=== PATIENT | female | born 1985 | race Caucasian/White ===

== ENCOUNTER 2016-09-11 22:29 | Inpatient (IN) | payer OTHER ==
[2016-09-11] MEDS ORDERED: SODIUM CHLORIDE 1,000 ML IV STA (23:58)
[2016-09-11] MEDS ORDERED: VANCOMYCIN 1,000 MG in DEXTROSE 5%-WATER - 250 ML IVPB ONE (23:58)
--- NOTE | 2016-09-12 00:29 | PDOC ---
History of Present Illness - General Chief Complaint: Wound Stated Complaint: ABCESS ON LEG Time Seen by Provider: 09/11/16 23:33 History Source: Patient Exam Limitations: No Limitations - History of Present Illness Initial Comments: 09/12/16 00:23 31yo Female patient presents to ED c/o abscesses. Patient reports she was recently admitted to [facility] for abscess behind her legs. Patient was receiving IV Vancomycin. She states her IV fell out, and they wanted her to take Abx by mouth. Patient states she left the hospital because she wanted a "second opinion." + drug dependence. Patient recently used heroin and cocaine prior to coming to this ED. She denies any other complaints at this time. Past History - Travel Traveled outside of the country in the last 30 days: No Close contact w/someone who was outside of country & ill: No - Past Medical History Allergies/Adverse Reactions: Allergies Allergy/AdvReac Type Severity Reaction Status Date / Time No Known Allergies Allergy Verified 09/11/16 22:33 Home Medications: Ambulatory Orders NK [No Known Home Medication] 09/11/16 Anemia: No Asthma: No Cancer: No Cardiac Disorders: No CVA: No COPD: No CHF: No Dementia: No Diabetes: No GI Disorders: No Disorders: No HTN: No Hypercholesterolemia: No Kidney Stones: No Liver Disease: No Suicide Attempt (Hx): No Seizures: No Thyroid Disease: No - Surgical History Abdominal Surgery: No Appendectomy: No Cardiac Surgery: No Cholecystectomy: No Lung Surgery: No Neurologic Surgery: No Orthopedic Surgery: No - Reproductive History PID: No - Immunization History Td Vaccination: Yes Immunization Up to Date: Yes - Psycho/Social/Smoking Cessation Hx Anxiety: Yes Suicidal Ideation: No Smoking Status: Yes Smoking History: Current every day smoker Have you smoked in the past 12 months: Yes Number of Cigarettes Smoked Daily: 10 Cigars Per Day: 0 Information on smoking cessation initiated: Yes 'Breaking Loose' booklet given: 09/11/16 Hx Alcohol Use: No Drug/Substance Use Hx: Yes (heroin, cocaine) Substance Use Type: Cocaine, Heroin Hx Substance Use Treatment: Yes (hitesh 05/29) Review of Systems - Review of Systems Able to Perform ROS?: Yes Is the patient limited Belgian proficient: No Constitutional: No: Chills, Fever Respiratory: No: Cough, Shortness of Breath, Stridor, Wheezing Cardiac (ROS): No: Chest Pain, Edema, Palpitations, Syncope, Chest Tightness ABD/GI: No: Constipated, Diarrhea, Nausea, Poor Appetite, Poor Fluid Intake, Vomiting : No: Burning, Dysuria, Discharge, Frequency, Flank Pain, Hematuria, Pain, Urgency Musculoskeletal: No: Back Pain, Gout, Muscle Weakness, Neck Pain Integumentary: Yes: Other (1. Large open abscess to Lt and Rt posterior legs, active purulent drainage. No odor or erythema. Large healing abscess to right wrist.) All Other Systems: Reviewed and Negative *Physical Exam - Vital Signs Last Vital Signs Temp Pulse Resp BP Pulse Ox 97.8 F 101 H 14 162/77 97 09/11/16 22:35 09/11/16 22:35 09/11/16 22:35 09/11/16 22:35 09/11/16 22:35 - Physical Exam General Appearance: Yes: Nourished, Disheveled. No: Appropriately Dressed, Apparent Distress, Mild Distress, Moderate Distress, Severe Distress Neck: positive: Trachea midline, Supple. negative: Stridor, Lymphadenopathy (R) , Lymphadenopathy (L) Respiratory/Chest: positive: Lungs Clear, Normal Breath Sounds. negative: Respiratory Distress, Accessory Muscle Use, Labored Respiration, Rapid RR Cardiovascular: positive: Regular Rhythm, Regular Rate. negative: Edema, JVD, Murmur Gastrointestinal/Abdominal: positive: Normal Bowel Sounds, Soft. negative: Distended, Guarding, Rebound, Tenderness Musculoskeletal: positive: Normal Inspection. negative: CVA Tenderness Extremity: positive: Normal Capillary Refill, Normal Inspection, Normal Range of Motion. negative: Erythema, Inflammation Integumentary: positive: Normal Color, Dry, Warm, Other (1. Large open draining abscess to posterior right and left legs. Purulent drainage. No odor or erythema. 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 NML intact, Fully Oriented, Alert, Normal Mood/ Affect, Normal Response, Motor Strength 12/16 ED Treatment Course - LABORATORY CBC & Chemistry Diagram: 09/12/16 02:00 09/12/16 02:00 *DC/Admit/Observation/Transfer Diagnosis at time of Disposition: Cutaneous abscess Qualifiers: Site of cutaneous abscess: extremity Site of cutaneous abscess of extremity: lower extremity Laterality: unspecified laterality Qualified Code(s): L02.419 - Cutaneous abscess of limb, unspecified Wound abscess Qualifiers: Encounter type: initial encounter Qualified Code(s): T81.4XXA - Infection following a procedure, initial encounter - Discharge Dispostion Condition at time of disposition: Stable Admit: Yes
[2016-09-12 01:09] LABS: URINE APPEARANCE SLCLOUDY; URINE BILIRUBIN NEGATIVE (NEGATIVE); URINE BLOOD NEGATIVE (NEGATIVE); URINE COLOR YELLOW; URINE GLUCOSE (UA) NEGATIVE (NEGATIVE); URINE KETONE TRACE (NEGATIVE); URINE LEUK ESTERASE NEGATIVE (NEGATIVE); URINE NITRITE NEGATIVE (NEGATIVE); URINE UROBILINOGEN NEGATIVE E.U./dl (0.2-1.0)
[2016-09-12 01:16] LABS: URINE PROTEIN 1+ (NEGATIVE)
[2016-09-12 01:25] LABS: CALCIUM OXALATE CRYSTALS FEW /hpf (NONE SEEN); URINE MUCUS MANY; URINE RBC 1 /hpf (0-3)
[2016-09-12] MEDS ORDERED: VANCOMYCIN 1 GRAM (PRE-DOCKED) 250 ML IVPB ONE ×2 (02:49→05:25)
[2016-09-12 02:56] LABS: MCH 25.3 pg (25.7-33.7); MCHC 32.4 g/dl (32.0-36.0); MEAN PLT VOLUME 7.7 fl (7.5-11.1); PLATELET COUNT 440 K/MM3 (134-434); RDW 14.4 % (11.6-15.6); WHITE BLOOD COUNT 9.3 K/mm3 (4.0-10.0)
--- NOTE | 2016-09-12 04:37 | PN ---
<Kelsey Velásquez - Last Filed: 09/12/16 05:05> Teaching Attending Note ATTENDING PHYSICIAN STATEMENT I saw and evaluated the patient. I reviewed the resident's note and discussed the case with the resident. I agree with the resident's findings and plan as documented. SUBJECTIVE: Patient is a 31 yo F with a PMHx of drug abuse and popliteal abscess who presents with intermittent popliteal abscesses that began 2 weeks ago. Patient reports the abscesses came back 2 weeks ago. She describes the abscesses as painful and reports seeing a light yellow discharge. Patient reports the abscess began as a small bump. She reports leaving AMA from [facility] yesterday after receiving IV antibiotics. Patient reported here because she wanted a second opinion. She admits to using cocaine and heroin prior to arrival at ED. She also reports associated chills. Patients LMP was August. Denies: fever, diaphoresis, headache, chest pain, palpitation, dysuria, abdominal pain OBJECTIVE: Last Vital Signs Temp Pulse Resp BP Pulse Ox 97.8 F 101 H 14 162/77 97 09/11/16 22:35 09/11/16 22:35 09/11/16 22:35 09/11/16 22:35 09/11/16 22:35 CBCD WBC 9.3 K/mm3 (4.0-10.0) D 09/12/16 02:00 RBC 4.66 M/mm3 (3.60-5.2) 09/12/16 02:00 Hgb 11.8 GM/dL (10.7-15.3) 09/12/16 02:00 Hct 36.4 % (32.4-45.2) 09/12/16 02:00 MCV 78.0 fl (80-96) L 09/12/16 02:00 MCHC 32.4 g/dl (32.0-36.0) 09/12/16 02:00 RDW 14.4 % (11.6-15.6) 09/12/16 02:00 Plt Count 440 K/MM3 (134-434) H D 09/12/16 02:00 MPV 7.7 fl (7.5-11.1) 09/12/16 02:00 CMP Sodium Cancelled 09/12/16 02:00 Potassium Cancelled 09/12/16 02:00 Chloride Cancelled 09/12/16 02:00 Carbon Dioxide Cancelled 09/12/16 02:00 Anion Gap Cancelled 09/12/16 02:00 BUN Cancelled 09/12/16 02:00 Creatinine Cancelled 09/12/16 02:00 Creat Clearance w eGFR Cancelled 09/12/16 02:00 Calcium Cancelled 09/12/16 02:00 Total Bilirubin Cancelled 09/12/16 02:00 AST Cancelled 09/12/16 02:00 ALT Cancelled 09/12/16 02:00 Alkaline Phosphatase Cancelled 09/12/16 02:00 Total Protein Cancelled 09/12/16 02:00 Albumin Cancelled 09/12/16 02:00 ASSESSMENT AND PLAN: 31 yo female with a PMHx of drug abuse and prior knee abscess who presents with popliteal abscess. 1.) Popliteal abscess -ID consult questionable I&D at [facility] -IVF -Surgical consult -Records from [facility] -Pain control -Repeat BMP 2.) Heroine and cocaine -Methadone protocol -Detox consult 3.) DVT ppx -heparin Documentation prepared by Kelsey Velásquez, acting as medical billing service for Mikala Villavicencio M.D. <Mikala Villavicencio - Last Filed: 09/12/16 05:21> Teaching Attending Note Name of Resident: Stefany Chavez ATTENDING PHYSICIAN STATEMENT I saw and evaluated the patient. I reviewed the resident's note and discussed the case with the resident. I agree with the resident's findings and plan as documented. OBJECTIVE: Physical: VS: Vital Signs (72 hours) 09/11/16 22:35 Temperature 97.8 F Pulse Rate 101 H Respiratory 14 Rate Blood Pressure 162/77 O2 Sat by Pulse 97 Oximetry (%) GEN: NAD, Resting in bed HEENT:NCAT, PERRL CARD: RRR S1, S2 RESP: CTAB ABD: BSX4, NTD to palpation EXT: Bilteral Knee Wounds Open wound R. Polpiteal area 4X5 cm non draining L. Knee draining wound UE: - C/C/E
--- NOTE | 2016-09-12 05:20 | HP ---
CHIEF COMPLAINT: Abscess behind both knees PCP: Doesn't have a PCP. Upon discharge, she may follow up with Dr. Addison (if possible on Monday after 1 pm) HISTORY OF PRESENT ILLNESS: 31 year old female with h/o heroin, cocaine abuse presented to the ED because of abscess behind her both knees. A/c to the patient, it started 2 weeks ago in both sites at the same time. Started with redness over the skin with a bump, progressively got worse, was painful, whitish yellowish fluid was seen. She then went to [facility] for treatment 6 days ago where she was treated with IV antibiotics. Apparently, IV line came off, the doctors wanted to start her on PO antibiotics hence she signed out AMA. She wanted to take second opinion but didn't come right away as she had to take cocaine and heroine before coming to [facility]. As per the patient, she had a CT of left knee at [facility] and surgeon performed incision and drainage and drained only blood but no pus. Patient was upset as it didn't get better after I&D. Denies headache, dizziness, fever, rigors, chest pain, sob, cough, palpitation, abdominal pain, nausea or vomiting. Bowel/Bladder Normal Sleep/Appetite Normal LMP- 1week of Aug, 2016 Last Hospitalized 02/21/2016 for sepsis secondary to injecting heroin behind her knees with MRSA + from wound culture. ER course was notable for: (1) CBC, CMP, UA, U.tox (2) CXR (3) IV Vancomycin Recent Travel: None PAST MEDICAL HISTORY: Drug abuse PAST SURGICAL HISTORY: None reported OCCUPATION: Stopped working since a month. Worked in [employer]. Social History: Smokin/2 pack since few years, patient would like to quit. Alcohol: Occasional Drugs: Cocaine, Heroine. Took few hours ago. Family History: Allergies No Known Allergies Allergy (Verified 09/11/16 22:33) HOME MEDICATIONS: Medication Instructions Recorded NK [No Known Home Medication] 09/11/16 REVIEW OF SYSTEMS CONSTITUTIONAL: Absent: fever, chills, diaphoresis, generalized weakness, malaise, loss of appetite, weight change HEENT: Absent: rhinorrhea, nasal congestion, throat pain, throat swelling, difficulty swallowing, mouth swelling, ear pain, eye pain, visual changes CARDIOVASCULAR: Absent: chest pain, syncope, palpitations, irregular heart rate, lightheadedness , peripheral edema RESPIRATORY: Absent: cough, shortness of breath, dyspnea with exertion, orthopnea, wheezing, stridor, hemoptysis GASTROINTESTINAL: Absent: abdominal pain, abdominal distension, nausea, vomiting, diarrhea, constipation, melena, hematochezia GENITOURINARY: Absent: dysuria, frequency, urgency, hesitancy, hematuria, flank pain, genital pain MUSCULOSKELETAL: Absent: myalgia, arthralgia, joint swelling, back pain, neck pain SKIN popliteal area: Present: Pain over the popliteal area, erythematous, tender Absent: rash, itching, pallor HEMATOLOGIC/IMMUNOLOGIC: Absent: easy bleeding, easy bruising, lymphadenopathy, frequent infections ENDOCRINE: Absent: unexplained weight gain, unexplained weight loss, heat intolerance, cold intolerance NEUROLOGIC: Absent: headache, focal weakness or paresthesias, dizziness, unsteady gait, seizure, mental status changes, bladder or bowel incontinence PSYCHIATRIC: Absent: anxiety, depression, suicidal or homicidal ideation, hallucinations. PHYSICAL EXAMINATION Vital Signs - 24 hr 09/11/16 22:35 Temperature 97.8 F Pulse Rate 101 H Respiratory 14 Rate Blood Pressure 162/77 O2 Sat by Pulse 97 Oximetry (%) GENERAL: Young female, Awake, alert, and fully oriented, in no acute distress. HEAD: Normal with no signs of trauma. EYES: EOM intact, no pallor or icterus. EARS, NOSE, THROAT: Ears normal. Moist mucous membranes. NECK: Supple LUNGS: Breath sounds equal, clear to auscultation bilaterally. No wheezes, and no crackles. No accessory muscle use. HEART: Regular rate and rhythm, normal S1 and S2 without murmur, rub or gallop. ABDOMEN: Soft, nontender, not distended, normoactive bowel sounds, no guarding, no rebound, no masses. No hepatomegaly or splenomegaly. MUSCULOSKELETAL: Normal range of motion at all joints. No bony deformities or tenderness. No CVA tenderness. INTEGUMENTARY: Purulent drainange from the b/l popliteal area, left medial side- surgical incision site draining pus, tender to touch and on flexion/extension, serosanguinous fluid +, no odor. UPPER EXTREMITIES: 2+ pulses, warm, well-perfused. No cyanosis. No clubbing. No peripheral edema. LOWER EXTREMITIES: 2+ pulses, warm, well-perfused. No calf tenderness. No peripheral edema. NEUROLOGICAL: Cranial nerves II-XII intact. Normal speech. Bulk, tone, power 5/ 5, reflexes normal. Gait not observed. PSYCHIATRIC: Cooperative. Good eye contact. Appropriate mood and affect. SKIN: Warm, dry, normal turgor, no rashes or lesions noted. Laboratory Results - last 24 hr 09/12/16 09/12/16 09/12/16 00:25 02:00 02:00 WBC 9.3 D RBC 4.66 Hgb 11.8 Hct 36.4 MCV 78.0 L MCHC 32.4 RDW 14.4 Plt Count 440 H D MPV 7.7 Sodium Cancelled Potassium Cancelled Chloride Cancelled Carbon Dioxide Cancelled Anion Gap Cancelled BUN Cancelled Creatinine Cancelled Creat Clearance w eGFR Cancelled Random Glucose Cancelled Lactic Acid Calcium Cancelled Total Bilirubin Cancelled AST Cancelled ALT Cancelled Alkaline Phosphatase Cancelled Total Protein Cancelled Albumin Cancelled Urine Color Yellow Urine Appearance Slcloudy Urine pH 5.0 Ur Specific [place] 1.032 Urine Protein 1+ H Urine Glucose (UA) Negative Urine Ketones Trace H Urine Blood Negative Urine Nitrite Negative Urine Bilirubin Negative Urine Urobilinogen Negative Ur Leukocyte Esterase Negative Urine RBC 1 Urine WBC None Ur Epithelial Cells Rare Calcium Oxalate Crystal Few Urine Mucus Many Urine HCG, Qual Negative 09/12/16 09/12/16 03:06 03:26 WBC RBC Hgb Hct MCV MCHC RDW Plt Count MPV Sodium Cancelled Potassium Cancelled Chloride Cancelled Carbon Dioxide Cancelled Anion Gap Cancelled BUN Cancelled Creatinine Cancelled Creat Clearance w eGFR Cancelled Random Glucose Cancelled Lactic Acid 0.896 Calcium Cancelled Total Bilirubin Cancelled AST Cancelled ALT Cancelled Alkaline Phosphatase Cancelled Total Protein Cancelled Albumin Cancelled Urine Color Urine Appearance Urine pH Ur Specific [place] Urine Protein Urine Glucose (UA) Urine Ketones Urine Blood Urine Nitrite Urine Bilirubin Urine Urobilinogen Ur Leukocyte Esterase Urine RBC Urine WBC Ur Epithelial Cells Calcium Oxalate Crystal Urine Mucus Urine HCG, Qual ASSESSMENT/PLAN: 31 year old female with h/o heroin, cocaine abuse presented to the ED because of abscess behind her both knees x 2 weeks. # Popliteal abscess x 2 weeks Most likely due to IV drug abuse but not certain Last Hospitalized 02/21/2016 for sepsis secondary to injecting heroin behind her knees with MRSA + from wound culture. At that time, treated with Vancomycin and Aztreonam Records/CT imaging of knees to be obtained from [facility] On arrival, afebrile, HR 101bpm, No leukocytosis Patient admitted in Med-Surg IV Vancomycin one dose given in the ED ID consult placed Wound culture pending Ordered Vancomycin and Aztreonam, confirmation pending Surgical consult placed Local wound care IV fluids continued # Polysubstance abuse Patient admitted she took heroine, cocaine a couple of hours ago Would consider HIV test to be done U. tox pending Methadone protocol started Watch for withdrawals Dr. Wade consult Counseling # FEN IV NS @ 75mls/hr Electrolytes normal Regular diet # Prophylaxis For DVT- On Heparin 5000U For GI- Not indicated # Code status- Full code # Dispo: Admitted in Med-Surg Illness, Investigation and Plan of care explained to the patient. She verbalized understanding. Case seen and discussed with Dr. Villavicencio. Visit type - Emergency Visit Emergency Visit: Yes ED Registration Date: 09/12/16 Care time: The patient presented to the Emergency Department on the above date and was hospitalized for further evaluation of their emergent condition. - New Patient This patient is new to me today: Yes Date on this admission: 09/12/16 - Critical Care Critical Care patient: No
[2016-09-12] MEDS ORDERED: AZTREONAM 1 GM in DEXTROSE 5%-WATER - 50 ML IVPB ONE (05:25)
[2016-09-12] MEDS ORDERED: VANCOMYCIN 1,000 MG in DEXTROSE 5%-WATER - 250 ML IVPB ONE (05:25)
[2016-09-12 05:57] LABS: ALBUMIN 3.2 g/dl (3.4-5.0); ANION GAP 11 (8-16); BILIRUBIN,TOTAL 0.2 mg/dL (0.2-1.0); CALCIUM 8.6 mg/dL (8.5-10.1); CO2 26 mmol/L (21-32); CREATININE 0.8 mg/dL (0.55-1.02); GLUCOSE,RANDOM 92 mg/dL (74-106); SGOT/AST 11 U/L (15-37); SGPT/ALT 15 U/L (12-78); TOT PROT 6.8 g/dl (6.4-8.2)
[2016-09-12 05:58] LABS: ALK PHOS 67 U/L (45-117)
[2016-09-12] MEDS: SODIUM CHLORIDE 1,000 ML IV SCH (05:58)
[2016-09-12] MEDS ORDERED: METHADONE HCL 10 MG TABLET (FOR DETOX USE ONLY) PO ONE (06:01)
[2016-09-12] MEDS ORDERED: METHADONE HCL 10 MG TABLET ONE (06:56)
[2016-09-12] MEDS ORDERED: VANCOMYCIN 1 GRAM (PRE-DOCKED) 250 ML IVPB SCH ×2 (10:00→22:00)
[2016-09-12] MEDS: HEPARIN NA (PORCINE) 5,000 UNITS/ML 1ML VIAL SQ SCH ×2 (10:12→22:27)
--- NOTE | 2016-09-12 10:23 | CONSULT ---
Consult Detox [facility] Reason for Current Admission/Consult: heroin withdrawal sx. Referred by:: Stefany Chavez Res - History History of Present Illness: 31 y/o woman known to me from previous admissions for detox and cellulitis. Pt. uses IV heroin daily which results in cellulitis. - History Source History Provided By: Patient, Medical Record - Alcohol/Substance Use Hx Alcohol Use: No - Current Drug/Alcohol Use Heroin Route: Injection Frequency: Daily Amount used: 5-8 bags Age of first use: 23 Date of Last Use: 09/11/16 - Past Medical History ...LMP: 02/08/16 Psych: Yes: Addictions - Significant Medical Findings: Laboratory Last Values WBC 9.3 K/mm3 (4.0-10.0) D 09/12/16 02:00 RBC 4.66 M/mm3 (3.60-5.2) 09/12/16 02:00 Hgb 11.8 GM/dL (10.7-15.3) 09/12/16 02:00 Hct 36.4 % (32.4-45.2) 09/12/16 02:00 MCV 78.0 fl (80-96) L 09/12/16 02:00 MCHC 32.4 g/dl (32.0-36.0) 09/12/16 02:00 RDW 14.4 % (11.6-15.6) 09/12/16 02:00 Plt Count 440 K/MM3 (134-434) H D 09/12/16 02:00 MPV 7.7 fl (7.5-11.1) 09/12/16 02:00 Sodium 140 mmol/L (136-145) 09/12/16 05:11 Potassium 4.2 mmol/L (3.5-5.1) 09/12/16 05:11 Chloride 103 mmol/L (98-107) 09/12/16 05:11 Carbon Dioxide 26 mmol/L (21-32) 09/12/16 05:11 Anion Gap 11 (8-16) 09/12/16 05:11 BUN 10 mg/dL (7-18) 09/12/16 05:11 Creatinine 0.8 mg/dL (0.55-1.02) 09/12/16 05:11 Creat Clearance w eGFR > 60 (>60) 09/12/16 05:11 Random Glucose 92 mg/dL (74-106) 09/12/16 05:11 Lactic Acid 0.896 mmol/L (0.4-2.0) 09/12/16 03:06 Calcium 8.6 mg/dL (8.5-10.1) 09/12/16 05:11 Total Bilirubin 0.2 mg/dL (0.2-1.0) D 09/12/16 05:11 AST 11 U/L (15-37) L D 09/12/16 05:11 ALT 15 U/L (12-78) 09/12/16 05:11 Alkaline Phosphatase 67 U/L (45-117) 09/12/16 05:11 Total Protein 6.8 g/dl (6.4-8.2) 09/12/16 05:11 Albumin 3.2 g/dl (3.4-5.0) L 09/12/16 05:11 Urine Color Yellow 09/12/16 00:25 Urine Appearance Slcloudy 09/12/16 00:25 Urine pH 5.0 (5.0-8.0) 09/12/16 00:25 Ur Specific [place] 1.032 (1.001-1.035) 09/12/16 00:25 Urine Protein 1+ (NEGATIVE) H 09/12/16 00:25 Urine Glucose (UA) Negative (NEGATIVE) 09/12/16 00:25 Urine Ketones Trace (NEGATIVE) H 09/12/16 00:25 Urine Blood Negative (NEGATIVE) 09/12/16 00:25 Urine Nitrite Negative (NEGATIVE) 09/12/16 00:25 Urine Bilirubin Negative (NEGATIVE) 09/12/16 00:25 Urine Urobilinogen Negative E.U./dl (0.2-1.0) 09/12/16 00:25 Ur Leukocyte Esterase Negative (NEGATIVE) 09/12/16 00:25 Urine RBC 1 /hpf (0-3) 09/12/16 00:25 Urine WBC None /hpf (3-5) 09/12/16 00:25 Ur Epithelial Cells Rare /hpf (FEW) 09/12/16 00:25 Calcium Oxalate Crystal Few /hpf (NONE SEEN) 09/12/16 00:25 Urine Mucus Many 09/12/16 00:25 Urine HCG, Qual Negative 09/12/16 00:25 Opiates Screen Cancelled 09/12/16 00:25 Methadone Screen Cancelled 09/12/16 00:25 Barbiturate Screen Cancelled 09/12/16 00:25 Phencyclidine Screen Cancelled 09/12/16 00:25 Ur Amphetamines Screen Cancelled 09/12/16 00:25 MDMA (Ecstasy) Screen Cancelled 09/12/16 00:25 Benzodiazepines Screen Cancelled 09/12/16 00:25 Cocaine Screen Cancelled 09/12/16 00:25 U Marijuana (THC) Screen Cancelled 09/12/16 00:25 labs noted COWS - Scale Resting Pulse: 1= MT 81-100 Sweatin=Flushed/Facial Moisture Restless Observation: 1= Difficult to Sit Still Pupil Size: 1= Pupils >than Normal Bone or Joint Aches: 1= Mild Discomfort Runny Nose/ Eye Tearin= Runny Nose/Eyes GI Upset > 30mins: 2= Nausea/Diarrhea Tremor Observation: 2= Slight Tremor Visible Yawning Observation: 1= 1-2x During Session Anxiety or Irritability: 2=Irritable/Anxious Goose Flesh Skin: 0=Smooth Skin COWS Score: 15 Assessment Plan - Diagnosis (1) Opioid dependence with withdrawal Status: Acute - Plan Plan: Pt. will need rehab followed by terminal makeup operator residential - Medication Detox Regimen/Protocol: Methadone (ordered by resident)
[2016-09-12 12:55] VITALS: BMI 22.7
--- NOTE | 2016-09-12 15:19 | CONSULT ---
Consult Consult Specialty:: infectious diseases Reason for Consultation:: popliteal abscess - History of Present Illness Chief Complaint: pain on the popliteal fossa History of Present Illness: 31 year old female with h/o heroin, cocaine abuse presented to the ED because of abscess behind her both knees. A/c to the patient, it started 2 weeks ago in both sites at the same time. Started with redness over the skin with a bump, progressively got worse, was painful, whitish yellowish fluid was seen. She then went to [facility] for treatment 6 days ago where she was treated with IV antibiotics. Apparently, IV line came off, the doctors wanted to start her on PO antibiotics hence she signed out AMA. She wanted to take second opinion but didn't come right away as she had to take cocaine and heroine before coming to [facility]. 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/ [employer] History of Recent Travel: No Home Medications - Allergies Allergies/Adverse Reactions: Allergies Allergy/AdvReac Type Severity Reaction Status Date / Time No Known Allergies Allergy Verified 09/11/16 22:33 - Home Medications Home Medications: Ambulatory Orders NK [No Known Home Medication] 09/11/16 Review of Systems - Review of Systems Constitutional: reports: Other Eyes: reports: No Symptoms HENT: reports: No Symptoms Neck: reports: No Symptoms Cardiovascular: reports: No Symptoms Respiratory: reports: No Symptoms Gastrointestinal: reports: No Symptoms Genitourinary: reports: No Symptoms Musculoskeletal: reports: Joint Pain, Muscle Pain Integumentary: reports: Erythema 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: reports: No Symptoms Endocrine: reports: No Symptoms Hematology/Lymphatic: reports: No Symptoms Psychiatric: reports: No Symptoms Physical Exam Vital Signs: Vital Signs Temperature 97.8 F 09/11/16 22:35 Pulse Rate 80 09/12/16 07:05 Respiratory Rate 18 09/12/16 10:10 Blood Pressure 97/49 09/12/16 10:10 O2 Sat by Pulse Oximetry (%) 97 09/12/16 10:10 Constitutional: Yes: Well Nourished, Calm, Mild Distress Cardiovascular: Yes: Regular Rate and Rhythm Respiratory: Yes: Regular, CTA Bilaterally Gastrointestinal: Yes: Normal Bowel Sounds, Soft Musculoskeletal: Yes: Other Extremities: Yes: Other (popliteal on the rt side and left sided popliteal abscess) Wound/Incision: Yes: Other 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: Yes: Alert, Oriented Psychiatric: Yes: Alert Labs: CBC, BMP 09/12/16 05:11 Imaging - Results Chest X-ray: Report Reviewed, Image Reviewed Assessment/Plan 31 year old female with h/o heroin, cocaine abuse presented to the ED because of abscess behind her both knees x 2 weeks. # Popliteal abscess x 2 weeks # Polysubstance abuse plan surgery to evaluate abx wound care counselling
[2016-09-12] MEDS: diazePAM 5 MG TABLET PO PRN (19:04)
[2016-09-12] MEDS ORDERED: METHADONE HCL 10 MG TABLET PO ONE (23:00)
[2016-09-13] MEDS: SODIUM CHLORIDE 1,000 ML IV SCH (05:53)
[2016-09-13] MEDS ORDERED: METHADONE HCL 10 MG TABLET PO ONE (06:00)
[2016-09-13] MEDS: HEPARIN NA (PORCINE) 5,000 UNITS/ML 1ML VIAL SQ SCH (09:26)
[2016-09-13] MEDS: diazePAM 5 MG TABLET PO PRN ×2 (09:45→22:54)
[2016-09-13] MEDS ORDERED: METHADONE HCL 10 MG TABLET (FOR DETOX USE ONLY) PO ONE (10:00)
--- NOTE | 2016-09-13 12:47 | PN ---
Progress Note, Physician History of Present Illness: patient doing well comfortable patient going to the or for drainage of the popliteal abscess no other issues - Current Medication List Current Medications: Active Medications Diazepam (Valium -) 10 mg PO Q4H PRN PRN Reason: WITHDRAWAL(CONT SUBST) Stop: 09/15/16 06:00 Last Admin: 09/13/16 09:45 Dose: 10 mg Heparin Sodium (Porcine) (Heparin -) 5,000 unit SQ BID [facility] Last Admin: 09/13/16 09:26 Dose: Not Given Sodium Chloride (Normal Saline -) 1,000 mls @ 75 mls/hr IV ASDIR [facility] Last Admin: 09/13/16 05:53 Dose: Not Given Vancomycin HCl (Vancomycin (Pre-Docked)) 250 mls @ 150 mls/hr IVPB DAILY@2200 [facility] Last Admin: 09/12/16 22:03 Dose: 150 mls/hr Methadone HCl (Dolophine -) 10 mg PO ONCE ONE Stop: 09/16/16 10:01 Methadone HCl (Dolophine -) 15 mg PO ONCE ONE Stop: 09/14/16 10:01 Methadone HCl (Dolophine -) 15 mg PO ONCE ONE Stop: 09/15/16 10:01 Methadone HCl (Dolophine -) 5 mg PO ONCE@0600 ONE Stop: 09/17/16 06:01 - Objective Vital Signs: Vital Signs Temperature 98.1 F 09/13/16 07:01 Pulse Rate 68 09/13/16 07:01 Respiratory Rate 20 09/13/16 07:01 Blood Pressure 106/52 09/13/16 07:01 O2 Sat by Pulse Oximetry (%) 97 09/12/16 21:00 Constitutional: Yes: No Distress, Calm Cardiovascular: Yes: Regular Rate and Rhythm Respiratory: Yes: Regular, CTA Bilaterally Gastrointestinal: Yes: Normal Bowel Sounds, Soft Musculoskeletal: Yes: Other Extremities: Yes: Other (bilateral popliteal lesions left sided collectiion rt sided open wound) Integumentary: Yes: Erythema Wound/Incision: Yes: Open to air, Other 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: Yes: Alert, Oriented Psychiatric: Yes: Alert Labs: CBC, BMP 09/12/16 05:11 Assessment/Plan 31 year old female with h/o heroin, cocaine abuse presented to the ED because of abscess behind her both knees x 2 weeks. # Popliteal abscess x 2 weeks # Polysubstance abuse plan surgery continue abx should do hiv testing wound care
--- NOTE | 2016-09-13 13:01 | PN ---
Physical Exam: SUBJECTIVE: Patient seen and examined at bedside. Denies fever, sweats, chills. Last used heroin and cocaine 48 hours ago. Refusing fluids and blood draws. OBJECTIVE: Vital Signs Period Temp Pulse Resp BP Sys/Ortiz Pulse Ox Last 24 Hr 97.6 F-98.1 F 65-68 18-20 106-115/52-66 97 GENERAL: The patient is awake, alert, and fully oriented, in no acute distress. HEAD: Normal with no signs of trauma. EYES: PERRL, extraocular movements intact, sclera anicteric, conjunctiva clear. No ptosis. LUNGS: Breath sounds equal, clear to auscultation bilaterally, no wheezes, no crackles, no accessory muscle use. HEART: Regular rate and rhythm, S1, S2 without murmur, rub or gallop. ABDOMEN: Soft, nontender, nondistended, normoactive bowel sounds, no guarding, no rebound UPPER EXTREMITIES: 2+ pulses, warm, well-perfused, no edema. LOWER EXTREMITIES: posterior knees bilaterally with abscessed wounds, visible pus in both NEUROLOGICAL: Cranial nerves II through XII grossly intact. Normal speech, gait not observed. Current Medications Generic Name Dose Route Start Last Admin Trade Name Freq PRN Reason Stop Dose Admin Diazepam 10 mg 09/12/16 06:01 09/13/16 09:45 Valium - PO 09/15/16 06:00 10 mg Q4H PRN Administration WITHDRAWAL(CONT SUBST) Heparin Sodium (Porcine) 5,000 unit 09/12/16 10:00 09/13/16 09:26 Heparin - SQ Not Given BID [facility] Sodium Chloride 1,000 mls @ 75 mls/hr 09/12/16 05:30 09/13/16 05:53 Normal Saline - IV Not Given ASDIR PENNY Vancomycin HCl 250 mls @ 150 mls/hr 09/12/16 22:00 09/12/16 22:03 Vancomycin (Pre-Docked) IVPB 150 mls/hr DAILY@2200 [facility] Administration Methadone HCl 10 mg 09/16/16 10:00 Dolophine - PO 09/16/16 10:01 ONCE ONE Methadone HCl 15 mg 09/14/16 10:00 Dolophine - PO 09/14/16 10:01 ONCE ONE Methadone HCl 15 mg 09/15/16 10:00 Dolophine - PO 09/15/16 10:01 ONCE ONE Methadone HCl 5 mg 09/17/16 06:00 Dolophine - PO 09/17/16 06:01 ONCE@0600 ONE Microbiology 09/12/16 02:18 Abscess Gram Stain - Final 09/12/16 02:18 Abscess Wound Culture - Preliminary Presumptive Mssa (Pbp2a Neg) 09/12/16 02:18 Abscess Gram Stain - Final 09/12/16 02:18 Abscess Wound Culture - Preliminary Presumptive Mssa (Pbp2a Neg) Staphylococcus Coagulase Neg 09/12/16 02:06 Blood - Peripheral Venous Blood Culture - Preliminary NO GROWTH OBTAINED AFTER 24 HOURS, INCUBATION TO CONTINUE FOR 4 DAYS. 09/12/16 02:06 Blood - Peripheral Venous Blood Culture - Preliminary NO GROWTH OBTAINED AFTER 24 HOURS, INCUBATION TO CONTINUE FOR 4 DAYS. ASSESSMENT/PLAN 31 year-old woman with a PMH of IVDA (heroin, cocaine) admitted for bilateral popliteal abscesses from injecting heroin. Bilateral popliteal abscesses secondary to IVDA --patient injects heroin in the popliteal spaces, last injection 48 hours ago --previously treated 02/2016 for same, grew +MRSA; cultures from 09/12 growing staph --continue Vanco (day #2) pending cultures --I&D in OR scheduled for today Polysubstance abuse --heroin and cocaine within last 48 hours, no s/s of withdrawal at present --continue methadone taper, valium PRN --HIV testing ordered F/E/N Fluids: NS @ 75mL/hr Electrolytes: replete as indicated Nutrition: NPO DVT prophylaxis: hold subq heparin; oob, ambulation; no SCDs given bilateral knee abscesses Dispo: continues to require inpatient care. Full Code. Visit type - Emergency Visit Emergency Visit: Yes ED Registration Date: 09/12/16 Care time: The patient presented to the Emergency Department on the above date and was hospitalized for further evaluation of their emergent condition. - New Patient This patient is new to me today: Yes Date on this admission: 09/13/16 - Critical Care Critical Care patient: No
[2016-09-13] MEDS ORDERED: MIDAZOLAM HCL 2 MG/2 ML SINGLE DOSE VIAL ONE (13:34)
[2016-09-13] MEDS ORDERED: ROCURONIUM BROMIDE 50 MG/5 ML VIAL ONE (13:35)
[2016-09-13] MEDS ORDERED: PROPOFOL 20 ML ONE (13:35)
--- NOTE | 2016-09-13 14:39 | OP ---
Operative Note - Note: Operative Date: 09/13/16 Pre-Operative Diagnosis: soft tissue abscess b/l popliteal fossae Operation: I and D; debridement of skin and subcutaneous tissue Findings: L>R soft tissue infection both popliteal fossae Surgeon: Adonis Li Global Compensation Director: Evelina Mckeon Anesthesia: General Specimens Removed: none; cultures only Estimated Blood Loss (mls): 10 Instrument used (Debridements only): pulse lavage; currette Drains & Tubes with Location: none Blood Volume Replaced (mls): 10 Fluid Volume Replaced (mls): 500
[2016-09-13] MEDS ORDERED: NEOSTIGMINE METHYLSULFATE 0.5 MG/ML - 10 ML MDV ONE (14:51)
[2016-09-13] MEDS ORDERED: ONDANSETRON 4 MG/2 ML VIAL IVPUSH PRN ×2 (15:03→16:11)
[2016-09-13] MEDS ORDERED: LACTATED RINGERS SOLUTION 1,000 ML IV SCH ×2 (15:15→16:11)
--- NOTE | 2016-09-13 16:50 | CONSULT ---
Consultation: REQUESTING PROVIDER: ER MD CONSULT REQUEST: We have been asked to surgically evaluate this patient for evaluation and management of skin structure infections of the popliteal fossae. HISTORY OF PRESENT ILLNESS: Patient has h/o skin popping cocaine; she was recently txed at [facility] and left after " nothing was being done for her " ; she apparently had a bedside I and D. PHYSICAL EXAMINATION Vital Signs Temperature 98.4 F 09/13/16 16:00 Pulse Rate 82 09/13/16 16:00 Respiratory Rate 12 09/13/16 16:00 Blood Pressure 110/57 09/13/16 16:00 O2 Sat by Pulse Oximetry (%) 96 09/13/16 16:00 GENERAL: Awake, alert, and fully oriented, in no acute distress. ABDOMEN: Soft, nontender, not distended, normoactive bowel sounds, no guarding, no rebound, no masses. No hepatomegaly or splenomegaly. MUSCULOSKELETAL: Normal range of motion at all joints. No bony deformities or tenderness. No CVA tenderness. UPPER EXTREMITIES: 2+ pulses, warm, well-perfused. No cyanosis. Cap refill <2 seconds. No peripheral edema. LOWER EXTREMITIES: 2+ pulses, warm, well-perfused. No calf tenderness. No peripheral edema; b/l popliteal fossa L>R skin and skin structure infections NEUROLOGICAL: Normal speech, gait not observed. PSYCH: Cooperative. Good eye contact. Appropriate mood and affect. SKIN: Warm, dry, normal turgor, no rashes or lesions noted. LABS: reviewed IMP/PLAN: ABSSSI of both popliteal fossae; needs I and D and debridement in the OR. N.B. case was cancelled yesterday b/o recent cocaine ingestion ad done today. Adonis Li MD FACS Visit type - Case Type Case Type: ED Admission - Emergency Emergency Visit: Yes ED Registration Date: 09/12/16 Care time: The patient presented to the Emergency Department on the above date and was hospitalized for further evaluation of their emergent condition. - New patient This patient is new to me today: No
[2016-09-13] MEDS ORDERED: VANCOMYCIN 1 GRAM (PRE-DOCKED) 250 ML IVPB SCH (22:00)
[2016-09-14] MEDS ORDERED: ACETAMINOPHEN 500 MG TABLET (FP) PO ONE (01:45)
[2016-09-14] MEDS ORDERED: ACETAMINOPHEN 325 MG TABLET (FP) ONE (01:47)
[2016-09-14] MEDS ORDERED: METHADONE HCL 5 MG TABLET PO ONE ×2 (10:00)
[2016-09-14] MEDS: diazePAM 5 MG TABLET PO PRN ×2 (10:49→15:11)
--- NOTE | 2016-09-14 12:34 | SURG ---
Surgery Decontamination Technician Note Decontamination Technician: Evelina Mckeon PA-C Date of Service: 09/13/16 Diagnosis: soft tissue abscess b/l popliteal fossae Procedure: I and D; debridement of skin and subcutaneous tissue I was present for the entirety of the operative procedure. For further detail, please refer to operative report. Visit type - Case Type Case Type: ED Admission - New patient This patient is new to me today: Yes Date on this admission: 09/14/16
--- NOTE | 2016-09-14 15:05 | PN ---
Progress Note, Physician History of Present Illness: patient stable post op doing well pain in the popliteal region - Current Medication List Current Medications: Active Medications Diazepam (Valium -) 10 mg PO Q4H PRN PRN Reason: WITHDRAWAL(CONT SUBST) Stop: 09/15/16 06:00 Last Admin: 09/14/16 10:49 Dose: 10 mg Methadone HCl (Dolophine -) 15 mg PO ONCE ONE Stop: 09/15/16 10:01 Methadone HCl (Dolophine -) 10 mg PO ONCE ONE Stop: 09/16/16 10:01 Methadone HCl (Dolophine -) 5 mg PO ONCE@0600 ONE Stop: 09/17/16 06:01 - Objective Vital Signs: Vital Signs Temperature 98.4 F 09/14/16 14:33 Pulse Rate 67 09/14/16 14:33 Respiratory Rate 16 09/14/16 14:33 Blood Pressure 99/58 09/14/16 14:33 O2 Sat by Pulse Oximetry (%) 96 09/14/16 09:00 Constitutional: Yes: No Distress, Calm Cardiovascular: Yes: Regular Rate and Rhythm Respiratory: Yes: Regular, CTA Bilaterally Gastrointestinal: Yes: Normal Bowel Sounds, Soft Musculoskeletal: Yes: Other Extremities: Yes: Other Wound/Incision: Yes: Open to air, Other 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: Yes: Alert, Oriented Labs: CBC, BMP 09/12/16 05:11 Assessment/Plan 31 year old female with h/o heroin, cocaine abuse presented to the ED because of abscess behind her both knees x 2 weeks. # Popliteal abscess x 2 weeks # Polysubstance abuse wound infection plan post op stopped vanco cx report noted started on doxy
[2016-09-14] MEDS ORDERED: KETOROLAC TROMETHAMINE 10 MG TABLET PO ONE (15:47)
--- NOTE | 2016-09-14 15:47 | PN ---
Progress Note (short form) - Note Progress Note: Surgery- Dr. Li Patient seen and dressing changed. Patient is complaining of pain in the medial aspect of her left popliteal wound. Patient states this area has been the most tender. Last Vital Signs Temp Pulse Resp BP Pulse Ox 98.4 F 67 16 99/58 96 09/14/16 14:33 09/14/16 14:33 09/14/16 14:33 09/14/16 14:33 09/14/16 09:00 Exam: Gen: NAD LE: Right popliteal fossa with more superficial wound, minimal drainage, left LE with wound across popliteal fossa, minimal drainage, packing gently replaced LE bilat. and Kerlex wrap Problem List - Problems (1) Abscess of popliteal region Assessment/Plan: Dressings replaced, packing moist with saline, 4x4, Kerlex Continue abx per ID Continue dressing changes, may need visiting nurse to assist with dressing changes Code(s): L02.419 - CUTANEOUS ABSCESS OF LIMB, UNSPECIFIED
--- NOTE | 2016-09-14 15:50 | PN ---
Physical Exam: SUBJECTIVE: Patient seen and examined at bedside. S/p I&D. Has pain behind right knee. OBJECTIVE: Vital Signs Period Temp Pulse Resp BP Sys/Ortiz Pulse Ox Last 24 Hr 97.8 F-98.4 F 59-98 12-22 94-119/49-65 96-96 GENERAL: The patient is awake, alert, and fully oriented, in no acute distress. HEAD: Normal with no signs of trauma. EYES: PERRL, extraocular movements intact, sclera anicteric, conjunctiva clear. No ptosis. LUNGS: Breath sounds equal, clear to auscultation bilaterally, no wheezes, no crackles, no accessory muscle use. HEART: Regular rate and rhythm, S1, S2 without murmur, rub or gallop. ABDOMEN: Soft, nontender, nondistended, normoactive bowel sounds, no guarding, no rebound UPPER EXTREMITIES: 2+ pulses, warm, well-perfused, no edema. LOWER EXTREMITIES: posterior knees bilaterally with abscessed wounds, visible pus in both NEUROLOGICAL: Cranial nerves II through XII grossly intact. Normal speech, gait not observed. Active Medications Generic Name Dose Route Start Last Admin Trade Name Freq PRN Reason Stop Dose Admin Diazepam 10 mg 09/13/16 16:11 09/14/16 15:11 Valium - PO 09/15/16 06:00 10 mg Q4H PRN Administration WITHDRAWAL(CONT SUBST) Doxycycline Hyclate 100 mg 09/14/16 15:15 Vibramycin - PO DAILY PENNY Methadone HCl 15 mg 09/15/16 10:00 Dolophine - PO 09/15/16 10:01 ONCE ONE Methadone HCl 10 mg 09/16/16 10:00 Dolophine - PO 09/16/16 10:01 ONCE ONE Methadone HCl 5 mg 09/17/16 06:00 Dolophine - PO 09/17/16 06:01 ONCE@0600 ONE ASSESSMENT/PLAN 31 year-old woman with a PMH of IVDA (heroin, cocaine) admitted for bilateral popliteal abscesses from injecting heroin. Bilateral popliteal abscesses secondary to IVDA --s/p I&D --wounds are packed, dressings not disturbed, will be changed by surgical PA later today --+MSSA --switch Vanco to PO doxy --plan to discharge tomorrow Polysubstance abuse --heroin and cocaine within last 48 hours, no s/s of withdrawal at present --continue methadone taper, valium PRN --HIV testing ordered F/E/N Fluids: NS @ 75mL/hr Electrolytes: replete as indicated Nutrition: NPO DVT prophylaxis: hold subq heparin; oob, ambulation; no SCDs given bilateral knee abscesses Dispo: continues to require inpatient care. Full Code. Visit type - Emergency Visit Emergency Visit: Yes ED Registration Date: 09/12/16 Care time: The patient presented to the Emergency Department on the above date and was hospitalized for further evaluation of their emergent condition. - New Patient This patient is new to me today: No - Critical Care Critical Care patient: No
[2016-09-14] MEDS: DOXYCYCLINE HYCLATE 100 MG CAPSULE PO SCH (16:25)
[2016-09-15 06:46] VITALS: TEMP 97.7
[2016-09-15] MEDS: DOXYCYCLINE HYCLATE 100 MG CAPSULE PO SCH (09:40)
[2016-09-15] MEDS ORDERED: METHADONE HCL 5 MG TABLET PO ONE ×2 (10:00)
[2016-09-15 10:28] VITALS: BP 93/52; PULSE 57
--- NOTE | 2016-09-15 11:40 | OP ---
DATE OF OPERATION: 09/13/2016 PREOPERATIVE DIAGNOSIS: Soft tissue infection of the bilateral popliteal fossae. POSTOPERATIVE DIAGNOSIS: Soft tissue infection of the bilateral popliteal fossae. PROCEDURE: Incision and drainage and debridement of skin and subcutaneous tissue of both popliteal fossae. SURGEON: Adonis Li MD LICENSING WORKER: Evelina Mckeon PA-C ANESTHESIA: General. OPERATIVE FINDINGS: There was an open wound in the right popliteal fossa from previous incision and drainage with seropurulent exudate and nonviable tissue, and on the left there was a kylah abscess and nonviable tissue. The rest of the findings were unremarkable. PROCEDURE: Patient was placed on the operating room table in the prone position after intubation on the stretcher with general endotracheal anesthesia. Both popliteal fossae were then prepped and draped in sterile fashion, and a timeout was taken. Incision and drainage was carried out in the left popliteal fossa. Purulent discharge was sent for culture and sensitivity. All nonviable tissue was sharply debrided using a curet consisting of skin and subcutaneous tissue. Hemostasis was secured with electrocautery and the wound copiously irrigated with sterile saline and packed with saline-soaked gauze. Attention was then turned to the right side, where the previous open wound was cultured and sharply debrided of nonviable skin and subcutaneous tissue using a curet. Hemostasis was secured with electrocautery and then both wounds were packed with 1/2-inch plain packing and dressed with dry sterile dressings. The patient was then aroused from general anesthesia and transferred to the postanesthesia care unit in stable condition, awake and alert. ESTIMATED BLOOD LOSS: 10 mL. REPLACEMENTS: Crystalloid. DRAINS: None. SPECIMENS: Culture and sensitivity of both popliteal fossae to Microbiology. IAdonis MD was physically present in the operating room from the time the patient was placed on the operating table until she was transferred to the postanesthesia care unit in [place]. Adonis Li MD /[id number]
--- NOTE | 2016-09-15 12:09 | DS ---
Physical Exam: SUBJECTIVE: Patient seen and examined OBJECTIVE: Vital Signs Period Temp Pulse Resp BP Sys/Ortiz Pulse Ox Last 24 Hr 97.7 F-98.4 F 57-67 16-20 93-108/44-58 PHYSICAL EXAM GENERAL: The patient is awake, alert, and fully oriented, in no acute distress. HEAD: Normal with no signs of trauma. EYES: PERRL, extraocular movements intact, sclera anicteric, conjunctiva clear. No ptosis. LUNGS: Breath sounds equal, clear to auscultation bilaterally, no wheezes, no crackles, no accessory muscle use. HEART: Regular rate and rhythm, S1, S2 without murmur, rub or gallop. ABDOMEN: Soft, nontender, nondistended, normoactive bowel sounds, no guarding, no rebound UPPER EXTREMITIES: 2+ pulses, warm, well-perfused, no edema. LOWER EXTREMITIES: posterior knees bilaterally with abscessed wounds, dressing c /d/i NEUROLOGICAL: Cranial nerves II through XII grossly intact. Normal speech, gait not observed. LABS CBCD WBC 9.3 K/mm3 (4.0-10.0) D 09/12/16 02:00 RBC 4.66 M/mm3 (3.60-5.2) 09/12/16 02:00 Hgb 11.8 GM/dL (10.7-15.3) 09/12/16 02:00 Hct 36.4 % (32.4-45.2) 09/12/16 02:00 MCV 78.0 fl (80-96) L 09/12/16 02:00 MCHC 32.4 g/dl (32.0-36.0) 09/12/16 02:00 RDW 14.4 % (11.6-15.6) 09/12/16 02:00 Plt Count 440 K/MM3 (134-434) H D 09/12/16 02:00 MPV 7.7 fl (7.5-11.1) 09/12/16 02:00 CMP Sodium 140 mmol/L (136-145) 09/12/16 05:11 Potassium 4.2 mmol/L (3.5-5.1) 09/12/16 05:11 Chloride 103 mmol/L (98-107) 09/12/16 05:11 Carbon Dioxide 26 mmol/L (21-32) 09/12/16 05:11 Anion Gap 11 (8-16) 09/12/16 05:11 BUN 10 mg/dL (7-18) 09/12/16 05:11 Creatinine 0.8 mg/dL (0.55-1.02) 09/12/16 05:11 Creat Clearance w eGFR > 60 (>60) 09/12/16 05:11 Calcium 8.6 mg/dL (8.5-10.1) 09/12/16 05:11 Total Bilirubin 0.2 mg/dL (0.2-1.0) D 09/12/16 05:11 AST 11 U/L (15-37) L D 09/12/16 05:11 ALT 15 U/L (12-78) 09/12/16 05:11 Alkaline Phosphatase 67 U/L (45-117) 09/12/16 05:11 Total Protein 6.8 g/dl (6.4-8.2) 09/12/16 05:11 Albumin 3.2 g/dl (3.4-5.0) L 09/12/16 05:11 HOSPITAL COURSE: Date of Admission:09/12/16 Date of Discharge: 09/15/16 ASSESSMENT/PLAN 31 year-old woman with a PMH of IVDA (heroin, cocaine) admitted for bilateral popliteal abscesses from injecting heroin. Bilateral popliteal abscesses secondary to IVDA --s/p I&D --cultures +MSSA --daily dressing [facility] at [facility] as outpatient --wounds are packed, dressings not disturbed, will be changed by surgical PA later today --+MSSA --discharged with prescription for doxycycline for an additional 7 days of treatment Polysubstance abuse --heroin and cocaine within last 48 hours, no s/s of withdrawal at present --discharged with prescription to finish last two doses of methadone taper Minutes to complete discharge: 35 Discharge Summary Reason For Visit: WOUND AND SKIN ABCESS Current Active Problems DVT prophylaxis (Acute) Leukocytosis (Acute) Recurrent cellulitis of lower leg (Acute) Skin abscess (Acute) Wound abscess (Acute) Condition: Stable - Instructions Diet, Activity, Other Instructions: A prescription has been sent to your pharmacy for doxycycline which is an antibiotic. A prescription has also been sent to your pharmacy for methadone. Take this medication as directed and that will finish your taper. You have an appointment tomorrow at the [facility]ound Clinic which is on the fifth floor of the hospital. It is important you follow up in the Wound Clinic for dressing changes. Wound clinic September at 3pm Referrals: Arpan Hernandez MD [Staff Physician] - 1 Week - Home Medications Comprehensive Discharge Medication List: Ambulatory Orders Doxycycline Hyclate [Vibramycin -] 100 mg PO BID #14 capsule 09/15/16 Methadone [Dolophine -] 5 mg PO DAILY #3 tablet MDD 2 09/15/16 This patient is new to me today: No Emergency Visit: Yes ED Registration Date: 09/12/16 Care time: The patient presented to the Emergency Department on the above date and was hospitalized for further evaluation of their emergent condition. Critical Care patient: No - Discharge Referral Referred to [facility] Yes Physician Referral: Arpan Ibarra MD ([facility])
--- NOTE | 2016-09-15 14:44 | PN ---
Progress Note, Physician History of Present Illness: patient stable post op doing well pain in the popliteal region - Current Medication List Current Medications: Active Medications Doxycycline Hyclate (Vibramycin -) 100 mg PO DAILY PENNY Last Admin: 09/15/16 09:40 Dose: 100 mg Methadone HCl (Dolophine -) 10 mg PO ONCE ONE Stop: 09/16/16 10:01 Methadone HCl (Dolophine -) 5 mg PO ONCE@0600 ONE Stop: 09/17/16 06:01 - Objective Vital Signs: Vital Signs Temperature 97.7 F 09/15/16 09:00 Pulse Rate 57 L 09/15/16 09:00 Respiratory Rate 18 09/15/16 09:00 Blood Pressure 93/52 09/15/16 09:00 O2 Sat by Pulse Oximetry (%) 96 09/14/16 09:00 Constitutional: Yes: No Distress, Calm Cardiovascular: Yes: Regular Rate and Rhythm Respiratory: Yes: Regular, CTA Bilaterally Gastrointestinal: Yes: Normal Bowel Sounds, Soft Musculoskeletal: Yes: Other Extremities: Yes: Other Wound/Incision: Yes: Dressing Dry and Intact 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: Yes: Alert, Oriented Labs: CBC, BMP 09/12/16 05:11 Assessment/Plan 31 year old female with h/o heroin, cocaine abuse presented to the ED because of abscess behind her both knees x 2 weeks. # Popliteal abscess x 2 weeks # Polysubstance abuse wound infection plan continue doxy wound care
[2016-09-16] MEDS ORDERED: METHADONE HCL 10 MG TABLET PO ONE ×2 (10:00)
[2016-09-17] MEDS ORDERED: METHADONE HCL 5 MG TABLET PO ONE ×2 (06:00)
== END 2016-09-15 15:04 | DRG 364 ==
LOC: JER 22:29 → JERBED 09-12 04:58 → J8W 09-12 15:06
PROVIDERS: ADMIT Internal Medicine; ATTEND Nurse Practitioner Acute Care
PROC: HZ81ZZZ Medication Management for Substance Abuse Treatment, Methadone Maintenance (ICD-10-PCS; 2016-09-11)
PROC: 0J9L3ZX Drainage of Right Upper Leg Subcutaneous Tissue and Fascia, Percutaneous Approach, Diagnostic (ICD-10-PCS; 2016-09-13)
PROC: 0JBM0ZZ Excision of Left Upper Leg Subcutaneous Tissue and Fascia, Open Approach (ICD-10-PCS; 2016-09-13)
PROC: 0JBL0ZZ Excision of Right Upper Leg Subcutaneous Tissue and Fascia, Open Approach (ICD-10-PCS; 2016-09-13)
PROC: 0J9M0ZZ Drainage of Left Upper Leg Subcutaneous Tissue and Fascia, Open Approach (ICD-10-PCS; principal; 2016-09-13 13:00)
DX: L02.416 Cutaneous abscess of left lower limb (principal); L02.415 Cutaneous abscess of right lower limb; L02.413 Cutaneous abscess of right upper limb; F14.20 Cocaine dependence, uncomplicated; F11.20 Opioid dependence, uncomplicated; F17.210 Nicotine dependence, cigarettes, uncomplicated; B95.61 Methicillin susceptible Staphylococcus aureus infection as the cause of diseases classified elsewhere
CPT/HCPCS: 36415; 71020-TC; 80053; 80307; 81003; 81015; 83605; 84703; 85027; 87040; 87070; 87186; 87205; 94760; 99283-25

== ENCOUNTER 2017-02-28 09:57 | Inpatient (IN) | payer OTHER ==
[2017-02-28 11:02] VITALS: BMI 23.8
--- NOTE | 2017-02-28 13:12 | HP ---
COWS - Scale Resting Pulse: 0= DC 80 or Below Sweatin=Flushed/Facial Moisture Restless Observation: 3= Extraneous Movement Pupil Size: 2= Moderately Dilated Bone or Joint Aches: 2= Severe Diffuse Aches Runny Nose/ Eye Tearin= Runny Nose/Eyes GI Upset > 30mins: 3= Vomiting/Diarrhea Tremor Observation: 2= Slight Tremor Visible Yawning Observation: 2= >3x During Session Anxiety or Irritability: 2=Irritable/Anxious Goose Flesh Skin: 0=Smooth Skin COWS Score: 20 Admission ROS BHS - HPI Chief Complaint: i need help to stop using drugs heroin and cocaine Allergies/Adverse Reactions: Allergies Allergy/AdvReac Type Severity Reaction Status Date / Time No Known Allergies Allergy Verified 09/11/16 22:33 History of Present Illness: this 31 years old female with heroin and cocaine dependence,seeking inpatient detox,last treatment in [facility] in 10/28 completed admitted in [facility] 02/25/17 for abscess of right leg ,on iv antibiotics,discharged on 02/27/17 several admissions in detox keep relapsing longest period of sobriety 9 months Exam Limitations: No Limitations - Ebola screening Have you traveled outside of the country in the last 21 days: No Have you had contact with anyone from an Ebola affected area: No Have you been sick,other than usual withdrawal symptoms: No Do you have a fever: No - Review of Systems Constitutional: Chills, Diaphoresis, Loss of Appetite, Malaise, Night Sweats, Changes in sleep, Weakness EENT: reports: Tearing, Nose Congestion Respiratory: reports: No Symptoms reported Cardiac: reports: No Symptoms Reported GI: reports: Diarrhea, Nausea, Vomiting, Abdominal cramping : reports: No Symptoms Reported Musculoskeletal: reports: Back Pain, Joint Pain, Muscle Pain, Joint Stiffness Integumentary: reports: Dryness, Other (abscess of right leg) Neuro: reports: Headache, Tremors Endocrine: reports: No Symptoms Reported Hematology: reports: No Symptoms Reported Psychiatric: reports: Judgement Intact, Mood/Affect Appropiate, Orientated x3, other (insomnia) Patient History - Patient Medical History Hx Anemia: No Hx Asthma: No Hx Chronic Obstructive Pulmonary Disease (COPD): No Hx Cancer: No Hx Cardiac Disorders: No Hx Congestive Heart Failure: No Hx Hypertension: No Hx Hypercholesterolemia: No Hx Pacemaker: No HX Cerebrovascular Accident: No Hx Seizures: No Hx Dementia: No Hx Diabetes: No Hx Gastrointestinal Disorders: No Hx Liver Disease: No Hx Genitourinary Disorders: No Hx Sexually Transmitted Disorders: No Hx Renal Disease (ESRD): No Hx Thyroid Disease: No Hx Human Immunodeficiency Virus (HIV): No (10/28 last negative) Hx Hepatitis C: No Hx Depression: No Hx Suicide Attempt: No Hx Bipolar Disorder: No Hx Schizophrenia: No Other Medical History: no suicidal,no homicidal,abscess of right leg - Patient Surgical History Past Surgical History: No Hx Neurologic Surgery: No Hx Cataract Extraction: No Hx Cardiac Surgery: No Hx Lung Surgery: No Hx Breast Surgery: No Hx Breast Biopsy: No Hx Abdominal Surgery: No Hx Appendectomy: No Hx Cholecystectomy: No Hx Genitourinary Surgery: No Hx Section: No Hx Orthopedic Surgery: No Hx Hysterectomy: No Anesthesia Reaction: No - PPD History Previous Implant?: Yes Documented Results: Negative w/proof Implanted On Prior R Admission?: Yes Date: 06/09/16 Results: 0 mm PPD to be Administered?: No - Reproductive History Patient is a Female of Child Bearing Age (11 -55 yrs old): Yes Last Menstrual Period: 02/07/17 Patient : No - Smoking Cessation Smoking history: Current every day smoker Have you smoked in the past 12 months: Yes Aproximately how many cigarettes per day: 20 Cigars Per Day: 0 Hx Chewing Tobacco Use: No Initiated information on smoking cessation: Yes 'Breaking Loose' booklet given: 02/28/17 - Substance & Tx. History Hx Alcohol Use: No Hx Substance Use: Yes Substance Use Type: Cocaine, Heroin Hx Substance Use Treatment: Yes (hitesh in 10/28 hitesh) - Substances Abused Heroin Route: Injection Frequency: Daily Amount used: 7 bags Age of first use: 22 Date of Last Use: 02/28/17 Cocaine Route: Injection Frequency: Daily Amount used: 2 grams Age of first use: 22 Date of Last Use: 02/27/17 Family Disease History - Family Disease History Family History: Denies Admission Physical Exam BHS - Vital Signs Vital Signs: Vital Signs - 24 hr 02/28/17 10:59 Temperature 96.5 F L Pulse Rate 75 Respiratory 18 Rate Blood Pressure 108/68 - Physical General Appearance: Yes: Moderate Distress, Tremorous, Irritable, Sweating, Anxious HEENTM: Yes: Hearing grossly Normal, Normal ENT Inspection, DANIEL, Pharynx Normal Respiratory: Yes: Lungs Clear, Normal Breath Sounds, No Respiratory Distress Neck: Yes: Within Normal Limits, Supple, Trachea in good position Breast: Yes: Breast Exam Deferred Cardiology: Yes: Within Normal Limits, Regular Rhythm, Regular Rate, S1, S2 Abdominal: Yes: Normal Bowel Sounds, Non Tender, Flat, Soft Genitourinary: Yes: Within Normal Limits Back: Yes: Muscle Spasm Musculoskeletal: Yes: full range of Motion, Back pain, Joint Stiffness, Muscle Pain Extremities: Yes: Tremors 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: Yes: 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, Alert, Motor Strength 5/5, Normal Response Integumentary: Yes: Dry, Track Schmidt (wound of right leg 1x1 cm,s/p abscess) Lymphatic: Yes: Within Normal Limits - Diagnostic (1) Opioid dependence with withdrawal Current Visit: No Status: Acute (2) Cocaine dependence Current Visit: No Status: Acute (3) Abscess of right leg Current Visit: Yes Status: Acute (4) Nicotine dependence Current Visit: Yes Status: Acute (5) Insomnia Current Visit: Yes Status: Acute Cleared for Admission [facility] - Detox or Rehab [facility] Level of Care: Medically Managed Detox Regimen/Protocol: Methadone [facility] Breath Alcohol Content Breath Alcohol Content: 0 Urine Pregancy Test - Result Urine Test Results: Negative- NO Line Present Urine Drug Screen - Results Drug Screen Negative: No Urine Drug Screen Results: DAKOTAH-Cocaine, OPI-Opiates, BZO-Benzodiazepines, MTD- Methadone
[2017-02-28] MEDS ORDERED: MAG HYDROX/AL HYDROX/SIMETH 30 ML UNIT-DOSE CUP PO PRN (13:22)
[2017-02-28] MEDS ORDERED: P-EPHED 60MG/TRIPROLIDI 2.5MG TABLET PO PRN (13:22)
[2017-02-28] MEDS ORDERED: MAGNESIUM HYDROX 2400MG/30ML ORAL SUSPENSION 30 ML CUP PO PRN (13:22)
[2017-02-28] MEDS ORDERED: ACETAMINOPHEN 325 MG TABLET (FP) PO PRN (13:22)
[2017-02-28] MEDS ORDERED: MENTHOL/PHENOL 1 EACH UD MM PRN (13:22)
[2017-02-28] MEDS ORDERED: diphenhydrAMINE HCL 50 MG CAPSULE PO PRN (13:22)
[2017-02-28] MEDS ORDERED: LOPERAMIDE HCL 2 MG CAPSULE PO PRN (13:22)
[2017-02-28] MEDS ORDERED: guaiFENesin/D-METHORPHAN HB 10 ML UNIT-DOSE CUPS PO PRN (13:22)
[2017-02-28] MEDS ORDERED: IBUPROFEN 400 MG TABLET (FP) PO PRN (13:22)
[2017-02-28] MEDS ORDERED: MAGNESIUM CITRATE 300 ML BOTTLE PO PRN (13:22)
[2017-02-28] MEDS ORDERED: CLINDAMYCIN HCL 300 MG CAPSULE PO SCH ×2 (13:30→17:18)
[2017-02-28] MEDS ORDERED: METHADONE HCL 10 MG TABLET (FOR DETOX USE ONLY) PO ONE ×2 (13:59→23:00)
[2017-02-28] MEDS ORDERED: METHADONE HCL 10 MG TABLET ONE (16:08)
[2017-02-28] MEDS: diazePAM 5 MG TABLET PO PRN ×2 (16:11→22:15)
[2017-02-28] MEDS: NICOTINE POLACRILEX 2 MG GUM BUC PRN ×2 (16:14→22:20)
[2017-02-28] MEDS ORDERED: CLINDAMYCIN HCL 150 MG CAPSULE (FP) PO SCH (16:15)
[2017-02-28] MEDS: CLINDAMYCIN HCL 300 MG CAPSULE PO SCH ×2 (18:13→22:16)
[2017-02-28] MEDS: THIAMINE HCL 100 MG TABLET (FP) PO SCH (22:15)
[2017-02-28] MEDS: BACITRACIN 0.9 GM PACKET TP SCH (22:15)
[2017-03-01] MEDS: CLINDAMYCIN HCL 300 MG CAPSULE PO SCH ×3 (06:50→22:14)
[2017-03-01] MEDS: diazePAM 5 MG TABLET PO PRN ×4 (07:55→22:14)
[2017-03-01] MEDS ORDERED: METHADONE HCL 10 MG TABLET (FOR DETOX USE ONLY) PO ONE (10:00)
--- NOTE | 2017-03-01 10:07 | PN ---
BHS COWS - Scale Resting Pulse: 1= [place] 81-100 Sweatin= Chills/Flushing Restless Observation: 1= Difficult to Sit Still Pupil Size: 1= Pupils >than Normal Bone or Joint Aches: 2= Severe Diffuse Aches Runny Nose/ Eye Tearin= Nasal Congestion GI Upset > 30mins: 1= Stomach Cramp Tremor Observation of Outstretched Hands: 1= Tremor [place], Not Seen Yawning Observation: 0= None Anxiety or Irritability: 2=Irritable/Anxious Goose Flesh Skin: 0=Smooth Skin COWS Score: 11 BHS Progress Note (SOAP) Subjective: interrupted sleep, sweats, but better than yesterday. Objective: 03/01/17 10:03 Vital Signs Temperature 96.9 F L 03/01/17 06:34 Pulse Rate 61 03/01/17 06:34 Respiratory Rate 16 03/01/17 06:34 Blood Pressure 118/67 03/01/17 06:34 O2 Sat by Pulse Oximetry (%) pending labs pt aox3 lying in bed in nad rt popliteal fossa abscess draing pus Assessment: 03/01/17 10:05 withdrawal sx's rt popoliteal fossa abscess Plan: cont. detox increase fluids f/up pending labs cont. po antibiotics -clindamycin daily wound care
[2017-03-01] MEDS: PRENATAL VITAMINS W/ FOLIC ACID TABLET (FP) PO SCH (10:13)
[2017-03-01] MEDS: BACITRACIN 0.9 GM PACKET TP SCH ×2 (10:14→22:14)
[2017-03-01 10:22] LABS: MCH 24.2 pg (25.7-33.7); MCHC 32.2 g/dl (32.0-36.0); MEAN CELL VOLUME 75.2 fl (80-96); MEAN PLT VOLUME 8.9 fl (7.5-11.1); PLATELET COUNT 395 K/MM3 (134-434); RDW 15.3 % (11.6-15.6); WHITE BLOOD COUNT 7.4 K/mm3 (4.0-10.0)
[2017-03-01 10:45] LABS: ALBUMIN 2.8 g/dl (3.4-5.0); ALK PHOS 63 U/L (45-117); ANION GAP 6 (8-16); BILIRUBIN,TOTAL 0.2 mg/dL (0.2-1.0); CALCIUM 9.3 mg/dL (8.5-10.1); CO2 28 mmol/L (21-32); CREATININE 0.7 mg/dL (0.55-1.02); GLUCOSE,RANDOM 76 mg/dL (74-106); SGOT/AST 10 U/L (15-37); SGPT/ALT 14 U/L (12-78); TOT PROT 6.4 g/dl (6.4-8.2)
--- NOTE | 2017-03-01 11:11 | EKG ---
Test Reason : Blood Pressure : / mmHG Vent. Rate : 063 BPM Atrial Rate : 063 BPM P-R Int : 138 ms QRS Dur : 086 ms QT Int : 406 ms P-R-T Axes : 066 069 056 degrees QTc Int : 415 ms NORMAL SINUS RHYTHM NORMAL ECG WHEN COMPARED WITH ECG OF 24-FEB-2016 09:06, NO SIGNIFICANT CHANGE WAS FOUND Confirmed by IRIS FRANKLIN MD ([id number]) on 03/01/2017 11:11:14 AM Referred By: Confirmed By:IRIS FRANKLIN MD
[2017-03-01] MEDS: NICOTINE POLACRILEX 2 MG GUM BUC PRN ×3 (12:41→22:17)
[2017-03-01 16:21] LABS: URINE APPEARANCE SLCLOUDY; URINE BILIRUBIN NEGATIVE (NEGATIVE); URINE BLOOD NEGATIVE (NEGATIVE); URINE COLOR YELLOW; URINE GLUCOSE (UA) NEGATIVE (NEGATIVE); URINE KETONE NEGATIVE (NEGATIVE); URINE LEUK ESTERASE NEGATIVE (NEGATIVE); URINE NITRITE NEGATIVE (NEGATIVE); URINE PROTEIN NEGATIVE (NEGATIVE); URINE UROBILINOGEN NEGATIVE mg/dL (0.2-1.0)
[2017-03-01] MEDS: THIAMINE HCL 100 MG TABLET (FP) PO SCH (22:14)
[2017-03-02] MEDS: CLINDAMYCIN HCL 300 MG CAPSULE PO SCH ×3 (05:55→22:19)
[2017-03-02] MEDS: diazePAM 5 MG TABLET PO PRN ×4 (05:58→22:17)
[2017-03-02] MEDS: NICOTINE POLACRILEX 2 MG GUM BUC PRN ×3 (06:02→22:21)
--- NOTE | 2017-03-02 09:54 | PN ---
S COWS - Scale Resting Pulse: 1= AK 81-100 Sweatin= Chills/Flushing Restless Observation: 3= Extraneous Movement Pupil Size: 1= Pupils >than Normal Bone or Joint Aches: 2= Severe Diffuse Aches Runny Nose/ Eye Tearin= Runny Nose/Eyes GI Upset > 30mins: 2= Nausea/Diarrhea Tremor Observation of Outstretched Hands: 2= Slight Tremor Visible Yawning Observation: 1= 1-2x During Session Anxiety or Irritability: 2=Irritable/Anxious Goose Flesh Skin: 0=Smooth Skin COWS Score: 17 S Progress Note (SOAP) Subjective: ALERT,IRRITABLE,ANXIOUS,INTERRUPTED SLEEP,TREMOR,PAIN IN THE BODY AND BACK, TREMOR Objective: 03/02/17 09:52 Vital Signs Temperature 97.9 F 03/02/17 06:30 Pulse Rate 62 03/02/17 06:30 Respiratory Rate 16 03/02/17 06:30 Blood Pressure 102/66 03/02/17 06:30 O2 Sat by Pulse Oximetry (%) Laboratory Last Values WBC 7.4 K/mm3 (4.0-10.0) 03/01/17 06:30 RBC 4.11 M/mm3 (3.60-5.2) 03/01/17 06:30 Hgb 10.0 GM/dL (10.7-15.3) L D 03/01/17 06:30 Hct 30.9 % (32.4-45.2) L D 03/01/17 06:30 MCV 75.2 fl (80-96) L 03/01/17 06:30 MCH 24.2 pg (25.7-33.7) L 03/01/17 06:30 MCHC 32.2 g/dl (32.0-36.0) 03/01/17 06:30 RDW 15.3 % (11.6-15.6) 03/01/17 06:30 Plt Count 395 K/MM3 (134-434) 03/01/17 06:30 MPV 8.9 fl (7.5-11.1) D 03/01/17 06:30 Sodium 141 mmol/L (136-145) 03/01/17 06:30 Potassium 4.4 mmol/L (3.5-5.1) 03/01/17 06:30 Chloride 107 mmol/L (98-107) 03/01/17 06:30 Carbon Dioxide 28 mmol/L (21-32) 03/01/17 06:30 Anion Gap 6 (8-16) L 03/01/17 06:30 BUN 9 mg/dL (7-18) 03/01/17 06:30 Creatinine 0.7 mg/dL (0.55-1.02) 03/01/17 06:30 Creat Clearance w eGFR > 60 (>60) 03/01/17 06:30 Random Glucose 76 mg/dL (74-106) 03/01/17 06:30 Calcium 9.3 mg/dL (8.5-10.1) 03/01/17 06:30 Total Bilirubin 0.2 mg/dL (0.2-1.0) 03/01/17 06:30 AST 10 U/L (15-37) L 03/01/17 06:30 ALT 14 U/L (12-78) 03/01/17 06:30 Alkaline Phosphatase 63 U/L (45-117) 03/01/17 06:30 Total Protein 6.4 g/dl (6.4-8.2) 03/01/17 06:30 Albumin 2.8 g/dl (3.4-5.0) L 03/01/17 06:30 Urine Color Yellow 03/01/17 11:30 Urine Appearance Slcloudy 03/01/17 11:30 Urine pH 6.0 (5.0-8.0) 03/01/17 11:30 Ur Specific [place] >= 1.030 (1.005-1.025) H 03/01/17 11:30 Urine Protein Negative (NEGATIVE) 03/01/17 11:30 Urine Glucose (UA) Negative (NEGATIVE) 03/01/17 11:30 Urine Ketones Negative (NEGATIVE) 03/01/17 11:30 Urine Blood Negative (NEGATIVE) 03/01/17 11:30 Urine Nitrite Negative (NEGATIVE) 03/01/17 11:30 Urine Bilirubin Negative (NEGATIVE) 03/01/17 11:30 Urine Urobilinogen Negative mg/dL (0.2-1.0) 03/01/17 11:30 Ur Leukocyte Esterase Negative (NEGATIVE) 03/01/17 11:30 RPR Titer Nonreactive (NONREACTIVE) 03/01/17 06:30 Assessment: 03/02/17 09:53 WITHDRAWAL SYMPTOM Plan: CONTINUE DETOX,FERROS SULFATE 325 MGS PO BID
[2017-03-02] MEDS ORDERED: METHADONE HCL 5 MG TABLET (FOR DETOX USE ONLY) PO ONE (10:00)
[2017-03-02] MEDS: BACITRACIN 0.9 GM PACKET TP SCH ×2 (10:15→22:17)
[2017-03-02] MEDS: FERROUS SO4 325 MG TABLET (FP) PO SCH ×2 (10:15→22:17)
[2017-03-02] MEDS: PRENATAL VITAMINS W/ FOLIC ACID TABLET (FP) PO SCH (10:15)
[2017-03-02] MEDS: THIAMINE HCL 100 MG TABLET (FP) PO SCH (22:19)
[2017-03-03] MEDS: NICOTINE POLACRILEX 2 MG GUM BUC PRN ×4 (05:33→20:47)
[2017-03-03] MEDS: diazePAM 5 MG TABLET PO PRN ×3 (05:33→13:08)
[2017-03-03] MEDS: CLINDAMYCIN HCL 300 MG CAPSULE PO SCH ×3 (05:34→22:17)
[2017-03-03] MEDS ORDERED: METHADONE HCL 5 MG TABLET (FOR DETOX USE ONLY) PO ONE (10:00)
--- NOTE | 2017-03-03 10:12 | PN ---
BHS Progress Note (SOAP) Subjective: ALERT,IRRITABLE,ANXIOUS,INTERRUPTED SLEEP,PAIN IN THE BODY AND BACK Objective: 03/03/17 10:11 Vital Signs Temperature 97.9 F 03/03/17 06:00 Pulse Rate 64 03/03/17 06:00 Respiratory Rate 16 03/03/17 06:00 Blood Pressure 94/56 03/03/17 06:00 O2 Sat by Pulse Oximetry (%) Assessment: 03/03/17 10:11 WITHDRAWAL SYMPTOM Plan: CONTINUE DETOX
[2017-03-03] MEDS: BACITRACIN 0.9 GM PACKET TP SCH ×2 (10:22→22:17)
[2017-03-03] MEDS: FERROUS SO4 325 MG TABLET (FP) PO SCH ×2 (10:22→22:17)
[2017-03-03] MEDS: PRENATAL VITAMINS W/ FOLIC ACID TABLET (FP) PO SCH (10:22)
[2017-03-03] MEDS: hydrOXYzine PAMOATE 50 MG CAPSULE (FP) PO PRN (17:16)
[2017-03-03] MEDS: THIAMINE HCL 100 MG TABLET (FP) PO SCH (22:17)
[2017-03-04] MEDS: CLINDAMYCIN HCL 300 MG CAPSULE PO SCH ×3 (05:14→22:22)
[2017-03-04] MEDS: NICOTINE POLACRILEX 2 MG GUM BUC PRN ×4 (05:14→15:21)
[2017-03-04] MEDS ORDERED: METHADONE HCL 10 MG TABLET (FOR DETOX USE ONLY) PO ONE (10:00)
[2017-03-04] MEDS: BACITRACIN 0.9 GM PACKET TP SCH ×2 (10:30→22:21)
[2017-03-04] MEDS: hydrOXYzine PAMOATE 50 MG CAPSULE (FP) PO PRN ×2 (10:30→15:21)
[2017-03-04] MEDS: FERROUS SO4 325 MG TABLET (FP) PO SCH ×2 (10:30→22:21)
[2017-03-04] MEDS: PRENATAL VITAMINS W/ FOLIC ACID TABLET (FP) PO SCH (10:30)
--- NOTE | 2017-03-04 10:59 | PN ---
S Progress Note (SOAP) Subjective: alert,irritable,interrupted sleep Objective: 03/04/17 10:58 Vital Signs Temperature 97.7 F 03/04/17 09:43 Pulse Rate 74 03/04/17 09:43 Respiratory Rate 20 03/04/17 09:43 Blood Pressure 100/58 03/04/17 09:43 O2 Sat by Pulse Oximetry (%) Assessment: 03/04/17 10:58 withdrawal symptom Plan: continue detox,discharge in am
[2017-03-04] MEDS: THIAMINE HCL 100 MG TABLET (FP) PO SCH (22:21)
[2017-03-05] MEDS ORDERED: METHADONE HCL 5 MG TABLET (FOR DETOX USE ONLY) PO ONE (06:00)
[2017-03-05] MEDS: CLINDAMYCIN HCL 300 MG CAPSULE PO SCH (06:15)
[2017-03-05] MEDS: NICOTINE POLACRILEX 2 MG GUM BUC PRN ×2 (06:17→08:37)
[2017-03-05 06:42] VITALS: BP 106/65; PULSE 75; TEMP 97.3
--- NOTE | 2017-03-05 07:59 | PN ---
S Progress Note (SOAP) Subjective: ALERT,NO COMPLAINT Objective: 03/05/17 07:55 Vital Signs Temperature 97.3 F L 03/05/17 06:42 Pulse Rate 75 03/05/17 06:42 Respiratory Rate 16 03/05/17 06:42 Blood Pressure 106/65 03/05/17 06:42 O2 Sat by Pulse Oximetry (%) Assessment: 03/05/17 07:56 DETOX COMPLETE,NO WITHDRAWAL SYMPTOM Plan: DISCHARGE TODAY,FOLLOW UP WITH AFTER CARE PROGRAM ARRANGEMENT
--- NOTE | 2017-03-05 08:10 | DS ---
[facility] Detox Discharge Summary Admission Date: 02/28/17 Discharge Date: 03/05/17 - History Present History: Cocaine Dependence, Opioid Dependence Additional Comments: FOLLOW UP WITH AFTER CARE PROGRAM ARRANGEMENT,AND CLINIC Pertinent Past History: NICOTINE DEPENDENCE ABSCESS OF RIGHT POPLITEAL AREA - Physical Exam Results Vital Signs: Vital Signs Temperature 97.3 F L 03/05/17 06:42 Pulse Rate 75 03/05/17 06:42 Respiratory Rate 16 03/05/17 06:42 Blood Pressure 106/65 03/05/17 06:42 O2 Sat by Pulse Oximetry (%) Pertinent Admission Physical Exam Findings: WITHDRAWAL SYMPTOM - Treatment Hospital Course: Detox Protocol Followed, Detoxed Safely, Responded well, Discharged Condition Good, Rehab Referral Accepted Patient has Accepted a Rehab Referral to: [facility] - Medication Discharge Medications: Ambulatory Orders Clindamycin [Cleocin -] 300 mg PO Q8H 02/28/17 - Diagnosis (1) Opioid dependence with withdrawal Current Visit: No Status: Acute (2) Cocaine dependence Current Visit: No Status: Acute (3) Abscess of right leg Current Visit: Yes Status: Acute (4) Nicotine dependence Current Visit: Yes Status: Acute (5) Insomnia Current Visit: Yes Status: Acute (6) Anemia Current Visit: Yes Status: Acute - AMA Did Patient Leave Against Medical Advice: No
== END 2017-03-05 09:23 | disposition home or self-care (01) | DRG 773 ==
LOC: YASAS 09:57 → Y6N 13:12
PROVIDERS: ADMIT Internal Medicine Addiction Medicine; ATTEND Internal Medicine Addiction Medicine
PROC: HZ2ZZZZ Detoxification Services for Substance Abuse Treatment (ICD-10-PCS; principal; 2017-03-05)
DX: F11.23 Opioid dependence with withdrawal (principal); F14.20 Cocaine dependence, uncomplicated; F17.210 Nicotine dependence, cigarettes, uncomplicated; G47.00 Insomnia, unspecified; D64.9 Anemia, unspecified; L02.415 Cutaneous abscess of right lower limb
CPT/HCPCS: 36415; 80053; 81003; 85027; 86593; 93005; 93010

== ENCOUNTER 2017-04-01 12:08 | Inpatient (IN) | payer MEDICARE ==
[2017-04-01 12:12] VITALS: BMI 21.9
--- NOTE | 2017-04-01 13:35 | PDOC ---
History of Present Illness - General Chief Complaint: Abscess Boil Stated Complaint: LEG INFECTION Time Seen by Provider: 04/01/17 12:23 - History of Present Illness Initial Comments: 04/01/17 13:35 31F w/ hx of significant heroine and cocaine use and 3 admissions for IV abx secondary to popliteal fossa infections/ulcers presenting with b/l leg infections. Pt reports that the infections are in the popliteal fossas again, are painful, and she has had subjective fevers and chills. She denies SOB, chest pain, nausea, emesis, pain, weakness, and numbness below the infection sites. Pt reports that the infections started a week ago, had improved slightly , but started worsening in the last few days. Pt started using heroine and cocaine 5.5 years ago, about 2-6 bags per day. She has been to detox several times at both [facility] (most recently 1 month ago) [facility] as well as rehab, NA, and rehab. She always injects both drugs into the back of her legs. 04/01/17 14:15 Past History - Past Medical History Allergies/Adverse Reactions: Allergies Allergy/AdvReac Type Severity Reaction Status Date / Time No Known Allergies Allergy Verified 04/01/17 12:12 Home Medications: Ambulatory Orders NK [No Known Home Medication] 04/01/17 Anemia: No Asthma: No Cancer: No Cardiac Disorders: No CVA: No COPD: No CHF: No Dementia: No Diabetes: No GI Disorders: No Disorders: No HTN: No Hypercholesterolemia: No Kidney Stones: No Liver Disease: No Suicide Attempt (Hx): No Seizures: No Thyroid Disease: No Comment:: 04/01/17 13:54 PMH: none PSH: I & D Meds: none Allergies: NKDA Fam Hx: none Social Hx: lives with family in [place], 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, denies alcohol, has 4 pack year smoking hx, uses cocaine and heroine - Surgical History Abdominal Surgery: No Appendectomy: No Cardiac Surgery: No Cholecystectomy: No Lung Surgery: No Neurologic Surgery: No Orthopedic Surgery: No - Reproductive History PID: No - Immunization History Td Vaccination: Yes Immunization Up to Date: Yes - Psycho/Social/Smoking Cessation Hx Anxiety: No Suicidal Ideation: No Smoking Status: Yes Smoking History: Current every day smoker Have you smoked in the past 12 months: Yes Number of Cigarettes Smoked Daily: 20 Cigars Per Day: 0 Information on smoking cessation initiated: No 'Breaking Loose' booklet given: 02/28/17 Hx Alcohol Use: No Drug/Substance Use Hx: Yes Substance Use Type: Cocaine, Heroin Hx Substance Use Treatment: Yes (hitesh in 10/28 hitesh) Review of Systems - Review of Systems Comments:: 04/01/17 13:56 GENERAL: + fever, + chills, no night sweats, or weakness. HEAD, EYES, EARS, NOSE AND THROAT: No change in vision, ear pain, or sore throat CARDIOVASCULAR: No chest pain or palpitations RESPIRATORY: No cough, wheezing, or hemoptysis. GASTROINTESTINAL: No nausea, vomiting, diarrhea, constipation, or blood in the stool. GENITOURINARY: No dysuria, frequency, or urgency MUSCULOSKELETAL: + leg pain SKIN: + rashes, no pruritis ENDOCRINE: No increased thirst. No abnormal weight change NEUROLOGIC: No headache, dizziness, loss of consciousness, or change in strength /sensation. *Physical Exam - Vital Signs Last Vital Signs Temp Pulse Resp BP Pulse Ox 98.2 F 98 H 18 109/60 100 04/01/17 12:09 04/01/17 12:09 04/01/17 12:09 04/01/17 12:09 04/01/17 12:09 - Physical Exam Comments: 04/01/17 13:57 GENERAL: Awake, alert, and fully oriented, in no acute distress HEAD: normocephalic, atraumatic HEENT: PERRLA, EOMI NECK: Normal ROM, supple, no lymphadenopathy, JVD, or masses HEART: tachycardic, normal rhythm, normal S1 and S2, no murmurs, rubs or gallops , dorsalis pedis and posterior tibial pulses difficult to palpate. LUNGS: CTAB, no wheezing, no rales ABDOMEN: Soft, nontender, nondistended, normoactive bowel sounds. No guarding, no rebound. No masses EXTREMITIES: L popliteal fossa shows a 10 x 6 cm site of erythema, induration, and warmth to touch with 2 discrete ulcers which are draining small amounts of yellow fluid. R popliteal fossa shows a 10 x 5cm site of erythema, induration, warmth to touch with a stellate ulcer draining mild yellow fluid. Feet are disheveled. SKIN: Warm and dry below level of infection sites NEUROLOGICAL: Cranial nerves II through XII grossly intact. Normal speech, normal gait, no focal sensorimotor deficits 04/01/17 14:15 ED Treatment Course - LABORATORY CBC & Chemistry Diagram: 04/01/17 14:00 04/01/17 14:00 Medical Decision Making - Medical Decision Making 04/01/17 14:16 31F w/ hx of significant heroine and cocaine use and 3 admissions for IV abx secondary to popliteal fossa infections/ulcers presenting with b/l popliteal fossa ulcers and subjective fevers and chills. Exam shows that both ulcers have surrounding erythema and induration and are draining mild amounts of yellow fluid. CBC: Hgb of 10, MCV in 70s CMP: albumin of 3.3 UA: 1+ leuk esterase and 27 wbc wound culture: urine preg test: negative b/l knee XRs: Given empiric vanc/zosyn. Spoke with resident Dr. Chen about patient. 04/01/17 15:43 04/01/17 16:04 *DC/Admit/Observation/Transfer Diagnosis at time of Disposition: Ulcers of both lower extremities Qualifiers: Non-pressure ulcer stage: unspecified non-pressure ulcer stage Qualified Code(s ): L97.919 - Non-pressure chronic ulcer of unspecified part of right lower leg with unspecified severity; L97.929 - Non-pressure chronic ulcer of unspecified part of left lower leg with unspecified severity - Discharge Dispostion Condition at time of disposition: Stable Admit: Yes Decision to Admit order Date/Time: 04/01/17 16:05 I, Dr. Spencer Huang, attest that this document has been prepared under my direction and personally reviewed by me in its entirety. I further attest, that it accurately reflects all work, treatment, procedures and medical decision -making performed by me. - Attestations Physician Attestion: 04/01/17 16:06 I, Dr. Spencer Huang, attest that this document has been prepared under my direction and personally reviewed by me in its entirety. I further attest, that it accurately reflects all work, treatment, procedures and medical decision -making performed by me.
[2017-04-01] MEDS ORDERED: VANCOMYCIN 1 GRAM (PRE-DOCKED) 1,000 MG/250 ML BAG IVPB ONE (13:42)
[2017-04-01] MEDS ORDERED: PIPERACILLIN/TAZOB 3.375 GM/50 ML PRE-DOCKED IV ONE (13:45)
--- NOTE | 2017-04-01 14:06 | PDOC ---
Attending Attestation - Resident Resident Name: ReinaSpencer - ED Attending Attestation I have performed the following: I have examined & evaluated the patient, The case was reviewed & discussed with the resident, I agree w/resident's findings & plan, Exceptions are as noted - HPI HPI: 04/01/17 14:05 31 yo F with h/o iv drug use, recently last used this am, here with co wounds bilat posterior knee. pt states has had the wounds for weeks, but last few days began draining, with fould odor . does report chills, no fever, . mild pain. does have some surrounding erythema. has been on abx several times for wounds related to injections. was last tested for HIV which was negative one month ago. 04/01/17 14:07 - Physicial Exam PE: 04/01/17 14:08 on exam pt awake alert NAD. lungs clear bilat. heart RRR no mrg. abd soft NT ND. ext wwp. posterior popliteal region bilatraly with draing ulcerations, largest measuring 4/x 5 cm. surrounding erythema and induration. about one inch border. nuero alert oriented x 3. - Medical Decision Making 04/01/17 14:09 plan iv antiobiotics, admission due to concerns for severity of ulcerations, may require debridement. also h/o recurrent abx use high risk for resistance. plan vanco/ zosyn. admit [facility]icine. Heart Score/ECG Review #1 General ECG Interpretation: Sinus Rhythm, Normal Rate (67), Normal Intervals, No acute ischemic changes
[2017-04-01 14:21] LABS: BASOPHIL 1.2 % (0-2.0); EOSINOPHIL 7.7 % (0-4.5); MCH 24.3 pg (25.7-33.7); MCHC 32.8 g/dl (32.0-36.0); MEAN PLT VOLUME 8.4 fl (7.5-11.1); PLATELET COUNT 413 K/MM3 (134-434); WHITE BLOOD COUNT 9.2 K/mm3 (4.0-10.0)
[2017-04-01 14:31] LABS: URINE APPEARANCE SLCLOUDY; URINE BILIRUBIN NEGATIVE (NEGATIVE); URINE BLOOD NEGATIVE (NEGATIVE); URINE COLOR AMBER; URINE GLUCOSE (UA) NEGATIVE (NEGATIVE); URINE KETONE TRACE (NEGATIVE); URINE NITRITE NEGATIVE (NEGATIVE)
[2017-04-01 14:42] LABS: ALBUMIN 3.3 g/dl (3.4-5.0); ANION GAP 6 (8-16); BILIRUBIN,TOTAL 0.5 mg/dL (0.2-1.0); CALCIUM 9.1 mg/dL (8.5-10.1); CO2 26 mmol/L (21-32); CREATININE 0.8 mg/dL (0.55-1.02); GLUCOSE,RANDOM 133 mg/dL (74-106); SGOT/AST 10 U/L (15-37); SGPT/ALT 15 U/L (12-78); TOT PROT 7.5 g/dl (6.4-8.2)
[2017-04-01 14:45] LABS: ALK PHOS 78 U/L (45-117); URINE LEUK ESTERASE 1+ (NEGATIVE); URINE PROTEIN 1+ (NEGATIVE)
[2017-04-01 15:04] LABS: CALCIUM OXALATE CRYSTALS MODERATE /hpf (NONE SEEN); URINE MUCUS MANY; URINE RBC 2 /hpf (0-3); URINE WBC 27 /hpf (3-5)
--- NOTE | 2017-04-01 16:29 | PN ---
Teaching Attending Note Name of Resident: Magaly Scruggs ATTENDING PHYSICIAN STATEMENT I saw and evaluated the patient. I reviewed the resident's note and discussed the case with the resident. I agree with the resident's findings and plan as documented. SUBJECTIVE: She reports that these wounds are precipitated by SQ/IV heroin use. She reports recent subjective fever. The wounds are draining yellow, fowl smelling "pus." Last heroin and cocaine use was this morning. OBJECTIVE: Vitals noted Labs noted Popliteal fossae indurated, erythematous, mildly tender. Right with tract. Left with ulcer. ASSESSMENT AND PLAN: The patient is a 31 year old female with a significant past medical history of polysubstance abuse (intranasal cocaine, IV/SQ Heroin), chronic intermittent bilateral popliteal fossae wounds, who is being admitted to inpatient services with bilateral popliteal fossae wound infections and associated surrounding cellulitis. She does not meet criteria for sepsis. #ID Bilateral popliteal wound infections with surrounding cellulitis I do have concern for abscess and potentially for osteomyelitis The left sided wound will likely require debridement Will obtain bilateral US to r/o abscess Will check ESR and CRP to assist in the assessment of possible osteomyelitis Will consider further evaluation with MRI to r/o osteomyelitis Begin Vanc/Zosyn ID consult, Dr. Amado has seen her in the past Surgery consult, Dr. Li has seen her in the past NSAIDS for pain control #POLYSUBSTANCE ABUSE Cocaine, Heroin and Nicoteine dependence Nicoderm patch She will need treatment for heroin withdrawal Begin Methadone, low dose Begin clonidine path Begin prn Motrin Begin prn Zofran Sonia consult #FEN Regular diet Replete lytes prn #PROPHYLAXIS Eating Ambulating
[2017-04-01] MEDS ORDERED: NICOTINE 14 MG/24 HOURS TOPICAL PATCH TD SCH ×2 (17:30→19:06)
[2017-04-01] MEDS ORDERED: IBUPROFEN 400 MG TABLET (FP) PO PRN (17:43)
[2017-04-01] MEDS ORDERED: ONDANSETRON 4 MG TABLET PO PRN (17:47)
--- NOTE | 2017-04-01 18:03 | HP ---
CHIEF COMPLAINT: draining abscess PCP: none HISTORY OF PRESENT ILLNESS: 31 yr old woman with current IVDU herion and cocaine intranasal snorting presents with b/l posterior below popliteal wounds with abscess and surrounding painful cellulitis for past 2 weeks. She used heroin(injected in left lower leg under the cellulitic region) and cocaine this morning. says she does not share her needles, is sexually active, not on oral contraception, uses condoms. was tested for HIV few months ago at another facility and was told it was negative. ER course was notable for: (1) vanc + zosyn, one dose (2) b/l knee xrays Recent Travel: denies PAST MEDICAL HISTORY: hx of chronic wounds with abscess in the same location, multiple courses of abx PAST SURGICAL HISTORY: I&D of wounds Social History: Smoking: started at age of 19, 20cigs/day current smoker Drugs: heroin and cocaine Allergies No Known Allergies Allergy (Verified 04/01/17 12:12) HOME MEDICATIONS: Home Medications Medication Instructions Recorded NK [No Known Home Medication] 04/01/17 PHYSICAL EXAMINATION Vital Signs - 24 hr 04/01/17 17:40 Temperature 98.6 F Pulse Rate [ 80 Right] Respiratory 20 Rate Blood Pressure 112/74 [Right Arm] O2 Sat by Pulse 100 Oximetry (%) GENERAL: Awake, alert, and fully oriented, in no acute distress. HEAD: Normal with no signs of trauma. EYES: Pupils equal, round and reactive to light, extraocular movements intact, sclera anicteric, conjunctiva clear. No lid lag. EARS, NOSE, THROAT: oropharynx clear without exudates. Moist mucous membranes. NECK: Normal range of motion, supple without lymphadenopathy, JVD, or masses. LUNGS: Breath sounds equal, clear to auscultation bilaterally. No wheezes, and no crackles. No accessory muscle use. HEART: Regular rate and rhythm, normal S1 and S2 without murmur, rub or gallop. ABDOMEN: Soft, nontender, not distended, normoactive bowel sounds, no guarding, no rebound, no masses. No hepatomegaly or splenomegaly. LOWER EXTREMITIES: posterior right knee with [id number] hyperpigmented wound, firm with open tract, no expressible discharge, surrounding 2cm erythema. posterior left knee with 6x7cm hyperpigmented wound firm central necrotic tissue, no expressible discharge, surrounding 2cm erythema NEUROLOGICAL: Cranial nerves II-XII intact. Normal speech. facial symmetry PSYCHIATRIC: Cooperative. Good eye contact. Appropriate mood and affect. ASSESSMENT/PLAN: 31 yr old woman with polysubstance abuse presents with chronic wounds below knees secondary to IV drug injections. #B/l lower leg wound infections with surrounding cellulitis - concern for MRSA (pt has tested positive for MRSA in wounds on previous admissions) - IV vanc + zosyn, ID Dr. posadas - ESR and crp to r/o osteomyelitis - knee xray to evaluate for bone erosion and gas in subq tissues - Dr. Li for surgical evaluation - bld cx pending #Polysubstance abuse - current COWS 1, will monitor for withdrawal and begin taper with methadone 20mg in the morning, zofran prn, nsaid and clonidine patch 0.1mg TD - Dr. Cavazos consult, as pt is interested in rehab #nicotine dependence - nicotine patch qd Visit type - Emergency Visit Emergency Visit: Yes ED Registration Date: 04/01/17 Care time: The patient presented to the Emergency Department on the above date and was hospitalized for further evaluation of their emergent condition. - New Patient This patient is new to me today: Yes Date on this admission: 04/01/17 - Critical Care Critical Care patient: No
--- NOTE | 2017-04-01 18:07 | HP ---
CHIEF COMPLAINT: wound infections behind both knees x 2weeks PCP: HISTORY OF PRESENT ILLNESS: 31 y/o F with Hx IV heroin (has used for 5 years, last use this morning) and intranasal cocaine use who presented to the ED with bilateral posterior knee infections that have worsened over the past 2 weeks. As per pt, she has had similar wound infections in the past in the same location behind her knees. She injects directly beneath these areas, into the upper portion of her calves when she uses. Over the last few days, she has also noticed that they have started to become painful- 6/10, dull, non-radiating pain, and have started to drain yellow, malodorous pus. During this time, pt has also had subjective fever and chills. She has been to detox multiple times, most recently in February. Pt denies cough, changes in vision, abdominal pain, palpitations, nausea, vomiting. She states that she does not share needles, and was HIV- the last time she was tested. Expressed interest in returning to rehab after hospitalization. ER course was notable for: (1) Vanco/Zosyn 1 time dose (2) (3) Recent Travel: none PAST MEDICAL HISTORY: none PAST SURGICAL HISTORY: past debridement Social History: Smoking: has smoked since she was a teenager, 20 cigarettes a day Alcohol: denies Drugs: intranasal cocaine, IV heroin Family History: non-contributory Allergies No Known Allergies Allergy (Verified 04/01/17 12:12) HOME MEDICATIONS: Home Medications Medication Instructions Recorded NK [No Known Home Medication] 04/01/17 REVIEW OF SYSTEMS CONSTITUTIONAL: Absent: fever, chills, diaphoresis, generalized weakness, malaise, loss of appetite, weight change HEENT: Absent: rhinorrhea, nasal congestion, throat pain, throat swelling, difficulty swallowing, mouth swelling, ear pain, eye pain, visual changes CARDIOVASCULAR: Absent: chest pain, syncope, palpitations, irregular heart rate, lightheadedness , peripheral edema RESPIRATORY: Absent: cough, shortness of breath, dyspnea with exertion, orthopnea, wheezing, stridor, hemoptysis GASTROINTESTINAL: Absent: abdominal pain, abdominal distension, nausea, vomiting, diarrhea, constipation, melena, hematochezia GENITOURINARY: Absent: dysuria, frequency, urgency, hesitancy, hematuria, flank pain, genital pain MUSCULOSKELETAL: Absent: myalgia, arthralgia, joint swelling, back pain, neck pain SKIN: Absent: rash, itching, pallor HEMATOLOGIC/IMMUNOLOGIC: Absent: easy bleeding, easy bruising, lymphadenopathy, frequent infections ENDOCRINE: Absent: unexplained weight gain, unexplained weight loss, heat intolerance, cold intolerance NEUROLOGIC: Absent: headache, focal weakness or paresthesias, dizziness, unsteady gait, seizure, mental status changes, bladder or bowel incontinence PSYCHIATRIC: Absent: anxiety, depression, suicidal or homicidal ideation, hallucinations. PHYSICAL EXAMINATION Vital Signs - 24 hr 04/01/17 17:40 Temperature 98.6 F Pulse Rate [ 80 Right] Respiratory 20 Rate Blood Pressure 112/74 [Right Arm] O2 Sat by Pulse 100 Oximetry (%) GENERAL: Lethargic and in no acute distress. HEAD: Normal with no signs of trauma. EYES: Pupils equal, round and reactive to light, extraocular movements intact, sclera anicteric, conjunctiva clear. NECK: Normal range of motion, supple without lymphadenopathy, JVD, or masses. LUNGS: Breath sounds equal, clear to auscultation bilaterally. No wheezes, and no crackles. No accessory muscle use. HEART: Regular rate and rhythm, normal S1 and S2 without murmur, rub or gallop. ABDOMEN: Soft, nontender, not distended, normoactive bowel sounds, no guarding, no rebound, no masses. No hepatomegaly or splenomegaly. MUSCULOSKELETAL: Normal range of motion at all joints. No bony deformities or tenderness. No CVA tenderness. LOWER EXTREMITIES: weak posterior tibial pulses, L popliteal fossa: erythema, induration, warm with draining ulcers expressing yellow pus, R popliteal fossa red indurated and fluctuant NEUROLOGICAL: Cranial nerves II-XII intact. ASSESSMENT/PLAN: 31 y/o F with Hx IV heroin (has used for 5 years, last use this morning) and intranasal cocaine use who presented to the ED with bilateral posterior knee infections that have worsened over the past 2 weeks. Pt admitted for bilateral popliteal wound infections with cellulitis and polysubstance abuse. #Bilateral popliteal wound infections with cellulitis -L popliteal fossa: with erythema, induration, warmth and draining ulcers expressing yellow pus, R popliteal fossa: red, indurated, and fluctuant -Received 1 dose of vanco and zosyn -Consulted Dr. Li (surgery), possible debridement -Consulted Dr. Amado (ID) -F/u lower extremity US to r/o abscess -F/u ESR, CRP inflammation -May need MRI later on to r/o osteomyelitis -Ibuprofen 400mg PO q4h PRN for pain #Polysubstance abuse (cocaine, nicotine, heroin) -Last cocaine and heroin use this morning (04/01/17) -Pt stated that she would be open to return to rehab after hospitalization -Nicotine patch 7 mg TD daily -Methadone 10mg PO q12h - long acting for steady state -Clonidine patch 0.1 mg TD- for heroin withdrawal as well -Consulted Dr. Scott #Prophylaxis -DVT: early ambulation, heparin 5000unit SQ BID F/E/N -Currently not on fluids -Monitor electrolytes -Regular diet Visit type - Emergency Visit Emergency Visit: Yes ED Registration Date: 04/01/17 Care time: The patient presented to the Emergency Department on the above date and was hospitalized for further evaluation of their emergent condition. - New Patient This patient is new to me today: Yes Date on this admission: 04/01/17 - Critical Care Critical Care patient: No
[2017-04-01] MEDS ORDERED: METHADONE HCL 5 MG TABLET PO ONE (18:15)
[2017-04-01] MEDS ORDERED: METHADONE HCL 10 MG TABLET (FOR DETOX USE ONLY) PO SCH (19:15)
[2017-04-01] MEDS ORDERED: cloNIDine-TTS 0.1 MG/24 HRS PATCH.TDWK TD SCH ×2 (19:30→22:30)
[2017-04-01] MEDS ORDERED: METHADONE HCL 10 MG TABLET (FOR DETOX USE ONLY) PO PRN (22:15)
[2017-04-01] MEDS: HEPARIN NA (PORCINE) 5,000 UNITS/ML 1ML VIAL SQ SCH (22:25)
[2017-04-01] MEDS ORDERED: METHADONE HCL 10 MG TABLET PO PRN (22:39)
[2017-04-02] MEDS ORDERED: PT OWN MED DRAWER 7, Y5N ONE ×2 (09:20→22:00)
[2017-04-02] MEDS: HEPARIN NA (PORCINE) 5,000 UNITS/ML 1ML VIAL SQ SCH (09:45)
--- NOTE | 2017-04-02 09:57 | CONSULT ---
Consult Consult Specialty:: Infectious Disease Reason for Consultation:: B/L popliteal erythema/induration - History of Present Illness History of Present Illness: This is a 31 y.o. female with history of IV heroine abuse and intranasal cocaine use who presents with pain and drainage in b/l popliteal region. States it started about 2 wks ago but pain worsened in the past 1 wk. Reports subjective fever/chills for a couple of days. Last IV heroin use was yesterday. She states that she has a history of abscesses in the past with growth of MRSA. Currently patient is alert and afebrile, without acute distress. Tenderness at site. States has been tested for HIV and was negative. 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: Alzheimer's, CVA, Dementia, Migraine, Multiple Sclerosis, Peripheral Neuropathy, Parkinson's, Seizure, Syncope, TIA, Vertigo, Other Cardio/Vascular: No: AFIB, Aneurysm, Aortic Insufficiency, Aortic Stenosis, CAD , CHF, Deep Vein Thrombosis, HTN, Hyperlipdemia, [place], Mitral Insufficiency, Mitral Stenosis, Murmur, Pulmonary Hypertension, Other Pulmonary: No: Asthma, Bronchitis, Cancer, COPD, O2 Dependent, Pneumonia, Previously Intubated, Pulmonary Embolus, Pulmonary Fibrosis, Sleep Apnea, Other Gastrointestinal: No: Ascites, Cancer, Constipation, Crohn's Disease, Diverticulitis, Diverticulosis, Esophageal Varices, Gastritis, GERD, GI Bleed, Hemorrhoids, Hiatal Hernia, Inflamatory Bowel Disease, Irritable Bowel Disease, Pancreatitis, Peptic Ulcer Disease, Ulcerative Colitis, Other Hepatobiliary: No: Cirrhosis, Cholelithiasis, Cholecystitis, Choledocholithiasis , Hepatitis A, Hepatitis B, Hepatitis C, Other Renal/: No: Renal Failure, Renal Inusuff, BPH, Cancer, Hematuria, Hemodialysis , Neurogenic Bladder, Renal Calculi, UTI, Other Reproductive: No: Ectopic , Endometriosis, Fibroids, PID, Polycystic Ovary Syndrome, Postmenopausal, Other ...LMP: 02/07/17 ...: No Heme/Onc: No: Anemia, B12 Deficiency, Bleeding Disorder, Cancer, Current Chemotherapy, Current Radiation Therapy, Hemochromatosis, Hypercoaguable State, Myeloproliferative Synd, Sickle Cell Disease, Sickle Cell Trait, Thrombocytopenia, Other Infectious Disease: Yes: MRSA, Other (previously treated for cellulitis/abscess) Psych: Yes: Addictions Musculoskeletal: No: Bursitis, Chronic low back pain, Hemiparesis, Hemiplegia, Osteoarthritis, Paraplegia, Other Rheumatology: No: Fibromyalgia, Gout, Lupus, Rheumatoid Arthritis, Sarcoidosis, Vasculitis, Other ENT: No: Allergic Rhinitis, Sinusitis, Other Endocrine: No: [place]'s Disease, [place]'s Disease, Diabetes Insipidus, Diabetes Mellitus, Hyperparathyroidism, Hyperthyroidism, Hypothyroidism, Osteopenia, SIADH, Other Dermatology: Yes: Cellulitis, Other (History of popliteal cellulitis/abscess in the past) - Past Surgical History Past Surgical History: Yes: None - Alcohol/Substance Use Hx Alcohol Use: No History of Substance Use: reports: Cocaine, Heroin Date of Last Use: 04/01/17 - Smoking History Smoking history: Current every day smoker Have you smoked in the past 12 months: Yes Aproximately how many cigarettes per day: 20 - Social History Usual Living Arrangement: With Parent ADL: Independent 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 Loss, Weakness, Other Eyes: denies: No Symptoms, Blind Spots, Blurred Vision, Double Vision, Eye Pain , Floaters, Photophobia, Recent Change in Vision, Other HENT: denies: No Symptoms, Difficult Swallowing, Ear Discharge, Ear Pain, Epistaxis, Gingival Bleeding, Hearing Loss, Mouth Swelling, Nasal Congestion, Ocular Prosthesis, Throat Pain, Toothache, Ringing in Ears, Other Neck: denies: No Symptoms, Decreased ROM, Lumps, Pain on Movement, Stiffness, Swollen Glands, Tenderness, Other Cardiovascular: denies: No Symptoms, Chest Pain, Edema, Palpitations, Shortness of Breath, Other Respiratory: denies: No Symptoms, Cough, Exercise Intolerance, Hemoptysis, Orthopnea, PND, Snoring, SOB, SOB on Exertion, Wheezing, Other Genitourinary: denies: No Symptoms, Burning, Discharge, Dysuria, Flank Pain, Frequency, Hematuria, Incontinence, Lesions, Menses, Pain, Testicular Mass, Testicular Pain, Testicular Swelling, Urgency, Vaginal Bleeding, Other Breasts: denies: No Symptoms Reported, See HPI, Breast Implants, Discharge from Nipple, Lumps, Pain, Skin Changes, Other Integumentary: reports: Erythema, Wound (posterior knee erythema/induration/ pain. Drainage from Rt side mostly) Physical Exam Vital Signs: Vital Signs Temperature 98.4 F 04/02/17 09:00 Pulse Rate 81 04/02/17 09:00 Respiratory Rate 20 04/02/17 09:00 Blood Pressure 92/46 04/02/17 09:00 O2 Sat by Pulse Oximetry (%) 100 04/01/17 17:40 Constitutional: Yes: No Distress HENT: Yes: WNL Neck: Yes: WNL Cardiovascular: Yes: Regular Rate and Rhythm Respiratory: Yes: CTA Bilaterally Gastrointestinal: Yes: Normal Bowel Sounds, Soft Renal/: Yes: WNL Musculoskeletal: Yes: WNL Extremities: Yes: Erythema (posterior knee popliteal erythema/induration with semi-purulent drainage from Rt, necrotic area in Rt) Labs: CBC, BMP 04/01/17 14:00 04/01/17 14:00 Imaging - Results X-ray: Report Reviewed Ultrasound: Report Reviewed Problem List - Problems (1) Bilateral leg ulcer Code(s): L97.919 - NON-PRS CHRONIC ULC UNSP PRT OF R LOW LEG W UNSP SEVERITY L97.929 - NON-PRS CHRONIC ULC UNSP PRT OF L LOW LEG W UNSP SEVERITY Qualifiers : Non-pressure ulcer stage: unspecified non-pressure ulcer stage Qualified Code(s): L97.919 - Non-pressure chronic ulcer of unspecified part of right lower leg with unspecified severity; L97.929 - Non-pressure chronic ulcer of unspecified part of left lower leg with unspecified severity (2) Recurrent cellulitis of lower leg Code(s): L03.119 - CELLULITIS OF UNSPECIFIED PART OF LIMB (3) Abscess of popliteal region Code(s): L02.419 - CUTANEOUS ABSCESS OF LIMB, UNSPECIFIED (4) Abscess of right leg Code(s): L02.415 - CUTANEOUS ABSCESS OF RIGHT LOWER LIMB (5) Nicotine dependence Code(s): F17.200 - NICOTINE DEPENDENCE, UNSPECIFIED, UNCOMPLICATED (6) Wound abscess Code(s): T81.4XXA - INFECTION FOLLOWING A PROCEDURE, INITIAL ENCOUNTER (7) Heroin abuse Code(s): F11.10 - OPIOID ABUSE, UNCOMPLICATED Assessment/Plan 31 y.o female with IVDU and previous LE cellulitis presenting with Lt popliteal pain/induration and Rt popliteal induration and open draining wound. History of previous treatment for MRSA B/L posterior knee/popliteal cellulitis / Abscess suggest continue Vancomycin and Zosyn IV, add clindamycin 450 mg po Q6 follow up wound and blood culture results order esr/crp maintain contact precautions continue wound care patient currently stable for now
[2017-04-02] MEDS ORDERED: METHADONE HCL 10 MG TABLET PO ONE (10:00)
[2017-04-02] MEDS ORDERED: DEXTROSE 5%-WATER - 50 ML IVPB ONE ×3 (11:08→18:19)
[2017-04-02] MEDS ORDERED: PIPERACILLIN/TAZOBACTAM 3.375 GM VIAL IVPB ONE ×3 (11:08→18:18)
[2017-04-02] MEDS: PIPERACILLIN/TAZOB 3.375 GM 3.375 GM in DEXTROSE 5%-WATER - 50 ML IVPB SCH ×2 (11:33→18:23)
[2017-04-02] MEDS: CLINDAMYCIN HCL 150 MG CAPSULE (FP) PO SCH ×2 (11:33→18:24)
[2017-04-02] MEDS: VANCOMYCIN 1 GRAM (PRE-DOCKED) 250 ML IVPB SCH (11:33)
--- NOTE | 2017-04-02 12:40 | PN ---
Physical Exam: SUBJECTIVE: Patient seen and examined OBJECTIVE: Vital Signs Period Temp Pulse Resp BP Sys/Ortiz Pulse Ox Last 24 Hr 98.1 F-98.6 F 70-84 16-20 92-124/46-74 100 GEN: Awake, alert CVS: RRR PULM: CTAB ABD: soft, NT/ND, NABS EXTREM: warm ,well perfused Laboratory Results - last 24 hr 04/01/17 20:02 C-Reactive Protein 5.6 H Active Medications Generic Name Dose Route Start Last Admin Trade Name Freq PRN Reason Stop Dose Admin Clindamycin HCl 450 mg 04/02/17 12:00 04/02/17 11:33 Cleocin - PO 450 mg Q6HPO PENNY Administration Clonidine HCl 0.1 mg 04/01/17 22:37 Catapres Tts Patch - TD DAILY PENNY Heparin Sodium (Porcine) 5,000 unit 04/01/17 22:00 04/02/17 09:45 Heparin - SQ Not Given BID PENNY Vancomycin HCl 250 mls @ 166.667 mls/hr 04/02/17 11:00 04/02/17 11:33 Vancomycin (Pre-Docked) IVPB 166.667 mls/hr BID@1100,2300 PENNY Administration Protocol Piperacillin Sod/Tazobactam 50 mls @ 100 mls/hr 04/02/17 11:00 04/02/17 11:33 Sod 3.375 gm/ Dextrose IVPB 100 mls/hr Q8H-IV PENNY Administration Protocol Ibuprofen 400 mg 04/01/17 17:43 Motrin - PO Q4H PRN PAIN Methadone HCl 10 mg 04/05/17 10:00 Dolophine - PO 04/05/17 10:01 ONCE ONE Methadone HCl 15 mg 04/03/17 10:00 Dolophine - PO 04/03/17 10:01 ONCE ONE Methadone HCl 15 mg 04/04/17 10:00 Dolophine - PO 04/04/17 10:01 ONCE ONE Methadone HCl 5 mg 04/06/17 06:00 Dolophine - PO 04/06/17 06:01 ONCE@0600 ONE Methadone HCl 10 mg 04/01/17 22:39 Dolophine - PO 04/02/17 22:14 ONCE@2300 PRN WITHDRAWAL(CONT SUBST) Nicotine Polacrilex 2 mg 04/02/17 11:16 Nicorette Gum - BUC Q2H PRN NICOTINE REPLACEMENT RX Ondansetron HCl 4 mg 04/01/17 17:47 Zofran - PO Q8H PRN NAUSEA ASSESSMENT/PLAN: The patient is a 31 year old female with a significant past medical history of polysubstance abuse (intranasal cocaine, IV/SQ Heroin), chronic intermittent bilateral popliteal fossae wounds, who is being admitted to inpatient services with bilateral popliteal fossae wound infections and associated surrounding cellulitis. She does not meet criteria for sepsis. #ID Bilateral popliteal wound infections with surrounding cellulitis US noted CPR and ESR noted Doubt osteomyelitis Await ID and Surgery recommendations regarding need to obtain MRI of right knee Surgery to see pt today Continue Vanc, Zosyn, Clinda Motrin prn pain She is also on Methadone (see below) #POLYSUBSTANCE ABUSE Cocaine, Heroin and Nicoteine dependence Continue Nicorette gum Continue Methadone and Clonidine patch Sonia consult pending #FEN Regular diet Replete lytes prn #PROPHYLAXIS Eating Lovenox Visit type - Emergency Visit Emergency Visit: Yes ED Registration Date: 04/01/17 Care time: The patient presented to the Emergency Department on the above date and was hospitalized for further evaluation of their emergent condition. - New Patient This patient is new to me today: No - Critical Care Critical Care patient: No
[2017-04-02] MEDS: ENOXAPARIN NA (PORCINE) 40 MG/0.4 ML DISP.SYRIN SQ SCH (12:45)
--- NOTE | 2017-04-02 12:54 | EKG ---
Test Reason : Blood Pressure : / mmHG Vent. Rate : 067 BPM Atrial Rate : 067 BPM P-R Int : 140 ms QRS Dur : 092 ms QT Int : 396 ms P-R-T Axes : 059 067 039 degrees QTc Int : 418 ms NORMAL SINUS RHYTHM NORMAL ECG WHEN COMPARED WITH ECG OF 28-FEB-2017 14:45, NO SIGNIFICANT CHANGE WAS FOUND Confirmed by WILFRED JOE MD ([id number]) on 04/02/2017 12:53:43 PM Referred By: Confirmed By:WILFRED JOE MD
[2017-04-02] MEDS: cloNIDine-TTS 0.1 MG/24 HRS PATCH.TDWK TD SCH (14:43)
[2017-04-02] MEDS: NICOTINE POLACRILEX 2 MG GUM BUC PRN ×2 (15:35→22:06)
[2017-04-02] MEDS: diazePAM 5 MG TABLET PO PRN (17:00)
[2017-04-03] MEDS: CLINDAMYCIN HCL 150 MG CAPSULE (FP) PO SCH ×2 (00:21→06:32)
[2017-04-03] MEDS: VANCOMYCIN 1 GRAM (PRE-DOCKED) 250 ML IVPB SCH ×3 (00:21→23:02)
[2017-04-03] MEDS: diazePAM 5 MG TABLET PO PRN ×4 (01:05→21:01)
[2017-04-03] MEDS ORDERED: PIPERACILLIN/TAZOBACTAM 3.375 GM VIAL IVPB ONE ×2 (01:54→17:33)
[2017-04-03] MEDS ORDERED: DEXTROSE 5%-WATER - 50 ML IVPB ONE ×2 (01:54→17:33)
[2017-04-03] MEDS: PIPERACILLIN/TAZOB 3.375 GM 3.375 GM in DEXTROSE 5%-WATER - 50 ML IVPB SCH ×3 (02:03→17:34)
[2017-04-03] MEDS ORDERED: PT OWN MED DRAWER 7, Y5N ONE ×4 (06:47→22:23)
[2017-04-03] MEDS: ENOXAPARIN NA (PORCINE) 40 MG/0.4 ML DISP.SYRIN SQ SCH (09:59)
[2017-04-03] MEDS: cloNIDine-TTS 0.1 MG/24 HRS PATCH.TDWK TD SCH (09:59)
[2017-04-03] MEDS: NICOTINE POLACRILEX 2 MG GUM BUC PRN ×3 (10:00→21:01)
[2017-04-03] MEDS ORDERED: METHADONE HCL 5 MG TABLET PO ONE (10:00)
--- NOTE | 2017-04-03 10:18 | CONSULT ---
- Consultation REQUESTING PROVIDER: Man MONET CONSULT REQUEST: We have been asked to surgically evaluate this patient for management of recurrent/persistent soft tissue infections of both popliteal fossae. Patient was seen and evaluated 04/02/17. PCP:Maksim Staples MD HISTORY OF PRESENT ILLNESS: She had I and D both popliteal fossae 09/13/16; she never had a f/u w/ me; she now presents w/ a recurrent persistent/problem in the same area. PMHx: substance abuse PSHx: # abscess drainages in the past Home Medications Medication Instructions Recorded NK [No Known Home Medication] 04/01/17 Allergies Allergy/AdvReac Type Severity Reaction Status Date / Time No Known Allergies Allergy Verified 04/01/17 12:12 PHYSICAL EXAM: right popliteal fossa wound open w/ partial granulation and dranage and some non viable tissue; fluctuance and/or area to drain; left popliteal fossa the same to a much lesser extent; o/w negative. Vital Signs Temperature 98.1 F 04/02/17 19:44 Pulse Rate 68 04/02/17 19:44 Respiratory Rate 20 04/02/17 21:00 Blood Pressure 87/47 04/02/17 19:44 O2 Sat by Pulse Oximetry (%) 100 04/02/17 21:00 Lab Results WBC 9.2 K/mm3 (4.0-10.0) 04/01/17 14:00 RBC 4.27 M/mm3 (3.60-5.2) 04/01/17 14:00 Hgb 10.4 GM/dL (10.7-15.3) L 04/01/17 14:00 Hct 31.6 % (32.4-45.2) L 04/01/17 14:00 MCV 74.0 fl (80-96) L 04/01/17 14:00 MCHC 32.8 g/dl (32.0-36.0) 04/01/17 14:00 RDW 15.0 % (11.6-15.6) 04/01/17 14:00 Plt Count 413 K/MM3 (134-434) 04/01/17 14:00 Sodium 134 mmol/L (136-145) L 04/01/17 14:00 Potassium 4.1 mmol/L (3.5-5.1) 04/01/17 14:00 Chloride 102 mmol/L (98-107) 04/01/17 14:00 Carbon Dioxide 26 mmol/L (21-32) 04/01/17 14:00 Anion Gap 6 (8-16) L 04/01/17 14:00 BUN 8 mg/dL (7-18) 04/01/17 14:00 Creatinine 0.8 mg/dL (0.55-1.02) 04/01/17 14:00 Random Glucose 133 mg/dL (74-106) H D 04/01/17 14:00 Calcium 9.1 mg/dL (8.5-10.1) 04/01/17 14:00 IMP: recurrent/persistent ABSSSI's of the popliteal fossae PLAN: Given no fever and elevated WBC and open draining and indurated wounds advise LWC; wounds should be scrubbed/cleansed w/scrub brush from the OR w/ chlorhexidine and showers and DSD as needed. Adonis Li MD FACS Visit type - Case Type Case Type: ED Admission - Emergency Emergency Visit: Yes ED Registration Date: 04/01/17 Care time: The patient presented to the Emergency Department on the above date and was hospitalized for further evaluation of their emergent condition. - New patient This patient is new to me today: Yes Date on this admission: 04/03/17 - Critical Care Critical Care patient: No
--- NOTE | 2017-04-03 12:57 | PN ---
Teaching Attending Note Name of Resident: Magaly Scruggs ATTENDING PHYSICIAN STATEMENT I saw and evaluated the patient. I reviewed the resident's note and discussed the case with the resident. I agree with the resident's findings and plan as documented. SUBJECTIVE: OBJECTIVE: Vital Signs Period Temp Pulse Resp BP Sys/Ortiz Pulse Ox Last 24 Hr 98.1 F-98.1 F 68-75 20-20 87-105/47-69 100 HEART: S1S2, RRR LUNGS: Clear ABDOMEN: Soft, non-tender, non=distended, normal BS EXTREMITIES: No edema, open wounds of bilateral popliteal fossa with small yellow drainage and surrounding erythema and induration Current Medications Generic Name Dose Route Start Last Admin Trade Name Freq PRN Reason Stop Dose Admin Clonidine HCl 0.1 mg 04/01/17 22:37 04/03/17 09:59 Catapres Tts Patch - TD Not Given DAILY [facility] Diazepam 5 mg 04/03/17 14:55 04/03/17 15:11 Valium - PO 5 mg Q4H PRN Administration WITHDRAWAL(CONT SUBST) Enoxaparin Sodium 40 mg 04/02/17 12:45 04/03/17 09:59 Lovenox - SQ Not Given DAILY [facility] Vancomycin HCl 250 mls @ 166.667 mls/hr 04/02/17 11:00 04/03/17 09:59 Vancomycin (Pre-Docked) IVPB 166.667 mls/hr BID@1100,2300 [facility] Administration Protocol Piperacillin Sod/Tazobactam 50 mls @ 100 mls/hr 04/02/17 11:00 04/03/17 12:34 Sod 3.375 gm/ Dextrose IVPB Not Given Q8H-IV [facility] Protocol Ibuprofen 400 mg 04/01/17 17:43 Motrin - PO Q4H PRN PAIN Methadone HCl 10 mg 04/05/17 10:00 Dolophine - PO 04/05/17 10:01 ONCE ONE Methadone HCl 15 mg 04/04/17 10:00 Dolophine - PO 04/04/17 10:01 ONCE ONE Methadone HCl 5 mg 04/06/17 06:00 Dolophine - PO 04/06/17 06:01 ONCE@0600 ONE Nicotine Polacrilex 2 mg 04/02/17 11:16 04/03/17 14:37 Nicorette Gum - BUC 2 mg Q2H PRN Administration NICOTINE REPLACEMENT RX Ondansetron HCl 4 mg 04/01/17 17:47 Zofran - PO Q8H PRN NAUSEA ASSESSMENT AND PLAN: This is a 31 year old woman with a history of polysubstance abuse, chronic popliteal fossa wounds who presented to the ER with pain and drainage from behind both knees. 1. Recurrent bilateral popliteal fossa infected wounds with cellulitis - Continue Zosyn, Clindamycin, Vancomycin, wound care - Surgery consult appreciated 2. Polysubstance abuse with cocaine, heroin and nicotine dependence - Continue Nicorette gum, Methadone, Clonidine patch, Valium as needed - Awaiting detox consult
--- NOTE | 2017-04-03 13:43 | PN ---
Progress Note, Physician History of Present Illness: patient stable doing well no issues no fevers - Current Medication List Current Medications: Active Medications Clindamycin HCl (Cleocin -) 450 mg PO Q6HPO [facility] Last Admin: 04/03/17 06:32 Dose: 450 mg Clonidine HCl (Catapres Tts Patch -) 0.1 mg TD DAILY [facility] Last Admin: 04/03/17 09:59 Dose: Not Given Diazepam (Valium -) 5 mg PO Q8H PRN PRN Reason: WITHDRAWAL(CONT SUBST) Last Admin: 04/03/17 10:23 Dose: 5 mg Enoxaparin Sodium (Lovenox -) 40 mg SQ DAILY [facility] Last Admin: 04/03/17 09:59 Dose: Not Given Vancomycin HCl (Vancomycin (Pre-Docked)) 250 mls @ 166.667 mls/hr IVPB BID@1100 ,2300 [facility] PRN Reason: Protocol Last Admin: 04/03/17 09:59 Dose: 166.667 mls/hr Piperacillin Sod/Tazobactam (Sod 3.375 gm/ Dextrose) 50 mls @ 100 mls/hr IVPB Q8H-IV [facility] PRN Reason: Protocol Last Admin: 04/03/17 12:34 Dose: Not Given Ibuprofen (Motrin -) 400 mg PO Q4H PRN PRN Reason: PAIN Methadone HCl (Dolophine -) 10 mg PO ONCE ONE Stop: 04/05/17 10:01 Methadone HCl (Dolophine -) 15 mg PO ONCE ONE Stop: 04/04/17 10:01 Methadone HCl (Dolophine -) 5 mg PO ONCE@0600 ONE Stop: 04/06/17 06:01 Nicotine Polacrilex (Nicorette Gum -) 2 mg BUC Q2H PRN PRN Reason: NICOTINE REPLACEMENT RX Last Admin: 04/03/17 10:00 Dose: 2 mg Ondansetron HCl (Zofran -) 4 mg PO Q8H PRN PRN Reason: NAUSEA - Objective Vital Signs: Vital Signs Temperature 98.1 F 04/03/17 08:00 Pulse Rate 78 04/03/17 08:00 Respiratory Rate 20 04/03/17 08:00 Blood Pressure 113/67 04/03/17 08:00 O2 Sat by Pulse Oximetry (%) 100 04/03/17 08:00 Constitutional: Yes: No Distress, Calm Cardiovascular: Yes: Regular Rate and Rhythm Respiratory: Yes: Regular, CTA Bilaterally Gastrointestinal: Yes: Normal Bowel Sounds, Soft Musculoskeletal: Yes: Other Extremities: Yes: Other (wounds on post part of the calf muscles) Wound/Incision: Yes: Dressing Removed, Other (wounds looked at) 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: Yes: Alert, Oriented Psychiatric: Yes: Alert, Oriented Assessment/Plan Problem List - Problems (1) Bilateral leg ulcer Code(s): L97.919 - NON-PRS CHRONIC ULC UNSP PRT OF R LOW LEG W UNSP SEVERITY L97.929 - NON-PRS CHRONIC ULC UNSP PRT OF L LOW LEG W UNSP SEVERITY Qualifiers : Non-pressure ulcer stage: unspecified non-pressure ulcer stage Qualified Code(s): L97.919 - Non-pressure chronic ulcer of unspecified part of right lower leg with unspecified severity; L97.929 - Non-pressure chronic ulcer of unspecified part of left lower leg with unspecified severity (2) Recurrent cellulitis of lower leg Code(s): L03.119 - CELLULITIS OF UNSPECIFIED PART OF LIMB (3) Abscess of popliteal region Code(s): L02.419 - CUTANEOUS ABSCESS OF LIMB, UNSPECIFIED (4) Abscess of right leg Code(s): L02.415 - CUTANEOUS ABSCESS OF RIGHT LOWER LIMB (5) Nicotine dependence Code(s): F17.200 - NICOTINE DEPENDENCE, UNSPECIFIED, UNCOMPLICATED (6) Wound abscess Code(s): T81.4XXA - INFECTION FOLLOWING A PROCEDURE, INITIAL ENCOUNTER (7) Heroin abuse Code(s): F11.10 - OPIOID ABUSE, UNCOMPLICATED plan continue curent abx cx looked wound care rest as per primary
--- NOTE | 2017-04-03 14:57 | CONSULT ---
Consult Detox [facility] Reason for Current Admission/Consult: Heroin detox Referred by:: Azalia Mckenzie Res - History Source History Provided By: Patient, Medical Record - Alcohol/Substance Use Hx Alcohol Use: No - Past Medical History [employer]MER INTERN: No: Alzheimer's, CVA, Dementia, Migraine, Multiple Sclerosis, Peripheral Neuropathy, Parkinson's, Seizure, Syncope, TIA, Vertigo, Other Cardio/Vascular: No: AFIB, Aneurysm, Aortic Insufficiency, Aortic Stenosis, CAD , CHF, Deep Vein Thrombosis, HTN, Hyperlipdemia, PA, Mitral Insufficiency, Mitral Stenosis, Murmur, Pulmonary Hypertension, Other Pulmonary: No: Asthma, Bronchitis, Cancer, COPD, O2 Dependent, Pneumonia, Previously Intubated, Pulmonary Embolus, Pulmonary Fibrosis, Sleep Apnea, Other Gastrointestinal: No: Ascites, Cancer, Constipation, Crohn's Disease, Diverticulitis, Diverticulosis, Esophageal Varices, Gastritis, GERD, GI Bleed, Hemorrhoids, Hiatal Hernia, Inflamatory Bowel Disease, Irritable Bowel Disease, Pancreatitis, Peptic Ulcer Disease, Ulcerative Colitis, Other Hepatobiliary: No: Cirrhosis, Cholelithiasis, Cholecystitis, Choledocholithiasis , Hepatitis A, Hepatitis B, Hepatitis C, Other Renal/: No: Renal Failure, Renal Inusuff, BPH, Cancer, Hematuria, Hemodialysis , Neurogenic Bladder, Renal Calculi, UTI, Other ...LMP: 02/07/17 ...: No Infectious Disease: Yes: MRSA, Other (previously treated for cellulitis/abscess) Psych: Yes: Addictions Musculoskeletal: No: Bursitis, Chronic low back pain, Hemiparesis, Hemiplegia, Osteoarthritis, Paraplegia, Other Rheumatology: No: Fibromyalgia, Gout, Lupus, Rheumatoid Arthritis, Sarcoidosis, Vasculitis, Other ENT: No: Allergic Rhinitis, Sinusitis, Other Endocrine: No: Wallace's Disease, Odessa's Disease, Diabetes Insipidus, Diabetes Mellitus, Hyperparathyroidism, Hyperthyroidism, Hypothyroidism, Osteopenia, SIADH, Other Dermatology: Yes: Cellulitis, Other (History of popliteal cellulitis/abscess in the past) - Past Surgical History Past Surgical History: Yes: None
--- NOTE | 2017-04-03 17:01 | PN ---
Physical Exam: SUBJECTIVE: Patient seen and examined at bedside. Pt afebrile, states that she is no longer having pain in wounds behind knees. No signs of heroin withdrawal. OBJECTIVE: Vital Signs Period Temp Pulse Resp BP Sys/Ortiz Pulse Ox Last 24 Hr 98.0 F-98.1 F 68-78 17-20 87-113/47-67 100-100 GENERAL: The patient is awake, alert, and fully oriented, in no acute distress. HEAD: Normal with no signs of trauma. EYES: PERRL, extraocular movements intact, sclera anicteric, conjunctiva clear. No ptosis. ENT: Ears normal, nares patent, oropharynx clear without exudates, moist mucous membranes. LUNGS: Breath sounds equal, clear to auscultation bilaterally, no wheezes, no crackles, no accessory muscle use. HEART: Regular rate and rhythm, S1, S2 without murmur, rub or gallop. ABDOMEN: Soft, nontender, nondistended, normoactive bowel sounds, no guarding, no rebound, no hepatosplenomegaly, no masses. EXTREMITIES: wounds in popliteal fossa currently dry, no longer draining pus NEUROLOGICAL: Cranial nerves II through XII grossly intact. Active Medications Generic Name Dose Route Start Last Admin Trade Name Freq PRN Reason Stop Dose Admin Clonidine HCl 0.1 mg 04/01/17 22:37 04/03/17 09:59 Catapres Tts Patch - TD Not Given DAILY [facility] Diazepam 5 mg 04/03/17 14:55 04/03/17 15:11 Valium - PO 5 mg Q4H PRN Administration WITHDRAWAL(CONT SUBST) Enoxaparin Sodium 40 mg 04/02/17 12:45 04/03/17 09:59 Lovenox - SQ Not Given DAILY [facility] Vancomycin HCl 250 mls @ 166.667 mls/hr 04/02/17 11:00 04/03/17 09:59 Vancomycin (Pre-Docked) IVPB 166.667 mls/hr BID@1100,2300 [facility] Administration Protocol Piperacillin Sod/Tazobactam 50 mls @ 100 mls/hr 04/02/17 11:00 04/03/17 12:34 Sod 3.375 gm/ Dextrose IVPB Not Given Q8H-IV [facility] Protocol Ibuprofen 400 mg 04/01/17 17:43 Motrin - PO Q4H PRN PAIN Methadone HCl 10 mg 04/05/17 10:00 Dolophine - PO 04/05/17 10:01 ONCE ONE Methadone HCl 15 mg 04/04/17 10:00 Dolophine - PO 04/04/17 10:01 ONCE ONE Methadone HCl 5 mg 04/06/17 06:00 Dolophine - PO 04/06/17 06:01 ONCE@0600 ONE Nicotine Polacrilex 2 mg 04/02/17 11:16 04/03/17 14:37 Nicorette Gum - BUC 2 mg Q2H PRN Administration NICOTINE REPLACEMENT RX Ondansetron HCl 4 mg 04/01/17 17:47 Zofran - PO Q8H PRN NAUSEA ASSESSMENT/PLAN: 31 y/o F with Hx significant for intranasal cocaine, and IV heroin use, admitted for b/l popliteal fossa wound infections and cellulitis. #B/l popliteal fossa wound infections with cellulitis -CRP: elevated 5.6 - indicating inflammation -As per b/l xrays, most likely not osteomyelitis -Wound cx: lactose fermenting negative bacilli, MSSA, group D strep -Surgery: no intervention needed at this time, advised to clean wounds w/ chlorhexidine -Vanc, Zosyn (Day 2), clindamycin has been d/c -F/u vanco trough after next dose -F/u wound consult #Polysubstance abuse from nicotine, heroin, cocaine -Continue nicorette gum -Currently on methadone taper -No current signs of heroin withdrawal -Continue clonidine patch 0.1 mg TD daily -Zofran on board -F/u Sonia consult F/E/N -regular diet -monitor electrolytes Visit type - Emergency Visit Emergency Visit: No - New Patient This patient is new to me today: No - Critical Care Critical Care patient: No
--- NOTE | 2017-04-03 20:34 | CONSULT ---
Consult - Past Medical History FAMILY HEALTH NURSE PRACTITIONER: No: Alzheimer's, CVA, Dementia, Migraine, Multiple Sclerosis, Peripheral Neuropathy, Parkinson's, Seizure, Syncope, TIA, Vertigo, Other Cardio/Vascular: No: AFIB, Aneurysm, Aortic Insufficiency, Aortic Stenosis, CAD , CHF, Deep Vein Thrombosis, HTN, Hyperlipdemia, MS, Mitral Insufficiency, Mitral Stenosis, Murmur, Pulmonary Hypertension, Other Pulmonary: No: Asthma, Bronchitis, Cancer, COPD, O2 Dependent, Pneumonia, Previously Intubated, Pulmonary Embolus, Pulmonary Fibrosis, Sleep Apnea, Other Gastrointestinal: No: Ascites, Cancer, Constipation, Crohn's Disease, Diverticulitis, Diverticulosis, Esophageal Varices, Gastritis, GERD, GI Bleed, Hemorrhoids, Hiatal Hernia, Inflamatory Bowel Disease, Irritable Bowel Disease, Pancreatitis, Peptic Ulcer Disease, Ulcerative Colitis, Other Hepatobiliary: No: Cirrhosis, Cholelithiasis, Cholecystitis, Choledocholithiasis , Hepatitis A, Hepatitis B, Hepatitis C, Other Renal/: No: Renal Failure, Renal Inusuff, BPH, Cancer, Hematuria, Hemodialysis , Neurogenic Bladder, Renal Calculi, UTI, Other ...LMP: 02/07/17 ...: No Infectious Disease: Yes: MRSA, Other (previously treated for cellulitis/abscess) Psych: Yes: Addictions Musculoskeletal: No: Bursitis, Chronic low back pain, Hemiparesis, Hemiplegia, Osteoarthritis, Paraplegia, Other Rheumatology: No: Fibromyalgia, Gout, Lupus, Rheumatoid Arthritis, Sarcoidosis, Vasculitis, Other ENT: No: Allergic Rhinitis, Sinusitis, Other Endocrine: No: Kishore's Disease, Morris's Disease, Diabetes Insipidus, Diabetes Mellitus, Hyperparathyroidism, Hyperthyroidism, Hypothyroidism, Osteopenia, SIADH, Other Dermatology: Yes: Cellulitis, Other (History of popliteal cellulitis/abscess in the past) - Past Surgical History Past Surgical History: Yes: None - Alcohol/Substance Use Hx Alcohol Use: No History of Substance Use: reports: Cocaine, Heroin Date of Last Use: 04/01/17 - Smoking History Smoking history: Current every day smoker Have you smoked in the past 12 months: Yes Aproximately how many cigarettes per day: 20 - Social History Usual Living Arrangement: With Parent ADL: Independent 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/ [place] History of Recent Travel: No Home Medications - Allergies Allergies/Adverse Reactions: Allergies Allergy/AdvReac Type Severity Reaction Status Date / Time No Known Allergies Allergy Verified 04/01/17 12:12 - Home Medications Home Medications: Ambulatory Orders NK [No Known Home Medication] 04/01/17 Physical Exam Vital Signs: Vital Signs Temperature 97.9 F 04/03/17 17:00 Pulse Rate 75 04/03/17 17:00 Respiratory Rate 20 04/03/17 17:00 Blood Pressure 99/53 04/03/17 17:00 O2 Sat by Pulse Oximetry (%) 100 04/03/17 08:00 Assessment/Plan Vascular Surgery 31F w/ hx of significant heroine and cocaine use and 3 admissions for IV abx secondary to popliteal fossa infections/ulcers presenting with b/l leg infections. Pt reports that the infections are in the popliteal fossas again, are painful, and she has had subjective fevers and chills. She denies SOB, chest pain, nausea, emesis, pain, weakness, and numbness below the infection sites. Pt reports that the infections started a week ago, had improved slightly , but started worsening in the last few days. Pt started using heroine and cocaine 5.5 years ago, about 2-6 bags per day. She has been to detox several times at both [facility] (most recently 1 month ago) and [facility] as well as rehab, NA, and rehab. She always injects both drugs into the back of her legs. PE Head - NC/AT Lung - CTA Heart - rRR abd - soft,nt,nd ext - bl popliteal fossa wounds. clean , pink. minimal drainage. A/P Bl popliteal wounds. 1. Santyl daily to all wounds. 2. antibiotics. 3. can follow in wound care clinic upon DC make appt - [phone] Reymundo Stiles DO
[2017-04-03] MEDS: COLLAGENASE CLOSTRIDIUM HIST. 30 GRAMS TUBE TP SCH (21:00)
[2017-04-04] MEDS ORDERED: PIPERACILLIN/TAZOBACTAM 3.375 GM VIAL IVPB ONE ×3 (02:37→17:03)
[2017-04-04] MEDS ORDERED: DEXTROSE 5%-WATER - 50 ML IVPB ONE ×3 (02:38→17:03)
[2017-04-04] MEDS: PIPERACILLIN/TAZOB 3.375 GM 3.375 GM in DEXTROSE 5%-WATER - 50 ML IVPB SCH ×3 (02:41→17:06)
[2017-04-04] MEDS ORDERED: PT OWN MED DRAWER 7, Y5N ONE (09:00)
[2017-04-04] MEDS: NICOTINE POLACRILEX 2 MG GUM BUC PRN ×3 (09:14→22:48)
[2017-04-04] MEDS: ENOXAPARIN NA (PORCINE) 40 MG/0.4 ML DISP.SYRIN SQ SCH (09:14)
[2017-04-04] MEDS: diazePAM 5 MG TABLET PO PRN ×3 (09:14→22:48)
[2017-04-04] MEDS: COLLAGENASE CLOSTRIDIUM HIST. 30 GRAMS TUBE TP SCH (09:15)
[2017-04-04] MEDS ORDERED: cloNIDine-TTS 0.1 MG/24 HRS PATCH.TDWK TD SCH (10:00)
[2017-04-04] MEDS ORDERED: METHADONE HCL 5 MG TABLET PO ONE (10:00)
[2017-04-04] MEDS: VANCOMYCIN 1 GRAM (PRE-DOCKED) 250 ML IVPB SCH ×2 (10:37→22:07)
--- NOTE | 2017-04-04 14:32 | PN ---
Progress Note, Physician History of Present Illness: patient stable no fevers calm wound care has seen the patient dressing done - Current Medication List Current Medications: Active Medications Clonidine HCl (Catapres Tts Patch -) 0.1 mg TD DAILY [facility] Collagenase (Santyl -) 1 applic TP DAILY [facility] Last Admin: 04/04/17 09:15 Dose: 1 applic Diazepam (Valium -) 5 mg PO Q4H PRN PRN Reason: WITHDRAWAL(CONT SUBST) Last Admin: 04/04/17 09:14 Dose: 5 mg Enoxaparin Sodium (Lovenox -) 40 mg SQ DAILY [facility] Last Admin: 04/04/17 09:14 Dose: Not Given Vancomycin HCl (Vancomycin (Pre-Docked)) 250 mls @ 166.667 mls/hr IVPB BID@1100 ,2300 [facility] PRN Reason: Protocol Last Admin: 04/04/17 10:37 Dose: 166.667 mls/hr Piperacillin Sod/Tazobactam (Sod 3.375 gm/ Dextrose) 50 mls @ 100 mls/hr IVPB Q8H-IV [facility] PRN Reason: Protocol Last Admin: 04/04/17 09:15 Dose: 100 mls/hr Ibuprofen (Motrin -) 400 mg PO Q4H PRN PRN Reason: PAIN Methadone HCl (Dolophine -) 10 mg PO ONCE ONE Stop: 04/05/17 10:01 Methadone HCl (Dolophine -) 5 mg PO ONCE@0600 ONE Stop: 04/06/17 06:01 Nicotine Polacrilex (Nicorette Gum -) 2 mg BUC Q2H PRN PRN Reason: NICOTINE REPLACEMENT RX Last Admin: 04/04/17 09:14 Dose: 2 mg Ondansetron HCl (Zofran -) 4 mg PO Q8H PRN PRN Reason: NAUSEA - Objective Vital Signs: Vital Signs Temperature 98.1 F 04/04/17 13:30 Pulse Rate 62 04/04/17 13:30 Respiratory Rate 17 04/04/17 13:30 Blood Pressure 94/50 04/04/17 13:30 O2 Sat by Pulse Oximetry (%) 100 04/04/17 08:00 Constitutional: Yes: No Distress, Calm Cardiovascular: Yes: Regular Rate and Rhythm Respiratory: Yes: Regular, CTA Bilaterally Gastrointestinal: Yes: Normal Bowel Sounds, Soft Musculoskeletal: Yes: WNL Extremities: Yes: Other Wound/Incision: Yes: Dressing Dry and Intact, Other 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: Yes: Alert, Oriented Psychiatric: Yes: Alert, Oriented Assessment/Plan Problem List - Problems (1) Bilateral leg ulcer Code(s): L97.919 - NON-PRS CHRONIC ULC UNSP PRT OF R LOW LEG W UNSP SEVERITY L97.929 - NON-PRS CHRONIC ULC UNSP PRT OF L LOW LEG W UNSP SEVERITY Qualifiers : Non-pressure ulcer stage: unspecified non-pressure ulcer stage Qualified Code(s): L97.919 - Non-pressure chronic ulcer of unspecified part of right lower leg with unspecified severity; L97.929 - Non-pressure chronic ulcer of unspecified part of left lower leg with unspecified severity (2) Recurrent cellulitis of lower leg Code(s): L03.119 - CELLULITIS OF UNSPECIFIED PART OF LIMB (3) Abscess of popliteal region Code(s): L02.419 - CUTANEOUS ABSCESS OF LIMB, UNSPECIFIED (4) Abscess of right leg Code(s): L02.415 - CUTANEOUS ABSCESS OF RIGHT LOWER LIMB (5) Nicotine dependence Code(s): F17.200 - NICOTINE DEPENDENCE, UNSPECIFIED, UNCOMPLICATED (6) Wound abscess Code(s): T81.4XXA - INFECTION FOLLOWING A PROCEDURE, INITIAL ENCOUNTER (7) Heroin abuse Code(s): F11.10 - OPIOID ABUSE, UNCOMPLICATED plan continue curent abx cx looked wound care rest as per primary will see how the patine does i a day or 2 might be able to switch to oral abx
--- NOTE | 2017-04-04 16:00 | PN ---
Teaching Attending Note Name of Resident: Magaly Scruggs ATTENDING PHYSICIAN STATEMENT I saw and evaluated the patient. I reviewed the resident's note and discussed the case with the resident. I agree with the resident's findings and plan as documented. SUBJECTIVE:states no longer has arash in legs. minimal drainage. denies CP, SOB, fever, chills, N/V/C/D OBJECTIVE: Last Vital Signs Temp Pulse Resp BP Pulse Ox 98.1 F 62 17 94/50 100 04/04/17 13:30 04/04/17 13:30 04/04/17 13:30 04/04/17 13:30 04/04/17 08:00 General NAD Skin multiple ulcers on popliteal fossa, good granulation tissue, no active drainage ASSESSMENT AND PLAN: 31 year old woman with a history of polysubstance abuse, chronic popliteal fossa wounds who presented to the ER with pain and drainage from behind both knees. 1. Recurrent bilateral popliteal fossa infected wounds with cellulitis-due to self injection. clinically improved per pt. Wcx seems to be growing MSSA. will speak with ID about switching over to oral agent. cont local wound care with lisethyl. wound care and surgery on board. 2. Polysubstance abuse with cocaine, heroin and nicotine dependence- no signs of withdrawal. on methadone taper per detox specialist. counseled on need for drug abstinence and liklihood of continued worsening health with continued use. cont nicotine gum, valium prn 3. DVT ppx- lovenox
--- NOTE | 2017-04-04 17:54 | PN ---
Physical Exam: SUBJECTIVE: Patient seen and examined at bedside. No signs of heroin withdrawal. Pt has no complaints. Denies SOB, lower extremity pain. OBJECTIVE: Vital Signs Period Temp Pulse Resp BP Sys/Ortiz Pulse Ox Last 24 Hr 97.7 F-98.1 F 62-85 17-20 94-112/50-54 100-100 GENERAL: The patient is awake, alert, and fully oriented, in no acute distress. HEAD: Normal with no signs of trauma. EYES: PERRL, extraocular movements intact, sclera anicteric, conjunctiva clear. No ptosis. ENT: Ears normal, nares patent, oropharynx clear without exudates, moist mucous membranes. NECK: Trachea midline, full range of motion, supple. LUNGS: Breath sounds equal, clear to auscultation bilaterally, no wheezes, no crackles, no accessory muscle use. HEART: Regular rate and rhythm, S1, S2 without murmur, rub or gallop. ABDOMEN: Soft, nontender, nondistended, normoactive bowel sounds, no guarding, no rebound, no hepatosplenomegaly, no masses. EXTREMITIES: dry ulcers with surrounding erythema b/l in posterior patellar fossa NEUROLOGICAL: Cranial nerves II through XII grossly intact. Active Medications Generic Name Dose Route Start Last Admin Trade Name Freq PRN Reason Stop Dose Admin Clonidine HCl 0.1 mg 04/04/17 10:00 Catapres Tts Patch - TD DAILY [facility] Collagenase 1 applic 04/03/17 20:45 04/04/17 09:15 Santyl - TP 1 applic DAILY [facility] Administration Diazepam 5 mg 04/03/17 14:55 04/04/17 16:11 Valium - PO 5 mg Q4H PRN Administration WITHDRAWAL(CONT SUBST) Enoxaparin Sodium 40 mg 04/02/17 12:45 04/04/17 09:14 Lovenox - SQ Not Given DAILY [facility] Vancomycin HCl 250 mls @ 166.667 mls/hr 04/02/17 11:00 04/04/17 10:37 Vancomycin (Pre-Docked) IVPB 166.667 mls/hr BID@1100,2300 [facility] Administration Protocol Piperacillin Sod/Tazobactam 50 mls @ 100 mls/hr 04/02/17 11:00 04/04/17 17:06 Sod 3.375 gm/ Dextrose IVPB 100 mls/hr Q8H-IV [facility] Administration Protocol Ibuprofen 400 mg 04/01/17 17:43 Motrin - PO Q4H PRN PAIN Methadone HCl 10 mg 04/05/17 10:00 Dolophine - PO 04/05/17 10:01 ONCE ONE Methadone HCl 5 mg 04/06/17 06:00 Dolophine - PO 04/06/17 06:01 ONCE@0600 ONE Nicotine Polacrilex 2 mg 04/02/17 11:16 04/04/17 16:12 Nicorette Gum - BUC 2 mg Q2H PRN Administration NICOTINE REPLACEMENT RX Ondansetron HCl 4 mg 04/01/17 17:47 Zofran - PO Q8H PRN NAUSEA ASSESSMENT/PLAN: 31 y/o F with Hx significant for intranasal cocaine, and IV heroin use, admitted for b/l popliteal fossa wound infections and cellulitis. #B/l popliteal fossa wound infections with cellulitis -CRP: elevated 5.6 - indicating inflammation -As per b/l xrays, most likely not osteomyelitis -Wound cx: MSSA, group D strep -Surgery: no intervention needed at this time, advised to clean wounds w/ chlorhexidine, santyl -Vanc, Zosyn (Day 3), clindamycin has been d/c. Goal to switch to PO to prep pt for d/c in two days -Pain control with motrin 400mg PO q4 PRN -F/u vanco trough after next dose #Polysubstance abuse from nicotine, heroin, cocaine -Continue nicorette gum -Currently on methadone taper - complete two more days and then d/c -No current signs of active heroin withdrawal -Continue clonidine patch 0.1 mg TD daily -Zofran on board -F/u Sonia consult #DVT prophylaxis -On lovenox 40 mg SQ daily F/E/N -regular diet -monitor electrolytes Visit type - Emergency Visit Emergency Visit: No - New Patient This patient is new to me today: No - Critical Care Critical Care patient: No
[2017-04-05] MEDS ORDERED: DEXTROSE 5%-WATER - 50 ML IVPB ONE ×2 (00:20→10:20)
[2017-04-05] MEDS ORDERED: PIPERACILLIN/TAZOBACTAM 3.375 GM VIAL IVPB ONE ×2 (00:20→10:19)
[2017-04-05] MEDS: PIPERACILLIN/TAZOB 3.375 GM 3.375 GM in DEXTROSE 5%-WATER - 50 ML IVPB SCH ×2 (00:59→10:29)
[2017-04-05 08:27] LABS: MCH 23.4 pg (25.7-33.7); MCHC 31.4 g/dl (32.0-36.0); MEAN CELL VOLUME 74.6 fl (80-96); MEAN PLT VOLUME 8.2 fl (7.5-11.1); PLATELET COUNT 411 K/MM3 (134-434); RDW 15.1 % (11.6-15.6); WHITE BLOOD COUNT 8.9 K/mm3 (4.0-10.0)
[2017-04-05 09:07] LABS: CALCIUM 9.5 mg/dL (8.5-10.1)
[2017-04-05 09:11] LABS: ANION GAP 6 (8-16); CO2 29 mmol/L (21-32); CREATININE 0.9 mg/dL (0.55-1.02); GLUCOSE,RANDOM 77 mg/dL (74-106)
[2017-04-05] MEDS ORDERED: METHADONE HCL 10 MG TABLET PO ONE (10:00)
[2017-04-05] MEDS ORDERED: PT OWN MED DRAWER 7, Y5N ONE (10:21)
[2017-04-05] MEDS: VANCOMYCIN 1 GRAM (PRE-DOCKED) 250 ML IVPB SCH ×2 (10:29→11:05)
[2017-04-05] MEDS: diazePAM 5 MG TABLET PO PRN ×3 (10:29→19:37)
[2017-04-05] MEDS: ENOXAPARIN NA (PORCINE) 40 MG/0.4 ML DISP.SYRIN SQ SCH (10:30)
[2017-04-05] MEDS: NICOTINE POLACRILEX 2 MG GUM BUC PRN ×3 (10:35→19:37)
--- NOTE | 2017-04-05 11:32 | PN ---
Physical Exam: SUBJECTIVE: Patient seen and examined at bedside. Pt is no longer having pain behind knees, posteriorly. She is aware that she is receiving last dose of methadone tomorrow. Pt states that she wants to attend rehab at location besides [facility]. OBJECTIVE: Vital Signs Period Temp Pulse Resp BP Sys/Ortiz Pulse Ox Last 24 Hr 97.5 F-98.7 F 62-86 17-20 94-98/48-54 100 GENERAL: The patient is awake, alert, and fully oriented, in no acute distress. HEAD: Normal with no signs of trauma. EYES: PERRL, extraocular movements intact, sclera anicteric, conjunctiva clear. No ptosis. NECK: Trachea midline, full range of motion, supple. LUNGS: Breath sounds equal, clear to auscultation bilaterally, no wheezes, no crackles, no accessory muscle use. HEART: Regular rate and rhythm, S1, S2 without murmur, rub or gallop. ABDOMEN: Soft, nontender, nondistended, normoactive bowel sounds, no guarding, no rebound, no hepatosplenomegaly, no masses. EXTREMITIES: 2+ posterior tibial pulses, warm, well-perfused, no edema. Dry ulcers b/l in posterior patellar fossas without drainage, decreased erythema. NEUROLOGICAL: Cranial nerves II through XII grossly intact. Laboratory Results - last 24 hr 04/05/17 04/05/17 07:40 07:40 WBC 8.9 RBC 4.77 Hgb 11.2 Hct 35.6 MCV 74.6 L MCH 23.4 L MCHC 31.4 L RDW 15.1 Plt Count 411 MPV 8.2 Sodium 139 Potassium 4.5 Chloride 104 Carbon Dioxide 29 Anion Gap 6 L BUN 6 L D Creatinine 0.9 Random Glucose 77 D Calcium 9.5 Active Medications Generic Name Dose Route Start Last Admin Trade Name Freq PRN Reason Stop Dose Admin Clonidine HCl 0.1 mg 04/04/17 10:00 Catapres Tts Patch - TD DAILY PENNY Collagenase 1 applic 04/03/17 20:45 04/04/17 09:15 Santyl - TP 1 applic DAILY PENNY Administration Diazepam 5 mg 04/03/17 14:55 04/05/17 10:29 Valium - PO 5 mg Q4H PRN Administration WITHDRAWAL(CONT SUBST) Enoxaparin Sodium 40 mg 04/02/17 12:45 04/05/17 10:30 Lovenox - SQ Not Given DAILY PENNY Vancomycin HCl 250 mls @ 166.667 mls/hr 04/02/17 11:00 04/05/17 10:29 Vancomycin (Pre-Docked) IVPB 166.667 mls/hr BID@1100,2300 PENNY Administration Protocol Piperacillin Sod/Tazobactam 50 mls @ 100 mls/hr 04/02/17 11:00 04/05/17 10:29 Sod 3.375 gm/ Dextrose IVPB 100 mls/hr Q8H-IV PENNY Administration Protocol Ibuprofen 400 mg 04/01/17 17:43 Motrin - PO Q4H PRN PAIN Methadone HCl 5 mg 04/06/17 06:00 Dolophine - PO 04/06/17 06:01 ONCE@0600 ONE Nicotine Polacrilex 2 mg 04/02/17 11:16 04/05/17 10:35 Nicorette Gum - BUC 2 mg Q2H PRN Administration NICOTINE REPLACEMENT RX Ondansetron HCl 4 mg 04/01/17 17:47 Zofran - PO Q8H PRN NAUSEA ASSESSMENT/PLAN: 31 y/o F with Hx significant for intranasal cocaine, and IV heroin use, admitted for b/l popliteal fossa wound infections and cellulitis. #B/l popliteal fossa wound infections with cellulitis -CRP: elevated 5.6 - indicating inflammation -As per b/l xrays, most likely not osteomyelitis -Wound cx: MSSA, group D strep -Surgery: no intervention needed at this time, advised to clean wounds w/ chlorhexidine, santyl -Vanc, Zosyn (Day 4 course completed), clindamycin has been d/c. -Pt started on augmentin PO (Today is Day1) -Pain control with motrin 400mg PO q4 PRN #Polysubstance abuse from nicotine, heroin, cocaine -Continue nicorette gum -Currently on methadone taper -received 10mg today, 5 mg tomorrow -No current signs of active heroin withdrawal -Continue clonidine patch 0.1 mg TD daily -Zofran on board #DVT prophylaxis -On lovenox 40 mg SQ daily F/E/N -regular diet -monitor electrolytes Disposition -For d/c tomorrow -Pt wants to attend rehab outside of [place] care Visit type - Emergency Visit Emergency Visit: No - New Patient This patient is new to me today: No - Critical Care Critical Care patient: No
[2017-04-05 12:05] LABS: FERRITIN 22.405 ng/ml (6.9-282.5)
--- NOTE | 2017-04-05 12:31 | PN ---
Teaching Attending Note Name of Resident: Magaly Scruggs ATTENDING PHYSICIAN STATEMENT I saw and evaluated the patient. I reviewed the resident's note and discussed the case with the resident. I agree with the resident's findings and plan as documented. SUBJECTIVE:improved. denies pain or drainage from lesions. denies CP, SOB, fever , chills OBJECTIVE: Last Vital Signs Temp Pulse Resp BP Pulse Ox 98.7 F 89 18 98/54 100 04/05/17 09:00 04/05/17 09:00 04/05/17 09:00 04/05/17 09:00 04/05/17 09:00 General NAD Skin multiple ulcers on popliteal fossa, good granulation tissue, no active drainage ASSESSMENT AND PLAN: 31 year old woman with a history of polysubstance abuse, chronic popliteal fossa wounds who presented to the ER with pain and drainage from behind both knees. 1. Recurrent bilateral popliteal fossa infected wounds with cellulitis-due to self injection. clinically improved per pt. Wcx seems to be growing MSSA and ecoli. will speak with ID about switching over to oral agent. cont local wound care with santyl. wound care and surgery on board. on vanco/zosyn day 4. can d/ c contact precautions. 2. Polysubstance abuse with cocaine, heroin and nicotine dependence- no signs of withdrawal. on methadone taper per detox specialist. requesting if can complete detox at home (tomorrow last dose) will place call to Dr Cavazos if hes able to do this. not certified for methadone. counseled on need for drug abstinence and likelihood of continued worsening health with continued use. cont nicotine gum, valium prn 3. DVT ppx- lovenox 4. d/c planning tomorrow once methadone completes unless pt is provided with prescription from detox specialist.
[2017-04-05] MEDS: COLLAGENASE CLOSTRIDIUM HIST. 30 GRAMS TUBE TP SCH (14:42)
--- NOTE | 2017-04-05 15:49 | PN ---
Progress Note, Physician History of Present Illness: patient stable pulled out her iv wont take iv wound dry - Current Medication List Current Medications: Active Medications Amoxicillin/Clavulanate Potassium (Augmentin - 875mg Tablet) 1 tab PO BID@0800, 1730 [facility] Clonidine HCl (Catapres Tts Patch -) 0.1 mg TD DAILY [facility] Collagenase (Santyl -) 1 applic TP DAILY PENNY Last Admin: 04/05/17 14:42 Dose: 1 applic Diazepam (Valium -) 5 mg PO Q4H PRN PRN Reason: WITHDRAWAL(CONT SUBST) Last Admin: 04/05/17 14:42 Dose: 5 mg Enoxaparin Sodium (Lovenox -) 40 mg SQ DAILY PENNY Last Admin: 04/05/17 10:30 Dose: Not Given Ibuprofen (Motrin -) 400 mg PO Q4H PRN PRN Reason: PAIN Methadone HCl (Dolophine -) 5 mg PO ONCE@0600 ONE Stop: 04/06/17 06:01 Nicotine Polacrilex (Nicorette Gum -) 2 mg BUC Q2H PRN PRN Reason: NICOTINE REPLACEMENT RX Last Admin: 04/05/17 14:43 Dose: 2 mg Ondansetron HCl (Zofran -) 4 mg PO Q8H PRN PRN Reason: NAUSEA - Objective Vital Signs: Vital Signs Temperature 97.8 F 04/05/17 14:00 Pulse Rate 89 04/05/17 14:00 Respiratory Rate 17 04/05/17 14:00 Blood Pressure 89/52 04/05/17 14:00 O2 Sat by Pulse Oximetry (%) 100 04/05/17 09:00 Constitutional: Yes: No Distress, Calm Cardiovascular: Yes: Regular Rate and Rhythm Respiratory: Yes: Regular, CTA Bilaterally Gastrointestinal: Yes: Normal Bowel Sounds, Soft Musculoskeletal: Yes: Other Extremities: Yes: Other (bilateral wounds in the calf) 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: Yes: Alert, Oriented Psychiatric: Yes: Alert Labs: CBC, BMP 04/05/17 07:40 04/05/17 07:40 Assessment/Plan Problem List - Problems (1) Bilateral leg ulcer Code(s): L97.919 - NON-PRS CHRONIC ULC UNSP PRT OF R LOW LEG W UNSP SEVERITY L97.929 - NON-PRS CHRONIC ULC UNSP PRT OF L LOW LEG W UNSP SEVERITY Qualifiers : Non-pressure ulcer stage: unspecified non-pressure ulcer stage Qualified Code(s): L97.919 - Non-pressure chronic ulcer of unspecified part of right lower leg with unspecified severity; L97.929 - Non-pressure chronic ulcer of unspecified part of left lower leg with unspecified severity (2) Recurrent cellulitis of lower leg Code(s): L03.119 - CELLULITIS OF UNSPECIFIED PART OF LIMB (3) Abscess of popliteal region Code(s): L02.419 - CUTANEOUS ABSCESS OF LIMB, UNSPECIFIED (4) Abscess of right leg Code(s): L02.415 - CUTANEOUS ABSCESS OF RIGHT LOWER LIMB (5) Nicotine dependence Code(s): F17.200 - NICOTINE DEPENDENCE, UNSPECIFIED, UNCOMPLICATED (6) Wound abscess Code(s): T81.4XXA - INFECTION FOLLOWING A PROCEDURE, INITIAL ENCOUNTER (7) Heroin abuse Code(s): F11.10 - OPIOID ABUSE, UNCOMPLICATED plan changed to oral augmentin please also add omniceff to the regimen wound care rest as per primary
[2017-04-05] MEDS: AMOX TR/POT CLAV 875MG/125MG TABLETS (FP) PO SCH (17:10)
[2017-04-06] MEDS ORDERED: METHADONE HCL 5 MG TABLET PO ONE (06:00)
[2017-04-06 06:18] LABS: SERUM IRON 21 ug/dL (27-159); TOTAL IRON BINDING CAPACITY 318 ug/dL (250-450); UIBC 297 ug/dL (131-425)
[2017-04-06] MEDS: NICOTINE POLACRILEX 2 MG GUM BUC PRN (06:44)
[2017-04-06] MEDS: diazePAM 5 MG TABLET PO PRN (06:44)
[2017-04-06 08:22] VITALS: BP 93/57; PULSE 73; TEMP 98.2
[2017-04-06] MEDS: AMOX TR/POT CLAV 875MG/125MG TABLETS (FP) PO SCH (08:34)
[2017-04-06] MEDS ORDERED: cloNIDine-TTS 0.1 MG/24 HRS PATCH.TDWK TD SCH (10:00)
[2017-04-06] MEDS: ENOXAPARIN NA (PORCINE) 40 MG/0.4 ML DISP.SYRIN SQ SCH (10:01)
--- NOTE | 2017-04-06 14:20 | PN ---
Teaching Attending Note Name of Resident: Magaly Scruggs ATTENDING PHYSICIAN STATEMENT I saw and evaluated the patient. I reviewed the resident's note and discussed the case with the resident. I agree with the resident's findings and plan as documented. SUBJECTIVE:asymptomatic. denies CP, SOB, fever, chills, OBJECTIVE: Last Vital Signs Temp Pulse Resp BP Pulse Ox 98.2 F 73 18 93/57 100 04/06/17 08:09 04/06/17 08:09 04/06/17 08:51 04/06/17 08:09 04/06/17 08:51 General NAD ASSESSMENT AND PLAN: 31 year old woman with a history of polysubstance abuse, chronic popliteal fossa wounds who presented to the ER with pain and drainage from behind both knees. 1. Recurrent bilateral popliteal fossa infected wounds with cellulitis-due to self injection. clinically improved per pt. received vanco/zosyn for 5 days. will switch to augmentin and cefdinir for additional 10 days. local wound care as instructed. will need to follow up in the wound care center. explained importance of following up 2. Polysubstance abuse with cocaine, heroin and nicotine dependence- no signs of withdrawal. completes methadone taper today. is to follow up with outpatient counseling. 3. Iron deficiency anemia- start iron supplementation. counseled side effects of constipation and black stools. informed will need iron studies repeated in 3 months 4. d/c home
--- NOTE | 2017-04-06 14:41 | DS ---
Physical Exam: SUBJECTIVE: Patient seen and examined at bedside today. States that she no longer has pain behind her knees. No signs of heroin withdrawal, received last dose of methadone today (5 mg). OBJECTIVE: Vital Signs Period Temp Pulse Resp BP Sys/Ortiz Pulse Ox Last 24 Hr 97.8 F-98.6 F 63-76 18-20 93-100/52-57 100-100 PHYSICAL EXAM GENERAL: The patient is awake, alert, and fully oriented, in no acute distress. HEAD: Normal with no signs of trauma. EYES: PERRL, extraocular movements intact, sclera anicteric, conjunctiva clear. NECK: Trachea midline, full range of motion, supple. LUNGS: Breath sounds equal, clear to auscultation bilaterally, no wheezes, no crackles, no accessory muscle use. HEART: Regular rate and rhythm, S1, S2 without murmur, rub or gallop. ABDOMEN: Soft, nontender, nondistended, normoactive bowel sounds, no guarding, no rebound, no hepatosplenomegaly, no masses. EXTREMITIES: 2+ posterior tibial pulses, warm, well-perfused, no edema. Healing posterior patellar fossa ulcers, without drainage. Dry, decreased erythema. NEUROLOGICAL: Cranial nerves II through XII grossly intact. LABS 04/01/17 04/01/17 04/01/17 14:00 14:00 14:00 WBC 9.2 Hgb 10.4 L Hct 31.6 L Plt Count 413 Eosinophils % 7.7 H ESR Sodium 134 L Potassium 4.1 Chloride 102 Carbon Dioxide 26 BUN 8 Creatinine 0.8 Random Glucose 133 H D Iron TIBC Iron Saturation AST 10 L ALT 15 C-Reactive Protein Albumin 3.3 L Ur Specific [place] >= 1.030 H Urine Protein 1+ H Urine Ketones Trace H Urine Urobilinogen 2.0 H Ur Leukocyte Esterase 1+ H 04/01/17 04/01/17 04/05/17 14:00 20:02 07:40 WBC 8.9 Hgb 11.2 Hct 35.6 Plt Count 411 Eosinophils % ESR 38 H Sodium Potassium Chloride Carbon Dioxide BUN Creatinine Random Glucose Iron TIBC Iron Saturation AST ALT C-Reactive Protein 5.6 H Albumin Ur Specific [place] Urine Protein Urine Ketones Urine Urobilinogen Ur Leukocyte Esterase 04/05/17 04/05/17 07:40 11:00 WBC Hgb Hct Plt Count Eosinophils % ESR Sodium 139 Potassium 4.5 Chloride 104 Carbon Dioxide 29 BUN 6 L D Creatinine 0.9 Random Glucose 77 D Iron 21 L TIBC 318 Iron Saturation 7 L AST ALT C-Reactive Protein Albumin Ur Specific [place] Urine Protein Urine Ketones Urine Urobilinogen Ur Leukocyte Esterase Microbiology 04/03/17 10:00 Nares - Mrsa Screen - Right MRSA Screen - Final NO MRSA ISOLATED 04/03/17 10:00 Nares - Mrsa Screen - Left MRSA Screen - Final NO MRSA ISOLATED 04/01/17 22:39 Urine - Urine Clean Catch Urine Culture - Final NO GROWTH OBTAINED 04/01/17 14:00 Leg - Left Knee Gram Stain - Final 04/01/17 14:00 Blood - Peripheral Venous Blood Culture - Final NO GROWTH AFTER 5 DAYS INCUBATION 04/01/17 14:00 Blood - Peripheral Venous Blood Culture - Final NO GROWTH AFTER 5 DAYS INCUBATION 04/01/17 14:00 Leg - Left Knee Wound Culture - Preliminary Escherichia Coli Staphylococcus Aureus Enterococcus Faecalis Imaging 04/01/17: bilateral Knee x-rays: L- no signs of osteomyelitis, peripheral soft tissue air. R-no sign of osteomyelitis, peripheral soft tissue air 04/01/17: EKG: normal sinus rhythm 04/01/17: US/ soft tissue extremity ultrasound: heterogeneous mass with possible calcifications in R popliteal fossa. HOSPITAL COURSE: Date of Admission:04/01/17 Date of Discharge: 04/06/17 Admit diagnosis: bilateral popliteal fossa wound infections and polysubstance abuse Pre-admission course 31 y/o F with Hx IV heroin (has used for 5 years, last use this morning) and intranasal cocaine use who presented to the ED with bilateral posterior knee infections that have worsened over the past 2 weeks. As per pt, she has had similar wound infections in the past in the same location behind her knees. She injects directly beneath these areas, into the upper portion of her calves when she uses. Over the last few days, she has also noticed that they have started to become painful- 6/10, dull, non-radiating pain, and have started to drain yellow, malodorous pus. During this time, pt has also had subjective fever and chills. She has been to detox multiple times, most recently in February. Pt denies cough, changes in vision, abdominal pain, palpitations, nausea, vomiting. She states that she does not share needles, and was HIV- the last time she was tested. Expressed interest in returning to rehab after hospitalization. ER course was notable for: (1) Vanco/Zosyn 1 time dose Hospital course Pt was managed for b/l wound infections in popliteal fossas and cellulitis with four day course of vancomycin and zosyn. Wound cx showed MSSA, group D strep. Pt started augmentin PO day prior to discharge and was recommended to continue twice a day for next 2 weeks, along with cefdinir 300mg BID for 10 days. During stay, pt's wounds also cleaned with chlorhexidine and santyl. Pt to follow up at wound care center in [facility]. Concerning her polysubstance abuse, pt completed methadone taper. Did not exhibit any signs of heroin withdrawal during stay. Pt stated that she would return to rehab, but did not want to go to [facility]. Recommended narcotics anonymous meetings. Minutes to complete discharge: 32 Discharge Summary Reason For Visit: BILATERAL LEG ULCER Current Active Problems DVT prophylaxis (Acute) Leukocytosis (Acute) Opioid dependence with withdrawal (Acute) Recurrent cellulitis of lower leg (Chronic) Condition: Stable - Instructions Diet, Activity, Other Instructions: You were recently in the hospital for cellulitis behind your knees. You may resume activity as tolerated. Please take the following antibiotics: -Augmentin 875 mg twice a day for 2 weeks -Cefdinir 300mg twice a day for 10 days You also should take Ferrous sulfate (iron capsule) once a day for the next 3 months. This may make your stools dark and may cause constipation. Please follow up at the wound care center in the hospital at [phone]. We also strongly suggest you join a Narcotics anonymous meeting to get further support. If you develop any shortness of breath, chest pain, or any new symptoms, please go to the hospital. We hope you feel better soon. Disposition: HOME - Home Medications Comprehensive Discharge Medication List: Ambulatory Orders Amox-Tr/K Cl [Augmentin 875-125mg Tablet -] 1 tab PO BID@0800,1730 #28 tablet Ferrous Sulfate 325 mg PO DAILY #30 tablet 04/06/17 Miscellaneous Drug Not in Syst 300 mg PO BID #20 tab 04/06/17 Nicotine Polacrilex [Nicorelief -] 2 mg BUC Q2H PRN #0 gum 04/06/17 This patient is new to me today: No Emergency Visit: No Critical Care patient: No - Discharge Referral Referred to [facility] No
[2017-04-08] MEDS ORDERED: cloNIDine-TTS 0.1 MG/24 HRS PATCH.TDWK TD SCH (10:00)
== END 2017-04-06 12:04 | disposition home or self-care (01) | DRG 383 ==
LOC: JER 12:08 → JERFT 12:08 → JERBED 16:06 → J6S 19:38
PROVIDERS: ADMIT Internal Medicine; ATTEND Internal Medicine
DX: L03.116 Cellulitis of left lower limb (principal); L03.115 Cellulitis of right lower limb; B95.61 Methicillin susceptible Staphylococcus aureus infection as the cause of diseases classified elsewhere; L02.416 Cutaneous abscess of left lower limb; L02.415 Cutaneous abscess of right lower limb; L97.829 Non-pressure chronic ulcer of other part of left lower leg with unspecified severity; L97.819 Non-pressure chronic ulcer of other part of right lower leg with unspecified severity; F14.20 Cocaine dependence, uncomplicated; F11.20 Opioid dependence, uncomplicated; F17.210 Nicotine dependence, cigarettes, uncomplicated; D50.8 Other iron deficiency anemias
CPT/HCPCS: 36415; 73560-TC-LT; 73560-TC-RT; 76882; 80048; 80053; 81003; 81015; 82728; 83540; 83550; 83605; 84702; 84703; 85025; 85027; 85651; 86140; 87040; 87070; 87081; 87086; 87186; 87205; 93005; 93010; 99284-25

== ENCOUNTER 2017-04-10 14:48 | Emergency (ER) | payer MEDICARE, OTHER ==
[2017-04-10 15:01] VITALS: BMI 21.9
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
[2017-04-10] MEDS ORDERED: PIPERACILLIN/TAZOB 4.5 GM/100 ML PRE-DOCKED IVPB ONE (18:09)
[2017-04-10] MEDS ORDERED: PIPERACILLIN/TAZOB 4.5 GM 100 ML IVPB ONE (18:13)
[2017-04-10] MEDS ORDERED: VANCOMYCIN 1,000 MG in DEXTROSE 5%-WATER - 250 ML IVPB SCH ×2 (18:46→22:00)
[2017-04-10] MEDS ORDERED: VANCOMYCIN 1,000 MG in DEXTROSE 5%-WATER - 250 ML IVPB ONE (18:51)
[2017-04-10] MEDS ORDERED: VANCOMYCIN 1 GRAM (PRE-DOCKED) 250 ML IVPB ONE (19:06)
[2017-04-10 19:19] LABS: BASOPHIL 1.1 % (0-2.0); EOSINOPHIL 4.3 % (0-4.5); MCHC 32.6 g/dl (32.0-36.0); MEAN CELL VOLUME 73.5 fl (80-96); MEAN PLT VOLUME 8.7 fl (7.5-11.1); NEUTROPHILS 72.8 % (42.8-82.8); PLATELET COUNT 343 K/MM3 (134-434); RDW 15.4 % (11.6-15.6); WHITE BLOOD COUNT 10.5 K/mm3 (4.0-10.0)
[2017-04-10 19:56] VITALS: BP 128/64; PULSE 69; TEMP 99.5
[2017-04-10 20:12] LABS: ALBUMIN 3.8 g/dl (3.4-5.0); ANION GAP 8 (8-16); CALCIUM 9.4 mg/dL (8.5-10.1); CO2 29 mmol/L (21-32); CREATININE 0.9 mg/dL (0.55-1.02); GLUCOSE,RANDOM 85 mg/dL (74-106); SGOT/AST 17 U/L (15-37); SGPT/ALT 18 U/L (12-78)
[2017-04-10 20:14] LABS: ALK PHOS 85 U/L (45-117); BILIRUBIN,TOTAL 0.5 mg/dL (0.2-1.0); TOT PROT 8.6 g/dl (6.4-8.2)
== END 2017-04-10 20:27 | disposition short-term general hospital (02) ==
LOC: JERFT 14:48 → JER 14:48
DX: T76.21XA Adult sexual abuse, suspected, initial encounter (principal); L03.115 Cellulitis of right lower limb; Y07.9 Unspecified perpetrator of maltreatment and neglect
CPT/HCPCS: 36415; 80053; 84703; 85025; 99284-25

== ENCOUNTER 2017-05-01 20:09 | Inpatient (IN) | payer OTHER ==
[2017-05-01 20:25] VITALS: BMI 23.3
--- NOTE | 2017-05-01 21:05 | HP ---
COWS - Scale Resting Pulse: 0= [place] 80 or Below Sweatin= Chills/Flushing Restless Observation: 3= Extraneous Movement Pupil Size: 0= Normal to Room Light Bone or Joint Aches: 2= Severe Diffuse Aches Runny Nose/ Eye Tearin= Runny Nose/Eyes GI Upset > 30mins: 2= Nausea/Diarrhea Tremor Observation: 2= Slight Tremor Visible Yawning Observation: 0= None Anxiety or Irritability: 2=Irritable/Anxious Goose Flesh Skin: 0=Smooth Skin COWS Score: 14 Admission [facility] Chief Complaint: withdrawal sx Allergies/Adverse Reactions: Allergies Allergy/AdvReac Type Severity Reaction Status Date / Time No Known Allergies Allergy Verified 05/01/17 20:29 History of Present Illness: 31 years old female with long history of heroin nicotine dependence has 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, denies mental illness is admitted to detox Exam Limitations: No Limitations - Ebola screening Have you traveled outside of the country in the last 21 days: No (N) Have you had contact with anyone from an Ebola affected area: No Have you been sick,other than usual withdrawal symptoms: No Do you have a fever: No - Review of Systems Constitutional: Changes in sleep, Weight Stable EENT: reports: No Symptoms Reported Respiratory: reports: No Symptoms reported Cardiac: reports: No Symptoms Reported GI: reports: Nausea, Poor Fluid Intake, Abdominal cramping : reports: No Symptoms Reported Musculoskeletal: reports: Back Pain, Joint Pain, Muscle Pain, Neck Pain Integumentary: reports: Change in Color (chronic abscess behind both legs), Lesions Neuro: reports: Tremors Endocrine: reports: No Symptoms Reported Hematology: reports: No Symptoms Reported Psychiatric: reports: No Sypmtoms Reported, Judgement Intact, Mood/Affect Appropiate, Orientated x3 Other Systems: Reviewed and Negative Patient History - Patient Medical History Hx Anemia: No Hx Asthma: No Hx Chronic Obstructive Pulmonary Disease (COPD): No Hx Cancer: No Hx Cardiac Disorders: No Hx Congestive Heart Failure: No Hx Hypertension: No Hx Hypercholesterolemia: No Hx Pacemaker: No HX Cerebrovascular Accident: No Hx Seizures: No Hx Dementia: No Hx Diabetes: No Hx Gastrointestinal Disorders: No Hx Liver Disease: No Hx Genitourinary Disorders: No Hx Sexually Transmitted Disorders: No Hx Renal Disease (ESRD): No Hx Thyroid Disease: No Hx Human Immunodeficiency Virus (HIV): No (10/28 last negative) Hx Hepatitis C: No Hx Depression: No Hx Suicide Attempt: No Hx Bipolar Disorder: No Hx Schizophrenia: No - Patient Surgical History Past Surgical History: No Hx Neurologic Surgery: No Hx Cataract Extraction: No Hx Cardiac Surgery: No Hx Lung Surgery: No Hx Breast Surgery: No Hx Breast Biopsy: No Hx Abdominal Surgery: No Hx Appendectomy: No Hx Cholecystectomy: No Hx Genitourinary Surgery: No Hx Section: No Hx Orthopedic Surgery: No Hx Hysterectomy: No - PPD History Previous Implant?: Yes Documented Results: Negative w/proof Implanted On Prior [facility] Admission?: Yes Date: 06/09/16 Results: 0 mm PPD to be Administered?: No - Reproductive History Patient is a Female of Child Bearing Age (11 -55 yrs old): Yes Last Menstrual Period: 04/17/17 Patient : No - Smoking Cessation Smoking history: Current every day smoker Have you smoked in the past 12 months: Yes Aproximately how many cigarettes per day: 20 Cigars Per Day: 0 Hx Chewing Tobacco Use: No Initiated information on smoking cessation: Yes 'Breaking Loose' booklet given: 05/01/17 - Substance & Tx. History Hx Alcohol Use: No Hx Substance Use: Yes Substance Use Type: Cocaine, Heroin Hx Substance Use Treatment: Yes (02/28-03/05/17 [facility]) - Substances Abused Heroin Route: Injection Frequency: Daily Amount used: 5 bags Age of first use: 23 Date of Last Use: 05/01/17 Cocaine Route: Injection Frequency: Daily Amount used: 1 gram Age of first use: 23 Date of Last Use: 05/01/17 Family Disease History - Family Disease History Family History: Unremarkable Admission Physical Exam BHS - Vital Signs Vital Signs: Vital Signs - 24 hr 05/01/17 20:21 Temperature 98.2 F Pulse Rate 78 Respiratory 18 Rate Blood Pressure 122/78 - Physical General Appearance: Yes: Appropriately Dressed, Mild Distress, Thin, Tremorous, Irritable, Sweating, Anxious HEENTM: Yes: Hearing grossly Normal, Normal ENT Inspection, Normocephalic, Normal Voice Respiratory: Yes: Chest Non-Tender, Lungs Clear, Normal Breath Sounds, No Respiratory Distress, No Accessory Muscle Use Neck: Yes: Supple, Trachea in good position Breast: Yes: Breasts Symetrical Cardiology: Yes: Regular Rhythm, Regular Rate, S1, S2 Abdominal: Yes: Normal Bowel Sounds, Non Tender, Soft Genitourinary: Yes: Within Normal Limits Back: Yes: Normal Inspection Musculoskeletal: Yes: full range of Motion, Gait Steady, Back pain, Muscle Pain Extremities: Yes: Normal Range of Motion, Non-Tender, Tremors, Swelling (behind both legs) 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: Yes: Fully Oriented, Alert, Motor Strength 5/5, Normal Mood/Affect , Normal Response Integumentary: Yes: Warm, Track Schmidt Lymphatic: Yes: Within Normal Limits - Diagnostic (1) Opioid dependence with withdrawal Current Visit: Yes Status: Acute (2) Bilateral leg ulcer Current Visit: Yes Status: Chronic Qualifiers: Non-pressure ulcer stage: unspecified non-pressure ulcer stage Qualified Code(s): L97.919 - Non-pressure chronic ulcer of unspecified part of right lower leg with unspecified severity; L97.929 - Non-pressure chronic ulcer of unspecified part of left lower leg with unspecified severity (3) Nicotine dependence Current Visit: Yes Status: Acute Qualifiers: Nicotine product type: cigarettes Substance use status: in withdrawal Qualified Code(s): F17.213 - Nicotine dependence, cigarettes, with withdrawal (4) Cocaine dependence with withdrawal Current Visit: Yes Status: Chronic Cleared for Admission [facility] - Detox or Rehab [facility] Level of Care: Medically Managed Detox Regimen/Protocol: Methadone [facility] Breath Alcohol Content Breath Alcohol Content: 0 Urine Pregancy Test - Result Urine Test Results: Negative- NO Line Present Urine Drug Screen - Results Drug Screen Negative: No Urine Drug Screen Results: DAKOTAH-Cocaine, OPI-Opiates
[2017-05-01] MEDS ORDERED: ACETAMINOPHEN 325 MG TABLET (FP) PO PRN (21:10)
[2017-05-01] MEDS ORDERED: MAGNESIUM HYDROX 2400MG/30ML ORAL SUSPENSION 30 ML CUP PO PRN (21:10)
[2017-05-01] MEDS ORDERED: guaiFENesin/D-METHORPHAN HB 10 ML UNIT-DOSE CUPS PO PRN (21:10)
[2017-05-01] MEDS ORDERED: IBUPROFEN 400 MG TABLET (FP) PO PRN (21:10)
[2017-05-01] MEDS ORDERED: diphenhydrAMINE HCL 50 MG CAPSULE PO PRN (21:10)
[2017-05-01] MEDS ORDERED: MENTHOL/PHENOL 1 EACH UD MM PRN (21:10)
[2017-05-01] MEDS ORDERED: MAGNESIUM CITRATE 300 ML BOTTLE PO PRN (21:10)
[2017-05-01] MEDS ORDERED: P-EPHED 60MG/TRIPROLIDI 2.5MG TABLET PO PRN (21:10)
[2017-05-01] MEDS ORDERED: NICOTINE 21 MG/24 HOURS TOPICAL PATCH TD PRN (21:10)
[2017-05-01] MEDS ORDERED: LOPERAMIDE HCL 2 MG CAPSULE PO PRN (21:10)
[2017-05-01] MEDS ORDERED: METHADONE HCL 10 MG TABLET (FOR DETOX USE ONLY) PO ONE ×2 (21:10→23:00)
[2017-05-01] MEDS ORDERED: MAG HYDROX/AL HYDROX/SIMETH 30 ML UNIT-DOSE CUP PO PRN (21:10)
[2017-05-01] MEDS: SULFAMETHOXAZOLE/TRIMETHOPRIM 800MG/160MG D.S. TABLET PO SCH (21:54)
[2017-05-01] MEDS: diazePAM 5 MG TABLET PO PRN (21:55)
[2017-05-01] MEDS: NICOTINE POLACRILEX 4 MG GUM BC PRN (22:29)
[2017-05-01] MEDS: THIAMINE HCL 100 MG TABLET (FP) PO SCH (23:07)
[2017-05-02] MEDS: NICOTINE POLACRILEX 4 MG GUM BC PRN ×4 (01:05→22:12)
[2017-05-02] MEDS: diazePAM 5 MG TABLET PO PRN ×5 (02:26→22:10)
[2017-05-02 09:49] LABS: MCH 23.7 pg (25.7-33.7); MEAN CELL VOLUME 74.1 fl (80-96); MEAN PLT VOLUME 8.6 fl (7.5-11.1); PLATELET COUNT 230 K/MM3 (134-434); RDW 18.4 % (11.6-15.6); WHITE BLOOD COUNT 5.3 K/mm3 (4.0-10.0)
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
[2017-05-02] MEDS ORDERED: METHADONE HCL 10 MG TABLET (FOR DETOX USE ONLY) PO ONE (10:00)
[2017-05-02] MEDS ORDERED: PATIENT'S OWN MEDICATION (NON-FORMULARY) (Emtricitabine/Tenofovir [Truvada -] 1 TAB) PO SCH (10:00)
[2017-05-02] MEDS: PRENATAL VITAMINS W/ FOLIC ACID TABLET (FP) PO SCH (10:12)
[2017-05-02] MEDS: SULFAMETHOXAZOLE/TRIMETHOPRIM 800MG/160MG D.S. TABLET PO SCH ×2 (10:12→22:10)
[2017-05-02] MEDS: PANTOPRAZOLE 40 MG TABLET (FP) PO SCH (10:13)
[2017-05-02] MEDS: PATIENT'S OWN MEDICATION (NON-FORMULARY) (Dolutegravir Sodium 50 MG) PO SCH (10:13)
[2017-05-02 10:23] LABS: ALBUMIN 2.8 g/dl (3.4-5.0); ALK PHOS 63 U/L (45-117); ANION GAP 6 (8-16); BILIRUBIN,TOTAL 0.3 mg/dL (0.2-1.0); CALCIUM 8.5 mg/dL (8.5-10.1); CO2 27 mmol/L (21-32); CREATININE 0.6 mg/dL (0.55-1.02); GLUCOSE,RANDOM 77 mg/dL (74-106); SGOT/AST 36 U/L (15-37); SGPT/ALT 19 U/L (12-78); TOT PROT 5.9 g/dl (6.4-8.2)
[2017-05-02] MEDS: EMTRICITABINE 200MG/TENOFOVIR 300MG PO SCH (11:15)
[2017-05-02 14:23] LABS: URINE APPEARANCE TURBID; URINE BILIRUBIN NEGATIVE (NEGATIVE); URINE BLOOD NEGATIVE (NEGATIVE); URINE COLOR AMBER; URINE GLUCOSE (UA) NEGATIVE (NEGATIVE); URINE KETONE NEGATIVE (NEGATIVE); URINE LEUK ESTERASE NEGATIVE (NEGATIVE); URINE NITRITE NEGATIVE (NEGATIVE); URINE UROBILINOGEN NEGATIVE mg/dL (0.2-1.0)
[2017-05-02 14:31] LABS: URINE PROTEIN 1+ (NEGATIVE)
[2017-05-02 14:32] LABS: URINE BACTERIA RARE /hpf (NONE SEEN); URINE MUCUS MANY; URINE RBC 11 /hpf (0-3); URINE WBC 70 /hpf (3-5); YEAST FEW
[2017-05-02] MEDS: LEVOFLOXACIN 250 MG TABLET (FP) PO SCH (17:30)
[2017-05-02] MEDS: THIAMINE HCL 100 MG TABLET (FP) PO SCH (22:10)
[2017-05-02] MEDS: QUEtiapine FUMARATE 25 MG TABLET (FP) PO SCH (22:10)
--- NOTE | 2017-05-02 22:33 | EKG ---
Test Reason : Blood Pressure : / mmHG Vent. Rate : 065 BPM Atrial Rate : 065 BPM P-R Int : 130 ms QRS Dur : 092 ms QT Int : 394 ms P-R-T Axes : 063 068 038 degrees QTc Int : 409 ms NORMAL SINUS RHYTHM NORMAL ECG WHEN COMPARED WITH ECG OF 01-APR-2017 15:15, NO SIGNIFICANT CHANGE WAS FOUND Confirmed by ELDA MORENO MD ([id number]) on 05/02/2017 10:33:10 PM Referred By: Confirmed By:ELDA MORENO MD
[2017-05-03] MEDS: diazePAM 5 MG TABLET PO PRN ×3 (08:43→22:16)
[2017-05-03] MEDS ORDERED: METHADONE HCL 5 MG TABLET (FOR DETOX USE ONLY) PO ONE (10:00)
[2017-05-03] MEDS: PRENATAL VITAMINS W/ FOLIC ACID TABLET (FP) PO SCH (10:14)
[2017-05-03] MEDS: PANTOPRAZOLE 40 MG TABLET (FP) PO SCH (10:14)
[2017-05-03] MEDS: SULFAMETHOXAZOLE/TRIMETHOPRIM 800MG/160MG D.S. TABLET PO SCH ×2 (10:14→22:14)
[2017-05-03] MEDS: EMTRICITABINE 200MG/TENOFOVIR 300MG PO SCH (10:15)
[2017-05-03] MEDS: PATIENT'S OWN MEDICATION (NON-FORMULARY) (Dolutegravir Sodium 50 MG) PO SCH (10:15)
--- NOTE | 2017-05-03 11:06 | PN ---
BHS COWS - Scale Resting Pulse: 1= [place] 81-100 Sweatin= Chills/Flushing Restless Observation: 3= Extraneous Movement Pupil Size: 1= Pupils >than Normal Bone or Joint Aches: 2= Severe Diffuse Aches Runny Nose/ Eye Tearin= Runny Nose/Eyes GI Upset > 30mins: 3= Vomiting/Diarrhea Tremor Observation of Outstretched Hands: 2= Slight Tremor Visible Yawning Observation: 1= 1-2x During Session Anxiety or Irritability: 2=Irritable/Anxious Goose Flesh Skin: 0=Smooth Skin COWS Score: 18 S Progress Note (SOAP) Subjective: alert,irritable,anxious,interrupted sleep,tremor,pain in the body and back Objective: 05/03/17 11:07 Vital Signs Temperature 98.4 F 05/03/17 09:28 Pulse Rate 89 05/03/17 09:28 Respiratory Rate 18 05/03/17 09:28 Blood Pressure 115/70 05/03/17 09:28 O2 Sat by Pulse Oximetry (%) Laboratory Last Values WBC 5.3 K/mm3 (4.0-10.0) D 05/02/17 07:00 RBC 3.92 M/mm3 (3.60-5.2) 05/02/17 07:00 Hgb 9.3 GM/dL (10.7-15.3) L D 05/02/17 07:00 Hct 29.1 % (32.4-45.2) L D 05/02/17 07:00 MCV 74.1 fl (80-96) L 05/02/17 07:00 MCH 23.7 pg (25.7-33.7) L 05/02/17 07:00 MCHC 32.0 g/dl (32.0-36.0) 05/02/17 07:00 RDW 18.4 % (11.6-15.6) H D 05/02/17 07:00 Plt Count 230 K/MM3 (134-434) D 05/02/17 07:00 MPV 8.6 fl (7.5-11.1) 05/02/17 07:00 Sodium 139 mmol/L (136-145) 05/02/17 07:00 Potassium 3.8 mmol/L (3.5-5.1) 05/02/17 07:00 Chloride 106 mmol/L (98-107) 05/02/17 07:00 Carbon Dioxide 27 mmol/L (21-32) 05/02/17 07:00 Anion Gap 6 (8-16) L 05/02/17 07:00 BUN 6 mg/dL (7-18) L D 05/02/17 07:00 Creatinine 0.6 mg/dL (0.55-1.02) D 05/02/17 07:00 Creat Clearance w eGFR > 60 (>60) 05/02/17 07:00 Random Glucose 77 mg/dL (74-106) 05/02/17 07:00 Calcium 8.5 mg/dL (8.5-10.1) 05/02/17 07:00 Total Bilirubin 0.3 mg/dL (0.2-1.0) D 05/02/17 07:00 AST 36 U/L (15-37) D 05/02/17 07:00 ALT 19 U/L (12-78) 05/02/17 07:00 Alkaline Phosphatase 63 U/L (45-117) D 05/02/17 07:00 Total Protein 5.9 g/dl (6.4-8.2) L D 05/02/17 07:00 Albumin 2.8 g/dl (3.4-5.0) L D 05/02/17 07:00 Urine Color Alecia 05/01/17 Unknown Urine Appearance Turbid 05/01/17 Unknown Urine pH 5.0 (5.0-8.0) 05/01/17 Unknown Ur Specific [place] >= 1.030 (1.005-1.025) H 05/01/17 Unknown Urine Protein 1+ (NEGATIVE) H 05/01/17 Unknown Urine Glucose (UA) Negative (NEGATIVE) 05/01/17 Unknown Urine Ketones Negative (NEGATIVE) 05/01/17 Unknown Urine Blood Negative (NEGATIVE) 05/01/17 Unknown Urine Nitrite Negative (NEGATIVE) 05/01/17 Unknown Urine Bilirubin Negative (NEGATIVE) 05/01/17 Unknown Urine Urobilinogen Negative mg/dL (0.2-1.0) 05/01/17 Unknown Urine RBC 11 /hpf (0-3) 05/01/17 Unknown Urine WBC 70 /hpf (3-5) 05/01/17 Unknown Ur Epithelial Cells Few /hpf (FEW) 05/01/17 Unknown Urine Bacteria Rare /hpf (NONE SEEN) 05/01/17 Unknown Urine Mucus Many 05/01/17 Unknown Urine Yeast Few 05/01/17 Unknown RPR Titer Nonreactive (NONREACTIVE) 05/02/17 07:00 Hepatitis C Antibody <0.1 s/co ratio (0.0-0.9) 05/01/17 07:00 Assessment: 05/03/17 11:08 withdrawal symptom Plan: continue detox,urine for c/s
[2017-05-03] MEDS: LEVOFLOXACIN 250 MG TABLET (FP) PO SCH (17:24)
[2017-05-03] MEDS: QUEtiapine FUMARATE 25 MG TABLET (FP) PO SCH (22:14)
[2017-05-03] MEDS: THIAMINE HCL 100 MG TABLET (FP) PO SCH (22:14)
[2017-05-03] MEDS: NICOTINE POLACRILEX 4 MG GUM BC PRN (22:14)
[2017-05-04] MEDS: diazePAM 5 MG TABLET PO PRN ×3 (02:47→17:37)
[2017-05-04] MEDS: NICOTINE POLACRILEX 4 MG GUM BC PRN ×5 (02:48→20:29)
[2017-05-04] MEDS ORDERED: METHADONE HCL 5 MG TABLET (FOR DETOX USE ONLY) PO ONE (10:00)
[2017-05-04] MEDS: PRENATAL VITAMINS W/ FOLIC ACID TABLET (FP) PO SCH (10:15)
[2017-05-04] MEDS: PANTOPRAZOLE 40 MG TABLET (FP) PO SCH (10:15)
[2017-05-04] MEDS: PATIENT'S OWN MEDICATION (NON-FORMULARY) (Dolutegravir Sodium 50 MG) PO SCH (10:15)
[2017-05-04] MEDS: SULFAMETHOXAZOLE/TRIMETHOPRIM 800MG/160MG D.S. TABLET PO SCH ×2 (10:15→22:08)
[2017-05-04] MEDS: EMTRICITABINE 200MG/TENOFOVIR 300MG PO SCH (10:15)
--- NOTE | 2017-05-04 12:19 | PN ---
BHS Progress Note (SOAP) Subjective: alert,irritable,anxious,interrupted sleep,tremor,pain in the body Objective: 05/04/17 12:18 Vital Signs Temperature 97.1 F L 05/04/17 09:43 Pulse Rate 105 H 05/04/17 09:43 Respiratory Rate 20 05/04/17 09:43 Blood Pressure 97/73 05/04/17 09:43 O2 Sat by Pulse Oximetry (%) Assessment: 05/04/17 12:19 withdrawal symptom Plan: continue detox
[2017-05-04] MEDS: LEVOFLOXACIN 250 MG TABLET (FP) PO SCH (17:35)
[2017-05-04] MEDS: THIAMINE HCL 100 MG TABLET (FP) PO SCH (22:08)
[2017-05-04] MEDS: QUEtiapine FUMARATE 25 MG TABLET (FP) PO SCH (22:08)
[2017-05-05] MEDS: NICOTINE POLACRILEX 4 MG GUM BC PRN ×3 (09:15→20:53)
--- NOTE | 2017-05-05 09:48 | PN ---
S Progress Note (SOAP) Subjective: alert,irritable,anxious,interrupted sleep, Objective: 05/05/17 09:48 Vital Signs Temperature 98.1 F 05/05/17 09:46 Pulse Rate 95 H 05/05/17 09:46 Respiratory Rate 18 05/05/17 09:46 Blood Pressure 102/59 05/05/17 09:46 O2 Sat by Pulse Oximetry (%) Assessment: 05/05/17 09:48 withdrawal symptom Plan: continue detox
[2017-05-05] MEDS ORDERED: METHADONE HCL 10 MG TABLET (FOR DETOX USE ONLY) PO ONE (10:00)
[2017-05-05] MEDS: SULFAMETHOXAZOLE/TRIMETHOPRIM 800MG/160MG D.S. TABLET PO SCH ×2 (10:13→22:13)
[2017-05-05] MEDS: PRENATAL VITAMINS W/ FOLIC ACID TABLET (FP) PO SCH (10:13)
[2017-05-05] MEDS: PANTOPRAZOLE 40 MG TABLET (FP) PO SCH (10:14)
[2017-05-05] MEDS: EMTRICITABINE 200MG/TENOFOVIR 300MG PO SCH (10:14)
[2017-05-05] MEDS: PATIENT'S OWN MEDICATION (NON-FORMULARY) (Dolutegravir Sodium 50 MG) PO SCH (10:15)
[2017-05-05] MEDS: LEVOFLOXACIN 250 MG TABLET (FP) PO SCH (17:40)
[2017-05-05] MEDS: QUEtiapine FUMARATE 25 MG TABLET (FP) PO SCH (22:13)
[2017-05-05] MEDS: THIAMINE HCL 100 MG TABLET (FP) PO SCH (22:13)
[2017-05-06] MEDS ORDERED: METHADONE HCL 5 MG TABLET (FOR DETOX USE ONLY) PO ONE ×2 (06:00→10:15)
--- NOTE | 2017-05-06 08:22 | PN ---
S Progress Note (SOAP) Subjective: alert,no complaint Objective: 05/06/17 08:20 Vital Signs Temperature 97.0 F L 05/06/17 06:19 Pulse Rate 75 05/06/17 06:19 Respiratory Rate 16 05/06/17 06:19 Blood Pressure 91/59 05/06/17 06:19 O2 Sat by Pulse Oximetry (%) Assessment: 05/06/17 08:20 detox completed,no withdrawal symptom Plan: discharge today,follow up with after care program as arrangement
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
[2017-05-06] MEDS: PATIENT'S OWN MEDICATION (NON-FORMULARY) (Dolutegravir Sodium 50 MG) PO SCH (09:08)
[2017-05-06] MEDS: EMTRICITABINE 200MG/TENOFOVIR 300MG PO SCH (09:08)
[2017-05-06] MEDS: PRENATAL VITAMINS W/ FOLIC ACID TABLET (FP) PO SCH (09:09)
[2017-05-06] MEDS: SULFAMETHOXAZOLE/TRIMETHOPRIM 800MG/160MG D.S. TABLET PO SCH (09:09)
[2017-05-06] MEDS: PANTOPRAZOLE 40 MG TABLET (FP) PO SCH (09:09)
[2017-05-06] MEDS: NICOTINE POLACRILEX 4 MG GUM BC PRN (09:24)
[2017-05-06 10:55] VITALS: BP 118/66; PULSE 91; TEMP 96.6
== END 2017-05-06 09:39 | disposition home or self-care (01) | DRG 773 ==
LOC: YASAS 20:09 → Y6N 21:03
PROVIDERS: ADMIT Internal Medicine; ATTEND Internal Medicine
PROC: HZ2ZZZZ Detoxification Services for Substance Abuse Treatment (ICD-10-PCS; principal; 2017-05-01)
DX: F11.23 Opioid dependence with withdrawal (principal); F14.23 Cocaine dependence with withdrawal; F17.213 Nicotine dependence, cigarettes, with withdrawal; L97.929 Non-pressure chronic ulcer of unspecified part of left lower leg with unspecified severity; L97.919 Non-pressure chronic ulcer of unspecified part of right lower leg with unspecified severity; N39.0 Urinary tract infection, site not specified
CPT/HCPCS: 36415; 80053; 81003; 81015; 85027; 86593; 86803; 93005; 93010

== ENCOUNTER 2017-07-08 00:15 | Inpatient (IN) | payer OTHER ==
--- NOTE | 2017-07-08 02:06 | HP ---
COWS - Scale Resting Pulse: 2= [place] 101-120 Sweatin=Flushed/Facial Moisture Restless Observation: 1= Difficult to Sit Still Pupil Size: 1= Pupils >than Normal Bone or Joint Aches: 2= Severe Diffuse Aches Runny Nose/ Eye Tearin= Runny Nose/Eyes GI Upset > 30mins: 1= Stomach Cramp Tremor Observation: 2= Slight Tremor Visible Yawning Observation: 0= None Anxiety or Irritability: 2=Irritable/Anxious Goose Flesh Skin: 0=Smooth Skin COWS Score: 15 Admission ROS S - [facility] Chief Complaint: Heroin withdrawal symptoms Allergies/Adverse Reactions: Allergies Allergy/AdvReac Type Severity Reaction Status Date / Time No Known Allergies Allergy Verified 07/08/17 04:26 History of Present Illness: 31 years old female a long history of heroin dependence is admitted to detox. Patient has been in previous detox and reports a year of sobriety. She denies past medical history and suicidal ideation at this time. Patient states, '' my goal is to stop using drugs." Exam Limitations: No Limitations - Ebola screening Have you traveled outside of the country in the last 21 days: No Have you had contact with anyone from an Ebola affected area: No Have you been sick,other than usual withdrawal symptoms: No Do you have a fever: No - Review of Systems Constitutional: Loss of Appetite, Malaise, Night Sweats, Changes in sleep EENT: reports: No Symptoms Reported Respiratory: reports: Cough (Non productive cough) Cardiac: reports: No Symptoms Reported GI: reports: Poor Appetite, Poor Fluid Intake, Abdominal cramping : reports: No Symptoms Reported Musculoskeletal: reports: Muscle Weakness Integumentary: reports: Flushing, Sweating Neuro: reports: Tingling, Tremors Endocrine: reports: No Symptoms Reported Hematology: reports: No Symptoms Reported Psychiatric: reports: Mood/Affect Appropiate, Orientated x3, Anxious, Depressed Other Systems: Reviewed and Negative Patient History - Patient Medical History Hx Anemia: No Hx Asthma: No Hx Chronic Obstructive Pulmonary Disease (COPD): No Hx Cancer: No Hx Cardiac Disorders: No Hx Congestive Heart Failure: No Hx Hypertension: No Hx Hypercholesterolemia: No Hx Pacemaker: No HX Cerebrovascular Accident: No Hx Seizures: No Hx Dementia: No Hx Diabetes: No Hx Gastrointestinal Disorders: No Hx Liver Disease: No Hx Genitourinary Disorders: No Hx Sexually Transmitted Disorders: No Hx Renal Disease (ESRD): No Hx Thyroid Disease: No Hx Human Immunodeficiency Virus (HIV): No (10/28 last negative) Hx Hepatitis C: No (Negative 2016) Hx Depression: No Hx Suicide Attempt: No Hx Bipolar Disorder: No Hx Schizophrenia: No - Patient Surgical History Past Surgical History: No Hx Neurologic Surgery: No Hx Cataract Extraction: No Hx Cardiac Surgery: No Hx Lung Surgery: No Hx Breast Surgery: No Hx Breast Biopsy: No Hx Abdominal Surgery: No Hx Appendectomy: No Hx Cholecystectomy: No Hx Genitourinary Surgery: No Hx Section: No Hx Orthopedic Surgery: No Hx Hysterectomy: No Anesthesia Reaction: No - PPD History Previous Implant?: Yes Documented Results: Negative w/proof Implanted On Prior [facility] Admission?: Yes Date: 06/09/16 Results: 0 mm PPD to be Administered?: Yes - Reproductive History Patient is a Female of Child Bearing Age (11 -55 yrs old): Yes Last Menstrual Period: 06/17/17 Patient : No - Smoking Cessation Smoking history: Current every day smoker Have you smoked in the past 12 months: Yes Aproximately how many cigarettes per day: 20 Cigars Per Day: 0 Hx Chewing Tobacco Use: No Initiated information on smoking cessation: Yes 'Breaking Loose' booklet given: 07/08/17 - Substance & Tx. History Hx Alcohol Use: No Hx Substance Use: Yes Substance Use Type: Cocaine, Heroin Hx Substance Use Treatment: Yes ([facility] 04/2017) - Substances Abused Heroin Route: Injection Frequency: Daily Amount used: 6 bags Age of first use: 23 Date of Last Use: 07/07/17 Cocaine Route: Injection Frequency: Daily Amount used: 2 bags Age of first use: 22 Date of Last Use: 07/07/17 Family Disease History - Family Disease History Family History: Denies Admission Physical Exam BHS - Physical General Appearance: Yes: Moderate Distress, Sweating, Anxious HEENTM: Yes: EOMI, Normal Voice, DANIEL Respiratory: Yes: Lungs Clear, Normal Breath Sounds, No Respiratory Distress Neck: Yes: Supple Breast: Yes: Breast Exam Deferred Cardiology: Yes: Tachycardia Abdominal: Yes: Normal Bowel Sounds, Soft Genitourinary: Yes: Within Normal Limits Back: Yes: Muscle Spasm Extremities: Yes: Tremors 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: Yes: Within Normal Limits, Fully Oriented, Alert Integumentary: Yes: Dry, Track Schmidt (Left neck, both arms) Lymphatic: Yes: Within Normal Limits - Diagnostic (1) Nicotine dependence Current Visit: Yes Status: Chronic Qualifiers: Nicotine product type: cigarettes Substance use status: in withdrawal Qualified Code(s): F17.213 - Nicotine dependence, cigarettes, with withdrawal (2) Opioid dependence with withdrawal Current Visit: Yes Status: Chronic (3) Anemia Current Visit: No Status: Chronic (4) Anxiety Current Visit: No Status: Chronic (5) Cocaine dependence Current Visit: Yes Status: Chronic Qualifiers: Substance use status: uncomplicated Qualified Code(s): F14.20 - Cocaine dependence, uncomplicated Cleared for Admission [facility] - Detox or Rehab S Level of Care: Medically Managed Detox Regimen/Protocol: Methadone [facility] Breath Alcohol Content Breath Alcohol Content: 0 Vital Signs - Vital Signs Vital Signs Refused: No Temperature: 98.0 F Temperature Source: Oral Pulse Rate: 105 Respiratory Rate: 18 BP Location: Left Arm Blood Pressure Position: Sitting - Height Height: 5 ft 7 in - Weight Weight: 139 lb Weight Measurement Method: Standing Scale Body Mass Index (BMI): 21.7 - Bowel Function Bowel Movement: Yes Urine Pregancy Test - Test Device Lot Number: [id number] Expiration Date: 01/11/19 - Control Horizontal Line in Upper Control Window?: No Urine Drug Screen - Test Device Lot Number: [id number] Expiration Date: 03/13/19 - Control Is Test Valid: Yes - Results Urine Drug Screen Results: DAKOTAH-Cocaine, OPI-Opiates
[2017-07-08 02:17] VITALS: BMI 21.7
[2017-07-08] MEDS ORDERED: IBUPROFEN 400 MG TABLET (FP) PO PRN (02:48)
[2017-07-08] MEDS ORDERED: P-EPHED 60MG/TRIPROLIDI 2.5MG TABLET PO PRN (02:48)
[2017-07-08] MEDS ORDERED: MAG HYDROX/AL HYDROX/SIMETH 30 ML UNIT-DOSE CUP PO PRN (02:48)
[2017-07-08] MEDS ORDERED: MENTHOL/PHENOL 1 EACH UD MM PRN (02:48)
[2017-07-08] MEDS ORDERED: LOPERAMIDE HCL 2 MG CAPSULE PO PRN (02:48)
[2017-07-08] MEDS ORDERED: MAGNESIUM CITRATE 300 ML BOTTLE PO PRN (02:48)
[2017-07-08] MEDS ORDERED: METHADONE HCL 10 MG TABLET (FOR DETOX USE ONLY) PO ONE ×3 (02:48→23:00)
[2017-07-08] MEDS ORDERED: hydrOXYzine PAMOATE 50 MG CAPSULE (FP) PO PRN (02:48)
[2017-07-08] MEDS ORDERED: guaiFENesin/D-METHORPHAN HB 10 ML UNIT-DOSE CUPS PO PRN (02:48)
[2017-07-08] MEDS ORDERED: MAGNESIUM HYDROX 2400MG/30ML ORAL SUSPENSION 30 ML CUP PO PRN (02:48)
[2017-07-08] MEDS ORDERED: ACETAMINOPHEN 325 MG TABLET (FP) PO PRN (02:48)
[2017-07-08] MEDS: diazePAM 5 MG TABLET PO PRN ×4 (03:22→19:38)
[2017-07-08] MEDS: NICOTINE POLACRILEX 2 MG GUM BC PRN ×5 (05:00→22:41)
[2017-07-08] MEDS: PRENATAL VITAMINS W/ FOLIC ACID TABLET (FP) PO SCH (10:20)
[2017-07-08] MEDS: NICOTINE 14 MG/24 HOURS TOPICAL PATCH TD SCH (10:21)
--- NOTE | 2017-07-08 13:58 | PN ---
S Progress Note Note: patient is admitted today for opioid dependence,and ccoaine dpendence for inpatient detox methadone regimen
[2017-07-08] MEDS: THIAMINE HCL 100 MG TABLET (FP) PO SCH (22:41)
[2017-07-09] MEDS: NICOTINE POLACRILEX 2 MG GUM BC PRN ×5 (04:04→22:16)
[2017-07-09] MEDS: diazePAM 5 MG TABLET PO PRN ×4 (04:04→18:58)
[2017-07-09] MEDS ORDERED: METHADONE HCL 10 MG TABLET (FOR DETOX USE ONLY) PO ONE (10:00)
[2017-07-09 10:18] LABS: MCH 24.1 pg (25.7-33.7); MCHC 31.9 g/dl (32.0-36.0); MEAN CELL VOLUME 75.5 fl (80-96); MEAN PLT VOLUME 8.4 fl (7.5-11.1); PLATELET COUNT 340 K/MM3 (134-434); RDW 18.1 % (11.6-15.6); WHITE BLOOD COUNT 8.6 K/mm3 (4.0-10.0)
[2017-07-09 10:19] LABS: ALK PHOS 70 U/L (45-117); ANION GAP 5 (8-16); BILIRUBIN,TOTAL 0.3 mg/dL (0.2-1.0); CALCIUM 8.5 mg/dL (8.5-10.1); CO2 30 mmol/L (21-32); CREATININE 0.9 mg/dL (0.55-1.02); GLUCOSE,RANDOM 85 mg/dL (74-106); SGOT/AST 11 U/L (15-37); SGPT/ALT 19 U/L (12-78); TOT PROT 6.7 g/dl (6.4-8.2)
[2017-07-09] MEDS: PRENATAL VITAMINS W/ FOLIC ACID TABLET (FP) PO SCH (10:20)
[2017-07-09] MEDS: NICOTINE 14 MG/24 HOURS TOPICAL PATCH TD SCH (11:55)
[2017-07-09 18:25] LABS: URINE APPEARANCE SLCLOUDY; URINE BILIRUBIN NEGATIVE (NEGATIVE); URINE BLOOD NEGATIVE (NEGATIVE); URINE COLOR YELLOW; URINE GLUCOSE (UA) NEGATIVE (NEGATIVE); URINE KETONE NEGATIVE (NEGATIVE); URINE NITRITE NEGATIVE (NEGATIVE); URINE PROTEIN NEGATIVE (NEGATIVE); URINE UROBILINOGEN NEGATIVE mg/dL (0.2-1.0)
[2017-07-09] MEDS: THIAMINE HCL 100 MG TABLET (FP) PO SCH (22:15)
[2017-07-09 23:10] LABS: URINE LEUK ESTERASE Negative (NEGATIVE)
[2017-07-10] MEDS: NICOTINE POLACRILEX 2 MG GUM BC PRN ×3 (05:40→18:07)
[2017-07-10] MEDS: diazePAM 5 MG TABLET PO PRN ×3 (05:40→18:06)
[2017-07-10] MEDS ORDERED: METHADONE HCL 5 MG TABLET (FOR DETOX USE ONLY) PO ONE (10:00)
[2017-07-10] MEDS: PRENATAL VITAMINS W/ FOLIC ACID TABLET (FP) PO SCH (10:17)
[2017-07-10] MEDS: NICOTINE 14 MG/24 HOURS TOPICAL PATCH TD SCH (10:19)
--- NOTE | 2017-07-10 11:25 | PN ---
S COWS - Scale Resting Pulse: 0= [place] 80 or Below Sweatin=Flushed/Facial Moisture Restless Observation: 1= Difficult to Sit Still Pupil Size: 0= Normal to Room Light Bone or Joint Aches: 2= Severe Diffuse Aches Runny Nose/ Eye Tearin= Runny Nose/Eyes GI Upset > 30mins: 1= Stomach Cramp Tremor Observation of Outstretched Hands: 2= Slight Tremor Visible Yawning Observation: 2= >3x During Session Anxiety or Irritability: 2=Irritable/Anxious Goose Flesh Skin: 3=Piloerection COWS Score: 17 S Progress Note (SOAP) Subjective: irritable sweats shakes interrupted sleep body aches Objective: 07/10/17 11:25 Vital Signs Temperature 98.1 F 07/10/17 09:37 Pulse Rate 56 L 07/10/17 09:37 Respiratory Rate 16 07/10/17 09:37 Blood Pressure 92/53 07/10/17 09:37 O2 Sat by Pulse Oximetry (%) Laboratory Tests 07/09/17 07/09/17 07/09/17 07:40 07:40 07:40 WBC 8.6 D RBC 4.38 Hgb 10.5 L D Hct 33.1 MCV 75.5 L MCH 24.1 L MCHC 31.9 L RDW 18.1 H Plt Count 340 D MPV 8.4 Manual Slide Review No Result Required. Sodium 140 Potassium 4.3 Chloride 105 Carbon Dioxide 30 Anion Gap 5 L BUN 10 D Creatinine 0.9 D Creat Clearance w eGFR > 60 Random Glucose 85 Calcium 8.5 Total Bilirubin 0.3 AST 11 L D ALT 19 Alkaline Phosphatase 70 Total Protein 6.7 Albumin 3.0 L Urine Color Urine Appearance Urine pH Ur Specific [place] Urine Protein Urine Glucose (UA) Urine Ketones Urine Blood Urine Nitrite Urine Bilirubin Urine Urobilinogen Ur Leukocyte Esterase RPR Titer Nonreactive 07/09/17 17:50 WBC RBC Hgb Hct MCV MCH MCHC RDW Plt Count MPV Manual Slide Review Sodium Potassium Chloride Carbon Dioxide Anion Gap BUN Creatinine Creat Clearance w eGFR Random Glucose Calcium Total Bilirubin AST ALT Alkaline Phosphatase Total Protein Albumin Urine Color Yellow Urine Appearance Slcloudy Urine pH 6.0 Ur Specific [place] 1.021 Urine Protein Negative Urine Glucose (UA) Negative Urine Ketones Negative Urine Blood Negative Urine Nitrite Negative Urine Bilirubin Negative Urine Urobilinogen Negative Ur Leukocyte Esterase Negative RPR Titer aaox3 ambulating no acute distress Assessment: 07/10/17 11:26 withdrawal sx Plan: continue detox increase fluids aveeno soap
[2017-07-10] MEDS ORDERED: COLLOIDAL OATMEAL 1 BAR EACH TP PRN (11:26)
--- NOTE | 2017-07-10 12:09 | PN ---
S Progress Note Note: pt failed to let medical and nursing staff about an abscess to back of left leg (behind of knee). assessed the leg, pt has a large abscess, red to touch and inflamed looking. pt c/o pain with ambulating. the area of abscess appears filled with pus and areas around the abscess has excoriating skin and dark in color. report given to Lor DANIELS at [facility] for evaluation, unable to get to speak with an [employer] OPERATOR APPRENTICE,PA, or MD.
--- NOTE | 2017-07-10 18:38 | PN ---
[facility] Progress Note Note: PT RETURNED FROM [facility] ER ABOUT 5:55 PM. RECEIVED REPORT FROM THE ER NURSE NEW . PT HAD INCISION AND DRAINAGE AND RECEIVED ONE DOSE OF BACTRIM. WILL CONTINUE ANTIBIOTICS THERAPY ON THE UNIT.
[2017-07-10] MEDS ORDERED: SULFAMETHOXAZOLE/TRIMETHOPRIM 800MG/160MG D.S. TABLET PO SCH (22:00)
[2017-07-10] MEDS: THIAMINE HCL 100 MG TABLET (FP) PO SCH (22:42)
--- NOTE | 2017-07-11 01:03 | EKG ---
Test Reason : Blood Pressure : / mmHG Vent. Rate : 077 BPM Atrial Rate : 077 BPM P-R Int : 134 ms QRS Dur : 086 ms QT Int : 362 ms P-R-T Axes : 070 074 062 degrees QTc Int : 409 ms NORMAL SINUS RHYTHM NORMAL ECG WHEN COMPARED WITH ECG OF 01-MAY-2017 21:04, NO SIGNIFICANT CHANGE WAS FOUND Confirmed by THANG MARIE MD ([id number]) on 07/11/2017 1:03:44 AM Referred By: Brandin Kelly Confirmed By:THANG MARIE MD
[2017-07-11] MEDS: NICOTINE POLACRILEX 2 MG GUM BC PRN (05:33)
[2017-07-11 06:37] VITALS: BP 98/60; PULSE 96; TEMP 97.9
--- NOTE | 2017-07-11 08:43 | PN ---
S Progress Note Note: pt refused to complete detox wants to sign out "I have something to do" pt refused to elaborate. Pt signed out AMA.
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
[2017-07-11] MEDS ORDERED: METHADONE HCL 5 MG TABLET (FOR DETOX USE ONLY) PO ONE (10:00)
[2017-07-12] MEDS ORDERED: METHADONE HCL 10 MG TABLET (FOR DETOX USE ONLY) PO ONE (10:00)
[2017-07-13] MEDS ORDERED: METHADONE HCL 5 MG TABLET (FOR DETOX USE ONLY) PO ONE (06:00)
== END 2017-07-11 09:30 | disposition left against medical advice (07) | DRG 770 ==
LOC: YASAS 00:15 → Y6N 01:28
PROVIDERS: ADMIT Internal Medicine; ATTEND Internal Medicine
PROC: HZ2ZZZZ Detoxification Services for Substance Abuse Treatment (ICD-10-PCS; principal; 2017-07-08)
DX: F11.23 Opioid dependence with withdrawal (principal); F14.23 Cocaine dependence with withdrawal; F17.210 Nicotine dependence, cigarettes, uncomplicated; F41.9 Anxiety disorder, unspecified; F19.24 Other psychoactive substance dependence with psychoactive substance-induced mood disorder; L02.416 Cutaneous abscess of left lower limb; D64.9 Anemia, unspecified; G47.00 Insomnia, unspecified
CPT/HCPCS: 36415; 80053; 81003; 85027; 86593; 93005; 93010

== ENCOUNTER 2017-07-10 13:04 | Emergency (ER) | payer OTHER ==
[2017-07-10 13:23] VITALS: BMI 21.9
--- NOTE | 2017-07-10 14:19 | PDOC ---
Attending Attestation - Resident Resident Name: YeseniaUmesh - ED Attending Attestation I have performed the following: I have examined & evaluated the patient, The case was reviewed & discussed with the resident, I agree w/resident's findings & plan, Exceptions are as noted - Medical Decision Making 07/10/17 14:23 Vital Signs Temp Pulse Resp BP Pulse Ox 98.9 F 89 20 92/57 99 07/10/17 13:20 07/10/17 13:20 07/10/17 13:20 07/10/17 13:20 07/10/17 13:20 31-year-old female with past medical history of IV drug abuse sent in from 2 [facility] presents with left proximal calf abscess. Last week, patient reports injecting in that site. Since then has developed one area of the small ulcer noted with an abscess. Developed erythema but denies fevers or chills. Patient most certainly has an abscess with cellulitis. We will perform an incision and drainage and prescribed Bactrim and have the patient chest or back to 2 [facility]. <Hema Cuenca - Last Filed: 07/10/17 14:11> - HPI HPI: 07/10/17 14:28 31 year old female, with significant past medical history of IV heroin use, who was BIBA from [facility] detox with an abscess on the left proximal leg. The patient states that the area behind her left knee where she usually shoots heroin has become increasingly swollen, erythematous, and warm to touch over the past 2 days. - Physicial Exam PE: 07/10/17 14:29 GENERAL: Awake, alert, and fully oriented, in no acute distress HEAD: No signs of trauma EYES: PERRLA, EOMI, sclera anicteric, conjunctiva clear ENT: Auricles normal inspection, hearing grossly normal, nares patent, oropharynx clear without exudates. Moist mucosa NECK: Normal ROM, supple, no lymphadenopathy, JVD, or masses LUNGS: Breath sounds equal, clear to auscultation bilaterally. No wheezes, and no crackles HEART: Regular rate and rhythm, normal S1 and S2, no murmurs, rubs or gallops EXTREMITIES: Normal range of motion, no edema. No clubbing or cyanosis. No cords, erythema. NEUROLOGICAL: Cranial nerves II through XII grossly intact. Normal speech, normal gait SKIN: + 3cm x 3cm area of erythema and fluctuance on the left posterior leg with a 1cm x 1cm superficial ulcer just proximal. Warm, Dry. <Jewels Broderick - Last Filed: 07/10/17 14:29>
[2017-07-10] MEDS ORDERED: SULFAMETHOXAZOLE/TRIMETHOPRIM 800MG/160MG D.S. TABLET PO ONE (14:55)
--- NOTE | 2017-07-10 15:05 | PDOC ---
History of Present Illness - General Chief Complaint: Abscess Boil Stated Complaint: ABSCESS LEG Time Seen by Provider: 07/10/17 13:15 History Source: Patient Exam Limitations: No Limitations - History of Present Illness Initial Comments: 07/10/17 15:02 31F with history of cocaine abuse resident of [facility] sent by ambulance from there for left popliteal abscess Past History - Past Medical History Allergies/Adverse Reactions: Allergies Allergy/AdvReac Type Severity Reaction Status Date / Time No Known Allergies Allergy Verified 07/10/17 13:23 Home Medications: Ambulatory Orders Sulfamethoxazole/Trimethoprim [Bactrim Ds -] 1 tab PO BID #14 tablet 07/10/17 Anemia: No Asthma: No Cancer: No Cardiac Disorders: No CVA: No COPD: No CHF: No Dementia: No Diabetes: No GI Disorders: No Disorders: No HTN: No Hypercholesterolemia: No Kidney Stones: No Liver Disease: No Seizures: No Thyroid Disease: No - Surgical History Abdominal Surgery: No Appendectomy: No Cardiac Surgery: No Cholecystectomy: No Lung Surgery: No Neurologic Surgery: No Orthopedic Surgery: No - Reproductive History PID: No - Immunization History Td Vaccination: Yes Immunization Up to Date: Yes - Suicide/Smoking/Psychosocial Hx Smoking Status: Yes Smoking History: Never smoked Have you smoked in the past 12 months: Yes Number of Cigarettes Smoked Daily: 20 Cigars Per Day: 0 Information on smoking cessation initiated: No 'Breaking Loose' booklet given: 07/08/17 Hx Alcohol Use: No Drug/Substance Use Hx: Yes (Heroin abuse) Substance Use Type: Cocaine, Heroin Hx Substance Use Treatment: Yes ([facility] 04/2017) Review of Systems - Review of Systems Able to Perform ROS?: Yes Is the patient limited Frisian proficient: No Constitutional: No: Symptoms Reported HEENTM: No: Symptoms Reported Respiratory: No: Symptoms reported Cardiac (ROS): No: Symptoms Reported ABD/GI: No: Symptoms Reported : No: Symptoms Reported Musculoskeletal: No: Symptoms Reported Integumentary: Yes: Other (pain in left popliteal area) 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: No: Symptoms reported *Physical Exam - Vital Signs Last Vital Signs Temp Pulse Resp BP Pulse Ox 98.9 F 89 20 92/57 99 07/10/17 13:20 07/10/17 13:20 07/10/17 13:20 07/10/17 13:20 07/10/17 13:20 - Physical Exam General Appearance: Yes: Nourished, Appropriately Dressed. No: Apparent Distress HEENT: positive: EOMI, DANIEL, Normal ENT Inspection, Other (herpetic sore at left corner of mouth) Neck: negative: Tender Respiratory/Chest: positive: Lungs Clear, Normal Breath Sounds. negative: Chest Tender Cardiovascular: positive: Regular Rhythm, Regular Rate, S1, S2 Integumentary: positive: Other (left popliteal area: 3.5x3.5 abcess with fluctuance, tenderness and erythema. 1x1.5 ulcer with induration non tender above it Right popliteal area: 1.5x1.5 ulcer non tender induration) *DC/Admit/Observation/Transfer Diagnosis at time of Disposition: Encounter for incision and drainage procedure, Abscess of popliteal region - Discharge Dispostion Disposition: TRANSFER ACUTE CARE/OTHER HOSP Condition at time of disposition: Improved Admit: No - Prescriptions Prescriptions: Sulfamethoxazole/Trimethoprim [Bactrim Ds -] 1 tab PO BID #14 tablet - Referrals - Patient Instructions Printed Discharge Instructions: DI for Incision and Drainage of a Skin Abscess Additional Instructions: Come back to the ED for any new, worsening or concerning symptoms such as fever. Have wound checked and packing removed.by nurse at your institution in two days - Post Discharge Activity
[2017-07-10 17:39] VITALS: BP 124/64; PULSE 84; TEMP 98
== END 2017-07-10 17:48 | disposition short-term general hospital (02) ==
LOC: JER 13:04
PROC: 0J9P0ZZ Drainage of Left Lower Leg Subcutaneous Tissue and Fascia, Open Approach (ICD-10-PCS; principal; 2017-07-10)
DX: L02.416 Cutaneous abscess of left lower limb (principal)
CPT/HCPCS: 99282-25

== ENCOUNTER 2017-11-28 15:43 | Inpatient (IN) | payer OTHER ==
[2017-11-28 18:26] VITALS: BMI 25.0
[2017-11-28] MEDS ORDERED: MAGNESIUM HYDROX 2400MG/30ML ORAL SUSPENSION 30 ML CUP PO PRN (21:37)
[2017-11-28] MEDS ORDERED: IBUPROFEN 400 MG TABLET (FP) PO PRN (21:37)
[2017-11-28] MEDS ORDERED: LOPERAMIDE HCL 2 MG CAPSULE PO PRN (21:37)
[2017-11-28] MEDS ORDERED: guaiFENesin/D-METHORPHAN HB 10 ML UNIT-DOSE CUPS PO PRN (21:37)
[2017-11-28] MEDS ORDERED: MAGNESIUM CITRATE 300 ML BOTTLE PO PRN (21:37)
[2017-11-28] MEDS ORDERED: ACETAMINOPHEN 325 MG TABLET (FP) PO PRN (21:37)
[2017-11-28] MEDS ORDERED: MENTHOL/PHENOL 1 EACH UD MM PRN (21:37)
[2017-11-28] MEDS ORDERED: hydrOXYzine PAMOATE 50 MG CAPSULE (FP) PO PRN (21:37)
[2017-11-28] MEDS ORDERED: MAG HYDROX/AL HYDROX/SIMETH 30 ML UNIT-DOSE CUP PO PRN (21:37)
[2017-11-28] MEDS ORDERED: P-EPHED 60MG/TRIPROLIDI 2.5MG TABLET PO PRN (21:37)
--- NOTE | 2017-11-28 21:37 | HP ---
[facility] Rehab Assess/Revision - Admission History Admitted to Rehab from: [facility] Date of Admission to Rehab: 11/28/2017 - Vital signs Vital Signs: Vital Signs Period Temp Pulse Resp BP Sys/Ortiz Pulse Ox Last 24 Hr 99.4 F 106 19 122/72 - Findings Detox History & Physical reviewed: Yes Concur with findings: Yes Comments/Additional Findings: UTOX + OPI. CLIENT DENIES ANY USE SINCE DC Inpatient Rehab Admission - Initial Determination Are CD services needed?: Yes Free of communicable disease: Yes Not in need of hospitalization: Yes - Rehab Admission Criteria Previous failed treatment: Yes Poor recovery environment: Yes Comorbidities: Yes Lacks judgement: Yes Patient is meeting Inpatient Rehab admission criteria:: Yes
[2017-11-28] MEDS ORDERED: MELATONIN 5 MG TABLETS PO PRN (22:00)
[2017-11-28] MEDS: THIAMINE HCL 100 MG TABLET (FP) PO SCH (22:46)
[2017-11-29] MEDS: NICOTINE 21 MG/24 HOURS TOPICAL PATCH TD SCH (10:17)
[2017-11-29] MEDS: PRENATAL VITAMINS W/ FOLIC ACID TABLET (FP) PO SCH (10:17)
[2017-11-29] MEDS: NICOTINE POLACRILEX 4 MG GUM BUC PRN ×3 (10:18→23:11)
--- NOTE | 2017-11-29 12:03 | HP ---
Psychiatrist Admission - Data Date of interview: 11/29/17 Admission source: [facility] Identifying data: Pt. is a 32 year old single female, without kids, unemployed, supported and living with family. Pt. admitted to rehab for alcohol and cocaine dependence. Medical History: Anemia Psychiatric History: Pt. seen by radio news writer while in detox on 10/18/17. Pt. denies h/ o psychiatric hospitalizations, outpatient care and suicide attempt. Physical/Sexual Abuse/Trauma History: Denies. Vital Signs: Vital Signs - 24 hr 11/28/17 11/29/17 11/29/17 18:24 00:30 03:30 Temperature 99.4 F Pulse Rate 106 H Respiratory 19 16 16 Rate Blood Pressure 122/72 11/29/17 07:46 Temperature 100.1 F H Pulse Rate 102 H Respiratory 18 Rate Blood Pressure 116/69 Allergies/Adverse Reactions: Allergies Allergy/AdvReac Type Severity Reaction Status Date / Time No Known Allergies Allergy Verified 11/28/17 19:25 Date of last physical exam: 11/21/17 Concur with the findings of this exam: Yes - Substance Abuse/Tx History Hx Alcohol Use: No Hx Substance Use: Yes (Heroin- 8 bags daily; Cocaine- 1 gram per day) Substance Use Type: Cocaine, Heroin Hx Substance Use Treatment: Yes ([facility] 2017.) Mental Status Exam - Mental Status Exam Alert and Oriented to: Time, Place, Person Cognitive Function: Good Patient Appearance: Unkempt Mood: Euthymic Affect: Mood Congruent Patient Behavior: Appropriate Speech Pattern: Appropriate Voice Loudness: Normal Thought Disorder: Not Present Hallucinations: Denies Suicidal Ideation: Denies Homicidal Ideation: Denies Insight/Judgement: Poor Sleep: Fair Appetite: Good Muscle strength/Tone: Normal Gait/Station: Normal Psychiatric Findings - Problem List ([place] 1, 2,3) (1) Cocaine dependence Current Visit: Yes Status: Chronic Qualifiers: Substance use status: uncomplicated Qualified Code(s): F14.20 - Cocaine dependence, uncomplicated (2) Nicotine dependence Current Visit: Yes Status: Chronic Qualifiers: Nicotine product type: cigarettes Substance use status: uncomplicated Qualified Code(s): F17.210 - Nicotine dependence, cigarettes, uncomplicated (3) Opioid dependence Current Visit: Yes Status: Acute (4) Drug-induced mood disorder Current Visit: Yes Status: Acute - Initial Treatment Plan Initial Treatment Plan: Psychoeducation provided. Detoxification provided. Observation.
--- NOTE | 2017-11-29 12:41 | EKG ---
Test Reason : Blood Pressure : / mmHG Vent. Rate : 105 BPM Atrial Rate : 105 BPM P-R Int : 130 ms QRS Dur : 090 ms QT Int : 330 ms P-R-T Axes : 073 077 069 degrees QTc Int : 436 ms SINUS TACHYCARDIA OTHERWISE NORMAL ECG WHEN COMPARED WITH ECG OF 21-NOV-2017 03:13, VENT. RATE HAS INCREASED BY 35 BPM Confirmed by IRIS FRANKLIN MD ([id number]) on 11/29/2017 12:40:55 PM Referred By: Confirmed By:IRIS FRANKLIN MD
[2017-11-29] MEDS ORDERED: PT OWN MED DRAWER 7, Y5N ONE (15:23)
[2017-11-29] MEDS: THIAMINE HCL 100 MG TABLET (FP) PO SCH (23:18)
[2017-11-30] MEDS ORDERED: hydrOXYzine PAMOATE 50 MG CAPSULE (FP) PO ONE (00:26)
--- NOTE | 2017-11-30 00:43 | PN ---
[facility] Progress Note Note: Patient complained of withdrawal symptoms. Vistaril 50mg tablet oral given.
[2017-11-30 07:47] VITALS: BP 123/70; PULSE 99; TEMP 98.7
[2017-11-30] MEDS: PRENATAL VITAMINS W/ FOLIC ACID TABLET (FP) PO SCH ×2 (10:38→10:46)
[2017-11-30] MEDS: NICOTINE 21 MG/24 HOURS TOPICAL PATCH TD SCH (10:38)
[2017-11-30] MEDS: NICOTINE POLACRILEX 4 MG GUM BUC PRN ×3 (10:46→17:03)
--- NOTE | 2017-11-30 13:41 | PN ---
[facility] Progress Note Note: Vital Signs Temperature 98.7 F 11/30/17 07:46 Pulse Rate 99 H 11/30/17 07:46 Respiratory Rate 18 11/30/17 07:46 Blood Pressure 123/70 11/30/17 07:46 O2 Sat by Pulse Oximetry (%) Patient reports last night she was feeling like " wanted to jump out of her skin , sweats, chills and body aches." As per patient symptoms have improve today. Obj: Skin warm and dry. Ambulating within unit in NAD. Normal HR and Rhythm No adventitious breath sounds A/P: Continue vistaril Motrin 400mg PRN increase fluids continue to monitor clinically
== END 2017-11-30 19:30 | disposition left against medical advice (07) | DRG 770 ==
LOC: YASAS 15:43 → Y3E 18:46
PROVIDERS: ADMIT Psychiatry & Neurology Psychiatry; ATTEND Psychiatry & Neurology Psychiatry
PROC: HZ42ZZZ Group Counseling for Substance Abuse Treatment, Cognitive-Behavioral (ICD-10-PCS; principal; 2017-11-28)
DX: F11.23 Opioid dependence with withdrawal (principal); F14.23 Cocaine dependence with withdrawal; F17.210 Nicotine dependence, cigarettes, uncomplicated; F19.24 Other psychoactive substance dependence with psychoactive substance-induced mood disorder
CPT/HCPCS: 93005; 93010

== ENCOUNTER 2018-07-30 18:01 | Inpatient (IN) | payer OTHER ==
[2018-07-30 20:29] VITALS: BMI 23.5
--- NOTE | 2018-07-30 21:31 | HP ---
COWS - Scale Resting Pulse: 2= DE 101-120 Sweatin= Chills/Flushing Restless Observation: 1= Difficult to Sit Still Pupil Size: 0= Normal to Room Light Bone or Joint Aches: 1= Mild Discomfort Runny Nose/ Eye Tearin= Nasal Congestion GI Upset > 30mins: 1= Stomach Cramp Tremor Observation: 2= Slight Tremor Visible Yawning Observation: 0= None Anxiety or Irritability: 2=Irritable/Anxious Goose Flesh Skin: 3=Piloerection COWS Score: 14 CIWA Score - Admission Criteria [facility] Guidelines: Admission for Medically Managed Detox: Requires at least one of the followin. CIWA greater than 12 2. Seizures within the past 24 hours 3. Delirium tremens within the past 24 hours 4. Hallucinations within the past 24 hours 5. Acute intervention needed for co occurring medical disorder 6. Acute intervention needed for co occurring psychiatric disorder 7. Severe withdrawal that cannot be handled at a lower level of care (continued vomiting, continued diarrhea, abnormal vital signs) requiring intravenous medication and/or fluids 8. Admission ROS [facility] Chief Complaint: requesting heroin detox treatment- 32 years old female with 9 years history of IV heroin-10 bags/day cocaine- occasional, $50/day Patient has been in previous detox- 11/2017, says relapsed after a few months Denies medical problems, no medications DUR/ISTOP: Klonopin 1.5mg/day given 07/03/18 Utox: fen and mop, no LOVE Allergies/Adverse Reactions: Allergies Allergy/AdvReac Type Severity Reaction Status Date / Time No Known Allergies Allergy Verified 07/30/18 20:44 Exam Limitations: No Limitations - Ebola screening Have you traveled outside of the country in the last 21 days: No Have you been sick,other than usual withdrawal symptoms: No - Review of Systems Constitutional: No Symptoms Reported EENT: reports: No Symptoms Reported Respiratory: reports: No Symptoms reported Cardiac: reports: No Symptoms Reported GI: reports: No Symptoms Reported : reports: No Symptoms Reported Musculoskeletal: reports: No Symptoms Reported Integumentary: reports: No Symptoms Reported Neuro: reports: No Symptoms reported Endocrine: reports: No Symptoms Reported Hematology: reports: No Symptoms Reported Psychiatric: reports: No Sypmtoms Reported Patient History - Patient Medical History Hx Anemia: Yes Hx Asthma: No Hx Chronic Obstructive Pulmonary Disease (COPD): No Hx Cancer: No Hx Cardiac Disorders: No Hx Congestive Heart Failure: No Hx Hypertension: No Hx Hypercholesterolemia: No Hx Pacemaker: No HX Cerebrovascular Accident: No Hx Seizures: No Hx Dementia: No Hx Diabetes: No Hx Gastrointestinal Disorders: No Hx Liver Disease: No Hx Genitourinary Disorders: No Hx Sexually Transmitted Disorders: No Hx Renal Disease (ESRD): No Hx Thyroid Disease: No Hx Human Immunodeficiency Virus (HIV): No (10/28 last negative) Hx Hepatitis C: No (Negative 2016) Hx Depression: No Hx Suicide Attempt: No Hx Bipolar Disorder: No Hx Schizophrenia: No - Patient Surgical History Past Surgical History: No Hx Neurologic Surgery: No Hx Cataract Extraction: No Hx Cardiac Surgery: No Hx Lung Surgery: No Hx Breast Surgery: No Hx Breast Biopsy: No Hx Abdominal Surgery: No Hx Appendectomy: No Hx Cholecystectomy: No Hx Genitourinary Surgery: No Hx Section: No Hx Orthopedic Surgery: No Hx Hysterectomy: No Anesthesia Reaction: No - PPD History Date: 10/19/17 Results: 0 mm - Reproductive History Last Menstrual Period: 07/14/18 Patient : No - Smoking Cessation Smoking history: Current every day smoker Have you smoked in the past 12 months: Yes Aproximately how many cigarettes per day: 10 Cigars Per Day: 0 Hx Chewing Tobacco Use: No Initiated information on smoking cessation: Yes 'Breaking Loose' booklet given: 07/30/18 - Substance & Tx. History Hx Alcohol Use: No Hx Substance Use: Yes Substance Use Type: Cocaine, Heroin Hx Substance Use Treatment: Yes - Substances Abused Heroin Route: Injection Frequency: Daily Amount used: 5-10 BAGS Age of first use: 23 Date of Last Use: 07/30/18 Cocaine Route: Injection Frequency: Daily Age of first use: 23 Family Disease History - Family Disease History Family Disease History: Other: Father (alive and well ), Mother (alive and well ) Admission Physical Exam [facility] - Vital Signs Vital Signs: Vital Signs - 24 hr 07/30/18 20:27 Temperature 100.8 F H Pulse Rate 111 H Respiratory 18 Rate Blood Pressure 96/56 L - Physical General Appearance: Yes: Within Normal Limits, Mild Distress HEENTM: Yes: DANIEL, Pharynx Normal Respiratory: Yes: Within Normal Limits, Lungs Clear Neck: Yes: Within Normal Limits, No masses,lesions,Nodules Cardiology: Yes: Within Normal Limits, Regular Rhythm, S1, S2 Abdominal: Yes: Within Normal Limits, Protuberent Back: Yes: Within Normal Limits Musculoskeletal: Yes: Within Normal Limits Extremities: Yes: Within Normal Limits 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: Yes: Within Normal Limits, taffy candy maker II-XII NML intact, Fully Oriented, Alert, Normal Response Integumentary: Yes: Within Normal Limits, Track Schmidt (not distinct) - Diagnostic (1) Opioid dependence Current Visit: No Status: Acute (2) Nicotine dependence Current Visit: No Status: Chronic Qualifiers: Nicotine product type: cigarettes Substance use status: uncomplicated Qualified Code(s): F17.210 - Nicotine dependence, cigarettes, uncomplicated (3) Opioid dependence with withdrawal Current Visit: No Status: Chronic Cleared for Admission [facility] - Detox or Rehab [facility] Level of Care: Medically Managed [facility] Breath Alcohol Content Breath Alcohol Content: 0 Urine Pregancy Test - Result Urine Test Results: Negative- NO Line Present Urine Drug Screen - Results Drug Screen Negative: No Urine Drug Screen Results: DAKOTAH-Cocaine, OPI-Opiates, FEN-Fentanyl
[2018-07-30] MEDS ORDERED: MAGNESIUM HYDROX 2400MG/30ML ORAL SUSPENSION 30 ML CUP PO PRN (21:38)
[2018-07-30] MEDS ORDERED: MENTHOL/PHENOL 1 EACH UD MM PRN (21:38)
[2018-07-30] MEDS ORDERED: IBUPROFEN 400 MG TABLET (FP) PO PRN (21:38)
[2018-07-30] MEDS ORDERED: guaiFENesin/D-METHORPHAN HB 10 ML UNIT-DOSE CUPS PO PRN (21:38)
[2018-07-30] MEDS ORDERED: hydrOXYzine PAMOATE 50 MG CAPSULE (FP) PO PRN (21:38)
[2018-07-30] MEDS ORDERED: MAG HYDROX/AL HYDROX/SIMETH 30 ML UNIT-DOSE CUP PO PRN (21:38)
[2018-07-30] MEDS ORDERED: MAGNESIUM CITRATE 300 ML BOTTLE PO PRN (21:38)
[2018-07-30] MEDS ORDERED: P-EPHED 60MG/TRIPROLIDI 2.5MG TABLET PO PRN (21:38)
[2018-07-30] MEDS ORDERED: ACETAMINOPHEN 325 MG TABLET (FP) PO PRN (21:38)
[2018-07-30] MEDS ORDERED: LOPERAMIDE HCL 2 MG CAPSULE PO PRN (21:38)
[2018-07-30] MEDS ORDERED: cloNIDine HCL 0.1 MG TABLET PO PRN (21:39)
[2018-07-30] MEDS ORDERED: MELATONIN 5 MG TABLETS PO PRN (22:00)
[2018-07-30] MEDS ORDERED: METHADONE HCL 10 MG TABLET (FOR DETOX USE ONLY) PO ONE ×2 (22:15→23:00)
[2018-07-30] MEDS: THIAMINE HCL 100 MG TABLET (FP) PO SCH (23:25)
[2018-07-30] MEDS: diazePAM 5 MG TABLET PO PRN (23:25)
[2018-07-30] MEDS ORDERED: TRIMETHOBENZAMIDE HCL 200MG/2ML INJ IM ONE (23:58)
--- NOTE | 2018-07-31 00:03 | PN ---
[facility] Progress Note Note: Patient vomited x 1. As by nurse, Ms. Lai, Tylenol 325mg 2 tablets oral was administered for fever. Vital Signs Temperature 100.8 F H 07/30/18 20:27 Pulse Rate 111 H 07/30/18 20:27 Respiratory Rate 18 07/30/18 20:27 Blood Pressure 96/56 L 07/30/18 20:27 O2 Sat by Pulse Oximetry (%) Action: Tigan 200mg intramuscular ordered
[2018-07-31] MEDS ORDERED: METHADONE HCL 10 MG TABLET PO ONE (02:09)
[2018-07-31] MEDS: NICOTINE POLACRILEX 4 MG GUM BC PRN ×5 (02:33→22:43)
[2018-07-31] MEDS: diazePAM 5 MG TABLET PO PRN ×4 (04:24→22:43)
[2018-07-31] MEDS ORDERED: METHADONE HCL 10 MG TABLET (FOR DETOX USE ONLY) PO ONE (10:00)
[2018-07-31 10:23] LABS: HEMATOCRIT 27.5 % (32.4-45.2); HEMOGLOBIN 8.5 GM/dL (10.7-15.3); MCH 22.5 pg (25.7-33.7); MEAN CELL VOLUME 72.6 fl (80-96); MEAN PLT VOLUME 8.8 fl (7.5-11.1); PLATELET COUNT 310 K/MM3 (134-434); RBC 3.79 M/mm3 (3.60-5.2); RDW 15.7 % (11.6-15.6); WHITE BLOOD COUNT 16.4 K/mm3 (4.0-10.0)
[2018-07-31 10:53] LABS: ALBUMIN 2.5 g/dl (3.4-5.0); ALK PHOS 57 U/L (45-117); ANION GAP 7 MMOL/L (8-16); BILIRUBIN,TOTAL 0.3 mg/dL (0.2-1); BLOOD UREA NITROGEN 11 mg/dL (7-18); CALCIUM 8.2 mg/dL (8.5-10.1); CHLORIDE 100 mmol/L (98-107); CO2 29 mmol/L (21-32); CREATININE 0.7 mg/dL (0.55-1.3); GLUCOSE,RANDOM 79 mg/dL (74-106); POTASSIUM 3.8 mmol/L (3.5-5.1); SGOT/AST 19 U/L (15-37); SGPT/ALT 15 U/L (13-61); SODIUM 136 mmol/L (136-145); TOT PROT 6.4 g/dl (6.4-8.2)
--- NOTE | 2018-07-31 10:53 | PN ---
[facility] COWS - Scale Resting Pulse: 1= NM 81-100 Sweatin= Chills/Flushing Restless Observation: 0= Sits Still Pupil Size: 1= Pupils >than Normal Bone or Joint Aches: 2= Severe Diffuse Aches Runny Nose/ Eye Tearin= Nasal Congestion GI Upset > 30mins: 2= Nausea/Diarrhea Tremor Observation of Outstretched Hands: 2= Slight Tremor Visible Yawning Observation: 1= 1-2x During Session Anxiety or Irritability: 1=Feels Anxious/Irritable Goose Flesh Skin: 0=Smooth Skin COWS Score: 12 [facility] Progress Note (SOAP) Subjective: body aches joints pain tremor sweat alert discuss vivitrol prescription on 07/27/18 report vivitrol "no working" encourage medication assisted program Objective: 07/31/18 10:51 Vital Signs Temperature 97.3 F L 07/31/18 09:20 Pulse Rate 97 H 07/31/18 09:20 Respiratory Rate 16 07/31/18 09:20 Blood Pressure 82/43 L 07/31/18 09:20 O2 Sat by Pulse Oximetry (%) Laboratory Last Values WBC 16.4 K/mm3 (4.0-10.0) H 07/31/18 07:00 RBC 3.79 M/mm3 (3.60-5.2) 07/31/18 07:00 Hgb 8.5 GM/dL (10.7-15.3) L 07/31/18 07:00 Hct 27.5 % (32.4-45.2) L 07/31/18 07:00 MCV 72.6 fl (80-96) L 07/31/18 07:00 MCH 22.5 pg (25.7-33.7) L 07/31/18 07:00 MCHC 31.0 g/dl (32.0-36.0) L 07/31/18 07:00 RDW 15.7 % (11.6-15.6) H 07/31/18 07:00 Plt Count 310 K/MM3 (134-434) 07/31/18 07:00 MPV 8.8 fl (7.5-11.1) 07/31/18 07:00 lab noted repeat cbc Assessment: 07/31/18 10:52 withdrawal sx 07/31/18 10:52 vivitrol monthly Plan: continue opiate detox encourage medication assisted program
[2018-07-31] MEDS: PRENATAL VITAMINS W/ FOLIC ACID TABLET (FP) PO SCH (12:04)
[2018-07-31] MEDS: THIAMINE HCL 100 MG TABLET (FP) PO SCH (22:43)
[2018-08-01] MEDS: diazePAM 5 MG TABLET PO PRN ×5 (05:48→22:39)
[2018-08-01] MEDS: NICOTINE POLACRILEX 4 MG GUM BC PRN ×6 (05:50→22:38)
[2018-08-01] MEDS: PRENATAL VITAMINS W/ FOLIC ACID TABLET (FP) PO SCH (09:30)
[2018-08-01] MEDS ORDERED: METHADONE HCL 5 MG TABLET (FOR DETOX USE ONLY) PO ONE (10:00)
[2018-08-01 10:14] LABS: URINE APPEARANCE TURBID; URINE BILIRUBIN NEGATIVE (<2.0 mg/dL); URINE COLOR YELLOW; URINE GLUCOSE (UA) NEGATIVE (NEGATIVE); URINE KETONE NEGATIVE (NEGATIVE); URINE LEUK ESTERASE 1+ (NEGATIVE); URINE NITRITE NEGATIVE (NEGATIVE); URINE PROTEIN 1+ (NEGATIVE); URINE UROBILINOGEN NEGATIVE mg/dL (0.2-1.0)
[2018-08-01 10:45] LABS: EPI CELLS RARE /HPF (FEW)
--- NOTE | 2018-08-01 12:04 | PN ---
S COWS - Scale Resting Pulse: 1= MN 81-100 Sweatin= Beads of Sweat on Face Restless Observation: 0= Sits Still Pupil Size: 2= Moderately Dilated Bone or Joint Aches: 1= Mild Discomfort Runny Nose/ Eye Tearin= None GI Upset > 30mins: 0= None Tremor Observation of Outstretched Hands: 2= Slight Tremor Visible Yawning Observation: 0= None Anxiety or Irritability: 2=Irritable/Anxious Goose Flesh Skin: 0=Smooth Skin COWS Score: 11 S Progress Note (SOAP) Subjective: PATIENT C/O CHILLS ,SWEATING, ANXIETY AND MILD BODY ACHES. Objective: 08/01/18 12:02 Laboratory Tests 07/31/18 07/31/18 07/31/18 07:00 07:00 07:00 WBC 16.4 H RBC 3.79 Hgb 8.5 L Hct 27.5 L MCV 72.6 L MCH 22.5 L MCHC 31.0 L RDW 15.7 H Plt Count 310 MPV 8.8 Sodium 136 Potassium 3.8 Chloride 100 Carbon Dioxide 29 Anion Gap 7 L BUN 11 Creatinine 0.7 Creat Clearance w eGFR > 60 Random Glucose 79 Calcium 8.2 L Total Bilirubin 0.3 AST 19 ALT 15 Alkaline Phosphatase 57 Total Protein 6.4 Albumin 2.5 L Urine Color Urine Appearance Urine pH Ur Specific Willow Urine Protein Urine Glucose (UA) Urine Ketones Urine Blood Urine Nitrite Urine Bilirubin Urine Urobilinogen Ur Leukocyte Esterase Urine WBC (Auto) Urine RBC (Auto) Ur Epithelial Cells RPR Titer Nonreactive 08/01/18 08:00 WBC RBC Hgb Hct MCV MCH MCHC RDW Plt Count MPV Sodium Potassium Chloride Carbon Dioxide Anion Gap BUN Creatinine Creat Clearance w eGFR Random Glucose Calcium Total Bilirubin AST ALT Alkaline Phosphatase Total Protein Albumin Urine Color Yellow Urine Appearance Turbid Urine pH 8.0 D Ur Specific Willow 1.017 Urine Protein 1+ H Urine Glucose (UA) Negative Urine Ketones Negative Urine Blood Negative Urine Nitrite Negative Urine Bilirubin Negative Urine Urobilinogen Negative Ur Leukocyte Esterase 1+ H Urine WBC (Auto) 3 Urine RBC (Auto) None Ur Epithelial Cells Rare RPR Titer PE: SKIN COLOR PALE, + BEADS OF SWEAT ON FACE ALERT AND ORIENTED X 3 EXT + TREMORS, FULL ROM AMB AD KRYSTYNA ANXIOUS/RESTLESS Assessment: 08/01/18 12:03 WITHDRAWAL SX ANEMIA ELEVATED WBC Plan: CONTINUE DETOX ENCOURAGE ORAL FLUIDS REPEAT CBC IN AM MONITOR CLINICALLY
[2018-08-01] MEDS: THIAMINE HCL 100 MG TABLET (FP) PO SCH (22:37)
[2018-08-02] MEDS: diazePAM 5 MG TABLET PO PRN ×4 (06:03→19:48)
[2018-08-02] MEDS: NICOTINE POLACRILEX 4 MG GUM BC PRN ×4 (06:03→19:50)
[2018-08-02] MEDS ORDERED: METHADONE HCL 5 MG TABLET (FOR DETOX USE ONLY) PO ONE (10:00)
[2018-08-02] MEDS: PRENATAL VITAMINS W/ FOLIC ACID TABLET (FP) PO SCH (10:40)
--- NOTE | 2018-08-02 14:08 | PN ---
[facility] Progress Note Note: PATIENT SLEEPY, DID NOT WANT TO ANSWER PROVIDER QUESTIONS. Vital Signs Temperature 98.7 F 08/02/18 13:47 Pulse Rate 93 H 08/02/18 13:47 Respiratory Rate 18 08/02/18 13:47 Blood Pressure 94/58 L 08/02/18 13:47 O2 Sat by Pulse Oximetry (%) Laboratory Tests 07/31/18 07/31/18 07/31/18 07:00 07:00 07:00 WBC 16.4 H RBC 3.79 Hgb 8.5 L Hct 27.5 L MCV 72.6 L MCH 22.5 L MCHC 31.0 L RDW 15.7 H Plt Count 310 MPV 8.8 Sodium 136 Potassium 3.8 Chloride 100 Carbon Dioxide 29 Anion Gap 7 L BUN 11 Creatinine 0.7 Creat Clearance w eGFR > 60 Random Glucose 79 Calcium 8.2 L Total Bilirubin 0.3 AST 19 ALT 15 Alkaline Phosphatase 57 Total Protein 6.4 Albumin 2.5 L Urine Color Urine Appearance Urine pH Ur Specific [place] Urine Protein Urine Glucose (UA) Urine Ketones Urine Blood Urine Nitrite Urine Bilirubin Urine Urobilinogen Ur Leukocyte Esterase Urine WBC (Auto) Urine RBC (Auto) Ur Epithelial Cells RPR Titer Nonreactive 08/01/18 08:00 WBC RBC Hgb Hct MCV MCH MCHC RDW Plt Count MPV Sodium Potassium Chloride Carbon Dioxide Anion Gap BUN Creatinine Creat Clearance w eGFR Random Glucose Calcium Total Bilirubin AST ALT Alkaline Phosphatase Total Protein Albumin Urine Color Yellow Urine Appearance Turbid Urine pH 8.0 D Ur Specific [place] 1.017 Urine Protein 1+ H Urine Glucose (UA) Negative Urine Ketones Negative Urine Blood Negative Urine Nitrite Negative Urine Bilirubin Negative Urine Urobilinogen Negative Ur Leukocyte Esterase 1+ H Urine WBC (Auto) 3 Urine RBC (Auto) None Ur Epithelial Cells Rare RPR Titer PATIENT IRRITABLE SHE DID NOT WANT TO BE AWOKEN BY PROVIDER EXAM LIMITED ALERT AND ORIENTED X 3 A/P: WITHDRAWAL SX CONTINUE DETOX PATIENT REFUSED TO HAVE LABS THIS AM AFEBRILE AND CURRENTLY ON LEVAQUIN FOR UTI ENCOURAGE FLUIDS CONTINUE TO MONITOR
[2018-08-02] MEDS: THIAMINE HCL 100 MG TABLET (FP) PO SCH (23:17)
[2018-08-03] MEDS: NICOTINE POLACRILEX 4 MG GUM BC PRN ×4 (08:40→17:09)
[2018-08-03] MEDS ORDERED: METHADONE HCL 10 MG TABLET (FOR DETOX USE ONLY) PO ONE (10:00)
[2018-08-03] MEDS: PRENATAL VITAMINS W/ FOLIC ACID TABLET (FP) PO SCH (10:28)
--- NOTE | 2018-08-03 11:21 | PN ---
[facility] Progress Note Note: PATIENT CONTINUES WITH DETOX REGIMEN FOR OPIATE WITHDRAWALS. PATIENT REPORTS FEELING BETTER BUT C/O MILD BODY ACHES AND INTERRUPTED SLEEP. Vital Signs Temperature 97.4 F L 08/03/18 09:52 Pulse Rate 97 H 08/03/18 09:52 Respiratory Rate 20 08/03/18 09:52 Blood Pressure 90/56 L 08/03/18 09:52 O2 Sat by Pulse Oximetry (%) Laboratory Tests 07/31/18 07/31/18 07/31/18 07:00 07:00 07:00 WBC 16.4 H RBC 3.79 Hgb 8.5 L Hct 27.5 L MCV 72.6 L MCH 22.5 L MCHC 31.0 L RDW 15.7 H Plt Count 310 MPV 8.8 Sodium 136 Potassium 3.8 Chloride 100 Carbon Dioxide 29 Anion Gap 7 L BUN 11 Creatinine 0.7 Creat Clearance w eGFR > 60 Random Glucose 79 Calcium 8.2 L Total Bilirubin 0.3 AST 19 ALT 15 Alkaline Phosphatase 57 Total Protein 6.4 Albumin 2.5 L Urine Color Urine Appearance Urine pH Ur Specific [place] Urine Protein Urine Glucose (UA) Urine Ketones Urine Blood Urine Nitrite Urine Bilirubin Urine Urobilinogen Ur Leukocyte Esterase Urine WBC (Auto) Urine RBC (Auto) Ur Epithelial Cells RPR Titer Nonreactive 08/01/18 08:00 WBC RBC Hgb Hct MCV MCH MCHC RDW Plt Count MPV Sodium Potassium Chloride Carbon Dioxide Anion Gap BUN Creatinine Creat Clearance w eGFR Random Glucose Calcium Total Bilirubin AST ALT Alkaline Phosphatase Total Protein Albumin Urine Color Yellow Urine Appearance Turbid Urine pH 8.0 D Ur Specific [place] 1.017 Urine Protein 1+ H Urine Glucose (UA) Negative Urine Ketones Negative Urine Blood Negative Urine Nitrite Negative Urine Bilirubin Negative Urine Urobilinogen Negative Ur Leukocyte Esterase 1+ H Urine WBC (Auto) 3 Urine RBC (Auto) None Ur Epithelial Cells Rare RPR Titer PE: ALERT AND ORIENTED X 3 SKIN PALE, WARM AND DRY EXT FULL ROM, NO TREMORS VISIBLE AMB AD KRYSTYNA A/P WITHDRAWAL SX: IMPROVED CONTINUE DETOX MONITOR FOR D/C IN AM
[2018-08-03] MEDS: THIAMINE HCL 100 MG TABLET (FP) PO SCH (23:01)
[2018-08-04] MEDS: NICOTINE POLACRILEX 4 MG GUM BC PRN ×2 (05:57→08:17)
[2018-08-04] MEDS ORDERED: METHADONE HCL 5 MG TABLET (FOR DETOX USE ONLY) PO ONE (06:00)
[2018-08-04 06:29] VITALS: BP 90/60; PULSE 81; TEMP 97.5
--- NOTE | 2018-08-04 09:18 | PN ---
S Progress Note (SOAP) Subjective: alert,no complaint Objective: 08/04/18 09:17 Vital Signs Temperature 97.5 F L 08/04/18 06:28 Pulse Rate 81 08/04/18 06:28 Respiratory Rate 18 08/04/18 06:28 Blood Pressure 90/60 08/04/18 06:28 O2 Sat by Pulse Oximetry (%) Assessment: 08/04/18 09:17 detox completed,no withdrawal symptom Plan: discharge today,follow up with after care program as arrangement
--- NOTE | 2018-08-04 09:21 | DS ---
[facility] Detox Discharge Summary Admission Date: 07/30/18 Discharge Date: 08/04/18 - History Present History: Opioid Dependence Additional Comments: follow up with after care program as arrangement - Physical Exam Results Vital Signs: Vital Signs Temperature 97.5 F L 08/04/18 06:28 Pulse Rate 81 08/04/18 06:28 Respiratory Rate 18 08/04/18 06:28 Blood Pressure 90/60 08/04/18 06:28 O2 Sat by Pulse Oximetry (%) Pertinent Admission Physical Exam Findings: Vital Signs Temperature 97.5 F L 08/04/18 06:28 Pulse Rate 81 08/04/18 06:28 Respiratory Rate 18 08/04/18 06:28 Blood Pressure 90/60 08/04/18 06:28 O2 Sat by Pulse Oximetry (%) Laboratory Last Values WBC 16.4 K/mm3 (4.0-10.0) H 07/31/18 07:00 RBC 3.79 M/mm3 (3.60-5.2) 07/31/18 07:00 Hgb 8.5 GM/dL (10.7-15.3) L 07/31/18 07:00 Hct 27.5 % (32.4-45.2) L 07/31/18 07:00 MCV 72.6 fl (80-96) L 07/31/18 07:00 MCH 22.5 pg (25.7-33.7) L 07/31/18 07:00 MCHC 31.0 g/dl (32.0-36.0) L 07/31/18 07:00 RDW 15.7 % (11.6-15.6) H 07/31/18 07:00 Plt Count 310 K/MM3 (134-434) 07/31/18 07:00 MPV 8.8 fl (7.5-11.1) 07/31/18 07:00 Sodium 136 mmol/L (136-145) 07/31/18 07:00 Potassium 3.8 mmol/L (3.5-5.1) 07/31/18 07:00 Chloride 100 mmol/L (98-107) 07/31/18 07:00 Carbon Dioxide 29 mmol/L (21-32) 07/31/18 07:00 Anion Gap 7 MMOL/L (8-16) L 07/31/18 07:00 BUN 11 mg/dL (7-18) 07/31/18 07:00 Creatinine 0.7 mg/dL (0.55-1.3) 07/31/18 07:00 Creat Clearance w eGFR > 60 (>60) 07/31/18 07:00 Random Glucose 79 mg/dL (74-106) 07/31/18 07:00 Calcium 8.2 mg/dL (8.5-10.1) L 07/31/18 07:00 Total Bilirubin 0.3 mg/dL (0.2-1) 07/31/18 07:00 AST 19 U/L (15-37) 07/31/18 07:00 ALT 15 U/L (13-61) 07/31/18 07:00 Alkaline Phosphatase 57 U/L (45-117) 07/31/18 07:00 Total Protein 6.4 g/dl (6.4-8.2) 07/31/18 07:00 Albumin 2.5 g/dl (3.4-5.0) L 07/31/18 07:00 Urine Color Yellow 08/01/18 08:00 Urine Appearance Turbid 08/01/18 08:00 Urine pH 8.0 (5.0-8.0) D 08/01/18 08:00 Ur Specific [place] 1.017 (1.010-1.035) 08/01/18 08:00 Urine Protein 1+ (NEGATIVE) H 08/01/18 08:00 Urine Glucose (UA) Negative (NEGATIVE) 08/01/18 08:00 Urine Ketones Negative (NEGATIVE) 08/01/18 08:00 Urine Blood Negative (NEGATIVE) 08/01/18 08:00 Urine Nitrite Negative (NEGATIVE) 08/01/18 08:00 Urine Bilirubin Negative (<2.0 mg/dL) 08/01/18 08:00 Urine Urobilinogen Negative mg/dL (0.2-1.0) 08/01/18 08:00 Ur Leukocyte Esterase 1+ (NEGATIVE) H 08/01/18 08:00 Urine WBC (Auto) 3 /hpf (3-5) 08/01/18 08:00 Urine RBC (Auto) None /hpf (0-3) 08/01/18 08:00 Ur Epithelial Cells Rare /HPF (FEW) 08/01/18 08:00 RPR Titer Nonreactive (NONREACTIVE) 07/31/18 07:00 - Treatment Hospital Course: Detox Protocol Followed, Detoxed Safely, Responded well, Discharged Condition Good Patient has Accepted a Rehab Referral to: declined - Medication Discharge Medications: Ambulatory Orders levoFLOXacin [Levaquin -] 500 mg PO DAILY 07/30/18 levoFLOXacin [Levaquin -] 500 mg PO DAILY@0600 2 Days #2 tablet 08/03/18 - Diagnosis (1) Opioid dependence with withdrawal Status: Acute (2) Nicotine dependence Status: Chronic Qualifiers: Nicotine product type: cigarettes Substance use status: uncomplicated Qualified Code(s): F17.210 - Nicotine dependence, cigarettes, uncomplicated - AMA Did Patient Leave Against Medical Advice: No
== END 2018-08-04 08:55 | disposition home or self-care (01) | DRG 773 ==
LOC: YASAS 18:01 → Y3N 22:08
PROC: HZ2ZZZZ Detoxification Services for Substance Abuse Treatment (ICD-10-PCS; principal; 2018-07-30)
DX: F11.23 Opioid dependence with withdrawal (principal); F17.210 Nicotine dependence, cigarettes, uncomplicated; D64.9 Anemia, unspecified; D72.829 Elevated white blood cell count, unspecified
CPT/HCPCS: 36415; 80053; 81003; 81015; 85027; 86593

== ENCOUNTER 2019-04-03 18:32 | Inpatient (IN) | payer OTHER ==
[2019-04-03 19:06] VITALS: BMI 24.4
--- NOTE | 2019-04-03 20:21 | HP ---
COWS - Scale Resting Pulse: 1= [place] 81-100 Sweatin=Flushed/Facial Moisture Restless Observation: 0= Sits Still Pupil Size: 0= Normal to Room Light Bone or Joint Aches: 4=Acute Joint/Muscle Pain Runny Nose/ Eye Tearin= Runny Nose/Eyes GI Upset > 30mins: 1= Stomach Cramp Tremor Observation: 2= Slight Tremor Visible Yawning Observation: 0= None Anxiety or Irritability: 2=Irritable/Anxious Goose Flesh Skin: 3=Piloerection COWS Score: 17 CIWA Score - Admission Criteria OAS Guidelines: Admission for Medically Managed Detox: Requires at least one of the followin. CIWA greater than 12 2. Seizures within the past 24 hours 3. Delirium tremens within the past 24 hours 4. Hallucinations within the past 24 hours 5. Acute intervention needed for co occurring medical disorder 6. Acute intervention needed for co occurring psychiatric disorder 7. Severe withdrawal that cannot be handled at a lower level of care (continued vomiting, continued diarrhea, abnormal vital signs) requiring intravenous medication and/or fluids 8. Admission ROS [facility] Chief Complaint: Heroin withdrawal symptoms Allergies/Adverse Reactions: Allergies Allergy/AdvReac Type Severity Reaction Status Date / Time No Known Allergies Allergy Verified 04/03/19 19:00 History of Present Illness: 33 years old female with 10 years of heroin dependence is seeking admission to detox. Patient reports that her last detox was for the period 07/30/2018 - 08/04. She reports that the longest period of sobriety is 14 months. She has history of anemia and denies suicidal ideation at this time Exam Limitations: No Limitations - Ebola screening Have you traveled outside of the country in the last 21 days: No (N) Have you had contact with anyone from an Ebola affected area: No Do you have a fever: No - Review of Systems Constitutional: Loss of Appetite EENT: reports: Sinus Pressure Respiratory: reports: No Symptoms reported Cardiac: reports: No Symptoms Reported GI: reports: Nausea, Poor Appetite, Poor Fluid Intake, Abdominal cramping : reports: No Symptoms Reported Musculoskeletal: reports: Back Pain, Joint Pain Integumentary: reports: Dryness, Flushing Neuro: reports: Tremors Endocrine: reports: No Symptoms Reported Hematology: reports: No Symptoms Reported Psychiatric: reports: Mood/Affect Appropiate, Orientated x3, Anxious Other Systems: Reviewed and Negative Patient History - Patient Medical History Hx Anemia: Yes (Not on medication) Hx Asthma: No Hx Chronic Obstructive Pulmonary Disease (COPD): No Hx Cancer: No Hx Cardiac Disorders: No Hx Congestive Heart Failure: No Hx Hypertension: No Hx Hypercholesterolemia: No Hx Pacemaker: No HX Cerebrovascular Accident: No Hx Seizures: No Hx Dementia: No Hx Diabetes: No Hx Gastrointestinal Disorders: No Hx Liver Disease: No Hx Genitourinary Disorders: No Hx Sexually Transmitted Disorders: No Hx Renal Disease (ESRD): No Hx Thyroid Disease: No Hx Human Immunodeficiency Virus (HIV): No (Negative 2017) Hx Hepatitis C: No (Negative 2016) Hx Depression: No Hx Suicide Attempt: No (Denies suicidal ideation at this time) Hx Bipolar Disorder: No Hx Schizophrenia: No - Patient Surgical History Past Surgical History: No Hx Neurologic Surgery: No Hx Cataract Extraction: No Hx Cardiac Surgery: No Hx Lung Surgery: No Hx Breast Surgery: No Hx Breast Biopsy: No Hx Abdominal Surgery: No Hx Appendectomy: No Hx Cholecystectomy: No Hx Genitourinary Surgery: No Hx Section: No Hx Orthopedic Surgery: No Hx Hysterectomy: No Anesthesia Reaction: No - PPD History Previous Implant?: Yes Documented Results: Negative w/proof Implanted On Prior [facility] Admission?: Yes Date: 10/19/17 Results: 0 mm PPD to be Administered?: Yes - Reproductive History Patient is a Female of Child Bearing Age (11 -55 yrs old): Yes Last Menstrual Period: 03/20/19 Patient : No - Smoking Cessation Smoking history: Current every day smoker Have you smoked in the past 12 months: Yes Aproximately how many cigarettes per day: 10 Cigars Per Day: 0 Hx Chewing Tobacco Use: No Initiated information on smoking cessation: Yes 'Breaking Loose' booklet given: 04/03/19 - Substance & Tx. History Hx Alcohol Use: No Hx Substance Use: Yes Substance Use Type: Cocaine, Heroin Hx Substance Use Treatment: Yes ([facility]) - Substances abused Heroin Substance route: Injection Frequency: Daily Amount used: 7 bags/day Age of first use: 23 Date of last use: 04/03/19 Cocaine Substance route: Injection Frequency: Daily Amount used: 1 gram/day Age of first use: 23 Date of last use: 04/03/19 Family Disease History - Family Disease History Family Disease History: Diabetes: Grandparent (GF-throat ca), CA: Grandparent, Other: Father (alive and well ), Mother (alive and well ) Admission Physical Exam [facility] - Vital Signs Vital Signs: Vital Signs - 24 hr 04/03/19 19:01 Temperature 98.9 F Pulse Rate 95 H Respiratory 18 Rate Blood Pressure 129/70 - Physical General Appearance: Yes: Moderate Distress, Tremorous, Anxious HEENTM: Yes: Within Normal Limits Respiratory: Yes: Lungs Clear, Normal Breath Sounds, No Respiratory Distress Neck: Yes: Supple Breast: Yes: Breast Exam Deferred Cardiology: Yes: Regular Rhythm, Regular Rate Abdominal: Yes: Normal Bowel Sounds Genitourinary: Yes: Within Normal Limits Back: Yes: Normal Inspection Musculoskeletal: Yes: Back pain, Joint Stiffness Extremities: Yes: Tremors 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: Yes: Alert, Normal Mood/Affect Integumentary: Yes: Warm Lymphatic: Yes: Within Normal Limits - Diagnostic (1) Opioid dependence with withdrawal Current Visit: Yes Status: Acute (2) Anemia Current Visit: Yes Status: Chronic Qualifiers: Anemia type: iron deficiency (3) Anxiety Current Visit: Yes Status: Chronic (4) Cocaine dependence with withdrawal Current Visit: Yes Status: Chronic (5) Nicotine dependence Current Visit: Yes Status: Chronic Qualifiers: Nicotine product type: cigarettes Substance use status: uncomplicated Qualified Code(s): F17.210 - Nicotine dependence, cigarettes, uncomplicated Cleared for Admission [facility] - Detox or Rehab [facility] Level of Care: Medically Managed Detox Regimen/Protocol: Librium Breathalyzer - Breathalyzer Breathalyzer: 0 Urine Drug Screen - Test Device Lot number: [id number] Expiration date: 01/11/21 - Control Is test valid?: Yes - Results Drug screen NEGATIVE: No Urine drug screen results: DAKOTAH-Cocaine, FEN-Fentanyl, MOP-Opiates, OXY-Oxycodone Inpatient Rehab Admission - Rehab Decision to Admit Inpatient rehab admission?: No
[2019-04-03] MEDS ORDERED: METHADONE HCL 10 MG TABLET (FOR DETOX USE ONLY) PO ONE (20:31)
[2019-04-03] MEDS ORDERED: BISMUTH SUBSALICYLATE 524 MG/30 ML UD PO PRN (20:31)
[2019-04-03] MEDS ORDERED: hydrOXYzine PAMOATE 25 MG CAPSULE (FP) PO PRN (20:31)
[2019-04-03] MEDS ORDERED: MAG HYDROX/AL HYDROX/SIMETH 30 ML UNIT-DOSE CUP PO PRN (20:31)
[2019-04-03] MEDS ORDERED: ACETAMINOPHEN 325 MG TABLET (FP) PO PRN ×2 (20:31)
[2019-04-03] MEDS ORDERED: MAGNESIUM CITRATE 300 ML BOTTLE PO PRN (20:31)
[2019-04-03] MEDS ORDERED: MAGNESIUM HYDROX 2400MG/30ML ORAL SUSPENSION 30 ML CUP PO PRN (20:31)
[2019-04-03] MEDS ORDERED: IBUPROFEN 400 MG TABLET (FP) PO PRN (20:31)
[2019-04-03] MEDS ORDERED: MENTHOL/PHENOL 1 EACH UD MM PRN (20:31)
[2019-04-03] MEDS ORDERED: cloNIDine HCL 0.1 MG TABLET PO PRN (20:31)
[2019-04-03] MEDS: THIAMINE HCL 100 MG TABLET (FP) PO SCH (21:57)
[2019-04-03] MEDS: NICOTINE POLACRILEX 2 MG GUM BUC PRN (21:58)
[2019-04-03] MEDS: MELATONIN 5 MG TABLETS PO PRN (21:58)
[2019-04-04] MEDS ORDERED: METHADONE HCL 5 MG TABLET (FOR DETOX USE ONLY) ONE (09:15)
[2019-04-04] MEDS ORDERED: METHADONE HCL 10 MG TABLET (FOR DETOX USE ONLY) ONE (09:15)
[2019-04-04] MEDS ORDERED: METHADONE (DETOX) 20 MG, METHADONE (DETOX) 5 MG PO ONE (10:00)
[2019-04-04] MEDS: PRENATAL VITAMINS W/ FOLIC ACID TABLET (FP) PO SCH (10:34)
[2019-04-04] MEDS: METHOCARBAMOL 500 MG TABLET PO PRN ×2 (10:34→22:36)
[2019-04-04] MEDS: NICOTINE POLACRILEX 2 MG GUM BUC PRN ×5 (10:35→22:36)
[2019-04-04] MEDS: NICOTINE 14 MG/24 HOURS TOPICAL PATCH TD SCH (10:35)
--- NOTE | 2019-04-04 11:41 | EKG ---
Test Reason : Blood Pressure : / mmHG Vent. Rate : 075 BPM Atrial Rate : 075 BPM P-R Int : 134 ms QRS Dur : 092 ms QT Int : 366 ms P-R-T Axes : 072 065 044 degrees QTc Int : 408 ms NORMAL SINUS RHYTHM NORMAL ECG WHEN COMPARED WITH ECG OF 28-NOV-2017 22:50, NO SIGNIFICANT CHANGE WAS FOUND Confirmed by ANTONIO RICHEY MD ([id number]) on 04/04/2019 11:41:39 AM Referred By: YOLI HASTINGS Confirmed By:ANTONIO RICHEY MD
[2019-04-04 12:45] LABS: ALBUMIN 3.1 g/dl (3.4-5.0); BILIRUBIN,TOTAL 0.3 mg/dL (0.2-1); BLOOD UREA NITROGEN 11.3 mg/dL (7-18); CALCIUM 9.1 mg/dL (8.5-10.1); CREATININE 0.8 mg/dL (0.55-1.3); POTASSIUM 4.5 mmol/L (3.5-5.1); TOT PROT 6.4 g/dl (6.4-8.2)
[2019-04-04 13:27] LABS: HEMATOCRIT 31.5 % (32.4-45.2); HEMOGLOBIN 10.3 GM/dL (10.7-15.3); MCH 25.5 pg (25.7-33.7); MCHC 32.7 g/dl (32.0-36.0); MEAN CELL VOLUME 78.2 fl (80-96); MEAN PLT VOLUME 9.4 fl (7.5-11.1); PLATELET COUNT 303 K/MM3 (134-434); RBC 4.03 M/mm3 (3.60-5.2); RDW 15.2 % (11.6-15.6)
--- NOTE | 2019-04-04 14:44 | PN ---
S COWS - Scale Resting Pulse: 0= [place] 80 or Below Sweatin= No chills or Flushing Restless Observation: 1= Difficult to Sit Still Pupil Size: 0= Normal to Room Light Bone or Joint Aches: 2= Severe Diffuse Aches Runny Nose/ Eye Tearin= None GI Upset > 30mins: 0= None Tremor Observation of Outstretched Hands: 0= None Yawning Observation: 1= 1-2x During Session Anxiety or Irritability: 4=Extreme Anxiety Goose Flesh Skin: 3=Piloerection COWS Score: 11 S Progress Note (SOAP) Subjective: Anxious, Restless, Body Aches. Objective: PATIENT A & O X 3, OBSERVED AMBULATING ON UNIT UNASSISTED. IN NO ACUTE DISTRESS. 04/04/19 14:41 Vital Signs Temperature 96.9 F L 04/04/19 13:46 Pulse Rate 68 04/04/19 13:46 Respiratory Rate 18 04/04/19 13:46 Blood Pressure 100/60 04/04/19 13:46 O2 Sat by Pulse Oximetry (%) Laboratory Tests 04/04/19 04/04/19 07:30 07:30 WBC 7.0 RBC 4.03 Hgb 10.3 L Hct 31.5 L MCV 78.2 L MCH 25.5 L D MCHC 32.7 RDW 15.2 Plt Count 303 MPV 9.4 Sodium 143 Potassium 4.5 Chloride 108 H Carbon Dioxide 28 Anion Gap 7 L BUN 11.3 Creatinine 0.8 Est GFR (CKD-EPI)AfAm 113.86 Est GFR (CKD-EPI)NonAf 98.24 Random Glucose 78 Calcium 9.1 Total Bilirubin 0.3 AST 16 ALT 14 Alkaline Phosphatase 70 Total Protein 6.4 Albumin 3.1 L LABS NOTED. RESULTS OF DETOX ADMISSION QFT /TB AND RPR TESTS PENDING. 04/04/19 14:42 Assessment: 04/04/19 14:41 WITHDRAWAL SYMPTOMS. ANEMIA. Plan: CONTINUE DETOX. FEOSOL, 325 MG PO TIDCM FOR ANEMIA NOTED ON DETOX ADMISSION LABORATORY ASSESSMENT. PATIENT IS CURRENTLY RECEIVING DAILY MVI CONTAINING B VITAMINS AND IRON WHILE ADMITTED FOR DETOX.
[2019-04-04] MEDS: FERROUS SO4 325 MG TABLET (FP) PO SCH (17:27)
[2019-04-04] MEDS: diazePAM 5 MG TABLET PO PRN ×2 (17:29→22:36)
[2019-04-04] MEDS: THIAMINE HCL 100 MG TABLET (FP) PO SCH (22:36)
[2019-04-05] MEDS: FERROUS SO4 325 MG TABLET (FP) PO SCH ×3 (07:15→17:59)
[2019-04-05] MEDS: diazePAM 5 MG TABLET PO PRN ×4 (07:18→22:41)
[2019-04-05] MEDS ORDERED: METHADONE HCL 10 MG TABLET (FOR DETOX USE ONLY) PO ONE (10:00)
[2019-04-05] MEDS: NICOTINE 14 MG/24 HOURS TOPICAL PATCH TD SCH (10:30)
[2019-04-05] MEDS: PRENATAL VITAMINS W/ FOLIC ACID TABLET (FP) PO SCH (10:30)
[2019-04-05] MEDS: NICOTINE POLACRILEX 2 MG GUM BUC PRN ×2 (10:30→17:59)
--- NOTE | 2019-04-05 14:14 | PN ---
[facility] COWS - Scale Resting Pulse: 0= [place] 80 or Below Sweatin= No chills or Flushing Restless Observation: 0= Sits Still Pupil Size: 0= Normal to Room Light Bone or Joint Aches: 2= Severe Diffuse Aches Runny Nose/ Eye Tearin= None GI Upset > 30mins: 0= None Tremor Observation of Outstretched Hands: 0= None Yawning Observation: 1= 1-2x During Session Anxiety or Irritability: 2=Irritable/Anxious Goose Flesh Skin: 3=Piloerection COWS Score: 8 [facility] Progress Note (SOAP) Subjective: Anxious, Body Aches, Fatigue. Objective: PATIENT A & O X 3. IN NO ACUTE DISTRESS. PATIENT REPORTS HISTORY OF LOW BP. 04/05/19 14:11 Vital Signs Temperature 97.6 F 04/05/19 14:05 Pulse Rate 78 04/05/19 14:05 Respiratory Rate 18 04/05/19 14:05 Blood Pressure 99/64 04/05/19 14:05 O2 Sat by Pulse Oximetry (%) Laboratory Tests 04/03/19 04/04/19 04/04/19 20:02 07:30 07:30 WBC 7.0 RBC 4.03 Hgb 10.3 L Hct 31.5 L MCV 78.2 L MCH 25.5 L D MCHC 32.7 RDW 15.2 Plt Count 303 MPV 9.4 Sodium 143 Potassium 4.5 Chloride 108 H Carbon Dioxide 28 Anion Gap 7 L BUN 11.3 Creatinine 0.8 Est GFR (CKD-EPI)AfAm 113.86 Est GFR (CKD-EPI)NonAf 98.24 Random Glucose 78 Calcium 9.1 Total Bilirubin 0.3 AST 16 ALT 14 Alkaline Phosphatase 70 Total Protein 6.4 Albumin 3.1 L POC Urine HCG, Qual Negative RPR Titer 04/04/19 07:30 WBC RBC Hgb Hct MCV MCH MCHC RDW Plt Count MPV Sodium Potassium Chloride Carbon Dioxide Anion Gap BUN Creatinine Est GFR (CKD-EPI)AfAm Est GFR (CKD-EPI)NonAf Random Glucose Calcium Total Bilirubin AST ALT Alkaline Phosphatase Total Protein Albumin POC Urine HCG, Qual RPR Titer Nonreactive LABS NOTED. RESULTS OF DETOX ADMISSION QFT /TB TEST PENDING. 04/05/19 14:13 Assessment: 04/05/19 14:12 WITHDRAWAL SYMPTOMS. HYPOTENSION. ANEMIA. 04/05/19 14:13 Plan: CONTINUE DETOX. INCREASE DAILY PO WATER INTAKE. CONTINUE FEOSOL PO FOR ANEMIA NOTED ON DETOX ADMISSION LABORATORY ASSESSMENT.
[2019-04-05] MEDS: THIAMINE HCL 100 MG TABLET (FP) PO SCH (22:41)
[2019-04-06] MEDS: diazePAM 5 MG TABLET PO PRN ×2 (04:46→09:25)
[2019-04-06] MEDS: NICOTINE POLACRILEX 2 MG GUM BUC PRN ×5 (04:47→19:45)
[2019-04-06] MEDS: FERROUS SO4 325 MG TABLET (FP) PO SCH ×3 (07:46→17:44)
[2019-04-06] MEDS ORDERED: METHADONE HCL 10 MG TABLET (FOR DETOX USE ONLY) ONE (08:45)
[2019-04-06] MEDS ORDERED: METHADONE HCL 5 MG TABLET (FOR DETOX USE ONLY) ONE (08:45)
[2019-04-06] MEDS: PRENATAL VITAMINS W/ FOLIC ACID TABLET (FP) PO SCH (09:26)
[2019-04-06] MEDS: NICOTINE 14 MG/24 HOURS TOPICAL PATCH TD SCH (09:26)
[2019-04-06] MEDS ORDERED: METHADONE (DETOX) 10 MG, METHADONE (DETOX) 5 MG PO ONE (10:00)
--- NOTE | 2019-04-06 13:51 | PN ---
[facility] COWS - Scale Resting Pulse: 0= [place] 80 or Below Sweatin= No chills or Flushing Restless Observation: 0= Sits Still Pupil Size: 0= Normal to Room Light Bone or Joint Aches: 2= Severe Diffuse Aches Runny Nose/ Eye Tearin= None GI Upset > 30mins: 0= None Tremor Observation of Outstretched Hands: 0= None Yawning Observation: 2= >3x During Session Anxiety or Irritability: 2=Irritable/Anxious Goose Flesh Skin: 0=Smooth Skin COWS Score: 6 [facility] Progress Note (SOAP) Subjective: Anxious, Fatigue, Body Aches. Objective: PATIENT A & O X 3, OBSERVED AMBULATING ON UNIT UNASSISTED. IN NO ACUTE DISTRESS. 04/06/19 13:49 Vital Signs Temperature 96.1 F L 04/06/19 13:17 Pulse Rate 71 04/06/19 13:17 Respiratory Rate 16 04/06/19 13:17 Blood Pressure 97/60 04/06/19 13:17 O2 Sat by Pulse Oximetry (%) Laboratory Tests 04/03/19 04/04/19 04/04/19 20:02 07:30 07:30 WBC 7.0 RBC 4.03 Hgb 10.3 L Hct 31.5 L MCV 78.2 L MCH 25.5 L D MCHC 32.7 RDW 15.2 Plt Count 303 MPV 9.4 Sodium 143 Potassium 4.5 Chloride 108 H Carbon Dioxide 28 Anion Gap 7 L BUN 11.3 Creatinine 0.8 Est GFR (CKD-EPI)AfAm 113.86 Est GFR (CKD-EPI)NonAf 98.24 Random Glucose 78 Calcium 9.1 Total Bilirubin 0.3 AST 16 ALT 14 Alkaline Phosphatase 70 Total Protein 6.4 Albumin 3.1 L POC Urine HCG, Qual Negative RPR Titer 04/04/19 07:30 WBC RBC Hgb Hct MCV MCH MCHC RDW Plt Count MPV Sodium Potassium Chloride Carbon Dioxide Anion Gap BUN Creatinine Est GFR (CKD-EPI)AfAm Est GFR (CKD-EPI)NonAf Random Glucose Calcium Total Bilirubin AST ALT Alkaline Phosphatase Total Protein Albumin POC Urine HCG, Qual RPR Titer Nonreactive LABS NOTED. RESULTS OF DETOX ADMISSION QFT /TB TEST PENDING. 04/06/19 13:50 Assessment: 04/06/19 13:49 WITHDRAWAL SYMPTOMS. ANEMIA. 04/06/19 13:50 Plan: CONTINUE DETOX. CONTINUE FEOSOL PO FOR ANEMIA.
[2019-04-06] MEDS: THIAMINE HCL 100 MG TABLET (FP) PO SCH (22:44)
[2019-04-07] MEDS: FERROUS SO4 325 MG TABLET (FP) PO SCH ×3 (07:57→16:30)
[2019-04-07] MEDS ORDERED: METHADONE HCL 10 MG TABLET (FOR DETOX USE ONLY) PO ONE (10:00)
[2019-04-07] MEDS: PRENATAL VITAMINS W/ FOLIC ACID TABLET (FP) PO SCH (10:26)
[2019-04-07] MEDS: NICOTINE 14 MG/24 HOURS TOPICAL PATCH TD SCH (10:27)
[2019-04-07] MEDS: NICOTINE POLACRILEX 2 MG GUM BUC PRN ×4 (10:27→21:17)
--- NOTE | 2019-04-07 11:04 | PN ---
[facility] COWS - Scale Resting Pulse: 0= [place] 80 or Below Sweatin= Chills/Flushing Restless Observation: 0= Sits Still Pupil Size: 0= Normal to Room Light Bone or Joint Aches: 0= None Runny Nose/ Eye Tearin= None GI Upset > 30mins: 0= None Tremor Observation of Outstretched Hands: 1= Tremor [place], Not Seen Yawning Observation: 0= None Anxiety or Irritability: 1=Feels Anxious/Irritable Goose Flesh Skin: 0=Smooth Skin COWS Score: 3 [facility] Progress Note (SOAP) Subjective: 33 years old female admitted on 04/03/19 for acute opiate withdrawal sx management ate 80% breakfast today doing well with methadone detox regimen discuss medication assisted treatment for opiate misuse and chronic body aches Objective: 04/07/19 11:03 Vital Signs Temperature 98.3 F 04/07/19 09:18 Pulse Rate 76 04/07/19 09:18 Respiratory Rate 18 04/07/19 09:18 Blood Pressure 93/56 L 04/07/19 09:18 O2 Sat by Pulse Oximetry (%) Laboratory Last Values WBC 7.0 K/mm3 (4.0-10.0) 04/04/19 07:30 RBC 4.03 M/mm3 (3.60-5.2) 04/04/19 07:30 Hgb 10.3 GM/dL (10.7-15.3) L 04/04/19 07:30 Hct 31.5 % (32.4-45.2) L 04/04/19 07:30 MCV 78.2 fl (80-96) L 04/04/19 07:30 MCH 25.5 pg (25.7-33.7) L D 04/04/19 07:30 MCHC 32.7 g/dl (32.0-36.0) 04/04/19 07:30 RDW 15.2 % (11.6-15.6) 04/04/19 07:30 Plt Count 303 K/MM3 (134-434) 04/04/19 07:30 MPV 9.4 fl (7.5-11.1) 04/04/19 07:30 Sodium 143 mmol/L (136-145) 04/04/19 07:30 Potassium 4.5 mmol/L (3.5-5.1) 04/04/19 07:30 Chloride 108 mmol/L (98-107) H 04/04/19 07:30 Carbon Dioxide 28 mmol/L (21-32) 04/04/19 07:30 Anion Gap 7 MMOL/L (8-16) L 04/04/19 07:30 BUN 11.3 mg/dL (7-18) 04/04/19 07:30 Creatinine 0.8 mg/dL (0.55-1.3) 04/04/19 07:30 Est GFR (CKD-EPI)AfAm 113.86 04/04/19 07:30 Est GFR (CKD-EPI)NonAf 98.24 04/04/19 07:30 Random Glucose 78 mg/dL (74-106) 04/04/19 07:30 Calcium 9.1 mg/dL (8.5-10.1) 04/04/19 07:30 Total Bilirubin 0.3 mg/dL (0.2-1) 04/04/19 07:30 AST 16 U/L (15-37) 04/04/19 07:30 ALT 14 U/L (13-61) 04/04/19 07:30 Alkaline Phosphatase 70 U/L (45-117) 04/04/19 07:30 Total Protein 6.4 g/dl (6.4-8.2) 04/04/19 07:30 Albumin 3.1 g/dl (3.4-5.0) L 04/04/19 07:30 POC Urine HCG, Qual Negative 04/03/19 20:02 RPR Titer Nonreactive (NONREACTIVE) 04/04/19 07:30 lab noted Assessment: 04/07/19 11:07 opiate withdrawal sx Plan: contnue methadone detox [facility]
[2019-04-07] MEDS: THIAMINE HCL 100 MG TABLET (FP) PO SCH (21:17)
[2019-04-07] MEDS: MELATONIN 5 MG TABLETS PO PRN (22:00)
[2019-04-08] MEDS ORDERED: METHADONE HCL 5 MG TABLET (FOR DETOX USE ONLY) PO ONE (06:00)
[2019-04-08 06:13] VITALS: BP 95/68; PULSE 70; TEMP 97.6
[2019-04-08] MEDS: FERROUS SO4 325 MG TABLET (FP) PO SCH (07:45)
[2019-04-08] MEDS: NICOTINE POLACRILEX 2 MG GUM BUC PRN (08:10)
--- NOTE | 2019-04-08 09:56 | DS ---
[facility] Detox Discharge Summary Admission Date: 04/03/19 Discharge Date: 04/08/19 - History Present History: Opioid Dependence Additional Comments: 33 years old female admitted on 04/03 for acute opiate withdrawal sx management doing well with methadone detox regimen no complication throughout the detox regimen alert oriented x 3 no wheezing abdomen soft denies dizziness steady gait speech clear and coherent Pertinent Past History: strong recommend medication assisted treatment program encourage community support approach - Physical Exam Results Vital Signs: Vital Signs Temperature 97.6 F 04/08/19 06:13 Pulse Rate 70 04/08/19 06:13 Respiratory Rate 18 04/08/19 06:30 Blood Pressure 95/68 04/08/19 06:13 O2 Sat by Pulse Oximetry (%) Pertinent Admission Physical Exam Findings: opiate withdrawal sx Laboratory Last Values WBC 7.0 K/mm3 (4.0-10.0) 04/04/19 07:30 RBC 4.03 M/mm3 (3.60-5.2) 04/04/19 07:30 Hgb 10.3 GM/dL (10.7-15.3) L 04/04/19 07:30 Hct 31.5 % (32.4-45.2) L 04/04/19 07:30 MCV 78.2 fl (80-96) L 04/04/19 07:30 MCH 25.5 pg (25.7-33.7) L D 04/04/19 07:30 MCHC 32.7 g/dl (32.0-36.0) 04/04/19 07:30 RDW 15.2 % (11.6-15.6) 04/04/19 07:30 Plt Count 303 K/MM3 (134-434) 04/04/19 07:30 MPV 9.4 fl (7.5-11.1) 04/04/19 07:30 Sodium 143 mmol/L (136-145) 04/04/19 07:30 Potassium 4.5 mmol/L (3.5-5.1) 04/04/19 07:30 Chloride 108 mmol/L (98-107) H 04/04/19 07:30 Carbon Dioxide 28 mmol/L (21-32) 04/04/19 07:30 Anion Gap 7 MMOL/L (8-16) L 04/04/19 07:30 BUN 11.3 mg/dL (7-18) 04/04/19 07:30 Creatinine 0.8 mg/dL (0.55-1.3) 04/04/19 07:30 Est GFR (CKD-EPI)AfAm 113.86 04/04/19 07:30 Est GFR (CKD-EPI)NonAf 98.24 04/04/19 07:30 Random Glucose 78 mg/dL (74-106) 04/04/19 07:30 Calcium 9.1 mg/dL (8.5-10.1) 04/04/19 07:30 Total Bilirubin 0.3 mg/dL (0.2-1) 04/04/19 07:30 AST 16 U/L (15-37) 04/04/19 07:30 ALT 14 U/L (13-61) 04/04/19 07:30 Alkaline Phosphatase 70 U/L (45-117) 04/04/19 07:30 Total Protein 6.4 g/dl (6.4-8.2) 04/04/19 07:30 Albumin 3.1 g/dl (3.4-5.0) L 04/04/19 07:30 POC Urine HCG, Qual Negative 04/03/19 20:02 RPR Titer Nonreactive (NONREACTIVE) 04/04/19 07:30 lab noted Vital Signs - Treatment Hospital Course: Detox Protocol Followed, Detoxed Safely, Responded well, Discharged Condition Good, Rehab Referral Accepted Patient has Accepted a Rehab Referral to: community support approach - Medication Discharge Medications: Ambulatory Orders NK [No Known Home Medication] 04/03/19 - Diagnosis (1) Opioid dependence with withdrawal Status: Acute (2) Nicotine dependence Status: Acute Qualifiers: Nicotine product type: cigarettes Substance use status: in withdrawal Qualified Code(s): F17.213 - Nicotine dependence, cigarettes, with withdrawal - AMA Did Patient Leave Against Medical Advice: No COWS (PN) - Opiate Withdrawal Resting Pulse: 0= [place] 80 or Below Sweatin= No chills or Flushing Restless Observation: 0= Sits Still Pupil Size: 0= Normal to Room Light Bone or Joint Aches: 0= None Runny Nose/ Eye Tearin= None GI Upset > 30mins: 0= None Tremor Observation of Outstretched Hands: 0= None Yawning Observation: 0= None Anxiety or Irritability: 0= None Goose Flesh Skin: 0=Smooth Skin COWS Score: 0
== END 2019-04-08 08:39 | disposition home or self-care (01) | DRG 773 ==
LOC: YASAS 18:32 → Y3N 21:07
PROVIDERS: ADMIT Surgery; ATTEND Surgery
PROC: HZ2ZZZZ Detoxification Services for Substance Abuse Treatment (ICD-10-PCS; principal; 2019-04-03)
DX: F11.23 Opioid dependence with withdrawal (principal); F14.23 Cocaine dependence with withdrawal; F17.213 Nicotine dependence, cigarettes, with withdrawal; F41.9 Anxiety disorder, unspecified; D50.9 Iron deficiency anemia, unspecified
CPT/HCPCS: 36415; 80053; 81025; 85027; 86480; 86593; 93005; 93010; J0735

== ENCOUNTER 2019-05-23 15:15 | Emergency (ER) | payer OTHER ==
[2019-05-23 15:24] VITALS: BMI 25.5
--- NOTE | 2019-05-23 16:53 | PDOC ---
History of Present Illness - General Chief Complaint: Wound Stated Complaint: WOUND Time Seen by Provider: 05/23/19 16:22 History Source: Patient Exam Limitations: No Limitations - History of Present Illness Initial Comments: 05/23/19 16:49 HISTORY OF PRESENT ILLNESS: Is a 33-year-old woman past medical history of IV drug use (currently injecting cocaine and heroin in he left popliteal) who presents to the emergency department for evaluation of wound in the left popliteal where she has been injecting IV drugs. Patient was seen and evaluated at [facility] and was treated with an outpatient course of Bactrim. Patient was also told to apply a "cream" to the wound was recommended to follow-up with her doctor. Patient denies fevers, chills, malodorous drainage from the wound. No recent travel or sick contacts. PAST MEDICAL HISTORY: See HPI SURGICAL HISTORY: Denies ALLERGIES: No known drug allergies REVIEW OF SYSTEMS General/Constitutional: Denies fever or chills. Denies weakness, weight change. HEENT: Denies change in vision. Denies ear pain or discharge. Denies sore throat. Cardiovascular: Denies chest pain or shortness of breath. Respiratory: Denies cough, wheezing, or hemoptysis. Gastrointestinal: Denies nausea, vomiting, diarrhea or constipation. Denies rectal bleeding. Genitourinary: Denies dysuria, frequency, or change in urination. Musculoskeletal: Denies joint or muscle swelling or pain. Denies neck or back pain. Skin and breasts: See HPI Neurologic: Denies headache, vertigo, loss of consciousness, or loss of sensation. Psychiatric: Denies depression or anxiety. Endocrine: Denies increased thirst. Denies abnormal weight change. Hematologic/Lymphatic: Denies anemia, easy bleeding, or history of blood clots. Allergic/Immunologic: Denies hives or skin allergy. Denies latex allergy. PHYSICAL EXAM General Appearance: Well-appearing, appropriately dressed. No apparent distress , no intoxication. Respiratory/Chest: Lungs CTAB. No shortness of breath, chest tenderness, respiratory distress, accessory muscle use. No crackles, rales, rhonchi, stridor , wheezing, dullness Cardiovascular: RRR. S1, S2. No JVD, murmur, bradycardia, tachycardia. Vascular Pulses: Dorsalis-Pedis (R): 2+, Dorsalis-Pedis (L): 2+ Gastrointestinal/Abdominal: Normal bowel sounds. Abdomen soft, non-distended. No tenderness or rebound tenderness. No organomegaly, pulsatile mass, guarding, hernia, hepatomegaly, splenomegaly. Lymphatic: No adenopathy, tenderness. Musculoskeletal/Extremities: Normal inspection. FROM of all extremities, normal capillary refill. Pelvis Stable. No CVA tenderness. No tenderness to extremities, pedal edema, swelling, erythema or deformity. Integumentary: 3 cm x 3 cm triangular wound present to the left popliteal. Surrounding induration extends approximately 2 cm from wound edge. No undermining or tunneling is present. Granulation tissue present at the base of the wound. Scant serous/serosanguineous drainage expressed from 6:00 aspect of the wound. No surrounding erythema or signs of infection are present. Patient denies currently injecting into this area. 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 Fully oriented, alert. Appropriate mood/affect. Motor strength 5/5. No appreciable EOM palsy, facial droop or sensory deficit. Past History - Past Medical History Allergies/Adverse Reactions: Allergies Allergy/AdvReac Type Severity Reaction Status Date / Time No Known Allergies Allergy Verified 05/23/19 15:20 Home Medications: Ambulatory Orders Clindamycin HCl 150 mg PO TID #21 capsule 05/23/19 Clindamycin HCl 300 mg PO TID #21 capsule 05/23/19 Anemia: Yes (Not on medication) Asthma: No Cancer: No Cardiac Disorders: No CVA: No COPD: No CHF: No Dementia: No Diabetes: No GI Disorders: No Disorders: No HTN: No Hypercholesterolemia: No Kidney Stones: No Liver Disease: No Seizures: No Thyroid Disease: No - Surgical History Abdominal Surgery: No Appendectomy: No Cardiac Surgery: No Cholecystectomy: No Lung Surgery: No Neurologic Surgery: No Orthopedic Surgery: No - Reproductive History PID: Yes - Immunization History Td Vaccination: Yes Immunization Up to Date: Yes - Psycho Social/Smoking Cessation Hx Smoking Status: Yes Smoking History: Current every day smoker Have you smoked in the past 12 months: Yes Number of Cigarettes Smoked Daily: 10 Cigars Per Day: 0 Information on smoking cessation initiated: No 'Breaking Loose' booklet given: 04/03/19 Hx Alcohol Use: No Drug/Substance Use Hx: No Substance Use Type: Cocaine, Heroin Hx Substance Use Treatment: Yes ([facility]) *Physical Exam - Vital Signs Last Vital Signs Temp Pulse Resp BP Pulse Ox 98.2 F 90 17 124/66 99 05/23/19 15:20 05/23/19 15:20 05/23/19 15:20 05/23/19 15:20 05/23/19 15:20 ED Treatment Course - LABORATORY CBC & Chemistry Diagram: 05/23/19 18:00 05/23/19 18:00 Medical Decision Making - Medical Decision Making 05/23/19 16:52 A/P: 33-year-old woman with left popliteal wounds Wound does not appear infectious at this time. I have collected a wound culture will get basic labs. As patient does have a history of IV drug use and is unreliable laboratory testing is normal I will give 1 dose of dalbavancin and have patient follow-up in the wound clinic. If laboratory testing is suggestive of infection will admit the patient for IV antibiotics. Patient is in agreement with the current plan. 05/23/19 21:02 Case is been discussed with Dr. Amado does not recommend Dalvance at this time. Will discharge patient home with prescription for clindamycin and to follow- up in the wound clinic. All findings have been relayed to the patient was verbalized understanding. Patient was given the opportunity to ask questions and all questions have been answered. Patient was satisfied with the care received today and is in agreement with the current plan. Discharge - Discharge Information Problems reviewed: Yes Clinical Impression/Diagnosis: Wound of left lower extremity Qualifiers: Encounter type: initial encounter Qualified Code(s): S81.802A - Unspecified open wound, left lower leg, initial encounter Condition: Unchanged/Unknown Disposition: ELOPED - Admission No - Additional Discharge Information Prescriptions: Clindamycin HCl 300 mg PO TID #21 capsule Clindamycin HCl 150 mg PO TID #21 capsule - Follow up/Referral - Patient Discharge Instructions Additional Instructions: Take clindamycin 450mg three times every day until all medication has been completed. It is important that you contact the wound center here at [facility] at . They are open Monday through Monday from 8 AM to 4 PM. Call to schedule an appointment in initial evaluation. Return to the emergency department for fevers, chills, severe pain around the wound, red streaks from the wound, redness or swelling from the site or for any other concerns. Thank you very much for choosing us to provide your emergent health care needs. - Post Discharge Activity
[2019-05-23 18:12] LABS: EOS % 15.2 % (0-4.5); HEMATOCRIT 36.1 % (32.4-45.2); HEMOGLOBIN 11.3 GM/dL (10.7-15.3); LYMPH % 34.7 % (8-40); MCH 23.6 pg (25.7-33.7); MCHC 31.3 g/dl (32.0-36.0); MEAN CELL VOLUME 75.6 fl (80-96); MEAN PLT VOLUME 7.6 fl (7.5-11.1); MONO % 8.9 % (3.8-10.2); NEUT % 40.2 % (42.8-82.8); PLATELET COUNT 389 K/MM3 (134-434); RBC 4.78 M/mm3 (3.60-5.2); RDW 14.7 % (11.6-15.6); WHITE BLOOD COUNT 7.8 K/mm3 (4.0-10.0)
[2019-05-23] MEDS ORDERED: DALBAVANCIN HCL 1,500 MG in DEXTROSE 5%-WATER - 500 ML IVPB ONE (18:35)
[2019-05-23 18:39] LABS: ALBUMIN 3.7 g/dl (3.4-5.0); BILIRUBIN,TOTAL 0.1 mg/dL (0.2-1); CALCIUM 9.7 mg/dL (8.5-10.1); CREATININE 0.9 mg/dL (0.55-1.3); POTASSIUM 4.6 mmol/L (3.5-5.1); TOT PROT 8.1 g/dl (6.4-8.2)
[2019-05-23 19:15] VITALS: BP 107/62; PULSE 83; TEMP 98.5
== END 2019-05-23 21:47 ==
LOC: JER 15:15
DX: S81.802A Unspecified open wound, left lower leg, initial encounter (principal); W46.0XXA Contact with hypodermic needle, initial encounter; Y93.89 Activity, other specified; Y92.89 Other specified places as the place of occurrence of the external cause; Y99.8 Other external cause status; F11.10 Opioid abuse, uncomplicated; F14.10 Cocaine abuse, uncomplicated; F17.210 Nicotine dependence, cigarettes, uncomplicated; D64.9 Anemia, unspecified
CPT/HCPCS: 36415; 80053; 85025; 87070; 87205; 99283-25

== ENCOUNTER 2019-05-29 11:28 | Inpatient (IN) | payer OTHER ==
[2019-05-29 12:07] VITALS: BMI 25.8
--- NOTE | 2019-05-29 12:57 | HP ---
COWS - Scale Resting Pulse: 1= [place] 81-100 Sweatin=Flushed/Facial Moisture Restless Observation: 1= Difficult to Sit Still Pupil Size: 1= Pupils >than Normal Bone or Joint Aches: 1= Mild Discomfort Runny Nose/ Eye Tearin= Runny Nose/Eyes GI Upset > 30mins: 1= Stomach Cramp Tremor Observation: 1= Tremor [place], Not Seen Yawning Observation: 1= 1-2x During Session Anxiety or Irritability: 1=Feels Anxious/Irritable Goose Flesh Skin: 0=Smooth Skin COWS Score: 12 CIWA Score - Admission Criteria OASAS Guidelines: Admission for Medically Managed Detox: Requires at least one of the followin. CIWA greater than 12 2. Seizures within the past 24 hours 3. Delirium tremens within the past 24 hours 4. Hallucinations within the past 24 hours 5. Acute intervention needed for co occurring medical disorder 6. Acute intervention needed for co occurring psychiatric disorder 7. Severe withdrawal that cannot be handled at a lower level of care (continued vomiting, continued diarrhea, abnormal vital signs) requiring intravenous medication and/or fluids 8. Admitting History and Physical - Past Medical History ...LMP: 03/20/19 Infectious Disease: Yes: MRSA, Other (previously treated for cellulitis/abscess) Psych: Yes: Addictions Dermatology: Yes: Cellulitis, Other (History of popliteal cellulitis/abscess in the past) - Past Surgical History Past Surgical History: Yes: None - Smoking History Smoking history: Current every day smoker Have you smoked in the past 12 months: Yes Aproximately how many cigarettes per day: 10 - Alcohol/Substance Use Hx Alcohol Use: No History of Substance Use: reports: Cocaine, Heroin Date of Last Use: 04/01/17 - Social History ADL: Independent 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 Allergies/Adverse Reactions: Allergies Allergy/AdvReac Type Severity Reaction Status Date / Time No Known Allergies Allergy Verified 05/29/19 12:02 History of Present Illness: Valorie Edgar is a 33 year old female presenting for heroin and cocaine abuse. Heroin: 7-10 bags daily. Daily user. Endorses IVDU. Has a history of abscesses from injection, not recently. States uses clean needles, but does reuse. Does not share needles. Last use was earlier this morning. Denies overdose. has a Narcan kit at home and knows how to use it. Has previously been on a suboxone program but did not like it and choose to stop using. Longest period of sobriety was 12-15 months during which time she was attending meetings. Cocaine: 1g daily. Daily user. Endorses IVDU, mixes with heroin. Has been to detox and rehab in the past. Plans after detox are inpatient rehab. States may be interested in methadone program or buprenorphine injections. 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 Will be admitted for heroin detox with methadone protocol. Advised to speak to counselor regarding rehab options after completing detox. Exam Limitations: No Limitations - Ebola screening Have you traveled outside of the country in the last 21 days: No Have you had contact with anyone from an Ebola affected area: No - Review of Systems Constitutional: Chills, Loss of Appetite EENT: reports: No Symptoms Reported Respiratory: reports: Cough Cardiac: reports: No Symptoms Reported GI: reports: Nausea : reports: No Symptoms Reported Musculoskeletal: reports: Muscle Pain Integumentary: reports: No Symptoms Reported Neuro: reports: No Symptoms reported Endocrine: reports: No Symptoms Reported Hematology: reports: No Symptoms Reported Psychiatric: reports: Anxious Patient History - Patient Medical History Hx Anemia: Yes (Not on medication) Hx Asthma: No Hx Chronic Obstructive Pulmonary Disease (COPD): No Hx Cancer: No Hx Cardiac Disorders: No Hx Congestive Heart Failure: No Hx Hypertension: No Hx Hypercholesterolemia: No Hx Pacemaker: No HX Cerebrovascular Accident: No Hx Seizures: No Hx Dementia: No Hx Diabetes: No Hx Gastrointestinal Disorders: No Hx Liver Disease: No Hx Genitourinary Disorders: No Hx Sexually Transmitted Disorders: No Hx Renal Disease (ESRD): No Hx Thyroid Disease: No Hx Human Immunodeficiency Virus (HIV): No (Negative 2017) Hx Hepatitis C: No (Negative 2016) Hx Depression: No Hx Suicide Attempt: No (Denies suicidal ideation at this time) Hx Bipolar Disorder: No Hx Schizophrenia: No - Patient Surgical History Past Surgical History: No Hx Neurologic Surgery: No Hx Cataract Extraction: No Hx Cardiac Surgery: No Hx Lung Surgery: No Hx Breast Surgery: No Hx Breast Biopsy: No Hx Abdominal Surgery: No Hx Appendectomy: No Hx Cholecystectomy: No Hx Genitourinary Surgery: No Hx Section: No Hx Orthopedic Surgery: No Hx Hysterectomy: No Anesthesia Reaction: No - PPD History Previous Implant?: Yes Documented Results: Negative w/o proof Implanted On Prior [facility] Admission?: Yes Date: 04/04/19 (quantiferon negative) - Reproductive History Patient is a Female of Child Bearing Age (11 -55 yrs old): Yes Last Menstrual Period: 05/08/19 Patient : Yes - Smoking Cessation Smoking history: Current every day smoker Have you smoked in the past 12 months: Yes Aproximately how many cigarettes per day: 10 Cigars Per Day: 0 Hx Chewing Tobacco Use: No Initiated information on smoking cessation: Yes 'Breaking Loose' booklet given: 05/29/19 - Substance & Tx. History Hx Alcohol Use: Yes Hx Substance Use: Yes Substance Use Type: Cocaine, Heroin - Substances abused Heroin Substance route: Injection Frequency: Daily Amount used: 7 bags/day Age of first use: 23 Date of last use: 05/29/19 Cocaine Substance route: Injection Frequency: Daily Amount used: 1 gram/day Age of first use: 23 Date of last use: 05/29/19 Admission Physical Exam BHS - Vital Signs Vital Signs: Vital Signs - 24 hr 05/29/19 12:01 Temperature 97.9 F Pulse Rate 82 Respiratory 18 Rate Blood Pressure 100/69 - Physical General Appearance: Yes: Disheveled, Mild Distress HEENTM: Yes: EOMI, Normocephalic, Normal Voice, DANIEL, Pharynx Normal Respiratory: Yes: Chest Non-Tender, Lungs Clear, Normal Breath Sounds, No Respiratory Distress, No Accessory Muscle Use Neck: Yes: No masses,lesions,Nodules, Trachea in good position Breast: Yes: Breast Exam Deferred Cardiology: Yes: Regular Rhythm, Regular Rate, S1, S2 Abdominal: Yes: Normal Bowel Sounds, Non Tender, Flat, Soft Genitourinary: Yes: Within Normal Limits Back: Yes: Normal Inspection Musculoskeletal: Yes: full range of Motion Extremities: Yes: Normal Capillary Refill, Normal Inspection, Normal Range of Motion, Non-Tender 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: 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: 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 NML intact, Fully Oriented, Alert, Motor Strength 5/5 Integumentary: Yes: Normal Color, Dry, Warm, Track Schmidt (noted on R and L arms) - Diagnostic (1) IV drug user Current Visit: No Status: Acute (2) Nicotine dependence Current Visit: No Status: Acute Qualifiers: Nicotine product type: cigarettes Substance use status: in withdrawal Qualified Code(s): F17.213 - Nicotine dependence, cigarettes, with withdrawal (3) Opioid dependence with withdrawal Current Visit: No Status: Acute (4) Cocaine abuse, uncomplicated Current Visit: No Status: Chronic (5) Heroin abuse Current Visit: No Status: Chronic Cleared for Admission [facility] - Detox or Rehab [facility] Level of Care: Medically Managed Detox Regimen/Protocol: Methadone Breathalyzer - Breathalyzer Breathalyzer: 0 Urine Drug Screen - Test Device Lot number: [id number] Expiration date: 01/11/21 - Control Is test valid?: Yes - Results Drug screen NEGATIVE: No Urine drug screen results: DAKOTAH-Cocaine, FEN-Fentanyl, MOP-Opiates, OXY-Oxycodone Inpatient Rehab Admission - Rehab Decision to Admit Inpatient rehab admission?: No
[2019-05-29] MEDS ORDERED: hydrOXYzine PAMOATE 25 MG CAPSULE (FP) PO PRN (13:11)
[2019-05-29] MEDS ORDERED: MENTHOL/PHENOL 1 EACH UD MM PRN (13:11)
[2019-05-29] MEDS ORDERED: cloNIDine HCL 0.1 MG TABLET PO PRN (13:11)
[2019-05-29] MEDS ORDERED: MAGNESIUM HYDROX 2400MG/30ML ORAL SUSPENSION 30 ML CUP PO PRN (13:11)
[2019-05-29] MEDS ORDERED: IBUPROFEN 400 MG TABLET (FP) PO PRN (13:11)
[2019-05-29] MEDS ORDERED: MAGNESIUM CITRATE 300 ML BOTTLE PO PRN (13:11)
[2019-05-29] MEDS ORDERED: ACETAMINOPHEN 325 MG TABLET (FP) PO PRN ×2 (13:11)
[2019-05-29] MEDS ORDERED: MAG HYDROX/AL HYDROX/SIMETH 30 ML UNIT-DOSE CUP PO PRN (13:11)
[2019-05-29] MEDS ORDERED: BISMUTH SUBSALICYLATE 262 MG/15 ML BTL PO PRN (13:11)
[2019-05-29] MEDS ORDERED: hydrOXYzine PAMOATE 50 MG CAPSULE (FP) PO PRN (13:18)
[2019-05-29] MEDS ORDERED: METHADONE HCL 10 MG TABLET (FOR DETOX USE ONLY) PO ONE (14:05)
--- NOTE | 2019-05-29 14:18 | PN ---
Teaching Attending Note Name of Resident: Clement Tierney ATTENDING PHYSICIAN STATEMENT I saw and evaluated the patient. I reviewed the resident's note and discussed the case with the resident. I agree with the resident's findings and plan as documented. SUBJECTIVE: I agree with subjective findings of resident OBJECTIVE: I agree with objective findings of resident ASSESSMENT AND PLAN: Agree to admit for detox.
[2019-05-29] MEDS: NICOTINE POLACRILEX 2 MG GUM BUC PRN ×3 (15:39→22:17)
[2019-05-29] MEDS: THIAMINE HCL 100 MG TABLET (FP) PO SCH (22:17)
[2019-05-30] MEDS: NICOTINE POLACRILEX 2 MG GUM BUC PRN ×4 (08:52→19:23)
[2019-05-30] MEDS ORDERED: METHADONE HCL 10 MG TABLET (FOR DETOX USE ONLY) ONE (09:07)
[2019-05-30] MEDS ORDERED: METHADONE HCL 5 MG TABLET (FOR DETOX USE ONLY) ONE (09:07)
[2019-05-30] MEDS ORDERED: METHADONE (DETOX) 20 MG, METHADONE (DETOX) 5 MG PO ONE (10:00)
[2019-05-30 10:18] LABS: HEMATOCRIT 34.2 % (32.4-45.2); HEMOGLOBIN 10.5 GM/dL (10.7-15.3); MCH 22.8 pg (25.7-33.7); MCHC 30.6 g/dl (32.0-36.0); MEAN CELL VOLUME 74.5 fl (80-96); MEAN PLT VOLUME 8.8 fl (7.5-11.1); PLATELET COUNT 399 K/MM3 (134-434); RBC 4.59 M/mm3 (3.60-5.2); RDW 14.8 % (11.6-15.6); WHITE BLOOD COUNT 7.4 K/mm3 (4.0-10.0)
[2019-05-30] MEDS: PRENATAL VITAMINS W/ FOLIC ACID TABLET (FP) PO SCH (10:40)
[2019-05-30 10:53] LABS: ALBUMIN 3.3 g/dl (3.4-5.0); BILIRUBIN,TOTAL 0.4 mg/dL (0.2-1); BLOOD UREA NITROGEN 10.6 mg/dL (7-18); CALCIUM 9.3 mg/dL (8.5-10.1); CREATININE 0.9 mg/dL (0.55-1.3); POTASSIUM 4.7 mmol/L (3.5-5.1); TOT PROT 7.3 g/dl (6.4-8.2)
--- NOTE | 2019-05-30 13:39 | CONSULT ---
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 This is one of multiple admissions for patient. Patient admitted to for cocaine and opiate dependence. Substance Abuse History: - Smoking Cessation. Smoking history: Current every day smoker. Have you smoked in the past 12 months: Yes. Aproximately how many cigarettes per day: 10. Cigars Per Day: 0. Hx Chewing Tobacco Use: No. Initiated information on smoking cessation: Yes. 'Breaking Loose' booklet given : 05/29/19. - Substance & Tx. History. Hx Alcohol Use: Yes. Hx Substance Use : Yes. Substance Use Type: Cocaine, Heroin. - Substances abused. Heroin. Substance route: Injection. Frequency: Daily. Amount used: 7 bags/day. Age of first use: 23. Date of last use: 05/29/19. Cocaine. Substance route: Injection. Frequency: Daily. Amount used: 1 gram/day. Age of first use: 23. Date of last use: 05/29/19 Medical History: Anemia Psychiatric History: Patient denies history of psychiatric hospitalizations, outpatient care, and suicide attempt. Patient reports history of seeing a therapist but not a psychiatrist. She reports currently receiving klonopin by her PCP. External records reviewed and noted that an electronic prescription of Klonopin 0.5mg TID (10 day supply)+ Clonodine 0.1mg TID ( 10 day supply) + Doxepin 75mg HS ( 30 day supply) was written on 05/07/19. Patient focused on receiving Klonopin or valium. Alternative options offered but patient refused. Physical/Sexual Abuse/Trauma History: denies. Mental Status Exam - Mental Status Exam Alert and Oriented to: Time, Place, Person Cognitive Function: Good Patient Appearance: Well Groomed Mood: Euthymic Affect: Mood Congruent Patient Behavior: Cooperative Speech Pattern: Appropriate Voice Loudness: Normal Thought Process: Goal Oriented Thought Disorder: Not Present Hallucinations: Denies Suicidal Ideation: Denies Homicidal Ideation: Denies Insight/Judgement: Poor Sleep: Fair Appetite: Fair Muscle strength/Tone: Normal Gait/Station: Normal Psychiatric Findings - Problem List ([place] 1, 2,3) (1) Substance-induced anxiety disorder Current Visit: Yes Status: Acute (2) Opioid dependence with withdrawal Current Visit: Yes Status: Acute (3) Cocaine dependence Current Visit: Yes Status: Chronic Qualifiers: Substance use status: uncomplicated Qualified Code(s): F14.20 - Cocaine dependence, uncomplicated (4) Nicotine dependence Current Visit: Yes Status: Acute (5) Substance induced mood disorder Current Visit: No Status: Suspected - Initial Treatment Plan Initial Treatment Plan: Psychoeducation provided. Detoxification in progress. Alternative option offered for anxiety besides benzodiazepines but patient refused. Patient also informed that clonodine 0.1mg q6h and vistaril 50mg q4h is available for anixety.
[2019-05-30] MEDS ORDERED: diazePAM 5 MG TABLET PO ONE (14:45)
--- NOTE | 2019-05-30 14:52 | PN ---
BHS COWS - Scale Resting Pulse: 0= [place] 80 or Below Sweatin= Chills/Flushing Restless Observation: 0= Sits Still Pupil Size: 0= Normal to Room Light Bone or Joint Aches: 1= Mild Discomfort Runny Nose/ Eye Tearin= Nasal Congestion GI Upset > 30mins: 1= Stomach Cramp Tremor Observation of Outstretched Hands: 2= Slight Tremor Visible Yawning Observation: 1= 1-2x During Session Anxiety or Irritability: 2=Irritable/Anxious Goose Flesh Skin: 0=Smooth Skin COWS Score: 9 BHS Progress Note (SOAP) Subjective: doing well with methadone detox regimen report long history of anxiety report taking xanax and klonopine daily buy xanax and klonopine from [facility] patient presents sweating anxiousness fearful isolated self in room begin valium detox regimen Objective: 05/30/19 14:55 Vital Signs Temperature 98.5 F 05/30/19 13:13 Pulse Rate 71 05/30/19 13:13 Respiratory Rate 16 05/30/19 13:13 Blood Pressure 106/72 05/30/19 13:13 O2 Sat by Pulse Oximetry (%) Laboratory Last Values WBC 7.4 K/mm3 (4.0-10.0) 05/30/19 07:50 RBC 4.59 M/mm3 (3.60-5.2) 05/30/19 07:50 Hgb 10.5 GM/dL (10.7-15.3) L 05/30/19 07:50 Hct 34.2 % (32.4-45.2) 05/30/19 07:50 MCV 74.5 fl (80-96) L 05/30/19 07:50 MCH 22.8 pg (25.7-33.7) L 05/30/19 07:50 MCHC 30.6 g/dl (32.0-36.0) L 05/30/19 07:50 RDW 14.8 % (11.6-15.6) 05/30/19 07:50 Plt Count 399 K/MM3 (134-434) 05/30/19 07:50 MPV 8.8 fl (7.5-11.1) D 05/30/19 07:50 Sodium 139 mmol/L (136-145) 05/30/19 07:50 Potassium 4.7 mmol/L (3.5-5.1) 05/30/19 07:50 Chloride 104 mmol/L (98-107) 05/30/19 07:50 Carbon Dioxide 31 mmol/L (21-32) 05/30/19 07:50 Anion Gap 4 MMOL/L (8-16) L 05/30/19 07:50 BUN 10.6 mg/dL (7-18) 05/30/19 07:50 Creatinine 0.9 mg/dL (0.55-1.3) 05/30/19 07:50 Est GFR (CKD-EPI)AfAm 98.75 05/30/19 07:50 Est GFR (CKD-EPI)NonAf 85.20 05/30/19 07:50 Random Glucose 95 mg/dL (74-106) 05/30/19 07:50 Calcium 9.3 mg/dL (8.5-10.1) 05/30/19 07:50 Total Bilirubin 0.4 mg/dL (0.2-1) 05/30/19 07:50 AST 12 U/L (15-37) L 05/30/19 07:50 ALT 16 U/L (13-61) 05/30/19 07:50 Alkaline Phosphatase 102 U/L (45-117) 05/30/19 07:50 Total Protein 7.3 g/dl (6.4-8.2) 05/30/19 07:50 Albumin 3.3 g/dl (3.4-5.0) L 05/30/19 07:50 POC Urine HCG, Qual Negative 05/29/19 12:49 lab noted Assessment: 05/30/19 14:55 opiate withdrawal sx Plan: continue methadone detox regimen
[2019-05-30] MEDS: diazePAM 5 MG TABLET PO PRN ×2 (15:38→19:26)
[2019-05-30] MEDS: THIAMINE HCL 100 MG TABLET (FP) PO SCH (22:28)
[2019-05-30] MEDS: diazePAM 5 MG TABLET PO SCH (22:28)
[2019-05-31] MEDS: diazePAM 5 MG TABLET PO PRN ×3 (02:31→17:27)
[2019-05-31] MEDS: NICOTINE POLACRILEX 2 MG GUM BUC PRN ×6 (02:31→22:17)
[2019-05-31] MEDS: diazePAM 5 MG TABLET PO SCH ×3 (05:46→22:16)
[2019-05-31] MEDS: PRENATAL VITAMINS W/ FOLIC ACID TABLET (FP) PO SCH (09:34)
[2019-05-31] MEDS ORDERED: METHADONE HCL 10 MG TABLET (FOR DETOX USE ONLY) PO ONE (10:00)
--- NOTE | 2019-05-31 15:27 | PN ---
BHS COWS - Scale Resting Pulse: 0= [place] 80 or Below Sweatin= Chills/Flushing Restless Observation: 1= Difficult to Sit Still Pupil Size: 1= Pupils >than Normal Bone or Joint Aches: 2= Severe Diffuse Aches Runny Nose/ Eye Tearin= None GI Upset > 30mins: 1= Stomach Cramp Tremor Observation of Outstretched Hands: 0= None Yawning Observation: 0= None Anxiety or Irritability: 2=Irritable/Anxious Goose Flesh Skin: 0=Smooth Skin COWS Score: 8 BHS Progress Note (SOAP) Subjective: interrupted sleep, sweats , decreased appetite Objective: 05/31/19 15:25 Vital Signs Temperature 98.2 F 05/31/19 13:41 Pulse Rate 93 H 05/31/19 13:41 Respiratory Rate 18 05/31/19 13:41 Blood Pressure 104/68 05/31/19 13:41 O2 Sat by Pulse Oximetry (%) Laboratory Tests 05/29/19 05/30/19 05/30/19 12:49 07:50 07:50 WBC 7.4 RBC 4.59 Hgb 10.5 L Hct 34.2 MCV 74.5 L MCH 22.8 L MCHC 30.6 L RDW 14.8 Plt Count 399 MPV 8.8 D Sodium 139 Potassium 4.7 Chloride 104 Carbon Dioxide 31 Anion Gap 4 L BUN 10.6 Creatinine 0.9 Est GFR (CKD-EPI)AfAm 98.75 Est GFR (CKD-EPI)NonAf 85.20 Random Glucose 95 Calcium 9.3 Total Bilirubin 0.4 AST 12 L ALT 16 Alkaline Phosphatase 102 Total Protein 7.3 Albumin 3.3 L POC Urine HCG, Qual Negative f pt aox3 , lying in bed wrapped in a blanket in nad , Assessment: 05/31/19 15:26 withdrawal sx's Plan: continue detox increase fluids
[2019-05-31] MEDS: MELATONIN 5 MG TABLETS PO PRN (22:16)
[2019-05-31] MEDS: THIAMINE HCL 100 MG TABLET (FP) PO SCH (22:16)
[2019-06-01] MEDS: diazePAM 5 MG TABLET PO SCH ×2 (05:23→17:17)
[2019-06-01] MEDS: NICOTINE POLACRILEX 2 MG GUM BUC PRN ×7 (05:24→22:51)
[2019-06-01] MEDS ORDERED: METHADONE HCL 10 MG TABLET (FOR DETOX USE ONLY) ONE (08:27)
[2019-06-01] MEDS ORDERED: METHADONE HCL 5 MG TABLET (FOR DETOX USE ONLY) ONE (08:27)
[2019-06-01] MEDS: diazePAM 5 MG TABLET PO PRN ×3 (08:43→19:32)
[2019-06-01] MEDS ORDERED: METHADONE (DETOX) 10 MG, METHADONE (DETOX) 5 MG PO ONE (10:00)
[2019-06-01] MEDS: PRENATAL VITAMINS W/ FOLIC ACID TABLET (FP) PO SCH (10:06)
--- NOTE | 2019-06-01 13:54 | PN ---
BHS COWS - Scale Resting Pulse: 1= [place] 81-100 Sweatin= Chills/Flushing Restless Observation: 0= Sits Still Pupil Size: 0= Normal to Room Light Bone or Joint Aches: 2= Severe Diffuse Aches Runny Nose/ Eye Tearin= Runny Nose/Eyes GI Upset > 30mins: 1= Stomach Cramp Tremor Observation of Outstretched Hands: 1= Tremor [place], Not Seen Yawning Observation: 1= 1-2x During Session Anxiety or Irritability: 1=Feels Anxious/Irritable Goose Flesh Skin: 0=Smooth Skin COWS Score: 10 BHS Progress Note (SOAP) Subjective: pt has no complaints, some withdrawal Sx O: Vital Signs - 24 hr 05/31/19 05/31/19 06/01/19 18:07 22:14 00:30 Temperature 97.5 F L 97.7 F Pulse Rate 75 82 Respiratory 16 18 18 Rate Blood Pressure 97/51 L 104/63 06/01/19 06/01/19 06/01/19 03:30 06:22 09:49 Temperature 96.8 F L 96.1 F L Pulse Rate 70 70 Respiratory 18 18 18 Rate Blood Pressure 106/65 106/67 06/01/19 13:27 Temperature 98.5 F Pulse Rate 90 Respiratory 20 Rate Blood Pressure 109/64 Laboratory Tests 05/29/19 05/30/19 05/30/19 12:49 07:50 07:50 WBC 7.4 RBC 4.59 Hgb 10.5 L Hct 34.2 MCV 74.5 L MCH 22.8 L MCHC 30.6 L RDW 14.8 Plt Count 399 MPV 8.8 D Sodium 139 Potassium 4.7 Chloride 104 Carbon Dioxide 31 Anion Gap 4 L BUN 10.6 Creatinine 0.9 Est GFR (CKD-EPI)AfAm 98.75 Est GFR (CKD-EPI)NonAf 85.20 Random Glucose 95 Calcium 9.3 Total Bilirubin 0.4 AST 12 L ALT 16 Alkaline Phosphatase 102 Total Protein 7.3 Albumin 3.3 L POC Urine HCG, Qual Negative a/p heroin detox: with methadone- pt has no complaints
[2019-06-01] MEDS: THIAMINE HCL 100 MG TABLET (FP) PO SCH (22:50)
[2019-06-01] MEDS: MELATONIN 5 MG TABLETS PO PRN (22:51)
[2019-06-02] MEDS: NICOTINE POLACRILEX 2 MG GUM BUC PRN ×7 (05:35→22:41)
[2019-06-02] MEDS ORDERED: diazePAM 5 MG TABLET PO ONE (06:00)
[2019-06-02] MEDS: diazePAM 5 MG TABLET PO PRN ×2 (09:52→14:00)
[2019-06-02] MEDS: PRENATAL VITAMINS W/ FOLIC ACID TABLET (FP) PO SCH (09:52)
[2019-06-02] MEDS ORDERED: METHADONE HCL 10 MG TABLET (FOR DETOX USE ONLY) PO ONE (10:00)
--- NOTE | 2019-06-02 10:25 | PN ---
BHS COWS - Scale Resting Pulse: 1= [place] 81-100 Sweatin= Chills/Flushing Restless Observation: 0= Sits Still Pupil Size: 0= Normal to Room Light Bone or Joint Aches: 1= Mild Discomfort Runny Nose/ Eye Tearin= None GI Upset > 30mins: 1= Stomach Cramp Tremor Observation of Outstretched Hands: 1= Tremor [place], Not Seen Yawning Observation: 0= None Anxiety or Irritability: 1=Feels Anxious/Irritable Goose Flesh Skin: 0=Smooth Skin COWS Score: 6 BHS Progress Note (SOAP) Subjective: doing well with methadone detox regimen states that valium helps her anxiety irritability and aggression from opiate withdrawal discuss medication assisted treatment 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 Objective: 06/02/19 10:24 Vital Signs Temperature 97.9 F 06/02/19 09:55 Pulse Rate 87 06/02/19 09:55 Respiratory Rate 18 06/02/19 09:55 Blood Pressure 88/58 L 06/02/19 09:55 O2 Sat by Pulse Oximetry (%) Laboratory Last Values WBC 7.4 K/mm3 (4.0-10.0) 05/30/19 07:50 RBC 4.59 M/mm3 (3.60-5.2) 05/30/19 07:50 Hgb 10.5 GM/dL (10.7-15.3) L 05/30/19 07:50 Hct 34.2 % (32.4-45.2) 05/30/19 07:50 MCV 74.5 fl (80-96) L 05/30/19 07:50 MCH 22.8 pg (25.7-33.7) L 05/30/19 07:50 MCHC 30.6 g/dl (32.0-36.0) L 05/30/19 07:50 RDW 14.8 % (11.6-15.6) 05/30/19 07:50 Plt Count 399 K/MM3 (134-434) 05/30/19 07:50 MPV 8.8 fl (7.5-11.1) D 05/30/19 07:50 Sodium 139 mmol/L (136-145) 05/30/19 07:50 Potassium 4.7 mmol/L (3.5-5.1) 05/30/19 07:50 Chloride 104 mmol/L (98-107) 05/30/19 07:50 Carbon Dioxide 31 mmol/L (21-32) 05/30/19 07:50 Anion Gap 4 MMOL/L (8-16) L 05/30/19 07:50 BUN 10.6 mg/dL (7-18) 05/30/19 07:50 Creatinine 0.9 mg/dL (0.55-1.3) 05/30/19 07:50 Est GFR (CKD-EPI)AfAm 98.75 05/30/19 07:50 Est GFR (CKD-EPI)NonAf 85.20 05/30/19 07:50 Random Glucose 95 mg/dL (74-106) 05/30/19 07:50 Calcium 9.3 mg/dL (8.5-10.1) 05/30/19 07:50 Total Bilirubin 0.4 mg/dL (0.2-1) 05/30/19 07:50 AST 12 U/L (15-37) L 05/30/19 07:50 ALT 16 U/L (13-61) 05/30/19 07:50 Alkaline Phosphatase 102 U/L (45-117) 05/30/19 07:50 Total Protein 7.3 g/dl (6.4-8.2) 05/30/19 07:50 Albumin 3.3 g/dl (3.4-5.0) L 05/30/19 07:50 POC Urine HCG, Qual Negative 05/29/19 12:49 lab noted Assessment: 06/02/19 10:24 opiate withdrawal sx Plan: continue methadone detox regimen
[2019-06-02] MEDS: THIAMINE HCL 100 MG TABLET (FP) PO SCH (22:41)
[2019-06-02] MEDS: MELATONIN 5 MG TABLETS PO PRN (22:41)
[2019-06-03] MEDS ORDERED: METHADONE HCL 5 MG TABLET (FOR DETOX USE ONLY) PO ONE (06:00)
[2019-06-03] MEDS: NICOTINE POLACRILEX 2 MG GUM BUC PRN (06:05)
[2019-06-03 09:10] VITALS: BP 114/70; PULSE 104; TEMP 97.5
--- NOTE | 2019-06-03 11:03 | DS ---
[facility] Detox Discharge Summary Admission Date: 05/29/19 Discharge Date: 06/03/19 - History Present History: Opioid Dependence Additional Comments: 33 years old female admitted on 05/29/19 for opiate withdrawal sx management did well with valium and methadone detox regimen without panic attack episode no complication through out the detox stay seen by psychiatrist clonidine and vistaril as needed for anxiety other than benzo prescription patient is alert oriented x 3 cardiac S1S2 regular rate rhythm respiratory clear lung bilaterally on auscultation extremities full rang of motion - Physical Exam Results Vital Signs: Vital Signs Temperature 97.5 F L 06/03/19 09:09 Pulse Rate 104 H 06/03/19 09:09 Respiratory Rate 16 06/03/19 09:09 Blood Pressure 114/70 06/03/19 09:09 O2 Sat by Pulse Oximetry (%) Pertinent Admission Physical Exam Findings: opiate withdrawal sx Laboratory Last Values WBC 7.4 K/mm3 (4.0-10.0) 05/30/19 07:50 RBC 4.59 M/mm3 (3.60-5.2) 05/30/19 07:50 Hgb 10.5 GM/dL (10.7-15.3) L 05/30/19 07:50 Hct 34.2 % (32.4-45.2) 05/30/19 07:50 MCV 74.5 fl (80-96) L 05/30/19 07:50 MCH 22.8 pg (25.7-33.7) L 05/30/19 07:50 MCHC 30.6 g/dl (32.0-36.0) L 05/30/19 07:50 RDW 14.8 % (11.6-15.6) 05/30/19 07:50 Plt Count 399 K/MM3 (134-434) 05/30/19 07:50 MPV 8.8 fl (7.5-11.1) D 05/30/19 07:50 Sodium 139 mmol/L (136-145) 05/30/19 07:50 Potassium 4.7 mmol/L (3.5-5.1) 05/30/19 07:50 Chloride 104 mmol/L (98-107) 05/30/19 07:50 Carbon Dioxide 31 mmol/L (21-32) 05/30/19 07:50 Anion Gap 4 MMOL/L (8-16) L 05/30/19 07:50 BUN 10.6 mg/dL (7-18) 05/30/19 07:50 Creatinine 0.9 mg/dL (0.55-1.3) 05/30/19 07:50 Est GFR (CKD-EPI)AfAm 98.75 05/30/19 07:50 Est GFR (CKD-EPI)NonAf 85.20 05/30/19 07:50 Random Glucose 95 mg/dL (74-106) 05/30/19 07:50 Calcium 9.3 mg/dL (8.5-10.1) 05/30/19 07:50 Total Bilirubin 0.4 mg/dL (0.2-1) 05/30/19 07:50 AST 12 U/L (15-37) L 05/30/19 07:50 ALT 16 U/L (13-61) 05/30/19 07:50 Alkaline Phosphatase 102 U/L (45-117) 05/30/19 07:50 Total Protein 7.3 g/dl (6.4-8.2) 05/30/19 07:50 Albumin 3.3 g/dl (3.4-5.0) L 05/30/19 07:50 POC Urine HCG, Qual Negative 05/29/19 12:49 lab noted - Treatment Hospital Course: Detox Protocol Followed, Detoxed Safely, Responded well, Discharged Condition Good, Rehab Referral Accepted Patient has Accepted a Rehab Referral to: medication assisted treatment program - Medication Discharge Medications: Ambulatory Orders Naloxone HCl [Narcan] 4 mg NS ASDIR PRN #1 spray 06/02/19 - Diagnosis (1) Nicotine dependence Current Visit: Yes Status: Acute Qualifiers: Nicotine product type: cigarettes Substance use status: in withdrawal Qualified Code(s): F17.213 - Nicotine dependence, cigarettes, with withdrawal (2) Opioid dependence with withdrawal Current Visit: Yes Status: Acute (3) Nicotine dependence Current Visit: Yes Status: Acute Qualifiers: Nicotine product type: cigarettes Substance use status: in withdrawal Qualified Code(s): F17.213 - Nicotine dependence, cigarettes, with withdrawal (4) Opioid dependence Current Visit: Yes Status: Acute Qualifiers: Substance use status: uncomplicated Qualified Code(s): F11.20 - Opioid dependence, uncomplicated (5) Substance induced mood disorder Current Visit: Yes Status: Suspected - AMA Did Patient Leave Against Medical Advice: No COWS (PN) - Opiate Withdrawal Resting Pulse: 2= [place] 101-120 Sweatin= Chills/Flushing Restless Observation: 0= Sits Still Pupil Size: 0= Normal to Room Light Bone or Joint Aches: 0= None Runny Nose/ Eye Tearin= None GI Upset > 30mins: 0= None Tremor Observation of Outstretched Hands: 0= None Yawning Observation: 0= None Anxiety or Irritability: 0= None Goose Flesh Skin: 0=Smooth Skin COWS Score: 3
[2019-06-03] MEDS: PRENATAL VITAMINS W/ FOLIC ACID TABLET (FP) PO SCH (11:04)
== END 2019-06-03 09:19 | disposition home or self-care (01) | DRG 773 ==
LOC: YASAS 11:28 → Y3N 14:03
PROVIDERS: ADMIT Allergy & Immunology; ATTEND Allergy & Immunology
PROC: HZ2ZZZZ Detoxification Services for Substance Abuse Treatment (ICD-10-PCS; principal; 2019-05-29)
DX: F11.23 Opioid dependence with withdrawal (principal); F14.20 Cocaine dependence, uncomplicated; F17.210 Nicotine dependence, cigarettes, uncomplicated; F19.280 Other psychoactive substance dependence with psychoactive substance-induced anxiety disorder; F19.24 Other psychoactive substance dependence with psychoactive substance-induced mood disorder; D64.9 Anemia, unspecified; Z86.14 Personal history of Methicillin resistant Staphylococcus aureus infection
CPT/HCPCS: 36415; 80053; 81025; 85027

== ENCOUNTER 2019-06-16 22:33 | Inpatient (IN) | payer OTHER ==
[2019-06-16] MEDS ORDERED: SODIUM CHLORIDE 2,177 ML IV ONE (22:50)
[2019-06-16] MEDS ORDERED: ACETAMINOPHEN 1000 MG/100 ML VIAL (NON FORMULARY) IVPB ONE (22:52)
[2019-06-16] MEDS ORDERED: VANCOMYCIN 1 GM in D5W (PRE-DOCKED) 1,000 MG/250 ML IVPB ONE (23:04)
[2019-06-16] MEDS ORDERED: PIPERACILLIN/TAZOB 3.375 GM 3.375 GM in DEXTROSE 5%-WATER - 50 ML IVPB ONE (23:04)
[2019-06-16] MEDS ORDERED: FOLIC ACID INJECTION - 1 MG, THIAMINE HCL 100 MG, MULTIVIT INJECTION ADULT 10 ML in SOD... IVPB ONE (23:07)
--- NOTE | 2019-06-16 23:07 | PDOC ---
Attending Attestation - Resident Resident Name: Yesenia Kimball - ED Attending Attestation I have performed the following: I have examined & evaluated the patient, The case was reviewed & discussed with the resident, I agree w/resident's findings & plan - HPI HPI: 06/16/19 23:07 Pt comes with chronic leg wounds and acute leg wounds from IVDA injections. - Physicial Exam PE: 06/21/19 22:47 Agree with resident exam - Medical Decision Making 06/17/19 00:31 CXR normal Pt has microcytic anemia 06/17/19 02:03 Patient Name: CHANO SANABRIA THIS IS A PRELIMINARY REPORT FROM [facility] DATE OF SERVICE: 2019-06-17 00:37:17 IMAGES: 44 EXAM: DUPLEX VASCULAR US-2 LEGS HISTORY: Rule out DVT COMPARISON: None. FINDINGS: There is no DVT of the right or left lower extremity. IMPRESSION: No DVT
--- NOTE | 2019-06-16 23:08 | PDOC ---
History of Present Illness - General Chief Complaint: Wound Stated Complaint: WOUND Time Seen by Provider: 06/16/19 22:50 History Source: Patient Exam Limitations: No Limitations - History of Present Illness Initial Comments: 06/17/19 00:35 33y F IVDU (heroin, cocaine) presenting to ED with complaints of infected leg wound. Patient injects in the popliteal fossae of both legs and last used 1 hour ago. She says that 1 month ago she was at [facility] and admitted for infection. She was discharged with Bactrim. She was seen here 3-4 w ago for assessment of her legs and she did not seem to have an acute infection at that time. Patient states that the wounds appear a little worse today. Endorses pain , chills and fever. Denies chest pain, sob, headache, n/v/d, abdominal pain, back pain, joint pain, rashes. She denies sharing of needles and says she was tested negative for HIV a few weeks ago. She went to [facility] yesterday but left because she could not get IV access. PMD: PMH: see hpi PSH: none Meds: none Allergies: nkda Past History - Past Medical History Allergies/Adverse Reactions: Allergies Allergy/AdvReac Type Severity Reaction Status Date / Time No Known Allergies Allergy Verified 05/29/19 12:02 Home Medications: Ambulatory Orders Naloxone HCl [Narcan] 4 mg NS ASDIR PRN #1 spray 06/02/19 Anemia: Yes (Not on medication) Asthma: No Cancer: No Cardiac Disorders: No CVA: No COPD: No CHF: No Dementia: No Diabetes: No GI Disorders: No Disorders: No HTN: No Hypercholesterolemia: No Kidney Stones: No Liver Disease: No Seizures: No Thyroid Disease: No - Surgical History Abdominal Surgery: No Appendectomy: No Cardiac Surgery: No Cholecystectomy: No Lung Surgery: No Neurologic Surgery: No Orthopedic Surgery: No - Reproductive History PID: Yes - Immunization History Td Vaccination: Yes Immunization Up to Date: Yes - Psycho Social/Smoking Cessation Hx Smoking Status: Yes Smoking History: Current every day smoker Have you smoked in the past 12 months: Yes Number of Cigarettes Smoked Daily: 20 Cigars Per Day: 0 Information on smoking cessation initiated: No 'Breaking Loose' booklet given: 05/29/19 Hx Alcohol Use: No Drug/Substance Use Hx: Yes (coccaine/ heroin) Substance Use Type: Cocaine, Heroin Hx Substance Use Treatment: Yes Review of Systems - Review of Systems Constitutional: Yes: Chills, Fever HEENTM: No: Symptoms Reported Respiratory: No: Symptoms reported Cardiac (ROS): No: Symptoms Reported ABD/GI: No: Symptoms Reported : No: Symptoms Reported Musculoskeletal: No: Symptoms Reported Integumentary: Yes: See HPI 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: No: Symptoms reported *Physical Exam - Vital Signs Last Vital Signs Temp Pulse Resp BP Pulse Ox 99.9 F H 129 H 19 107/55 L 95 06/16/19 22:39 06/16/19 22:39 06/16/19 22:39 06/16/19 22:39 06/16/19 22:39 - Physical Exam General Appearance: Yes: Nourished, Appropriately Dressed, Other (diaphoretic). No: Apparent Distress HEENT: positive: EOMI, DANIEL Neck: positive: Trachea midline, Supple. negative: Lymphadenopathy (R), Lymphadenopathy (L) Respiratory/Chest: positive: Lungs Clear, Normal Breath Sounds. negative: Crackles, Rales, Rhonchi, Stridor, Wheezing, Plerual Rub Cardiovascular: positive: Regular Rhythm, Regular Rate, S1, S2. negative: Edema , JVD, Murmur Vascular Pulses: Dorsalis-Pedis (R): 2+, Doralis-Pedis (L): 2+ Gastrointestinal/Abdominal: positive: Normal Bowel Sounds, Soft. negative: Tender Musculoskeletal: negative: CVA Tenderness Extremity: negative: Swelling, Calf Tenderness, Erythema Integumentary: positive: Normal Color, Dry, Warm, Other (L poplieteal fossa: deep old ulcerations with puruelent material. firm, ttp. R popliteal fossa: erythematous, ulcerated an indurated. serous drainage. No abscesse) Neurologic: positive: ring striker II-XII NML intact, Fully Oriented, Alert, Normal Mood/ Affect, Normal Response, Motor Strength 12/16 ED Treatment Course - LABORATORY CBC & Chemistry Diagram: 06/17/19 00:01 06/17/19 00:01 - RADIOLOGY Radiology Studies Ordered: Category Date Time Status CHEST X-RAY PORTABLE* [RAD] Stat Radiology 06/16/19 22:50 Ordered DUPLEX VASCUL US-2LEGS [US] Stat Ultrasound 06/16/19 23:04 Ordered Medical Decision Making - Medical Decision Making 06/17/19 00:38 33y F IVDU presenting for infected leg wounds. vitals: low grade fever 99.9 (oral), tachycardic, slightly hypotensive, satruating well on ra ddx includes but not limited to sepsis (cellulitis, thrombophlebitis), endocarditis, acute intoxication. no drainage from wounds. slighly indurated. will order sepsis w/u with doppler of legs to check for clots. pt is difficult access. 06/17/19 06:36 labs show wbc 10. doppler negative for clots cxr; no iinfiltrates or consolidations ekg: sinus tachycardia. all other labs wnl. given wound depth, iv drug use, will admit patient for cellulitis. -vanc/zosyn. Discharge - Discharge Information Problems reviewed: Yes Clinical Impression/Diagnosis: Recurrent cellulitis of lower leg Condition: Good - Admission Yes - Follow up/Referral - Patient Discharge Instructions - Post Discharge Activity
[2019-06-17 00:23] LABS: BASO % 0.3 % (0-2.0); EOS % 2.9 % (0-4.5); HEMATOCRIT 27.8 % (32.4-45.2); HEMOGLOBIN 9.2 GM/dL (10.7-15.3); LYMPH % 7.9 % (8-40); MCH 23.8 pg (25.7-33.7); MCHC 33.1 g/dl (32.0-36.0); MEAN CELL VOLUME 71.9 fl (80-96); MEAN PLT VOLUME 7.9 fl (7.5-11.1); MONO % 6.8 % (3.8-10.2); NEUT % 82.1 % (42.8-82.8); PLATELET COUNT 308 K/MM3 (134-434); RBC 3.86 M/mm3 (3.60-5.2); RDW 14.7 % (11.6-15.6); WHITE BLOOD COUNT 10.8 K/mm3 (4.0-10.0)
[2019-06-17 00:35] LABS: INR 1.3 (0.83-1.09); PROTHROMBIN TIME (PATIENT) 15.4 SEC (9.7-13.0)
[2019-06-17 00:37] LABS: ACTIVATED PTT 33.6 SECONDS (25.2-36.5)
[2019-06-17 00:43] LABS: EPI CELLS 6.3 /HPF (0-5/HPF); HYALINE CASTS 29 /lpf (0-8); PH,URINE 5.5 (5.0-8.0); URINE APPEARANCE CLEAR; URINE BACTERIA 42.8 /hpf (NEGATIVE); URINE BILIRUBIN NEGATIVE (NEGATIVE); URINE COLOR YELLOW; URINE GLUCOSE (UA) NEGATIVE (NEGATIVE); URINE KETONE TRACE (NEGATIVE); URINE LEUK ESTERASE 1+ (NEGATIVE); URINE NITRITE NEGATIVE (NEGATIVE); URINE PROTEIN NEGATIVE (NEGATIVE); URINE RBC 0 /hpf (0-4); URINE WBC 16 /hpf (0-5)
[2019-06-17 00:46] LABS: ALBUMIN 3.2 g/dl (3.4-5.0); BILIRUBIN,TOTAL 0.4 mg/dL (0.2-1); BLOOD UREA NITROGEN 10.7 mg/dL (7-18); CALCIUM 8.6 mg/dL (8.5-10.1); CREATININE 0.9 mg/dL (0.55-1.3); POTASSIUM 3.9 mmol/L (3.5-5.1); TOT PROT 7.2 g/dl (6.4-8.2)
[2019-06-17 00:47] LABS: VENOUS PH 7.37 (7.31-7.41)
[2019-06-17 00:48] LABS: VENOUS PC02 50.1 mmHg (38-52); VENOUS PO2 < 49 mmHg (28-48)
[2019-06-17 00:53] LABS: METHADONE, UR NEGATIVE ng/ml (CUTOFF=300); PHENCYCLIDINE,URINE NEGATIVE ng/ml (CUTOFF=25); URINE AMPHETAMINES NEGATIVE ng/ml (CUTOFF=500); URINE BARBITURATES NEGATIVE ng/ml (CUTOFF=200)
[2019-06-17 00:56] LABS: COCAINE, UR POSITIVE ng/ml (CUTOFF=300); OPIATES, URI POSITIVE ng/ml (CUTOFF=300); URINE BENZODIAZEPINES POSITIVE ng/ml (CUTOFF=200)
[2019-06-17] MEDS ORDERED: ACETAMINOPHEN INJECTION 100 ML IVPB ONE (02:15)
--- NOTE | 2019-06-17 03:40 | HP ---
CHIEF COMPLAINT: PCP: none HISTORY OF PRESENT ILLNESS: Pt is a 33 y/o F w pmhx of IVDU (heroin, cocaine and marijuana) presents to ED complaining of bilateral infected leg wounds located in popliteal fossa. Pt reports 1 month ago she was admitted at [facility] for leg infection, treated with IV Abx x 2 days and discharged on Bactrim x10 days. She was seen here 3-4 weeks ago for assessment of the leg and was found to be free of infection. Pt reports 4 days ago wound started getting worse, draining pus, and she experienced leg pain, fever and chills. Pt rates pain as 4/10. She injects heroin in popliteal fossa, but yesterday injected on her ankle. Pt denies N/V, SHANKS, chest pain, abd pain, dysuria, increased urinary frequency, blood in urine, vaginal discharge, diarrhea, constipation, back pain or numbness and tingling in her legs. Nothing improves or worsens symptoms. LMP was 2 months ago; pt is sexually active and only uses rhythm method for contraception, though she is not interested in becoming at this time. 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, pt lives in an apartment by herself Allergies No Known Allergies Allergy (Verified 05/29/19 12:02) HOME MEDICATIONS: Home Medications Medication Instructions Recorded Naloxone HCl [Narcan] 4 mg NS ASDIR PRN #1 spray 06/02/19 REVIEW OF SYSTEMS CONSTITUTIONAL: fever, chills, diaphoresis, Absent: generalized weakness, malaise, loss of appetite, weight change HEENT: Absent: rhinorrhea, nasal congestion, throat pain, throat swelling, difficulty swallowing, mouth swelling, ear pain, eye pain, visual changes CARDIOVASCULAR: Absent: chest pain, syncope, palpitations, irregular heart rate, lightheadedness , peripheral edema RESPIRATORY: Absent: cough, shortness of breath, dyspnea with exertion, orthopnea, wheezing, stridor, hemoptysis GASTROINTESTINAL: Absent: abdominal pain, abdominal distension, nausea, vomiting, diarrhea, constipation, melena, hematochezia GENITOURINARY: Absent: dysuria, frequency, urgency, hesitancy, hematuria, flank pain, genital pain MUSCULOSKELETAL: Absent: myalgia, arthralgia, joint swelling, back pain, neck pain SKIN: Absent: rash, itching, pallor HEMATOLOGIC/IMMUNOLOGIC: Absent: easy bleeding, easy bruising, lymphadenopathy, frequent infections ENDOCRINE: Absent: unexplained weight gain, unexplained weight loss, heat intolerance, cold intolerance NEUROLOGIC: Absent: headache, focal weakness or paresthesias, dizziness, unsteady gait, seizure, mental status changes, bladder or bowel incontinence PSYCHIATRIC: Absent: anxiety, depression, suicidal or homicidal ideation, hallucinations. PHYSICAL EXAMINATION Vital Signs - 24 hr 06/16/19 22:39 Temperature 99.9 F H Pulse Rate 129 H Respiratory 19 Rate Blood Pressure 107/55 L O2 Sat by Pulse 95 Oximetry (%) GENERAL: Awake, alert, and fully oriented, in no acute distress, diaphoretic. HEAD: Normal with no signs of trauma. EYES: Pupils equal, round and reactive to light, extraocular movements intact, sclera anicteric, conjunctiva clear. No lid lag. EARS, NOSE, THROAT: Ears normal, nares patent, oropharynx clear without exudates. Moist mucous membranes. NECK: Normal range of motion, supple without lymphadenopathy, JVD, or masses. LUNGS: Breath sounds equal, clear to auscultation bilaterally. No wheezes, and no crackles. No accessory muscle use. HEART: Tachycardic, regular rhythm, normal S1 and S2 without murmur, rub or gallop. ABDOMEN: Soft, nontender, not distended, normoactive bowel sounds, no guarding, no rebound, no masses. No hepatomegaly or splenomegaly. MUSCULOSKELETAL: Normal range of motion at all joints. No bony deformities or tenderness. No CVA tenderness. UPPER EXTREMITIES: 2+ pulses, warm, well-perfused. No cyanosis. No clubbing. No peripheral edema. Sensation intact bilaterally, 2+ DTRs, 5/5 strength LOWER EXTREMITIES: 2+ pulses, warm, well-perfused. No calf tenderness. No peripheral edema. Track collier at ankles. Sensation intact bilaterally, 2+ DTRs, 5/5 strength NEUROLOGICAL: Cranial nerves II-XII intact. Normal speech. PSYCHIATRIC: Cooperative. Good eye contact. Appropriate mood and affect. SKIN: Warm, dry, normal turgor, bilateral wounds in the popliteal fossae with surrounding erythema and visible granulation tissue and exudate/ slough covering the bed of the wound. Diameter of wounds about 4inches with L leg wound larger/ deeper than right leg wound. Warm to touch compared to surrounding skin, firm, and painful to palpation bilaterally. No pus able to be expressed. Laboratory Results - last 24 hr 06/17/19 06/17/19 06/17/19 00:01 00:01 00:01 WBC RBC Hgb Hct MCV MCH MCHC RDW Plt Count MPV Absolute Neuts (auto) Neutrophils % Lymphocytes % Monocytes % Eosinophils % Basophils % Nucleated RBC % PT with INR 15.40 H INR 1.30 H PTT (Actin FS) 33.6 VBG pH POC VBG pCO2 POC VBG pO2 VBG HCO3 VBG O2 Sat (Sherman) VBG Base Excess Sodium Potassium Chloride Carbon Dioxide Anion Gap BUN Creatinine Est GFR (CKD-EPI)AfAm Est GFR (CKD-EPI)NonAf Random Glucose Lactic Acid Calcium Total Bilirubin AST ALT Alkaline Phosphatase Troponin I < 0.02 Total Protein Albumin Serum , Qual Negative Urine Color Urine Appearance Urine pH Ur Specific Vernon Urine Protein Urine Glucose (UA) Urine Ketones Urine Blood Urine Nitrite Urine Bilirubin Urine Urobilinogen Ur Leukocyte Esterase Urine WBC (Auto) Urine RBC (Auto) Urine Casts (Auto) U Epithel Cells (Auto) Urine Bacteria (Auto) Opiates Screen Methadone Screen Barbiturate Screen Phencyclidine Screen Ur Amphetamines Screen MDMA (Ecstasy) Screen Benzodiazepines Screen Cocaine Screen U Marijuana (THC) Screen 06/17/19 06/17/19 06/17/19 00:01 00:01 00:01 WBC 10.8 H RBC 3.86 Hgb 9.2 L Hct 27.8 L D MCV 71.9 L MCH 23.8 L MCHC 33.1 RDW 14.7 Plt Count 308 D MPV 7.9 D Absolute Neuts (auto) 8.8 H Neutrophils % 82.1 D Lymphocytes % 7.9 L D Monocytes % 6.8 Eosinophils % 2.9 D Basophils % 0.3 Nucleated RBC % 0 PT with INR INR PTT (Actin FS) VBG pH POC VBG pCO2 POC VBG pO2 VBG HCO3 VBG O2 Sat (Sherman) VBG Base Excess Sodium 137 Potassium 3.9 Chloride 102 Carbon Dioxide 29 Anion Gap 6 L BUN 10.7 Creatinine 0.9 Est GFR (CKD-EPI)AfAm 98.75 Est GFR (CKD-EPI)NonAf 85.20 Random Glucose 130 H Lactic Acid 1.1 Calcium 8.6 Total Bilirubin 0.4 AST 18 ALT 17 Alkaline Phosphatase 85 Troponin I Total Protein 7.2 Albumin 3.2 L Serum , Qual Urine Color Urine Appearance Urine pH Ur Specific Vernon Urine Protein Urine Glucose (UA) Urine Ketones Urine Blood Urine Nitrite Urine Bilirubin Urine Urobilinogen Ur Leukocyte Esterase Urine WBC (Auto) Urine RBC (Auto) Urine Casts (Auto) U Epithel Cells (Auto) Urine Bacteria (Auto) Opiates Screen Methadone Screen Barbiturate Screen Phencyclidine Screen Ur Amphetamines Screen MDMA (Ecstasy) Screen Benzodiazepines Screen Cocaine Screen U Marijuana (THC) Screen 06/17/19 06/17/19 06/17/19 00:01 00:27 00:27 WBC RBC Hgb Hct MCV MCH MCHC RDW Plt Count MPV Absolute Neuts (auto) Neutrophils % Lymphocytes % Monocytes % Eosinophils % Basophils % Nucleated RBC % PT with INR INR PTT (Actin FS) VBG pH 7.37 POC VBG pCO2 50.1 POC VBG pO2 < 49 H VBG HCO3 28.0 VBG O2 Sat (Sherman) 75.4 VBG Base Excess 2.7 H Sodium Potassium Chloride Carbon Dioxide Anion Gap BUN Creatinine Est GFR (CKD-EPI)AfAm Est GFR (CKD-EPI)NonAf Random Glucose Lactic Acid Calcium Total Bilirubin AST ALT Alkaline Phosphatase Troponin I Total Protein Albumin Serum , Qual Urine Color Yellow Urine Appearance Clear Urine pH 5.5 D Ur Specific Vernon 1.029 Urine Protein Negative Urine Glucose (UA) Negative Urine Ketones Trace H Urine Blood Negative Urine Nitrite Negative Urine Bilirubin Negative Urine Urobilinogen 1.0 Ur Leukocyte Esterase 1+ H Urine WBC (Auto) 16 Urine RBC (Auto) 0 Urine Casts (Auto) 29 U Epithel Cells (Auto) 6.3 Urine Bacteria (Auto) 42.8 Opiates Screen Positive A* Methadone Screen Negative Barbiturate Screen Negative Phencyclidine Screen Negative Ur Amphetamines Screen Negative MDMA (Ecstasy) Screen Negative Benzodiazepines Screen Positive A* Cocaine Screen Positive A* U Marijuana (THC) Screen Positive A* ASSESSMENT/PLAN: Pt is a 33 y/o F w pmhx of IVDU (heroin, cocaine and marijuana) presents to ED complaining of bilateral infected leg wounds located in popliteal fossa. # bilateral infection of popliteal fossae - Continue vanc/ zosyn 3.375 - Vanc trough before 4th dose, trough should be between 15-20 - ID consulted, Dr. Amado, appreciate recommendations - Echo; pt is an IVDU, f/u echo to r/o vegetations/ valvular disease - ESR/ CRP - Hepatitis panel - Patient is declining HIV testing at this time - LE u/s did not show any evidence of DVT - wound care, Dr. Stiles, consulted appreciate reccs #Withdrawal - COWS score 8 - methadone taper, can start at 20mg/ day prn for withdrawal not to exceed 40mg/ day. - patient denies using alcohol but will still hydrate her with IVF - monitor CIWA score (currently 4) - PRN 1mg ativan q6 for CIWA > 9 - PO MVT - PO thiamine - PO folate - Nicotine patch 21mg #anemia- patient had anemia worked up in 2018, ferratin was on the low side. most likely Fe deficient anemia - Ferrous sulfate 325 mg PO BID #Ppx DVT ppx: Heparin TID #FEN Banana bag @125cc/h monitor, replete PRN Regular diet #Dispo- admit to medr for IV abx, dispo pending transition to oral abx Visit type - Emergency Visit Emergency Visit: Yes ED Registration Date: 06/17/19 Care time: The patient presented to the Emergency Department on the above date and was hospitalized for further evaluation of their emergent condition. - New Patient This patient is new to me today: Yes Date on this admission: 06/17/19 - Critical Care Critical Care patient: No ATTENDING PHYSICIAN STATEMENT I saw and evaluated the patient. I reviewed the resident's note and discussed the case with the resident. I agree with the resident's findings and plan as documented. SUBJECTIVE: OBJECTIVE: ASSESSMENT AND PLAN:
[2019-06-17] MEDS ORDERED: FOLIC ACID INJECTION - 1 MG, THIAMINE HCL 100 MG, MULTIVIT INJECTION ADULT 10 ML in SOD... IVPB ONE (03:45)
[2019-06-17] MEDS ORDERED: PIPERACILLIN/TAZOB 3.375 GM 3.375 GM/50 ML BAG IVPB ONE (03:49)
[2019-06-17] MEDS ORDERED: VANCOMYCIN 1 GRAM (PRE-DOCKED) 1,000 MG/250 ML BAG IVPB ONE (04:04)
--- NOTE | 2019-06-17 04:20 | PN ---
Teaching Attending Note Name of Resident: Marjan De La Cruz ATTENDING PHYSICIAN STATEMENT I saw and evaluated the patient. I reviewed the resident's note and discussed the case with the resident. I agree with the resident's findings and plan as documented. SUBJECTIVE: 33-year-old woman with polysubstance abuse history including heroin, cocaine, marijuana, tobacco presents complaining of bilateral popliteal ulcers which are painful and warm. She injects heroin intravenously. Last use of IV drugs was 1 day ago. She reports injecting in her calves bilaterally and ankles. 1 month ago she was admitted to [place] for her popliteal ulcers received IV antibiotics for 2 days and was discharged on oral Bactrim for 10 days and subsequently her ulcers improved however they have worsened now over the past couple days. Patient is a 1 pack/day smoker of cigarettes. OBJECTIVE: Last Vital Signs Temp Pulse Resp BP Pulse Ox 99.9 F H 84 18 90/60 100 06/16/19 22:39 06/17/19 04:25 06/17/19 04:25 06/17/19 04:25 06/17/19 04:25 GENERAL: Disheveled, appears anxious HEENT: Normocephalic, atraumatic. PERRLA, EOMI. No conjunctival pallor. Sclera are non- icteric. Moist mucous membranes. Oropharynx is clear. NECK: Supple. Full ROM. No JVD. Carotid pulses 2+ and symmetric, without bruits. No thyromegaly. No lymphadenopathy. CARDIOVASCULAR: Tachycardia No murmurs, rubs, or gallops. Distal pulses are 2+ and symmetric. PULMONARY: No evidence of respiratory distress. Lungs clear to auscultation bilaterally. No wheezing, rales or rhonchi. ABDOMINAL: Soft. Non-tender. Non-distended. No rebound or guarding. No organomegaly. Normoactive bowel sounds. MUSCULOSKELETAL Normal range of motion at all joints. No bony deformities or tenderness. No CVA tenderness. EXTREMITIES: Bilateral popliteal ulcers, appear infected, some serous-like discharge seen SKIN: Warm and dry. Normal capillary refill. No rashes. No jaundice. PSYCHIATRIC: Cooperative. Good eye contact. Appropriate mood and affect. Abnormal Lab Results 06/17/19 06/17/19 06/17/19 00:01 00:01 00:01 WBC 10.8 H Hgb 9.2 L Hct 27.8 L D MCV 71.9 L MCH 23.8 L Absolute Neuts (auto) 8.8 H Lymphocytes % 7.9 L D PT with INR 15.40 H INR 1.30 H POC VBG pO2 VBG Base Excess Anion Gap 6 L Random Glucose 130 H Albumin 3.2 L Urine Ketones Ur Leukocyte Esterase Opiates Screen Benzodiazepines Screen Cocaine Screen U Marijuana (THC) Screen 06/17/19 06/17/19 06/17/19 00:01 00:27 00:27 WBC Hgb Hct MCV MCH Absolute Neuts (auto) Lymphocytes % PT with INR INR POC VBG pO2 < 49 H VBG Base Excess 2.7 H Anion Gap Random Glucose Albumin Urine Ketones Trace H Ur Leukocyte Esterase 1+ H Opiates Screen Positive A* Benzodiazepines Screen Positive A* Cocaine Screen Positive A* U Marijuana (THC) Screen Positive A* EKG reviewed, showed a sinus tachycardia Chest x-ray and lower extremity duplex bilaterally reviewed ASSESSMENT AND PLAN: 33-year-old woman with sepsis secondary to bilateral popliteal ulcers, Mild leukocytosis with active infection and surrounding cellulitis. Sepsis induced by IV drug injection to or around ulcer sites.Polysubstance abuse including cocaine, heroin, marijuana, tobacco.Denies EtOH abuse. Should rule out infective endocarditis given active IV drug abuse Admit to MedSurg Blood cultures CRP, ESR Transthoracic echo Vancomycin Zosyn Wound care to lower extremities Infectious disease consultation Counseled on IV drug abuse cessation Counseled tobacco cessation Nicotine patch will need detox after discharge Heparin subcutaneously for DVT prophylaxis #Severe microcytic anemiamight be secondary to bleed, possibly heavy menses Ferritin, iron studies, vitamin B12, red blood smear Ferrous sulfate p.o.
[2019-06-17] MEDS: HEPARIN NA (PORCINE) 5,000 UNITS/ML 1ML VIAL SQ SCH ×3 (06:57→21:24)
--- NOTE | 2019-06-17 08:50 | PN ---
Teaching Attending Note Name of Resident: Nixon Somers ATTENDING PHYSICIAN STATEMENT I saw and evaluated the patient. I reviewed the resident's note and discussed the case with the resident. I agree with the resident's findings and plan as documented. SUBJECTIVE: C/o calf pain OBJECTIVE: Last Vital Signs Temp Pulse Resp BP Pulse Ox 97.6 F 85 16 119/64 100 06/17/19 06:33 06/17/19 06:33 06/17/19 06:33 06/17/19 06:33 06/17/19 04:25 Young F not in distress HEENT: Mm moist, no anemia NECK; No JVd No Bruit CHEST: CTA B/KL CVS: s1S2 R ABD: no distention, non tender EXT: Infected wound both popliteal fossa with exudate Left > Rt , pulses + HEAD OF MARKETING: Aox3 NON FOCAL CBC, BMP 06/17/19 00:01 06/17/19 00:01 Active Medications Ferrous Sulfate (Feosol -) 325 mg PO BIDWM PENNY Folic Acid (Folic Acid -) 1 mg PO DAILY PENNY Heparin Sodium (Porcine) (Heparin -) 5,000 unit SQ TID PENNY Last Admin: 06/17/19 06:57 Dose: 5,000 unit Folic Acid 1 mg/ Thiamine HCl 100 mg/ Multivitamins/Minerals 10 ml/ Sodium Chloride 1,000 mls @ 125 mls/hr IVPB ONCE ONE Stop: 06/17/19 11:44 Last Admin: 06/17/19 05:52 Dose: 125 mls/hr Piperacillin Sod/Tazobactam (Sod 3.375 gm/ Dextrose) 50 mls @ 100 mls/hr IVPB Q8H-IV PENNY; Protocol Stop: 06/17/19 11:29 Piperacillin Sod/Tazobactam (Sod 3.375 gm/ Dextrose) 50 mls @ 100 mls/hr IVPB Q8H-IV PENNY; Protocol Lorazepam (Ativan Injection -) 1 mg IVPUSH Q6H PRN PRN Reason: ANXIETY Multivitamins/Minerals/Vitamin C (Tab-A-Vit -) 1 tab PO DAILY [facility] Nicotine (Nicoderm Patch -) 21 mg TD DAILY PENNY Thiamine HCl (Vitamin B1 -) 100 mg PO DAILY PENNY Vancomycin HCl (Vancomycin (Pre-Docked)) 1,000 mg IVPB DAILY PENNY; Protocol ASSESSMENT AND PLAN:33-year-old woman with polysubstance abuse history including heroin, cocaine, marijuana, tobacco presents complaining of bilateral popliteal ulcers which are painful and warm. She injects heroin intravenously. Last use of IV drugs was 1 day ago. She reports injecting in her calves bilaterally and ankles. Problem List - Problems (1) Recurrent cellulitis of lower leg Assessment/Plan: considering H/O IVDU cont IV vancomycin and Zosyn, F/U ID and Wound care recommondation, LE Doppler is -ve for DVT cont DVt prophylaxis Problems reviewed: Yes Code(s): L03.119 - CELLULITIS OF UNSPECIFIED PART OF LIMB (2) Polysubstance (excluding opioids) dependence Assessment/Plan: Observe closely for withdrawal , Substance abuse consult is aclled F/U recommendation, active cocaine, Marijuana, and Problems reviewed: Yes Code(s): F19.20 - OTHER PSYCHOACTIVE SUBSTANCE DEPENDENCE, UNCOMPLICATED (3) DVT prophylaxis Assessment/Plan: Conty Lovenox for DVt prophylaxis Problems reviewed: Yes Code(s): [id number] -
[2019-06-17] MEDS ORDERED: DEXTROSE 5%-WATER - 50 ML IVPB ONE ×3 (09:59→16:33)
[2019-06-17] MEDS ORDERED: PIPERACILLIN/TAZOBACTAM 3.375 GM VIAL IVPB ONE ×3 (09:59→16:33)
[2019-06-17] MEDS ORDERED: VANCOMYCIN 1 GM in D5W (PRE-DOCKED) 1,000 MG/250 ML IVPB SCH (10:00)
--- NOTE | 2019-06-17 10:01 | EKG ---
Test Reason : Blood Pressure : / mmHG Vent. Rate : 115 BPM Atrial Rate : 115 BPM P-R Int : 136 ms QRS Dur : 090 ms QT Int : 314 ms P-R-T Axes : 061 058 029 degrees QTc Int : 434 ms SINUS TACHYCARDIA OTHERWISE NORMAL ECG WHEN COMPARED WITH ECG OF 03-APR-2019 21:18, VENT. RATE HAS INCREASED BY 40 BPM Confirmed by THANG MARIE MD ([id number]) on 06/17/2019 10:00:53 AM Referred By: Confirmed By:THANG MARIE MD
[2019-06-17] MEDS: FERROUS SO4 325 MG TABLET (FP) PO SCH ×2 (10:11→17:18)
[2019-06-17] MEDS: FOLIC ACID 1 MG TABLET (FP) PO SCH (10:11)
[2019-06-17] MEDS: THIAMINE HCL 100 MG TABLET (FP) PO SCH (10:11)
[2019-06-17] MEDS: NICOTINE 21 MG/24 HOURS TOPICAL PATCH TD SCH (10:11)
[2019-06-17] MEDS: MULTIVITAMINS (DAILY MVI) TABLET (FP) PO SCH (10:12)
[2019-06-17] MEDS ORDERED: PIPERACILLIN/TAZOB 3.375 GM 3.375 GM in DEXTROSE 5%-WATER - 50 ML IVPB SCH ×2 (11:00→18:00)
--- NOTE | 2019-06-17 11:26 | CON.ID ---
Consult Consult Specialty:: infectious diseases Referred by:: hospitalist service Reason for Consultation:: infection in the legs post injection of drugs - History of Present Illness Chief Complaint: wound infection and drainage post injection of drugs History of Present Illness: 33 y/o F w pmhx of IVDU (heroin, cocaine and marijuana) presents to ED complaining of bilateral infected leg wounds located in popliteal fossa. Pt reports 1 month ago she was admitted at [facility] for leg infection, treated with IV Abx x 2 days and discharged on Bactrim x10 days. She was seen here 3-4 weeks ago for assessment of the leg and was found to be free of infection. Pt reports 4 days ago wound started getting worse, draining pus, and she experienced leg pain, fever and chills. Pt rates pain as 4/10. She injects heroin in popliteal fossa, but yesterday injected on her ankle. Pt denies N/V, SHANKS, chest pain, abd pain, - History Source History Provided By: Patient Limitations to Obtaining History: No Limitations - Past Medical History ...LMP: 05/08/19 Infectious Disease: Yes: MRSA, Other (previously treated for cellulitis/abscess) Psych: Yes: Addictions Dermatology: Yes: Cellulitis, Other (History of popliteal cellulitis/abscess in the past) - Past Surgical History Past Surgical History: Yes: None - Alcohol/Substance Use Hx Alcohol Use: No History of Substance Use: reports: Cocaine, Heroin Date of Last Use: 04/01/17 - Smoking History Smoking history: Current every day smoker Have you smoked in the past 12 months: Yes Aproximately how many cigarettes per day: 20 - Social History Usual Living Arrangement: With Parent ADL: Independent 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/ [employer] History of Recent Travel: No Home Medications - Allergies Allergies/Adverse Reactions: Allergies Allergy/AdvReac Type Severity Reaction Status Date / Time No Known Allergies Allergy Verified 05/29/19 12:02 - Home Medications Home Medications: Ambulatory Orders Naloxone HCl [Narcan] 4 mg NS ASDIR PRN #1 spray 06/02/19 Review of Systems - Review of Systems Constitutional: reports: Other Eyes: reports: No Symptoms HENT: reports: No Symptoms Neck: reports: No Symptoms Cardiovascular: reports: No Symptoms Respiratory: reports: No Symptoms Gastrointestinal: reports: No Symptoms Genitourinary: reports: No Symptoms Musculoskeletal: reports: Other Integumentary: reports: Erythema, Wound 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: reports: No Symptoms Endocrine: reports: No Symptoms Hematology/Lymphatic: reports: No Symptoms Psychiatric: reports: No Symptoms Physical Exam Vital Signs: Vital Signs Temperature 97.6 F 06/17/19 06:33 Pulse Rate 85 06/17/19 06:33 Respiratory Rate 16 06/17/19 09:00 Blood Pressure 119/64 06/17/19 06:33 O2 Sat by Pulse Oximetry (%) 100 06/17/19 09:00 Constitutional: Yes: Well Nourished, Calm, Mild Distress Eyes: Yes: Conjunctiva Clear HENT: Yes: Atraumatic, Normocephalic Neck: Yes: Supple, Trachea Midline Cardiovascular: Yes: Regular Rate and Rhythm Respiratory: Yes: Regular, CTA Bilaterally Gastrointestinal: Yes: Normal Bowel Sounds, Soft Musculoskeletal: Yes: WNL Extremities: Yes: Erythema (both po fossa), Other (ankle) Wound/Incision: Yes: Open to air, Draining, Other (bilateral wounds in the popliteal fossae with surrounding erythema and visible granulation tissue and exudate/ slough covering the bed of the wound. Diameter of wounds about 4inches with L leg wound larger/ deeper than right leg wound. Warm to touch compared to surrounding skin, firm, and painful to palpation bilaterally.) 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: Yes: Alert, Oriented Psychiatric: Yes: Alert, Oriented Labs: CBC, BMP 06/17/19 00:01 06/17/19 00:01 Imaging - Results Chest X-ray: Report Reviewed, Image Reviewed Ultrasound: Report Reviewed, Image Reviewed Assessment/Plan 33 y/o F w pmhx of IVDU (heroin, cocaine and marijuana) presents to ED complaining of bilateral infected leg wounds located in popliteal fossa. bilateral infection of popliteal fossae Withdrawal anemia wound infection plan await for all cx reports abx wound care rest as per the team
--- NOTE | 2019-06-17 14:21 | ECHO ---
Name: SANABRIA, CHANO Exam:Adult Echocardiogram Study Date: 06/17/2019 12:43 PM Age: 33 yrs Reason For Study: R/O Vegetations, Endocarditis Height: 67 in Weight: 160 lb BSA: 1.8 m2 MMode/2D Measurements & Calculations IVSd: 0.99 cm LA dimension: 3.6 cm LVIDd: 3.7 cm ACS: 1.8 cm LVIDs: 2.3 cm LVPWd: 1.1 cm EDV(Teich): 57.8 ml LVOT diam: 1.8 cm ESV(Teich): 17.1 ml RV S Marcin: 12.5 cm/sec Doppler Measurements & Calculations MV E max marcin: 98.7 cm/sec Ao V2 max: 59.5 cm/sec MV A max marcin: 45.4 cm/sec Ao max P.8 mmHg MV E/A: 2.2 Ao V2 mean: 85.3 cm/sec MV dec time: 0.20 sec Ao mean P.1 mmHg Ao V2 VTI: 25.8 cm AGUS(I,D): 2.3 cm2 AGUS(V,D): 4.6 cm2 LV V1 max P.4 mmHg SV(LVOT): 59.0 ml LV V1 mean P.4 mmHg LV V1 max: 105.1 cm/sec LV V1 mean: 71.6 cm/sec LV V1 VTI: 22.7 cm TR max marcin: 238.4 cm/sec PI end-d marcin: 130.2 cm/sec TR max P.8 mmHg RVSP(TR): 32.8 mmHg Med Peak E' Marcin: 14.1 cm/sec RAP systole: 10.0 mmHg Med E/e': 7.0 Lat Peak E' Marcin: 18.2 cm/sec Lat E/e': 5.4 Procedure A complete two-dimensional transthoracic echocardiogram was performed (2D, M-mode, Doppler and color flow Doppler). Left Ventricle The left ventricle is normal in size. Left ventricular systolic function is normal. Ejection Fraction = 65- 70%. No regional wall motion abnormalities noted. Right Ventricle The right ventricle is normal size. The right ventricular systolic function is normal. RV systolic TD I is 12 cm/s. Atria The left atrial size is normal. Right atrial size is normal. Mitral Valve Mildly redundant anterior mitral valve leaflet. There is no mitral regurgitation noted. Tricuspid Valve The tricuspid valve is normal in structure and function. There is mild tricuspid regurgitation. Pulmo nary artery systolic pressure is at least 38 mmHg if RA pressure is assumed 3 mmHg. Aortic Valve The aortic valve is normal in structure and function. No aortic regurgitation is present. Pulmonic Valve The pulmonic valve is not well visualized. Great Vessels The aortic root is normal size. Pericardium/Pleura There is no pericardial effusion. Interpretation Summary The left ventricle is normal in size. Left ventricular systolic function is normal. No regional wall motion abnormalities noted. Ejection Fraction = 65-70%. The right ventricular systolic function is normal. The left atrial size is normal. Right atrial size is normal. Mildly redundant anterior mitral valve leaflet There is no mitral regurgitation noted. There is mild tricuspid regurgitation. Pulmonary artery systolic pressure is at least 38 mmHg if RA pressure is assumed 3 mmHg No evidence of vegetations an any of the heart valves There is no pericardial effusion. Wagner Sood MD 06/17/2019 02:21 PM
--- NOTE | 2019-06-17 14:55 | CONSULT ---
- Consultation REQUESTING PROVIDER: CONSULT REQUEST: We have been asked to surgically evaluate this patient for b/l popliteal fossa wounds PCP:Jonh Veliz MD HISTORY OF PRESENT ILLNESS: Pt is a 33 y/o F w pmhx of IVDU (heroin, cocaine and marijuana) presents to ED complaining of bilateral infected leg wounds located in popliteal fossa. Pt reports 1 month ago she was admitted at [facility] for leg infection, treated with IV Abx x 2 days and discharged on Bactrim x10 days. She was seen here @ 3-4 weeks ago for assessment of the leg and was found to be free of infection. Pt reports 4 days ago wound started getting worse , draining pus, and she experienced leg pain, fever and chills. Pt rates pain as 4/10. She injects heroin in popliteal fossa, but yesterday injected on her ankle. Pt denies N/V, SHANKS, chest pain, abd pain, dysuria, increased urinary frequency, blood in urine, diarrhea, constipation, back pain or numbness and tingling in her legs. Nothing improves or worsens symptoms. LMP was 2 months ago; pt is sexually active and only uses rhythm method for contraception, though she is not interested in becoming at this time. Recent Travel: denies PMHx Anemia: Yes (Not on medication) Asthma: No Cancer: No Cardiac Disorders: No CVA: No COPD: No CHF: No Dementia: No Diabetes: No GI Disorders: No Disorders: No HTN: No Hypercholesterolemia: No Kidney Stones: No Liver Disease: No Seizures: No Thyroid Disease: No - Surgical History Abdominal Surgery: No Appendectomy: No Cardiac Surgery: No Cholecystectomy: No Lung Surgery: No Neurologic Surgery: No Orthopedic Surgery: No - Reproductive History PID: Yes - Immunization History Td Vaccination: Yes Immunization Up to Date: Yes - Psycho Social/Smoking Cessation Hx Smoking Status: Yes Smoking History: Current every day smoker Have you smoked in the past 12 months: Yes Number of Cigarettes Smoked Daily: 10 Cigars Per Day: 0 Information on smoking cessation initiated: No 'Breaking Loose' booklet given: 04/03/19 Hx Alcohol Use: No Drug/Substance Use Hx: No Substance Use Type: Cocaine, Heroin Hx Substance Use Treatment: Yes ([facility]) Social History: Smokinppd, on and off for last 10y Alcohol: denies Drugs: IVDU (heroin, does not share needles, 7-10 bags/day) cocaine ($40-$50/ day) and marijuana (only when trying to abstain from heroin, last used 6wk ago) 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, pt lives in an apartment by herself Allergies No Known Allergies Allergy (Verified 05/29/19 12:02) HOME MEDICATIONS: Home Medications Medication Instructions Recorded Naloxone HCl [Narcan] 4 mg NS ASDIR PRN #1 spray 06/02/19 REVIEW OF SYSTEMS CONSTITUTIONAL: fever, chills, diaphoresis, Absent: generalized weakness, malaise, HEENT: Absent: rhinorrhea, nasal congestion, throat pain, CARDIOVASCULAR: Absent: chest pain, syncope, palpitations, RESPIRATORY: Absent: cough, shortness of breath, dyspnea with exertion, GASTROINTESTINAL: Absent: abdominal pain, abdominal distension, nausea, vomiting, GENITOURINARY: Absent: dysuria, frequency, urgency, hesitancy, hematuria, flank pain, genital pain MUSCULOSKELETAL: + myalgia, SKIN: + wound/lesions b/l LE with other well healed scars on arms HEMATOLOGIC/IMMUNOLOGIC: +frequent infections 2/2 IVDU ENDOCRINE: Absent: unexplained weight gain, unexplained weight loss, heat intolerance, cold intolerance NEUROLOGIC: Absent: headache, focal weakness or paresthesias, dizziness, PSYCHIATRIC: Absent: anxiety, depression, suicidal or homicidal ideation, hallucinations. PHYSICAL EXAMINATION Vital Signs - 24 hr 06/16/19 22:39 Temperature 99.9 F H Pulse Rate 129 H Respiratory 19 Rate Blood Pressure 107/55 L O2 Sat by Pulse 95 Oximetry (%) GENERAL: Awake, alert, and fully oriented, in no acute distress, HEAD: Normal with no signs of trauma. EYES: sclera anicteric, conjunctiva clear. No lid lag. LUNGS: No auditory wheezes, unlabored resp on RA, No accessory muscle use. MUSCULOSKELETAL: Normal range of motion at all joints. No bony deformities or tenderness. UPPER EXTREMITIES: 2+ pulses, warm, well-perfused. No peripheral edema. LOWER EXTREMITIES: 2+ pulses, warm, well-perfused. No calf tenderness. No peripheral edema. Track collier at ankles. Sensation intact bilaterally, 2+ DTRs, 5/5 strength NEUROLOGICAL: Cranial nerves II-XII intact. Normal speech. PSYCHIATRIC: Cooperative. Good eye contact. Appropriate mood and affect. SKIN: Warm, dry, normal turgor, bilateral wounds just inferior to the popliteal fossae Right @ 5x4cm, left @3x2. Right wound with various stages of healing and fibrinous tissue throughout base, indurration circumferentially, with no evidence of fluctuance or active d/c, no foul odor. Left wound with fibrinous tissue at base with small area of 0.5cmx0.5cm fluctuance and purulant d/c, some indurration and mild tracking erythema, no foul odor . LE compartments soft, supple with mild TTP throughout. LE well perfused with sensation to light touch intact and +2 DP pulses b/l. B/l duplex with no evidence of DVT Problem List - Problems (1) Wound abscess Assessment/Plan: 33yo IVDU with b/l LE wounds/infection, r/o collection. Patient refusing bedside I&d. -b/l LE bedside u/s to r/o collection -IV abx per ID -clean dry dressings to b/l LE -OOB as tolerated -will follow Evaluation and plan discussed with Dr Stiles. Code(s): T81.4XXA - (2) Wound of left lower extremity Code(s): S81.802A - UNSPECIFIED OPEN WOUND, LEFT LOWER LEG, INITIAL ENCOUNTER Qualifiers: Encounter type: initial encounter Qualified Code(s): S81.802A - Unspecified open wound, left lower leg, initial encounter
--- NOTE | 2019-06-17 16:38 | PN ---
Physical Exam: SUBJECTIVE: Patient seen and examined Endorses moderate pain(5/10) in Left popliteal fossa OBJECTIVE: Vital Signs Period Temp Pulse Resp BP Sys/Ortiz Pulse Ox Last 24 Hr 97.6 F-99.9 F 77-129 16-19 90-119/55-64 95-100 GENERAL: The patient is awake, alert, and fully oriented, in no acute distress. COWS 6 HEAD: NC/AT EYES: sclera anicteric, conjunctiva clear. ENT: Ears normal, nares patent, moist mucous membranes. NECK: Trachea midline, full range of motion, supple. LUNGS: Breath sounds equal, clear to auscultation bilaterally, no wheezes, no crackles, no accessory muscle use. HEART: Regular rate and rhythm, S1, S2 without murmur, rub or gallop. ABDOMEN: Soft, nontender, nondistended, no guarding, no rebound. EXTREMITIES: 2+ pulses, warm, well-perfused, no edema. Track collier at ankles. B/ L popliteal fossae with surrounding erythema and ~5cm granulation tissue and exudate/ slough. L leg wound larger/ deeper than right leg wound. Slightly warm to touch compared to surrounding skin, firm, and painful to palpation bilaterally. No pus able to be expressed. NEUROLOGICAL: Normal speech, gait not observed. PSYCH: Normal mood, normal affect. Laboratory Results - last 24 hr 06/17/19 06/17/19 06/17/19 00:01 00:01 00:01 WBC RBC Hgb Hct MCV MCH MCHC RDW Plt Count MPV Absolute Neuts (auto) Neutrophils % Lymphocytes % Monocytes % Eosinophils % Basophils % Nucleated RBC % PT with INR 15.40 H INR 1.30 H PTT (Actin FS) 33.6 VBG pH POC VBG pCO2 POC VBG pO2 VBG HCO3 VBG O2 Sat ([place]man) VBG Base Excess Sodium Potassium Chloride Carbon Dioxide Anion Gap BUN Creatinine Est GFR (CKD-EPI)AfAm Est GFR (CKD-EPI)NonAf Random Glucose Lactic Acid Calcium Total Bilirubin AST ALT Alkaline Phosphatase Troponin I < 0.02 Total Protein Albumin Serum , Qual Negative Urine Color Urine Appearance Urine pH Ur Specific [place] Urine Protein Urine Glucose (UA) Urine Ketones Urine Blood Urine Nitrite Urine Bilirubin Urine Urobilinogen Ur Leukocyte Esterase Urine WBC (Auto) Urine RBC (Auto) Urine Casts (Auto) U Epithel Cells (Auto) Urine Bacteria (Auto) Opiates Screen Methadone Screen Barbiturate Screen Phencyclidine Screen Ur Amphetamines Screen MDMA (Ecstasy) Screen Benzodiazepines Screen Cocaine Screen U Marijuana (THC) Screen 06/17/19 06/17/19 06/17/19 00:01 00:01 00:01 WBC 10.8 H RBC 3.86 Hgb 9.2 L Hct 27.8 L D MCV 71.9 L MCH 23.8 L MCHC 33.1 RDW 14.7 Plt Count 308 D MPV 7.9 D Absolute Neuts (auto) 8.8 H Neutrophils % 82.1 D Lymphocytes % 7.9 L D Monocytes % 6.8 Eosinophils % 2.9 D Basophils % 0.3 Nucleated RBC % 0 PT with INR INR PTT (Actin FS) VBG pH POC VBG pCO2 POC VBG pO2 VBG HCO3 VBG O2 Sat (Sherman) VBG Base Excess Sodium 137 Potassium 3.9 Chloride 102 Carbon Dioxide 29 Anion Gap 6 L BUN 10.7 Creatinine 0.9 Est GFR (CKD-EPI)AfAm 98.75 Est GFR (CKD-EPI)NonAf 85.20 Random Glucose 130 H Lactic Acid 1.1 Calcium 8.6 Total Bilirubin 0.4 AST 18 ALT 17 Alkaline Phosphatase 85 Troponin I Total Protein 7.2 Albumin 3.2 L Serum , Qual Urine Color Urine Appearance Urine pH Ur Specific [place] Urine Protein Urine Glucose (UA) Urine Ketones Urine Blood Urine Nitrite Urine Bilirubin Urine Urobilinogen Ur Leukocyte Esterase Urine WBC (Auto) Urine RBC (Auto) Urine Casts (Auto) U Epithel Cells (Auto) Urine Bacteria (Auto) Opiates Screen Methadone Screen Barbiturate Screen Phencyclidine Screen Ur Amphetamines Screen MDMA (Ecstasy) Screen Benzodiazepines Screen Cocaine Screen U Marijuana (THC) Screen 06/17/19 06/17/19 06/17/19 00:01 00:27 00:27 WBC RBC Hgb Hct MCV MCH MCHC RDW Plt Count MPV Absolute Neuts (auto) Neutrophils % Lymphocytes % Monocytes % Eosinophils % Basophils % Nucleated RBC % PT with INR INR PTT (Actin FS) VBG pH 7.37 POC VBG pCO2 50.1 POC VBG pO2 < 49 H VBG HCO3 28.0 VBG O2 Sat (Sherman) 75.4 VBG Base Excess 2.7 H Sodium Potassium Chloride Carbon Dioxide Anion Gap BUN Creatinine Est GFR (CKD-EPI)AfAm Est GFR (CKD-EPI)NonAf Random Glucose Lactic Acid Calcium Total Bilirubin AST ALT Alkaline Phosphatase Troponin I Total Protein Albumin Serum , Qual Urine Color Yellow Urine Appearance Clear Urine pH 5.5 D Ur Specific [place] 1.029 Urine Protein Negative Urine Glucose (UA) Negative Urine Ketones Trace H Urine Blood Negative Urine Nitrite Negative Urine Bilirubin Negative Urine Urobilinogen 1.0 Ur Leukocyte Esterase 1+ H Urine WBC (Auto) 16 Urine RBC (Auto) 0 Urine Casts (Auto) 29 U Epithel Cells (Auto) 6.3 Urine Bacteria (Auto) 42.8 Opiates Screen Positive A* Methadone Screen Negative Barbiturate Screen Negative Phencyclidine Screen Negative Ur Amphetamines Screen Negative MDMA (Ecstasy) Screen Negative Benzodiazepines Screen Positive A* Cocaine Screen Positive A* U Marijuana (THC) Screen Positive A* Active Medications Generic Name Dose Route Start Last Admin Trade Name Freq PRN Reason Stop Dose Admin Ferrous Sulfate 325 mg 06/17/19 08:00 06/17/19 10:11 Feosol - PO 325 mg BIDWM PENNY Administration Folic Acid 1 mg 06/17/19 10:00 06/17/19 10:11 Folic Acid - PO 1 mg DAILY PENNY Administration Heparin Sodium (Porcine) 5,000 unit 06/17/19 06:00 06/17/19 13:34 Heparin - SQ Not Given TID [facility] Vancomycin HCl 1,250 mg/ 250 mls @ 250 mls/2 hr 06/17/19 23:00 Dextrose IVPB Q24H PENNY Protocol Piperacillin Sod/Tazobactam 50 mls @ 100 mls/hr 06/17/19 18:00 Sod 3.375 gm/ Dextrose IVPB Q8H-IV PENNY Protocol Lorazepam 1 mg 06/17/19 06:03 Ativan Injection - IVPUSH Q6H PRN ANXIETY Multivitamins/Minerals/Vitamin C 1 tab 06/17/19 10:00 06/17/19 10:12 Tab-A-Vit - PO 1 tab DAILY PENNY Administration Nicotine 21 mg 06/17/19 10:00 06/17/19 10:11 Nicoderm Patch - TD 21 mg DAILY PENNY Administration Thiamine HCl 100 mg 06/17/19 10:00 06/17/19 10:11 Vitamin B1 - PO 100 mg DAILY PENNY Administration ASSESSMENT/PLAN: Pt is a 33 y/o F w pmhx of IVDU (heroin, cocaine and marijuana) presents to ED complaining of bilateral infected leg wounds located in popliteal fossa. # bilateral infection of popliteal fossae > Echo(06/17/19): LVF 65-70%, normal RV funct, PASP >38mmHg, no vegetations > b/l duplex(06/17/19): neg for DVT, right inguinal chain LN 4.7 x3.8 x0.9cm - abx: vanc/ zosyn 3.375 --day 2 - Vanc trough before 4th dose, trough should be between 15-20 - ID consulted, Dr. Amado, appreciate recommendations -- cw IV abx - fu ESR/ CRP - Patient is declining HIV testing at this time - wound care, Dr. Stiles, consulted appreciate reccs -- patient refused bedside I&D -- b/l LE bedside u/s to r/o collection -- will follow #Withdrawal --not in currently in withdrawal, will consider methadone PRN - consult Addiction Medicine - COWS score 6 - PRN 1mg ativan q6 for CIWA > 9 - PO MVT - PO thiamine - PO folate - Nicotine patch 21mg #chronic anemia --likely Fe deficient anemia - Ferrous sulfate 325 mg PO BID #Ppx DVT ppx: Heparin TID #FEN monitor, replete PRN Regular diet #Dispo- admit to [facility] for IV abx, dispo pending transition to oral abx Visit type - Emergency Visit Emergency Visit: No - New Patient This patient is new to me today: No - Critical Care Critical Care patient: No ATTENDING PHYSICIAN STATEMENT I saw and evaluated the patient. I reviewed the resident's note and discussed the case with the resident. I agree with the resident's findings and plan as documented. SUBJECTIVE: OBJECTIVE: ASSESSMENT AND PLAN:
[2019-06-17] MEDS: PIPERACILLIN/TAZOB 3.375 GM 3.375 GM in DEXTROSE 5%-WATER - 50 ML IVPB SCH (17:17)
[2019-06-17] MEDS: LORazepam 2 MG/ML SDV VIAL IVPUSH PRN ×2 (17:17→23:32)
[2019-06-17 20:26] VITALS: BMI 24.4
[2019-06-17] MEDS ORDERED: VANCOMYCIN HCL 1,250 MG in DEXTROSE 5%-WATER - 250 ML IVPB SCH (23:00)
[2019-06-18] MEDS ORDERED: PIPERACILLIN/TAZOBACTAM 3.375 GM VIAL IVPB ONE ×2 (02:24→08:53)
[2019-06-18] MEDS ORDERED: DEXTROSE 5%-WATER - 50 ML IVPB ONE ×2 (02:24→08:54)
[2019-06-18] MEDS: PIPERACILLIN/TAZOB 3.375 GM 3.375 GM in DEXTROSE 5%-WATER - 50 ML IVPB SCH ×2 (02:28→09:30)
[2019-06-18] MEDS: HEPARIN NA (PORCINE) 5,000 UNITS/ML 1ML VIAL SQ SCH (06:10)
--- NOTE | 2019-06-18 08:03 | PN ---
Progress Note (short form) - Note Progress Note: Surgery Patient being followed for b/l LE popliteal fossa wounds, r/o abscess. Patient had an ultrasound study which r/o DVT but did not speak specifically to the soft tissue with respect to any evidence of collection or abscess. Patient feels well and denies any new symptoms. She is tolerating her diet and denies any CP, SOB, Fever, Chills or N/V. Vital Signs Temp 98.6 F 06/18/19 06:45 Pulse 88 06/18/19 06:45 Resp 18 06/18/19 06:45 BP 115/62 06/18/19 06:45 Pulse Ox 100 06/17/19 21:00 Intake & Output 06/17/19 06/17/19 06/18/19 11:59 23:59 11:59 Intake Total 250 50 Output Total 600 Balance -600 250 50 Weight 156 lb 2 oz Intake: IVPB 50 50 Oral 200 Output: Emesis 600 Other: Voiding Method Toilet # Unmeasured Voids Void 2 2 Bowel Movement No No # Bowel Movements 1 Height 5 ft 7 in Body Mass Index (BMI) 24.4 Weight Measurement Method Built in [facility] CBC, BMP 06/17/19 00:01 06/17/19 00:01 PE: A&Ox3, NAD Unlabored resp on RA B/L LE wounds unchanged from previous exam with no significant tracking erythema or edema. LE compartments soft, supple with diffuse TTP throughout. B/L LE doppler revealed no evidence of DVT. Problem List - Problems (1) Wound abscess Assessment/Plan: 33yo IVDU with b/l LE wounds/infection, r/o collection. Patient refusing bedside I&d. -b/l LE CT scans to r/o collection/abscess -IV abx per ID -clean dry dressings to b/l LE -OOB as tolerated -will follow Evaluation and plan discussed with Dr Stiles. Code(s): T81.4XXA - (2) Wound of left lower extremity Code(s): S81.802A - UNSPECIFIED OPEN WOUND, LEFT LOWER LEG, INITIAL ENCOUNTER Qualifiers: Qualified Code(s): S81.802A - Unspecified open wound, left lower leg, initial encounter
[2019-06-18] MEDS: FERROUS SO4 325 MG TABLET (FP) PO SCH (08:09)
--- NOTE | 2019-06-18 08:24 | PN ---
Teaching Attending Note Name of Resident: Nixon Somers ATTENDING PHYSICIAN STATEMENT I saw and evaluated the patient. I reviewed the resident's note and discussed the case with the resident. I agree with the resident's findings and plan as documented with exceptions below. SUBJECTIVE: Patient seen and examined. asking for ativan. both legs pain, left calf more than right. OBJECTIVE: Vital Signs Period Temp Pulse Resp BP Sys/Ortiz Pulse Ox Last 24 Hr 97.8 F-98.6 F 77-88 16-18 105-115/59-62 100-100 Intake & Output 06/16/19 06/16/19 06/17/19 06/18/19 00:59 23:59 23:59 23:59 Intake Total 250 50 Output Total 600 Balance -350 50 Weight 156 lb 2 oz General: sitting in bed, anxious, but no acute distress/diaphoresis noted Chest: CTAB, no rales or wheezing Abdomen:Soft, NT Extremities: left popliteal fossa with deep 1 cm wound with mild purulent discharge and surrounding induration/some erythema, Right calf superficial wound with surrounding induration/erythema Home Medications Medication Instructions Recorded Naloxone HCl [Narcan] 4 mg NS ASDIR PRN #1 spray 06/02/19 Active Medications Ferrous Sulfate (Feosol -) 325 mg PO BIDWM [facility] [place] Last Admin: 06/18/19 08:09 Dose: 325 mg Folic Acid (Folic Acid -) 1 mg PO DAILY [facility] [place] Last Admin: 06/17/19 10:11 Dose: 1 mg Heparin Sodium (Porcine) (Heparin -) 5,000 unit SQ TID [facility] [place] Last Admin: 06/18/19 06:10 Dose: Not Given Vancomycin HCl 1,250 mg/ (Dextrose) 250 mls @ 250 mls/2 hr IVPB Q24H PENNY; Protocol Last Admin: 06/17/19 23:32 Dose: 250 mls/2 hr Piperacillin Sod/Tazobactam (Sod 3.375 gm/ Dextrose) 50 mls @ 100 mls/hr IVPB Q8H-IV PENNY; Protocol Last Admin: 06/18/19 02:28 Dose: 100 mls/hr Multivitamins/Minerals/Vitamin C (Tab-A-Vit -) 1 tab PO DAILY [facility] [place] Last Admin: 06/17/19 10:12 Dose: 1 tab Nicotine (Nicoderm Patch -) 21 mg TD DAILY PENNY Last Admin: 06/17/19 10:11 Dose: 21 mg Thiamine HCl (Vitamin B1 -) 100 mg PO DAILY PENNY Last Admin: 06/17/19 10:11 Dose: 100 mg Microbiology 06/17/19 00:27 Blood - Peripheral Venous Blood Culture - Preliminary NO GROWTH OBTAINED AFTER 24 HOURS, INCUBATION TO CONTINUE FOR 4 DAYS. 06/17/19 00:01 Blood - Peripheral Venous Blood Culture - Preliminary NO GROWTH OBTAINED AFTER 24 HOURS, INCUBATION TO CONTINUE FOR 4 DAYS. 2D echo/LE duplex results reviewed ASSESSMENT AND PLAN: 33-year-old woman with polysubstance abuse history including heroin, cocaine, marijuana, tobacco presents complaining of bilateral popliteal ulcers which are painful and warm. She injects heroin intravenously. Last use of IV drugs was 1 day prior to admission. She reports injecting in her calves bilaterally and ankles. -Bilateral popliteal ulcers/cellulitis, r/o abscess -Polysubstance abuse with heroine/Cocaine/Marihuana/Tobacco Plan: Zosyn/vanco per ID Surgery input noted, patient declines intervention, explained risks including progressive infection, sepsis, . She relays full understanding but declines for now. Detox input noted. Monitor for now and methadone detox if COWA >12 or severe withdrawal concerns. Blood cx neg so far. 2D echo noted DVTPPX with heparin Dispo pending clinical improvement. Discussed with patient.
[2019-06-18] MEDS: THIAMINE HCL 100 MG TABLET (FP) PO SCH (09:29)
[2019-06-18] MEDS: NICOTINE 21 MG/24 HOURS TOPICAL PATCH TD SCH (09:29)
[2019-06-18] MEDS: MULTIVITAMINS (DAILY MVI) TABLET (FP) PO SCH (09:29)
[2019-06-18] MEDS: FOLIC ACID 1 MG TABLET (FP) PO SCH (09:29)
--- NOTE | 2019-06-18 12:10 | PN ---
Progress Note, Physician History of Present Illness: stable no new issues - Current Medication List Current Medications: Active Medications Ferrous Sulfate (Feosol -) 325 mg PO BIDWM [facility] Last Admin: 06/18/19 08:09 Dose: 325 mg Folic Acid (Folic Acid -) 1 mg PO DAILY [facility] Last Admin: 06/18/19 09:29 Dose: 1 mg Heparin Sodium (Porcine) (Heparin -) 5,000 unit SQ TID [facility] Last Admin: 06/18/19 06:10 Dose: Not Given Vancomycin HCl 1,250 mg/ (Dextrose) 250 mls @ 250 mls/2 hr IVPB Q24H [facility]; Protocol Last Admin: 06/17/19 23:32 Dose: 250 mls/2 hr Piperacillin Sod/Tazobactam (Sod 3.375 gm/ Dextrose) 50 mls @ 100 mls/hr IVPB Q8H-IV PENNY; Protocol Last Admin: 06/18/19 09:30 Dose: 100 mls/hr Multivitamins/Minerals/Vitamin C (Tab-A-Vit -) 1 tab PO DAILY [facility] Last Admin: 06/18/19 09:29 Dose: 1 tab Nicotine (Nicoderm Patch -) 21 mg TD DAILY [facility] Last Admin: 06/18/19 09:29 Dose: 21 mg Thiamine HCl (Vitamin B1 -) 100 mg PO DAILY [facility] Last Admin: 06/18/19 09:29 Dose: 100 mg - Objective Vital Signs: Vital Signs Temperature 98.6 F 06/18/19 06:45 Pulse Rate 88 06/18/19 06:45 Respiratory Rate 18 06/18/19 06:45 Blood Pressure 115/62 06/18/19 06:45 O2 Sat by Pulse Oximetry (%) 100 06/17/19 21:00 Constitutional: Yes: No Distress, Calm Cardiovascular: Yes: S1, S2 Respiratory: Yes: Regular, CTA Bilaterally Gastrointestinal: Yes: Normal Bowel Sounds, Soft Musculoskeletal: Yes: WNL Extremities: Yes: Other 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: Yes: Alert, Oriented Psychiatric: Yes: Alert, Oriented Labs: CBC, BMP 06/17/19 00:01 06/17/19 00:01 INR, PTT INR 1.30 (0.83-1.09) H 06/17/19 00:01 Assessment/Plan 33 y/o F w pmhx of IVDU (heroin, cocaine and marijuana) presents to ED complaining of bilateral infected leg wounds located in popliteal fossa. bilateral infection of popliteal fossae Withdrawal anemia wound infection plan await for all cx reports abx wound care rest as per the team follow all reports
--- NOTE | 2019-06-18 12:24 | PN ---
Physical Exam: SUBJECTIVE: Patient seen and examined NAEON. O/N: received ativan x2(~1800, ~23:30) for agitation. Refused labs in AM Endorses mild improvement in b/l popliteal fossa pain, now ~5/10 pain. Denies fever, chills, numbness, calf cramping. Complains that she will withdraw from heroin. Has mild agitation, stomach cramping. Again complains that bedside surgery would be too painful, so refuses OBJECTIVE: Vital Signs Period Temp Pulse Resp BP Sys/Ortiz Pulse Ox Last 24 Hr 98.6 F 88 18 115/62 100 GENERAL: The patient is awake, alert, and fully oriented, in no acute distress. COWS 6 HEAD: NC/AT EYES: sclera anicteric, conjunctiva clear. ENT: Ears normal, nares patent, moist mucous membranes. NECK: Trachea midline, full range of motion, supple. LUNGS: Breath sounds equal, clear to auscultation bilaterally, no wheezes, no crackles, no accessory muscle use. HEART: Regular rate and rhythm, S1, S2 without murmur, rub or gallop. ABDOMEN: Soft, nontender, nondistended, no guarding, no rebound. EXTREMITIES: 2+ pulses, warm, well-perfused, no edema. Track collier at ankles. B/ L popliteal fossae with surrounding erythema and ~5cm granulation tissue and fibrinous exudate. L leg wound larger/ deeper than right leg wound. Slightly warm to touch compared to surrounding skin, firm, and painful to palpation bilaterally. No pus able to be expressed. NEUROLOGICAL: Normal speech, gait not observed. COWS 2 PSYCH: Normal mood, normal affect. Active Medications Generic Name Dose Route Start Last Admin Trade Name Anay PRN Reason Stop Dose Admin Ferrous Sulfate 325 mg 06/17/19 08:00 06/18/19 08:09 Feosol - PO 325 mg BIDWM PENNY Administration Folic Acid 1 mg 06/17/19 10:00 06/18/19 09:29 Folic Acid - PO 1 mg DAILY PENNY Administration Heparin Sodium (Porcine) 5,000 unit 06/17/19 06:00 06/18/19 06:10 Heparin - SQ Not Given TID PENNY Vancomycin HCl 1,250 mg/ 250 mls @ 250 mls/2 hr 06/17/19 23:00 06/17/19 23:32 Dextrose IVPB 250 mls/2 hr Q24H PENNY Administration Protocol Piperacillin Sod/Tazobactam 50 mls @ 100 mls/hr 06/17/19 18:00 06/18/19 09:30 Sod 3.375 gm/ Dextrose IVPB 100 mls/hr Q8H-IV PENNY Administration Protocol Multivitamins/Minerals/Vitamin C 1 tab 06/17/19 10:00 06/18/19 09:29 Tab-A-Vit - PO 1 tab DAILY PENNY Administration Nicotine 21 mg 06/17/19 10:00 06/18/19 09:29 Nicoderm Patch - TD 21 mg DAILY PENNY Administration Thiamine HCl 100 mg 06/17/19 10:00 06/18/19 09:29 Vitamin B1 - PO 100 mg DAILY PENNY Administration ASSESSMENT/PLAN: Pt is a 33 y/o F w pmhx of IVDU (heroin, cocaine and marijuana) presents to ED complaining of bilateral infected leg wounds located in b/l popliteal fossa. Has h/o speedballing. Recent hospitalization at [facility] for popliteal cellulitis for which she was discharge w/ bactrim. Presented to [facility] in May 2019 for worsening wounds. Had admission w/ surgical consult at that time. XR w/o significant findings. Surgery only recommended wound care w/ Santyl, discharged with keflex + doxy. Patient was adherent w/ keflex but did not take doxy. Getting vanc + zosyn. ID recommending fu for UCX, BCX. # bilateral infection of popliteal fossae > Echo(06/17/19): LVF 65-70%, normal RV funct, PASP >38mmHg, no vegetations > b/l duplex(06/17/19): neg for DVT, right inguinal chain LN 4.7 x3.8 x0.9cm - abx: vanc/ zosyn 3.375 --day 3 - Vanc trough before 4th dose, trough should be between 15-20 - ID consulted, Dr. Amado, appreciate recommendations -- cw IV abx - fu ESR/ CRP --pt refusing labs - HIV testing --pt refuses - Hepatitis testing --pending - wound care, Dr. Stiles, consulted appreciate reccs -- patient refused bedside I&D -- b/l LE bedside u/s to r/o collection -- will follow #Withdrawal --not in currently in withdrawal, will consider methadone protocol pending Addiction Medicine - consult Addiction Medicine - COWS score 2 - PRN 1mg ativan q6 for CIWA > 9 --dc'd - PO MVT - PO thiamine - PO folate - Nicotine patch 21mg #chronic anemia --likely Fe deficient anemia - Ferrous sulfate 325 mg PO BID #Ppx DVT ppx: Heparin TID #FEN monitor, replete PRN Regular diet #Dispo- admit to [facility] for IV [facility]x, dispo pending transition to oral abx Visit type - Emergency Visit Emergency Visit: No - New Patient This patient is new to me today: No - Critical Care Critical Care patient: No ATTENDING PHYSICIAN STATEMENT I saw and evaluated the patient. I reviewed the resident's note and discussed the case with the resident. I agree with the resident's findings and plan as documented. SUBJECTIVE: OBJECTIVE: ASSESSMENT AND PLAN:
[2019-06-18 13:16] VITALS: BP 109/58; PULSE 97; TEMP 97.7
--- NOTE | 2019-06-18 13:43 | CONSULT ---
Consult Detox [facility] Reason for Current Admission/Consult: History of opioid use and recurrent popliteal abscesses. Referred by:: Nixon Somers - History History of Present Illness: 33 year old female with recurrent abscesses that has a history of opioid use. She states that she last used as per resident day prior to admission. However, as per assessment by house staff she is not having withdrawals and she has been hospitalized for a few days already. - History Source History Provided By: Medical Record Limitations to Obtaining History: No Limitations - Alcohol/Substance Use Hx Alcohol Use: No Hx Substance Use: Yes (heroin up to 7 bags per episode) Hx Substance Use Treatment: No - Past Medical History ...LMP: 05/08/19 Infectious Disease: Yes: MRSA, Other (previously treated for cellulitis/abscess) Psych: Yes: Addictions Dermatology: Yes: Cellulitis, Other (History of popliteal cellulitis/abscess in the past) - Past Surgical History Past Surgical History: Yes: None Assessment Plan - Plan Plan: 1. Opioid Use Disorder: Continue to monitor COWS for withdrawals. If score >12 then consider using methadone detox protocol. However, the likelihood of daily use comes to doubt because by now she should have already had more severe withdrawal symptoms. Patient can also be referred to rehab once she is stable and her treatment of popliteal abscesses are completed or stabilized. Dr. Hager - Medication Detox Regimen/Protocol: Not Applicable (at this time it is not applicable)
--- NOTE | 2019-06-18 16:58 | DS ---
Physical Exam: SUBJECTIVE: Patient seen and examined OBJECTIVE: Vital Signs Period Temp Pulse Resp BP Sys/Ortiz Pulse Ox Last 24 Hr 97.7 F-98.6 F 84-97 18-18 109-118/58-70 100-100 PHYSICAL EXAM GENERAL: The patient is awake, alert, and fully oriented, in no acute distress. COWS 6 HEAD: NC/AT EYES: sclera anicteric, conjunctiva clear. ENT: Ears normal, nares patent, moist mucous membranes. NECK: Trachea midline, full range of motion, supple. LUNGS: Breath sounds equal, clear to auscultation bilaterally, no wheezes, no crackles, no accessory muscle use. HEART: Regular rate and rhythm, S1, S2 without murmur, rub or gallop. ABDOMEN: Soft, nontender, nondistended, no guarding, no rebound. EXTREMITIES: 2+ pulses, warm, well-perfused, no edema. Track collier at ankles. B/ L popliteal fossae with surrounding erythema and ~5cm granulation tissue and fibrinous exudate. L leg wound larger/ deeper than right leg wound. Slightly warm to touch compared to surrounding skin, firm, and painful to palpation bilaterally. No pus able to be expressed. NEUROLOGICAL: Normal speech, gait not observed. COWS 2 PSYCH: Normal mood, normal affect. LABS HOSPITAL COURSE: Pt is a 33 y/o F w pmhx of IVDU (heroin, cocaine and marijuana) presents to ED complaining of bilateral infected leg wounds located in b/l popliteal fossa. Has h/o speedballing. Recent hospitalization at [facility] for popliteal cellulitis for which she was discharge w/ bactrim. Presented to [facility] in May 2019 for worsening wounds. Had admission w/ surgical consult at that time. XR w/o significant findings. Surgery only recommended wound care w/ Santyl, discharged with keflex + doxy. Patient was adherent w/ keflex but did not take doxy. Getting vanc + zosyn. ID recommending fu for UCX, BCX. Surgical consulted recommended bedside I&D but patient refused. Was getting Ativan PRN q6h but dc' d after two uses as pt was deemed to not be in withdrawal. Patient eloped with IV in hand. Date of Admission:06/17/19 Date of Discharge: 06/18/19 Minutes to complete discharge: 20 Discharge Summary Problems reviewed: Yes Reason For Visit: ULCERS PF BOTH LOWER EXTREMITIES,CELLULITIS Current Active Problems Polysubstance (excluding opioids) dependence (Acute) Recurrent cellulitis of lower leg (Acute) - Instructions Disposition: ELOPED - Home Medications Comprehensive Discharge Medication List: Ambulatory Orders Naloxone HCl [Narcan] 4 mg NS ASDIR PRN #1 spray 06/02/19 This patient is new to me today: No Emergency Visit: No Critical Care patient: No - Discharge Referral Referred to [facility] Med [facility] No ATTENDING PHYSICIAN STATEMENT I saw and evaluated the patient. I reviewed the resident's note and discussed the case with the resident. I agree with the resident's findings and plan as documented. SUBJECTIVE: OBJECTIVE: ASSESSMENT AND PLAN:
[2019-06-19] MEDS ORDERED: BACITRACIN 15 GM TUBE TOPICAL OINTMENT TP SCH (10:00)
== END 2019-06-18 16:10 | disposition left against medical advice (07) | DRG 383 ==
LOC: JER 22:33 → JERBED 06-17 01:52 → J6S 06-17 05:48
PROVIDERS: ADMIT Internal Medicine; ATTEND Hospitalist
DX: L03.115 Cellulitis of right lower limb (principal); F12.10 Cannabis abuse, uncomplicated; F17.210 Nicotine dependence, cigarettes, uncomplicated; L97.929 Non-pressure chronic ulcer of unspecified part of left lower leg with unspecified severity; L03.116 Cellulitis of left lower limb; D72.829 Elevated white blood cell count, unspecified; F11.10 Opioid abuse, uncomplicated; D50.9 Iron deficiency anemia, unspecified; L97.919 Non-pressure chronic ulcer of unspecified part of right lower leg with unspecified severity
CPT/HCPCS: 36415; 71045-TC-FY; 73700-TC-RT; 80053; 80307; 81003; 82803; 83605; 84484; 84703; 85025; 85610; 85730; 87040; 87070; 87086; 87186; 87205; 93005; 93010; 93306-TC; 93970-TC; 97116-GP; 97161-GP; 99285-25; J0131; J1644; J7030

== ENCOUNTER 2019-09-22 03:50 | Inpatient (IN) | payer OTHER ==
[2019-09-22 03:58] VITALS: BMI 25.0
--- NOTE | 2019-09-22 04:13 | HP ---
COWS - Scale Resting Pulse: 1= NV 81-100 Sweatin=Flushed/Facial Moisture Restless Observation: 1= Difficult to Sit Still Pupil Size: 1= Pupils >than Normal (Pupils = 3 mm) Bone or Joint Aches: 0= None Runny Nose/ Eye Tearin= Nasal Congestion GI Upset > 30mins: 0= None Tremor Observation: 4= Gross Tremor/Twitching Yawning Observation: 1= 1-2x During Session Anxiety or Irritability: 1=Feels Anxious/Irritable Goose Flesh Skin: 0=Smooth Skin COWS Score: 12 CIWA Score - Admission Criteria [facility] Guidelines: Admission for Medically Managed Detox: Requires at least one of the followin. CIWA greater than 12 2. Seizures within the past 24 hours 3. Delirium tremens within the past 24 hours 4. Hallucinations within the past 24 hours 5. Acute intervention needed for co occurring medical disorder 6. Acute intervention needed for co occurring psychiatric disorder 7. Severe withdrawal that cannot be handled at a lower level of care (continued vomiting, continued diarrhea, abnormal vital signs) requiring intravenous medication and/or fluids 8. Admitting History and Physical - Past Medical History ...LMP: 05/08/19 Infectious Disease: Yes: MRSA, Other (previously treated for cellulitis/abscess) Psych: Yes: Addictions Dermatology: Yes: Cellulitis, Other (History of popliteal cellulitis/abscess in the past) - Past Surgical History Past Surgical History: Yes: None - Smoking History Smoking history: Current every day smoker Have you smoked in the past 12 months: Yes Aproximately how many cigarettes per day: 20 - Alcohol/Substance Use Hx Alcohol Use: No History of Substance Use: reports: Cocaine, Heroin Date of Last Use: 04/01/17 - Social History ADL: Independent 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 Hx multiple [facility] admissions - Last: Jun 2019. Encouraged to consider a rehab program. LOVE: 0.0 UToc: + DAKOTAH/FEN/MOP Denies seizures or overdoses. Heroin use began at age 23. Currently uses 4-5 bags daily/IV. Last used 6 hrs ago. Has a Narcan kit at home. Cocaine use began at age 18. Currently uses 1 gm/day. Uses IV. Nicotine use began at age 18. Smokes 1 PPD. Denies alcohol use. PMHx: Hx multiple episodes of cellulitis of BLE. EK04/03/19: WNL Quantiferon/TB Gold: 04/04/19: Negative MHHx: Denies depression. Denies thoughts of harming self or others. SHx: Domiciled. Unemployed. Denies current legal issues. Patient Name: Valorie Edgar Date: 1985 Address: [address] [place] [address] Sex: Female Rx Written Rx Dispensed Drug Quantity Days Supply Prescriber Name 06/28/2019 06/28/2019 buprenorphine-naloxone 2-0.5 mg sl tablet 36 9 Amalia Loydlane HELM-Agnp Patient Name: Valorie Edgar Date: 1985 Address: [place] [address] Sex: Female Rx Written Rx Dispensed Drug Quantity Days Supply Prescriber Name 06/28/2019 06/28/2019 chlordiazepoxide 5 mg capsule 22 3 Nel Loyd MS-Agnp 06/28/2019 06/28/2019 chlordiazepoxide 10 mg capsule 44 6 Nel Loyd MS-Agnp Patient Name: Valorie Edgar Date: 1985 Address: [address] [place] [address] Sex: Female Rx Written Rx Dispensed Drug Quantity Days Supply Prescriber Name 06/03/2019 06/03/2019 zubsolv 5.7-1.4 mg tablet sl 7 7 Abran Nevarez 06/03/2019 06/03/2019 clonazepam 0.5 mg tablet 30 10 Abran Nevarez 05/07/2019 05/07/2019 clonazepam 0.5 mg tablet 30 10 Abran Nevarez 04/18/2019 04/18/2019 clonazepam 0.5 mg tablet 30 10 Abran Nevarez 04/18/2019 04/18/2019 zubsolv 5.7-1.4 mg tablet sl 7 7 bAran Nevarez 03/11/2019 03/16/2019 zubsolv 1.4-0.36 mg tablet sl 30 15 Abran Nevarez 02/27/2019 02/27/2019 zubsolv 1.4-0.36 mg tablet sl 14 7 Abran Nevarez 02/21/2019 02/21/2019 zubsolv 1.4-0.36 mg tablet sl 14 7 Abran Nevarez Patient Name: Valorie Edgar Date: 1985 Address: [address] [place] [address] Sex: Female Rx Written Rx Dispensed Drug Quantity Days Supply Prescriber Name 04/23/2019 05/08/2019 sublocade 300 mg/1.5 ml syring 1gm 30 Abran Nevarez Exam Limitations: No Limitations - Ebola screening Have you traveled outside of the country in the last 21 days: No Have you had contact with anyone from an Ebola affected area: No Have you been sick,other than usual withdrawal symptoms: No Do you have a fever: No - Review of Systems Constitutional: Chills, Weight Stable EENT: reports: Nose Congestion Respiratory: reports: No Symptoms reported Cardiac: reports: No Symptoms Reported GI: reports: No Symptoms Reported : reports: No Symptoms Reported Musculoskeletal: reports: No Symptoms Reported Integumentary: reports: No Symptoms Reported Neuro: reports: Tremors Endocrine: reports: No Symptoms Reported Hematology: reports: Anemia (Decreased HGB/HCT) Psychiatric: reports: Judgement Intact, Orientated x3, Anxious Patient History - Patient Medical History Hx Anemia: Yes (Not on medication) Hx Asthma: No Hx Chronic Obstructive Pulmonary Disease (COPD): No Hx Cancer: No Hx Cardiac Disorders: No Hx Congestive Heart Failure: No Hx Hypertension: No Hx Hypercholesterolemia: No Hx Pacemaker: No HX Cerebrovascular Accident: No Hx Seizures: No Hx Dementia: No Hx Diabetes: No Hx Gastrointestinal Disorders: No Hx Liver Disease: No Hx Genitourinary Disorders: No Hx Sexually Transmitted Disorders: No Hx Renal Disease (ESRD): No Hx Thyroid Disease: No Hx Human Immunodeficiency Virus (HIV): No (Negative 2017) Hx Hepatitis C: No (Negative 2016) Hx Depression: No Hx Suicide Attempt: No Hx Bipolar Disorder: No Hx Schizophrenia: No - Patient Surgical History Past Surgical History: No Hx Neurologic Surgery: No Hx Cataract Extraction: No Hx Cardiac Surgery: No Hx Lung Surgery: No Hx Breast Surgery: No Hx Breast Biopsy: No Hx Abdominal Surgery: No Hx Appendectomy: No Hx Cholecystectomy: No Hx Genitourinary Surgery: No Hx Section: No Hx Orthopedic Surgery: No Hx Hysterectomy: No Anesthesia Reaction: No - PPD History Previous Implant?: Yes (Blood for TB Gold) Documented Results: Negative w/proof Implanted On Prior [facility] Admission?: Yes Date: 04/04/19 Results: TB test (QFT) n PPD to be Administered?: No - Reproductive History Patient is a Female of Child Bearing Age (11 -55 yrs old): Yes Last Menstrual Period: 09/04/19 Patient : No - Smoking Cessation Smoking history: Current every day smoker Have you smoked in the past 12 months: Yes Aproximately how many cigarettes per day: 20 Cigars Per Day: 0 Hx Chewing Tobacco Use: No Initiated information on smoking cessation: Yes 'Breaking Loose' booklet given: 09/22/19 - Substance & Tx. History Hx Alcohol Use: No Hx Substance Use: Yes Substance Use Type: Cocaine, Heroin Hx Substance Use Treatment: Yes (detox, rehab, denies MAT programs) Admission Physical Exam [facility] - Vital Signs Vital Signs: Vital Signs - 24 hr 09/22/19 03:55 Temperature 97.2 F L Pulse Rate 95 H Respiratory 16 Rate Blood Pressure 130/78 - Physical General Appearance: Yes: Nourished, Mild Distress, Sweating (Increased facial moisture) HEENTM: Yes: EOMI, Hearing grossly Normal, Normal ENT Inspection, Normocephalic , Normal Voice, DANIEL (Pupils = 3 mm), Nasal Congestion Respiratory: Yes: Lungs Clear, Normal Breath Sounds, No Respiratory Distress Neck: Yes: No masses,lesions,Nodules, Supple Breast: Yes: Breast Exam Deferred Cardiology: Yes: Regular Rhythm, Regular Rate, S1, S2, Edema (BLE edema toes to below knee. Some pitting. Pedal pulses present.) Abdominal: Yes: Normal Bowel Sounds, Non Tender, Flat, Soft Genitourinary: Yes: Within Normal Limits Back: Yes: Normal Inspection Musculoskeletal: Yes: full range of Motion, Gait Steady Extremities: Yes: Normal Capillary Refill 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: Yes: license distributor II-XII NML intact, Fully Oriented, Alert, Motor Strength 5/5, Normal Response Integumentary: Yes: Normal Color, Warm, Track Schmidt (Few needle schmidt on arms and feet. No increased erythema, warmth or induration.) Lymphatic: Yes: Within Normal Limits - Diagnostic (1) IV drug user Current Visit: Yes Status: Chronic (2) Nicotine dependence Current Visit: Yes Status: Chronic Qualifiers: Nicotine product type: cigarettes Substance use status: in withdrawal Qualified Code(s): F17.213 - Nicotine dependence, cigarettes, with withdrawal (3) Opioid dependence with withdrawal Current Visit: Yes Status: Acute (4) Anemia Current Visit: Yes Status: Chronic Qualifiers: Anemia type: iron deficiency Iron deficiency anemia type: unspecified iron deficiency Qualified Code(s): D50.9 - Iron deficiency anemia, unspecified (5) Cocaine abuse, uncomplicated Current Visit: Yes Status: Chronic Cleared for Admission S - Detox or Rehab [facility] Level of Care: Medically Managed Detox Regimen/Protocol: Methadone Claeared for Rehab Admission: No Screened but not Admitted - Documentation of Visit Screened but not Admitted: No Breathalyzer - Breathalyzer Breathalyzer: 0 Urine Drug Screen - Test Device Lot number: [id number] Expiration date: 07/08/21 - Control Is test valid?: Yes - Results Drug screen NEGATIVE: No Urine drug screen results: DAKOTAH-Cocaine, FEN-Fentanyl, MOP-Opiates Inpatient Rehab Admission - Rehab Decision to Admit Inpatient rehab admission?: No
[2019-09-22] MEDS ORDERED: MENTHOL/PHENOL 1 EACH UD MM PRN (05:00)
[2019-09-22] MEDS ORDERED: METHOCARBAMOL 500 MG TABLET PO PRN (05:00)
[2019-09-22] MEDS ORDERED: MAG HYDROX/AL HYDROX/SIMETH 30 ML UNIT-DOSE CUP PO PRN (05:00)
[2019-09-22] MEDS ORDERED: PROCHLORPERAZINE MALEATE 5 MG TABLET PO PRN (05:00)
[2019-09-22] MEDS ORDERED: BISMUTH SUBSALICYLATE 524 MG/30 ML UD PO PRN (05:00)
[2019-09-22] MEDS ORDERED: cloNIDine HCL 0.1 MG TABLET PO PRN (05:00)
[2019-09-22] MEDS ORDERED: MAGNESIUM HYDROX 2400MG/30ML ORAL SUSPENSION 30 ML CUP PO PRN (05:00)
[2019-09-22] MEDS ORDERED: MAGNESIUM CITRATE 300 ML BOTTLE PO PRN (05:00)
[2019-09-22] MEDS ORDERED: ACETAMINOPHEN 325 MG TABLET (FP) PO PRN ×2 (05:00)
[2019-09-22] MEDS ORDERED: IBUPROFEN 400 MG TABLET (FP) PO PRN (05:00)
[2019-09-22] MEDS: NICOTINE POLACRILEX 2 MG GUM BUC PRN ×5 (06:37→22:18)
[2019-09-22] MEDS ORDERED: METHADONE HCL 10 MG TABLET (FOR DETOX USE ONLY) PO ONE (10:00)
[2019-09-22 10:11] LABS: HEMOGLOBIN 8.9 GM/dL (10.7-15.3); MCH 23.2 pg (25.7-33.7); MCHC 31.9 g/dl (32.0-36.0); MEAN CELL VOLUME 72.7 fl (80-96); MEAN PLT VOLUME 8.4 fl (7.5-11.1); PLATELET COUNT 459 K/MM3 (134-434); RBC 3.85 M/mm3 (3.60-5.2); RDW 19.4 % (11.6-15.6); WHITE BLOOD COUNT 7.4 K/mm3 (4.0-10.0)
[2019-09-22] MEDS: PRENATAL VITAMINS W/ FOLIC ACID TABLET (FP) PO SCH (10:24)
[2019-09-22] MEDS: NICOTINE 21 MG/24 HOURS TOPICAL PATCH TD SCH (10:24)
--- NOTE | 2019-09-22 10:45 | PN ---
BHS COWS - Scale Resting Pulse: 1= ND 81-100 Sweatin= No chills or Flushing Restless Observation: 0= Sits Still Pupil Size: 1= Pupils >than Normal Bone or Joint Aches: 2= Severe Diffuse Aches Runny Nose/ Eye Tearin= None GI Upset > 30mins: 1= Stomach Cramp Tremor Observation of Outstretched Hands: 2= Slight Tremor Visible Yawning Observation: 0= None Anxiety or Irritability: 1=Feels Anxious/Irritable Goose Flesh Skin: 3=Piloerection COWS Score: 11 BHS Progress Note (SOAP) Subjective: 34 years old female admitted on 09/22/19 for opiate withdrawal sx management treating with methadone detox regiment feeling tired resting in bed limited conversation with staff Objective: 09/22/19 10:44 Vital Signs Temperature 96.7 F L 09/22/19 09:10 Pulse Rate 89 09/22/19 09:10 Respiratory Rate 18 09/22/19 09:10 Blood Pressure 109/60 09/22/19 09:10 O2 Sat by Pulse Oximetry (%) Laboratory Last Values WBC 7.4 K/mm3 (4.0-10.0) 09/22/19 07:20 RBC 3.85 M/mm3 (3.60-5.2) 09/22/19 07:20 Hgb 8.9 GM/dL (10.7-15.3) L 09/22/19 07:20 Hct 28.0 % (32.4-45.2) L 09/22/19 07:20 MCV 72.7 fl (80-96) L 09/22/19 07:20 MCH 23.2 pg (25.7-33.7) L 09/22/19 07:20 MCHC 31.9 g/dl (32.0-36.0) L 09/22/19 07:20 RDW 19.4 % (11.6-15.6) H 09/22/19 07:20 Plt Count 459 K/MM3 (134-434) H D 09/22/19 07:20 MPV 8.4 fl (7.5-11.1) 09/22/19 07:20 lab noted Assessment: 09/22/19 10:44 opiate withdrawal Plan: methadone regiment
[2019-09-22 10:47] LABS: BILIRUBIN,TOTAL 0.5 mg/dL (0.2-1); BLOOD UREA NITROGEN 6.7 mg/dL (7-18); CALCIUM 8.9 mg/dL (8.5-10.1); CREATININE 0.8 mg/dL (0.55-1.3); TOT PROT 6.6 g/dl (6.4-8.2)
[2019-09-22] MEDS: FERROUS GLUCONATE 324 MG TAB (FP) PO SCH (18:34)
[2019-09-22] MEDS: THIAMINE HCL 100 MG TABLET (FP) PO SCH (22:17)
[2019-09-23] MEDS: FERROUS GLUCONATE 324 MG TAB (FP) PO SCH ×3 (08:28→17:25)
[2019-09-23] MEDS ORDERED: METHADONE HCL 10 MG TABLET (FOR DETOX USE ONLY) ONE (09:50)
[2019-09-23] MEDS ORDERED: METHADONE HCL 5 MG TABLET (FOR DETOX USE ONLY) ONE (09:50)
[2019-09-23] MEDS ORDERED: METHADONE (DETOX) 20 MG, METHADONE (DETOX) 5 MG PO ONE (10:00)
[2019-09-23] MEDS: PRENATAL VITAMINS W/ FOLIC ACID TABLET (FP) PO SCH (10:30)
[2019-09-23] MEDS: NICOTINE 21 MG/24 HOURS TOPICAL PATCH TD SCH (10:30)
[2019-09-23] MEDS: NICOTINE POLACRILEX 2 MG GUM BUC PRN ×5 (10:31→22:07)
--- NOTE | 2019-09-23 11:35 | PN ---
BHS COWS - Scale Resting Pulse: 1= PA 81-100 Sweatin= Chills/Flushing Restless Observation: 0= Sits Still Pupil Size: 1= Pupils >than Normal Bone or Joint Aches: 1= Mild Discomfort Runny Nose/ Eye Tearin= None GI Upset > 30mins: 1= Stomach Cramp Tremor Observation of Outstretched Hands: 0= None Yawning Observation: 0= None Anxiety or Irritability: 1=Feels Anxious/Irritable Goose Flesh Skin: 3=Piloerection COWS Score: 9 BHS Progress Note (SOAP) Subjective: 34 years old female admitted on 09/22/19 for opiate withdrawal sx management treating with methadone detox regiment feeling ok today less joints pain but anxious and tired encourage to attend behavior and psychosocial therapies groups and meetings Objective: 09/23/19 11:42 Vital Signs Temperature 97.8 F 09/23/19 08:37 Pulse Rate 89 09/23/19 08:37 Respiratory Rate 18 09/23/19 08:37 Blood Pressure 117/74 09/23/19 08:37 O2 Sat by Pulse Oximetry (%) Laboratory Last Values WBC 7.4 K/mm3 (4.0-10.0) 09/22/19 07:20 RBC 3.85 M/mm3 (3.60-5.2) 09/22/19 07:20 Hgb 8.9 GM/dL (10.7-15.3) L 09/22/19 07:20 Hct 28.0 % (32.4-45.2) L 09/22/19 07:20 MCV 72.7 fl (80-96) L 09/22/19 07:20 MCH 23.2 pg (25.7-33.7) L 09/22/19 07:20 MCHC 31.9 g/dl (32.0-36.0) L 09/22/19 07:20 RDW 19.4 % (11.6-15.6) H 09/22/19 07:20 Plt Count 459 K/MM3 (134-434) H D 09/22/19 07:20 MPV 8.4 fl (7.5-11.1) 09/22/19 07:20 Sodium 139 mmol/L (136-145) 02/09/20 07:20 Potassium 4.0 mmol/L (3.5-5.1) 09/22/19 07:20 Chloride 104 mmol/L (98-107) 09/22/19 07:20 Carbon Dioxide 29 mmol/L (21-32) 09/22/19 07:20 Anion Gap 6 MMOL/L (8-16) L 09/22/19 07:20 BUN 6.7 mg/dL (7-18) L 09/22/19 07:20 Creatinine 0.8 mg/dL (0.55-1.3) 09/22/19 07:20 Est GFR (CKD-EPI)AfAm 113.06 09/22/19 07:20 Est GFR (CKD-EPI)NonAf 97.55 09/22/19 07:20 Random Glucose 85 mg/dL (74-106) 09/22/19 07:20 Calcium 8.9 mg/dL (8.5-10.1) 09/22/19 07:20 Total Bilirubin 0.5 mg/dL (0.2-1) 09/22/19 07:20 AST 26 U/L (15-37) 09/22/19 07:20 ALT 42 U/L (13-61) 09/22/19 07:20 Alkaline Phosphatase 72 U/L (45-117) 09/22/19 07:20 Total Protein 6.6 g/dl (6.4-8.2) 09/22/19 07:20 Albumin 3.0 g/dl (3.4-5.0) L 09/22/19 07:20 POC Urine HCG, Qual Negative 09/22/19 03:58 RPR Titer Nonreactive (NONREACTIVE) 09/22/19 07:20 lab noted anemia Assessment: 09/23/19 11:45 opiate withdrawal Plan: methadone regiment
[2019-09-23 17:56] LABS: PH,URINE >= 9.0 (5.0-8.0); URINE APPEARANCE CLEAR; URINE BILIRUBIN NEGATIVE (NEGATIVE); URINE COLOR YELLOW; URINE GLUCOSE (UA) NEGATIVE (NEGATIVE); URINE KETONE NEGATIVE (NEGATIVE); URINE LEUK ESTERASE NEGATIVE (NEGATIVE); URINE NITRITE NEGATIVE (NEGATIVE); URINE PROTEIN NEGATIVE (NEGATIVE); URINE UROBILINOGEN 0.2 mg/dL (0.2-1.0)
[2019-09-23] MEDS: MELATONIN 5 MG TABLETS PO PRN (22:06)
[2019-09-23] MEDS: THIAMINE HCL 100 MG TABLET (FP) PO SCH (22:06)
[2019-09-24] MEDS: FERROUS GLUCONATE 324 MG TAB (FP) PO SCH ×3 (07:58→18:33)
[2019-09-24] MEDS: PRENATAL VITAMINS W/ FOLIC ACID TABLET (FP) PO SCH (09:48)
[2019-09-24] MEDS: NICOTINE 21 MG/24 HOURS TOPICAL PATCH TD SCH (09:49)
[2019-09-24] MEDS: NICOTINE POLACRILEX 2 MG GUM BUC PRN ×5 (09:49→21:55)
[2019-09-24] MEDS ORDERED: METHADONE HCL 10 MG TABLET (FOR DETOX USE ONLY) PO ONE (10:00)
--- NOTE | 2019-09-24 12:52 | PN ---
BHS COWS - Scale Resting Pulse: 1= [place] 81-100 Sweatin= Chills/Flushing Restless Observation: 0= Sits Still Pupil Size: 1= Pupils >than Normal Bone or Joint Aches: 1= Mild Discomfort Runny Nose/ Eye Tearin= None GI Upset > 30mins: 1= Stomach Cramp Tremor Observation of Outstretched Hands: 1= Tremor [place], Not Seen Yawning Observation: 0= None Anxiety or Irritability: 1=Feels Anxious/Irritable Goose Flesh Skin: 0=Smooth Skin COWS Score: 7 BHS Progress Note (SOAP) Subjective: 34 years old female admitted on 09/22/19 for opiate withdrawal sx management treating with methadone detox regiment feeling ok today ate breakfast and lunch in own room encourage the patient to attend behavior and psychosocial therapies groups and meetings while in detox Objective: 09/24/19 12:53 Vital Signs Temperature 97.5 F L 09/24/19 08:40 Pulse Rate 88 09/24/19 08:40 Respiratory Rate 18 09/24/19 08:40 Blood Pressure 103/68 09/24/19 08:40 O2 Sat by Pulse Oximetry (%) Laboratory Last Values WBC 7.4 K/mm3 (4.0-10.0) 09/22/19 07:20 RBC 3.85 M/mm3 (3.60-5.2) 09/22/19 07:20 Hgb 8.9 GM/dL (10.7-15.3) L 09/22/19 07:20 Hct 28.0 % (32.4-45.2) L 09/22/19 07:20 MCV 72.7 fl (80-96) L 09/22/19 07:20 MCH 23.2 pg (25.7-33.7) L 09/22/19 07:20 MCHC 31.9 g/dl (32.0-36.0) L 09/22/19 07:20 RDW 19.4 % (11.6-15.6) H 09/22/19 07:20 Plt Count 459 K/MM3 (134-434) H D 09/22/19 07:20 MPV 8.4 fl (7.5-11.1) 09/22/19 07:20 Sodium 139 mmol/L (136-145) 09/22/19 07:20 Potassium 4.0 mmol/L (3.5-5.1) 09/22/19 07:20 Chloride 104 mmol/L (98-107) 09/22/19 07:20 Carbon Dioxide 29 mmol/L (21-32) 09/22/19 07:20 Anion Gap 6 MMOL/L (8-16) L 09/22/19 07:20 BUN 6.7 mg/dL (7-18) L 09/22/19 07:20 Creatinine 0.8 mg/dL (0.55-1.3) 09/22/19 07:20 Est GFR (CKD-EPI)AfAm 113.06 09/22/19 07:20 Est GFR (CKD-EPI)NonAf 97.55 09/22/19 07:20 Random Glucose 85 mg/dL (74-106) 09/22/19 07:20 Calcium 8.9 mg/dL (8.5-10.1) 09/22/19 07:20 Total Bilirubin 0.5 mg/dL (0.2-1) 09/22/19 07:20 AST 26 U/L (15-37) 09/22/19 07:20 ALT 42 U/L (13-61) 09/22/19 07:20 Alkaline Phosphatase 72 U/L (45-117) 09/22/19 07:20 Total Protein 6.6 g/dl (6.4-8.2) 09/22/19 07:20 Albumin 3.0 g/dl (3.4-5.0) L 09/22/19 07:20 Urine Color Yellow 09/23/19 13:41 Urine Appearance Clear 09/23/19 13:41 Urine pH >= 9.0 (5.0-8.0) H D 09/23/19 13:41 Ur Specific [place] 1.012 (1.010-1.035) 09/23/19 13:41 Urine Protein Negative (NEGATIVE) 09/23/19 13:41 Urine Glucose (UA) Negative (NEGATIVE) 09/23/19 13:41 Urine Ketones Negative (NEGATIVE) 09/23/19 13:41 Urine Blood Negative (NEGATIVE) 09/23/19 13:41 Urine Nitrite Negative (NEGATIVE) 09/23/19 13:41 Urine Bilirubin Negative (NEGATIVE) 09/23/19 13:41 Urine Urobilinogen 0.2 mg/dL (0.2-1.0) 09/23/19 13:41 Ur Leukocyte Esterase Negative (NEGATIVE) 09/23/19 13:41 POC Urine HCG, Qual Negative 09/22/19 03:58 RPR Titer Nonreactive (NONREACTIVE) 09/22/19 07:20 lab noted Assessment: 09/24/19 12:53 opiate withdrawal Plan: methadone regiment
[2019-09-24] MEDS: MELATONIN 5 MG TABLETS PO PRN (21:54)
[2019-09-24] MEDS: THIAMINE HCL 100 MG TABLET (FP) PO SCH (21:55)
[2019-09-25] MEDS: NICOTINE POLACRILEX 2 MG GUM BUC PRN ×6 (06:07→22:01)
[2019-09-25] MEDS: FERROUS GLUCONATE 324 MG TAB (FP) PO SCH ×3 (07:57→16:52)
[2019-09-25] MEDS ORDERED: METHADONE HCL 10 MG TABLET (FOR DETOX USE ONLY) ONE (09:35)
[2019-09-25] MEDS ORDERED: METHADONE HCL 5 MG TABLET (FOR DETOX USE ONLY) ONE (09:35)
[2019-09-25] MEDS: PRENATAL VITAMINS W/ FOLIC ACID TABLET (FP) PO SCH (09:48)
[2019-09-25] MEDS: NICOTINE 21 MG/24 HOURS TOPICAL PATCH TD SCH (09:48)
[2019-09-25] MEDS ORDERED: METHADONE (DETOX) 10 MG, METHADONE (DETOX) 5 MG PO ONE (10:00)
--- NOTE | 2019-09-25 12:41 | PN ---
BHS COWS - Scale Resting Pulse: 1= [place] 81-100 Sweatin= No chills or Flushing Restless Observation: 0= Sits Still Pupil Size: 1= Pupils >than Normal Bone or Joint Aches: 1= Mild Discomfort Runny Nose/ Eye Tearin= None GI Upset > 30mins: 0= None Tremor Observation of Outstretched Hands: 0= None Yawning Observation: 0= None Anxiety or Irritability: 1=Feels Anxious/Irritable Goose Flesh Skin: 0=Smooth Skin COWS Score: 4 BHS Progress Note (SOAP) Subjective: 34 years old female admitted on 09/22/19 for opiate withdrawal sx management treating with methadone detox regiment feeling ok today discussing aftercare with staff encourage to consider medication assisted treatment program and picking up narcan from pharmacy Objective: 09/25/19 12:43 Vital Signs Temperature 97.5 F L 09/25/19 08:54 Pulse Rate 83 09/25/19 08:54 Respiratory Rate 18 09/25/19 08:54 Blood Pressure 103/61 09/25/19 08:54 O2 Sat by Pulse Oximetry (%) Laboratory Last Values WBC 7.4 K/mm3 (4.0-10.0) 09/22/19 07:20 RBC 3.85 M/mm3 (3.60-5.2) 09/22/19 07:20 Hgb 8.9 GM/dL (10.7-15.3) L 09/22/19 07:20 Hct 28.0 % (32.4-45.2) L 09/22/19 07:20 MCV 72.7 fl (80-96) L 09/22/19 07:20 MCH 23.2 pg (25.7-33.7) L 09/22/19 07:20 MCHC 31.9 g/dl (32.0-36.0) L 09/22/19 07:20 RDW 19.4 % (11.6-15.6) H 09/22/19 07:20 Plt Count 459 K/MM3 (134-434) H D 09/22/19 07:20 MPV 8.4 fl (7.5-11.1) 09/22/19 07:20 Sodium 139 mmol/L (136-145) 02/09/20 07:20 Potassium 4.0 mmol/L (3.5-5.1) 09/22/19 07:20 Chloride 104 mmol/L (98-107) 09/22/19 07:20 Carbon Dioxide 29 mmol/L (21-32) 09/22/19 07:20 Anion Gap 6 MMOL/L (8-16) L 09/22/19 07:20 BUN 6.7 mg/dL (7-18) L 09/22/19 07:20 Creatinine 0.8 mg/dL (0.55-1.3) 09/22/19 07:20 Est GFR (CKD-EPI)AfAm 113.06 09/22/19 07:20 Est GFR (CKD-EPI)NonAf 97.55 09/22/19 07:20 Random Glucose 85 mg/dL (74-106) 09/22/19 07:20 Calcium 8.9 mg/dL (8.5-10.1) 09/22/19 07:20 Total Bilirubin 0.5 mg/dL (0.2-1) 09/22/19 07:20 AST 26 U/L (15-37) 09/22/19 07:20 ALT 42 U/L (13-61) 09/22/19 07:20 Alkaline Phosphatase 72 U/L (45-117) 09/22/19 07:20 Total Protein 6.6 g/dl (6.4-8.2) 09/22/19 07:20 Albumin 3.0 g/dl (3.4-5.0) L 09/22/19 07:20 Urine Color Yellow 09/23/19 13:41 Urine Appearance Clear 09/23/19 13:41 Urine pH >= 9.0 (5.0-8.0) H D 09/23/19 13:41 Ur Specific [place] 1.012 (1.010-1.035) 09/23/19 13:41 Urine Protein Negative (NEGATIVE) 09/23/19 13:41 Urine Glucose (UA) Negative (NEGATIVE) 09/23/19 13:41 Urine Ketones Negative (NEGATIVE) 09/23/19 13:41 Urine Blood Negative (NEGATIVE) 09/23/19 13:41 Urine Nitrite Negative (NEGATIVE) 09/23/19 13:41 Urine Bilirubin Negative (NEGATIVE) 09/23/19 13:41 Urine Urobilinogen 0.2 mg/dL (0.2-1.0) 09/23/19 13:41 Ur Leukocyte Esterase Negative (NEGATIVE) 09/23/19 13:41 POC Urine HCG, Qual Negative 09/22/19 03:58 RPR Titer Nonreactive (NONREACTIVE) 09/22/19 07:20 lab noted anemia Fe supplement 09/25/19 12:46 Assessment: 09/25/19 12:46 opiate withdrawal Plan: methadone regiment
[2019-09-25] MEDS: MELATONIN 5 MG TABLETS PO PRN (22:00)
[2019-09-25] MEDS: THIAMINE HCL 100 MG TABLET (FP) PO SCH (22:00)
[2019-09-26] MEDS: NICOTINE POLACRILEX 2 MG GUM BUC PRN ×7 (06:19→21:58)
[2019-09-26] MEDS: FERROUS GLUCONATE 324 MG TAB (FP) PO SCH ×3 (08:08→18:11)
[2019-09-26] MEDS ORDERED: METHADONE HCL 10 MG TABLET (FOR DETOX USE ONLY) PO ONE (10:00)
[2019-09-26] MEDS: NICOTINE 21 MG/24 HOURS TOPICAL PATCH TD SCH (10:13)
[2019-09-26] MEDS: PRENATAL VITAMINS W/ FOLIC ACID TABLET (FP) PO SCH (10:14)
--- NOTE | 2019-09-26 12:27 | PN ---
BHS COWS - Scale Resting Pulse: 0= [place] 80 or Below Sweatin= No chills or Flushing Restless Observation: 0= Sits Still Pupil Size: 0= Normal to Room Light Bone or Joint Aches: 0= None Runny Nose/ Eye Tearin= None GI Upset > 30mins: 0= None Tremor Observation of Outstretched Hands: 1= Tremor [place], Not Seen Yawning Observation: 0= None Anxiety or Irritability: 1=Feels Anxious/Irritable Goose Flesh Skin: 0=Smooth Skin COWS Score: 2 BHS Progress Note (SOAP) Subjective: 34 years old female admitted on 09/22/19 for opiate withdrawal sx management treating with methadone detox regiment feeling better today mild body aches encourage the patient to attend behavior and psychosocial therapies groups and meetings Objective: 09/26/19 12:29 Vital Signs Temperature 97.5 F L 09/26/19 08:35 Pulse Rate 77 09/26/19 08:35 Respiratory Rate 16 09/26/19 08:35 Blood Pressure 111/65 09/26/19 08:35 O2 Sat by Pulse Oximetry (%) Laboratory Last Values WBC 7.4 K/mm3 (4.0-10.0) 09/22/19 07:20 RBC 3.85 M/mm3 (3.60-5.2) 09/22/19 07:20 Hgb 8.9 GM/dL (10.7-15.3) L 09/22/19 07:20 Hct 28.0 % (32.4-45.2) L 09/22/19 07:20 MCV 72.7 fl (80-96) L 09/22/19 07:20 MCH 23.2 pg (25.7-33.7) L 09/22/19 07:20 MCHC 31.9 g/dl (32.0-36.0) L 09/22/19 07:20 RDW 19.4 % (11.6-15.6) H 09/22/19 07:20 Plt Count 459 K/MM3 (134-434) H D 09/22/19 07:20 MPV 8.4 fl (7.5-11.1) 09/22/19 07:20 Sodium 139 mmol/L (136-145) 09/22/19 07:20 Potassium 4.0 mmol/L (3.5-5.1) 09/22/19 07:20 Chloride 104 mmol/L (98-107) 09/22/19 07:20 Carbon Dioxide 29 mmol/L (21-32) 09/22/19 07:20 Anion Gap 6 MMOL/L (8-16) L 09/22/19 07:20 BUN 6.7 mg/dL (7-18) L 09/22/19 07:20 Creatinine 0.8 mg/dL (0.55-1.3) 09/22/19 07:20 Est GFR (CKD-EPI)AfAm 113.06 09/22/19 07:20 Est GFR (CKD-EPI)NonAf 97.55 09/22/19 07:20 Random Glucose 85 mg/dL (74-106) 09/22/19 07:20 Calcium 8.9 mg/dL (8.5-10.1) 09/22/19 07:20 Total Bilirubin 0.5 mg/dL (0.2-1) 09/22/19 07:20 AST 26 U/L (15-37) 09/22/19 07:20 ALT 42 U/L (13-61) 09/22/19 07:20 Alkaline Phosphatase 72 U/L (45-117) 09/22/19 07:20 Total Protein 6.6 g/dl (6.4-8.2) 09/22/19 07:20 Albumin 3.0 g/dl (3.4-5.0) L 09/22/19 07:20 Urine Color Yellow 09/23/19 13:41 Urine Appearance Clear 09/23/19 13:41 Urine pH >= 9.0 (5.0-8.0) H D 09/23/19 13:41 Ur Specific [place] 1.012 (1.010-1.035) 09/23/19 13:41 Urine Protein Negative (NEGATIVE) 09/23/19 13:41 Urine Glucose (UA) Negative (NEGATIVE) 09/23/19 13:41 Urine Ketones Negative (NEGATIVE) 09/23/19 13:41 Urine Blood Negative (NEGATIVE) 09/23/19 13:41 Urine Nitrite Negative (NEGATIVE) 09/23/19 13:41 Urine Bilirubin Negative (NEGATIVE) 09/23/19 13:41 Urine Urobilinogen 0.2 mg/dL (0.2-1.0) 09/23/19 13:41 Ur Leukocyte Esterase Negative (NEGATIVE) 09/23/19 13:41 POC Urine HCG, Qual Negative 09/22/19 03:58 RPR Titer Nonreactive (NONREACTIVE) 09/22/19 07:20 lab noted Assessment: 09/26/19 12:29 opiate withdrawal Plan: methadone regiment
[2019-09-26] MEDS: THIAMINE HCL 100 MG TABLET (FP) PO SCH (21:58)
[2019-09-26] MEDS: MELATONIN 5 MG TABLETS PO PRN (21:58)
[2019-09-27] MEDS: NICOTINE POLACRILEX 2 MG GUM BUC PRN ×2 (05:30→07:45)
[2019-09-27] MEDS ORDERED: METHADONE HCL 5 MG TABLET (FOR DETOX USE ONLY) PO ONE (06:00)
[2019-09-27 06:13] VITALS: BP 105/64; PULSE 73; TEMP 97.2
[2019-09-27] MEDS: FERROUS GLUCONATE 324 MG TAB (FP) PO SCH (07:24)
--- NOTE | 2019-09-27 11:40 | PN ---
[facility] CIWA - CIWA Score Nausea/Vomitin-No Nausea/No Vomiting Muscle Tremors: 1-None Visible, but [place] Anxiety: 1-Mildly Anxious Agitation: 1-Slight > Activity Paroxysmal Sweats: No Perspiration Orientation: 0-Oriented Tacttile Disturbances: 0-None Auditory Disturbances: 0-None Visual Disturbances: 0-None Headache: 0-None Present CIWA-Ar Total Score: 3 BHS Progress Note (SOAP) Subjective: alert,no complaint Objective: 09/27/19 11:38 Vital Signs Temperature 97.2 F L 09/27/19 06:12 Pulse Rate 73 09/27/19 06:12 Respiratory Rate 18 09/27/19 06:12 Blood Pressure 105/64 09/27/19 06:12 O2 Sat by Pulse Oximetry (%) Assessment: 09/27/19 11:38 detox completed,no withdrawal symptom Plan: discharge today,follow up with after care program as arrangement
--- NOTE | 2019-09-27 11:45 | DS ---
[facility] Detox Discharge Summary Admission Date: 09/22/19 Discharge Date: 09/27/19 - History Present History: Opioid Dependence Additional Comments: alert,oriented x 3 ambulation on the unit no abdominal pain no sweating stable for discharge time spending on discharge 35 mins - Physical Exam Results Vital Signs: Vital Signs Temperature 97.2 F L 09/27/19 06:12 Pulse Rate 73 09/27/19 06:12 Respiratory Rate 18 09/27/19 06:12 Blood Pressure 105/64 09/27/19 06:12 O2 Sat by Pulse Oximetry (%) Pertinent Admission Physical Exam Findings: withdrawal signs and symptom Laboratory Last Values WBC 7.4 K/mm3 (4.0-10.0) 09/22/19 07:20 RBC 3.85 M/mm3 (3.60-5.2) 09/22/19 07:20 Hgb 8.9 GM/dL (10.7-15.3) L 09/22/19 07:20 Hct 28.0 % (32.4-45.2) L 09/22/19 07:20 MCV 72.7 fl (80-96) L 09/22/19 07:20 MCH 23.2 pg (25.7-33.7) L 09/22/19 07:20 MCHC 31.9 g/dl (32.0-36.0) L 09/22/19 07:20 RDW 19.4 % (11.6-15.6) H 09/22/19 07:20 Plt Count 459 K/MM3 (134-434) H D 09/22/19 07:20 MPV 8.4 fl (7.5-11.1) 09/22/19 07:20 Sodium 139 mmol/L (136-145) 09/22/19 07:20 Potassium 4.0 mmol/L (3.5-5.1) 09/22/19 07:20 Chloride 104 mmol/L (98-107) 09/22/19 07:20 Carbon Dioxide 29 mmol/L (21-32) 09/22/19 07:20 Anion Gap 6 MMOL/L (8-16) L 09/22/19 07:20 BUN 6.7 mg/dL (7-18) L 09/22/19 07:20 Creatinine 0.8 mg/dL (0.55-1.3) 09/22/19 07:20 Est GFR (CKD-EPI)AfAm 113.06 09/22/19 07:20 Est GFR (CKD-EPI)NonAf 97.55 09/22/19 07:20 Random Glucose 85 mg/dL (74-106) 09/22/19 07:20 Calcium 8.9 mg/dL (8.5-10.1) 09/22/19 07:20 Total Bilirubin 0.5 mg/dL (0.2-1) 09/22/19 07:20 AST 26 U/L (15-37) 09/22/19 07:20 ALT 42 U/L (13-61) 09/22/19 07:20 Alkaline Phosphatase 72 U/L (45-117) 09/22/19 07:20 Total Protein 6.6 g/dl (6.4-8.2) 09/22/19 07:20 Albumin 3.0 g/dl (3.4-5.0) L 09/22/19 07:20 Urine Color Yellow 09/23/19 13:41 Urine Appearance Clear 09/23/19 13:41 Urine pH >= 9.0 (5.0-8.0) H D 09/23/19 13:41 Ur Specific [place] 1.012 (1.010-1.035) 09/23/19 13:41 Urine Protein Negative (NEGATIVE) 09/23/19 13:41 Urine Glucose (UA) Negative (NEGATIVE) 09/23/19 13:41 Urine Ketones Negative (NEGATIVE) 09/23/19 13:41 Urine Blood Negative (NEGATIVE) 09/23/19 13:41 Urine Nitrite Negative (NEGATIVE) 09/23/19 13:41 Urine Bilirubin Negative (NEGATIVE) 09/23/19 13:41 Urine Urobilinogen 0.2 mg/dL (0.2-1.0) 09/23/19 13:41 Ur Leukocyte Esterase Negative (NEGATIVE) 09/23/19 13:41 POC Urine HCG, Qual Negative 09/22/19 03:58 RPR Titer Nonreactive (NONREACTIVE) 09/22/19 07:20 Vital Signs Temperature 97.2 F L 09/27/19 06:12 Pulse Rate 73 09/27/19 06:12 Respiratory Rate 18 09/27/19 06:12 Blood Pressure 105/64 09/27/19 06:12 O2 Sat by Pulse Oximetry (%) - Treatment Hospital Course: Detox Protocol Followed, Detoxed Safely, Discharged Condition Good Patient has Accepted a Rehab Referral to: declined - Medication Discharge Medications: Ambulatory Orders Naloxone HCl [Narcan] 4 mg NS ASDIR PRN #1 spray 06/02/19 - Diagnosis (1) Opioid dependence with withdrawal Status: Acute - AMA Did Patient Leave Against Medical Advice: No
== END 2019-09-27 08:38 | disposition home or self-care (01) | DRG 773 ==
LOC: YASAS 03:50 → Y3N 04:53
PROVIDERS: ADMIT Allergy & Immunology; ATTEND Allergy & Immunology
PROC: HZ2ZZZZ Detoxification Services for Substance Abuse Treatment (ICD-10-PCS; principal; 2019-09-22)
DX: F11.23 Opioid dependence with withdrawal (principal); F14.20 Cocaine dependence, uncomplicated; F17.210 Nicotine dependence, cigarettes, uncomplicated; D64.9 Anemia, unspecified
CPT/HCPCS: 36415; 80053; 81003; 81025; 85027; 86593; J0735

== ENCOUNTER 2020-01-18 21:21 | Inpatient (IN) | payer OTHER ==
[2020-01-18 22:24] VITALS: BMI 25.2
[2020-01-18] MEDS ORDERED: MAGNESIUM HYDROX 2400MG/30ML ORAL SUSPENSION 30 ML CUP PO PRN (22:43)
[2020-01-18] MEDS ORDERED: BISMUTH SUBSALICYLATE 524 MG/30 ML UD PO PRN (22:43)
[2020-01-18] MEDS ORDERED: IBUPROFEN 400 MG TABLET (FP) PO PRN (22:43)
[2020-01-18] MEDS ORDERED: cloNIDine HCL 0.1 MG TABLET PO PRN (22:43)
[2020-01-18] MEDS ORDERED: ACETAMINOPHEN 325 MG TABLET (FP) PO PRN ×2 (22:43)
[2020-01-18] MEDS ORDERED: hydrOXYzine PAMOATE 25 MG CAPSULE (FP) PO PRN (22:43)
[2020-01-18] MEDS ORDERED: MAGNESIUM CITRATE 300 ML BOTTLE PO PRN (22:43)
[2020-01-18] MEDS ORDERED: MAG HYDROX/AL HYDROX/SIMETH 30 ML UNIT-DOSE CUP PO PRN (22:43)
[2020-01-18] MEDS ORDERED: MENTHOL/PHENOL 1 EACH UD MM PRN (22:43)
[2020-01-18] MEDS ORDERED: METHOCARBAMOL 500 MG TABLET PO PRN (22:43)
[2020-01-18] MEDS ORDERED: METHADONE HCL 10 MG TABLET (FOR DETOX USE ONLY) PO ONE (23:15)
[2020-01-18] MEDS ORDERED: ONDANSETRON *ODT* 4 MG TABLET SL ONE (23:20)
[2020-01-18] MEDS: NICOTINE POLACRILEX 2 MG GUM BUC PRN (23:51)
[2020-01-19] MEDS: NICOTINE POLACRILEX 2 MG GUM BUC PRN ×5 (01:59→20:48)
[2020-01-19] MEDS: CLINDAMYCIN HCL 150 MG CAPSULE (FP) PO SCH ×3 (05:53→22:09)
[2020-01-19] MEDS ORDERED: METHADONE HCL 10 MG TABLET (FOR DETOX USE ONLY) ONE (09:22)
[2020-01-19] MEDS ORDERED: METHADONE HCL 5 MG TABLET (FOR DETOX USE ONLY) ONE (09:23)
[2020-01-19] MEDS: PRENATAL VITAMINS W/ FOLIC ACID TABLET (FP) PO SCH (09:52)
[2020-01-19] MEDS ORDERED: METHADONE (DETOX) 20 MG, METHADONE (DETOX) 5 MG PO ONE (10:00)
[2020-01-19] MEDS ORDERED: NICOTINE 21 MG/24 HOURS TOPICAL PATCH TD PRN (10:00)
[2020-01-19] MEDS ORDERED: NICOTINE 21 MG/24 HOURS TOPICAL PATCH TD SCH (10:00)
[2020-01-19 11:05] LABS: ALBUMIN 2.7 g/dl (3.4-5.0); BILIRUBIN,TOTAL 0.4 mg/dL (0.2-1); BLOOD UREA NITROGEN 9.3 mg/dL (7-18); CALCIUM 8.9 mg/dL (8.5-10.1); CREATININE 0.8 mg/dL (0.55-1.3); POTASSIUM 4.2 mmol/L (3.5-5.1)
[2020-01-19 11:06] LABS: HEMATOCRIT 26.5 % (32.4-45.2); HEMOGLOBIN 8.2 GM/dL (10.7-15.3); MCH 21.6 pg (25.7-33.7); MCHC 30.8 g/dl (32.0-36.0); MEAN CELL VOLUME 70.1 fl (80-96); MEAN PLT VOLUME 8.6 fl (7.5-11.1); PLATELET COUNT 453 K/MM3 (134-434); RBC 3.78 M/mm3 (3.60-5.2); RDW 17.3 % (11.6-15.6); WHITE BLOOD COUNT 7.9 K/mm3 (4.0-10.0)
[2020-01-19] MEDS: MELATONIN 5 MG TABLETS PO SCH (22:09)
[2020-01-19] MEDS: THIAMINE HCL 100 MG TABLET (FP) PO SCH (22:09)
[2020-01-20] MEDS: CLINDAMYCIN HCL 150 MG CAPSULE (FP) PO SCH ×3 (05:50→21:27)
[2020-01-20] MEDS ORDERED: METHADONE HCL 10 MG TABLET (FOR DETOX USE ONLY) PO ONE (10:00)
[2020-01-20] MEDS: PRENATAL VITAMINS W/ FOLIC ACID TABLET (FP) PO SCH (10:29)
[2020-01-20] MEDS: NICOTINE POLACRILEX 2 MG GUM BUC PRN ×5 (10:30→21:04)
[2020-01-20] MEDS: THIAMINE HCL 100 MG TABLET (FP) PO SCH (21:27)
[2020-01-20] MEDS: MELATONIN 5 MG TABLETS PO SCH (22:26)
[2020-01-21] MEDS: CLINDAMYCIN HCL 150 MG CAPSULE (FP) PO SCH ×3 (06:44→22:30)
[2020-01-21] MEDS ORDERED: METHADONE HCL 10 MG TABLET (FOR DETOX USE ONLY) ONE (09:48)
[2020-01-21] MEDS ORDERED: METHADONE HCL 5 MG TABLET (FOR DETOX USE ONLY) ONE (09:48)
[2020-01-21] MEDS ORDERED: METHADONE (DETOX) 10 MG, METHADONE (DETOX) 5 MG PO ONE (10:00)
[2020-01-21] MEDS: PRENATAL VITAMINS W/ FOLIC ACID TABLET (FP) PO SCH (10:26)
[2020-01-21] MEDS: NICOTINE POLACRILEX 2 MG GUM BUC PRN ×6 (10:28→22:31)
[2020-01-21] MEDS: MELATONIN 5 MG TABLETS PO SCH (22:29)
[2020-01-21] MEDS: THIAMINE HCL 100 MG TABLET (FP) PO SCH (22:30)
[2020-01-22] MEDS: CLINDAMYCIN HCL 150 MG CAPSULE (FP) PO SCH (06:17)
[2020-01-22] MEDS: PRENATAL VITAMINS W/ FOLIC ACID TABLET (FP) PO SCH (09:18)
[2020-01-22] MEDS: NICOTINE POLACRILEX 2 MG GUM BUC PRN ×2 (09:18→11:51)
[2020-01-22] MEDS ORDERED: METHADONE HCL 10 MG TABLET (FOR DETOX USE ONLY) PO ONE (10:00)
[2020-01-22 13:31] VITALS: BP 101/61; PULSE 88; TEMP 98.4
[2020-01-23] MEDS ORDERED: METHADONE HCL 5 MG TABLET (FOR DETOX USE ONLY) PO ONE (06:00)
== END 2020-01-22 13:17 | disposition home or self-care (01) | DRG 773 ==
LOC: YASAS 21:21 → Y3N 23:01
PROVIDERS: ADMIT Allergy & Immunology; ATTEND Allergy & Immunology
PROC: HZ2ZZZZ Detoxification Services for Substance Abuse Treatment (ICD-10-PCS; principal; 2020-01-18)
DX: F11.23 Opioid dependence with withdrawal (principal); F14.20 Cocaine dependence, uncomplicated; F17.210 Nicotine dependence, cigarettes, uncomplicated; F19.24 Other psychoactive substance dependence with psychoactive substance-induced mood disorder; F41.9 Anxiety disorder, unspecified; D64.9 Anemia, unspecified; L97.929 Non-pressure chronic ulcer of unspecified part of left lower leg with unspecified severity; Z87.440 Personal history of urinary (tract) infections; Z86.14 Personal history of Methicillin resistant Staphylococcus aureus infection; Z87.2 Personal history of diseases of the skin and subcutaneous tissue; Z56.0 Unemployment, unspecified
CPT/HCPCS: 36415; 80053; 81025; 85027; 86780; 93005; 93010; U0003